=== PATIENT | female | born 1955 | race Caucasian/White ===

== ENCOUNTER 2017-11-11 18:54 | Emergency (ER) | payer MEDICARE, OTHER ==
[~2017-11-11] VITALS: Ht 152.4 cm; Wt 107.3 kg
[~2017-11-11 18:54] MED LIST: ABILIFY MAINTE400 M1 IM; AMITRIPTYLINE100 MG PO; ASPIRIN EC81 MG PO; AZITHROMYCIN250 MG PO; CYANOCOBAL1000 MCG/M IM; CYCLOBENZAPRINE10 MG PO; FLUOXETINE HCL20 MG PO; GLUCOPHAGE1000 MG PO; HUMALOG100 UNIT/1 SUB-Q; HUMULIN 70100 UNIT/3 SUB-Q; HYDROXYZINE HCL25 MG PO; IBUPROFEN600 MG PO; LANTUS SOL100 UNIT/1 SQ; LANTUS100 UNITS/ SUB-Q; LISINOPRIL20 MG PO; LOVASTATIN40 MG PO; NITROSTAT0.4 MG SL; NORCO 5-325 TA1 EACH PO; NOVOLOG100 UNITS/ IV; OMEPRAZOLE20 MG PO; OXYBUTYNIN CHLOR5 MG PO; PLAVIX75 MG PO; PREDNISONE20 MG PO; PROAIR HFA8.5 GM IH; PROMETHAZINE-COD5 ML PO; RANITIDINE HCL150 MG PO; SERTRALINE HCL50 MG PO; TRAZODONE HCL150 MG PO
[2017-11-11] MEDS ORDERED: LISINOPRIL20 MG PO (19:05)
[2017-11-11] MEDS ORDERED: OXYBUTYNIN CHLOR5 MG PO (19:05)
[2017-11-11] MEDS ORDERED: RANITIDINE HCL150 MG PO (19:06)
[2017-11-11] MEDS ORDERED: PRAVASTATIN SOD40 MG PO (19:06)
[2017-11-11] MEDS ORDERED: GABAPENTIN100 MG PO (20:43)
== END 2017-11-11 21:02 | disposition home or self-care (01) ==
LOC: ED 18:54
DX: G58.8 Other specified mononeuropathies (principal); I10 Essential (primary) hypertension; F32.9 Major depressive disorder, single episode, unspecified; F41.9 Anxiety disorder, unspecified; Z87.891 Personal history of nicotine dependence; Z88.2 Allergy status to sulfonamides; Z88.8 Allergy status to other drugs, medicaments and biological substances; Z79.899 Other long term (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
CPT/HCPCS: 99283

== ENCOUNTER 2018-08-17 09:25 | Observation (INO) | payer MEDICARE, OTHER ==
[~2018-08-17] VITALS: Ht 152.4 cm; Wt 113.4 kg
[~2018-08-17 09:25] MED LIST changes: +ABILIFY MAINTE300 M1 IM; +ABILIFY5 MG PO; +CROMOLYN SODIUM10 ML OPTH; +DESIPRAMINE HCL25 MG PO; +DICLOFENAC SODI75 MG PO; +FLUTICASONE PRO16 GM; +GABAPENTIN100 MG PO; +NOVOLOG100 UNIT/2 SUB-Q; +PRAVASTATIN SOD40 MG PO; -SERTRALINE HCL50 MG PO; +TRESIBA FL100 UNIT/1 SUB-Q; +TRESIBA100 UNIT/1; +ZOLOFT100 MG PO
--- OUTSIDE RECORDS SUMMARY | 2018-08-17 09:28 | XMS ---
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 - Has Care Guidelines CARE PROVIDERS DEENA DIMAS Internal Medicine 05/09/2018-Current PHONE: Unknown Mila Gonzalez Senior Sql Server Developer/Medical Data Analyst 05/20/2018-Current PHONE: [phone] Mila Gonzalez Primary Care 05/20/2018-Current PHONE: [phone] Dylon has no Care Guidelines for this patient. Care History Medical/Surgical 05/09/2018 [facility] - Patient is currently established with [facility]. If patient is seen in the ED during business hours. Please contact CHWs at [facility]. Care Recommendation: This patient has had 5 or more Emergency Department visits in the last 12 months.\T\nbsp; Patient requires education on the scope and purpose of the ED as an acute care provider not a Primary Care Provider and should not be utilized for chronic conditions.\T\nbsp; These are guidelines and the provider should exercise clinical judgment when providing care. E.D. VISIT COUNT (12 MO.) 4 DANNY Latif TOTAL 4 NOTE: Visits indicate total known visits. ED/UCC VISIT TRACKING (12 MO.) 08/17/2018 09:25 [facility] N[facility] [place] TYPE: Emergency COMPLAINT: - DIFFICULTY BREATHING 05/08/2018 18:35 [facility] [place] TYPE: Emergency COMPLAINT: - SHORTNESS OF BREATH DIAGNOSES: - Other retirement (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 - Unspecified visual disturbance - Chronic obstructive pulmonary disease, unspecified - Allergy status to sulfonamides status - Pure hypercholesterolemia, unspecified - Major depressive disorder, single episode, unspecified - Anxiety disorder, unspecified - Essential (primary) hypertension - Personal history of nicotine dependence - Allergy status to other drugs, medicaments and biological substances status - Other visual disturbances - Type 2 diabetes mellitus without complications - Personal history of transient ischemic attack (TIA), and cerebral infarction without residual deficits - 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 04/09/2018 17:56 [facility] [place] TYPE: Emergency COMPLAINT: - DIZZINESS/FALL DIAGNOSES: - Strain of muscle, fascia and tendon at neck level, initial encounter - 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 [place] TYPE: Emergency COMPLAINT: - LEG SWOLLEN/NO INJURY DIAGNOSES: - Major depressive disorder, single episode, unspecified - Anesthesia of skin - Essential (primary) hypertension - Personal history of nicotine dependence - Anxiety disorder, unspecified - Allergy status to sulfonamides status - Allergy status to other drugs, medicaments and biological substances status - Other specified mononeuropathies - Other retirement (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 INPATIENT VISIT TRACKING (12 MO.) No inpatient visits to display in this time frame [email or web address]
[2018-08-17] MEDS ORDERED: MEDROL4 M1 PO (10:48)
--- NOTE | 2018-08-17 14:31 | NUR ---
1430 RN TO ROOM TO GIVE MEDICATION, CBG CHECKED AND LUNCH HAS BEEN ORDERED PER PT. WATER GIVEN. CALL LIGHT WITHIN REACH AND PT HAS NO OTHER CONCERNS AT THIS TIME.
[2018-08-17] MEDS ORDERED: L-METHYLFOLATE15 M1 PO (14:54)
--- NOTE | 2018-08-17 14:58 | EKG ---
[facility] [address] [place], [place] [address] Signed Normal sinus rhythm Normal ECG When compared with ECG of 08-MAY-2018 19:20, No significant change was found Confirmed by HALINA HASSAN MD ([id number]) on 08/17/2018 2:57:54 PM Electronically Signed By: HALINA HASSAN MD 08/17/18 1458 PATIENT NAME: TANNER GUILLEN ANYAJIMMY Electrocardiogram DATE OF : 51 PHYSICIAN: HALINA HASSAN MD REPORT #: [id number] REPORT IS CONFIDENTIAL AND NOT TO BE RELEASED WITHOUT AUTHORIZATION
[2018-08-17] MEDS ORDERED: NORPRAMIN25 MG PO (15:13)
[2018-08-17] MEDS ORDERED: HYOPHEN TABLET1 EACH (15:14)
[2018-08-17] MEDS ORDERED: HYDROXYZINE PA100 MG PO (15:14)
[2018-08-17] MEDS ORDERED: FLOVENT HFA12 G1 INH (15:15)
[2018-08-17] MEDS ORDERED: ANORO ELLIPTA1 EACH INH (15:16)
--- NOTE | 2018-08-17 15:45 | NUR ---
1540 ORTHOSTATIC BP DONE. 1545 RN TO ROOM TO START FLUIDS, SOCKS PLACED ON PT FEET AND IV FLUIDS STARTED. PT RESTING IN BED WATCHING TV, NO OTHER CONCERNS AND CALL LIGHT WITHIN REACH.
--- NOTE | 2018-08-17 17:25 | NUR ---
PT SITTING UP IN BED, ASSESSMENT COMPLETED. PT IS ALERT AND ORIENTED AND DENIES SOB OR PAIN. CALL LIGHT AND H20 IN REACH. 9 UNITS OF INSULIN ADMINISTERED AND PT SET UP WITH DINNER TRAY. PT DENIES NEEDS/CONCERNS. FAMILY AT BEDSODE.
--- NOTE | 2018-08-17 19:14 | NUR ---
pt was given copd education packet and this was discussed in length with poatient. all questions answered and packet at bedside. call light and h20 in reach.
--- NOTE | 2018-08-17 19:21 | NUR ---
REPORT RECEIVED, PT RESTING IN BED, ON 2LNC, NO C/O SOB/CP AT THIS TIME, IV FLUIDS INFUSING PER EMAR WNL, PT DENIES ANY NEEDS AT THIS TIME, CALL LIGHT WITHIN REACH, FALL PRECAUTIONS IN PLACE.
--- NOTE | 2018-08-17 20:01 | NUR ---
HELPED PT TO THE BATHROOM AND BACK TO BED WITH HER FWW. BEDSIDE TABLE AND CALL LIGHT IN REACH.
--- NOTE | 2018-08-17 20:30 | NUR ---
VITALS DONE AND CHARTED. OFFERED FRESH ICE WATER, SHE SAID NO SHE WAS GOING TO GO TO SLEEP. BEDSIDE TABLE AND CALL LIGHT IN REACH. PT NEEDS NOTHING MORE AT THIS TIME.
--- NOTE | 2018-08-17 21:26 | NUR ---
IN ROOM TO ADMIN EVENING MEDS, SHIFT ASSESSMENT COMPLETE, PT AOX4, APPROPRIATE, PT'S CBG 334, 9 UNITS OF INSULIN COVERAGE PROVIDED PER EMAR, PT TOLERATED WELL, PT ON 3LNC, O2 SAT > 90%, PT DENIES ANY SOB/CP AT REST, DOES C/O SOB WITH ANY ACTIVITY SUCH SITTING UP IN BED, PT'S CMS INTACT, HEART SOUNDS REGULAR, PULSES STRONG, EQUAL, PT DENIES ANY NEEDS AT THIS TIME, IV FLUIDS INFUSING PER EMAR WNL, CALL LIGHT WITHIN REACH, FALL PRECAUTIONS IN PLACE.
--- NOTE | 2018-08-17 23:00 | NUR ---
PT RESTING IN BED, EYES CLOSED, BREATHS EVEN, UNLABORED, ON 3LNC, NO C/O SOB/CP, IV FLUIDS INFUSING PER EMAR WNL, CALL LIGHT WITHIN REACH, FALL PRECAUTIONS IN PLACE.
--- NOTE | 2018-08-18 00:41 | NUR ---
PT RESTING IN BED, EYES CLOSED, BREATHS EVEN, UNLABORED, NO REQUESTS AT THIS TIME, IV FLUIDS INFUSING PER EMAR WNL, CALL LIGHT WITHIN REACH.
--- NOTE | 2018-08-18 01:57 | NUR ---
PT RESTING IN BED, AOX4, NO C/O SOB/CP, PT STATES THAT HER BREATHING FEELS BETTER, O2 SAT 90% ON 3LNC, RR 18, LS REMAIN DIMINISHED, FAINT WHEEZES ON LEFT SIDE, WELL UPPER RIGHT LOBES, PT CONTINUES TO HAVE A OCCASIONAL DRY COUGH, NO SPUTUM NOTED, PT ENCOURAGED TO CDB, WELL USE I.S. PT AGREEABLE. NO REQUESTS AT THIS TIME, ASSESSMENT COMPLETE, IV FLUIDS INFUSING PER EMAR WNL, SCD'S ON, CALL LIGHT WITHIN REACH, FALL PRECAUTIONS IN PLACE.
--- NOTE | 2018-08-18 01:58 | NUR ---
VITALS AND I&OS DONE AND CHARTED. FRESH ICE WATER GIVEN. BEDSIDE TABLE AND CALL LIGHT IN REACH. PT NEEDS NOTHING MORE AT THIS TIME.
--- NOTE | 2018-08-18 02:12 | NUR ---
HELPED PT TO THE BATHROOM AND BACK TO BED WITH HER FWW. BEDSIDE TABLE AND CALL LIGHT IN REACH.
--- NOTE | 2018-08-18 04:26 | NUR ---
PT RESTING IN BED, EYES CLOSED, BREATHS EVEN, UNLABORED, NO REQUESTS AT THIS TIME, CALL LIGHT WITHIN REACH, FALL PRECAUTIONS IN PLACE. ON 3LNC, NO C/O SOB/CP. IV FLUIDS INFUSING PER EMAR WNL.
--- NOTE | 2018-08-18 04:54 | NUR ---
PT AOX4 THIS SHIFT, APPROPRIATE, NO C/O PAIN, NO C/O SOB/CP AT REST, PT DOES C/O SOME SOB WITH ACTIVITY, PT'S O2 SAT REMAINS AROUND 90% ON 3LNC, TOLERATING WELL, PT 1 PERSON ASSIST/FWW, IV SL, FLUSHES WELL, SCD'S ON. PT ABLE TO SLEEP WELL THIS SHIFT, VSS, AFEBRILE, ENCOURAGE TO CDB/ USE IS. SCHEDULED NEBS.
--- NOTE | 2018-08-18 05:34 | NUR ---
CALL LIGHT ANSWERED, PT ASSISTED TO BATHROOM, 1PA/FWW, TOLERATED WELL, C/O SOME LIGHT HEADEDNESS WITH AMBULATION BUT RESOLVED QUICKLY WITH REST, PT ON 3LNC, O2 SAT 90-92%, NO C/O SOB/CP, PT BACK TO BED, SCD'S ON, PT STATES HER BREATHING FEELS BETTER COMPARED TO YESTERDAY, RR 20, PT ENCOURAGED TO CDB AND USE I.S, PT ABLE TO REACH 900 ON I.S. THIS MORNING. PT DENIES ANY NEEDS AT THIS TIME, CALL LIGHT WITHIN REACH, VSS.
--- NOTE | 2018-08-18 07:10 | NUR ---
REPORT RECEIVED FROM ROJAS DORAN. PT RESTING ON RIGHT SIDE WITH EYES CLOSED. 3L O2 BY NC IN PLACE. BED RAILS UP. CALL LIGHT WITHIN REACH.
--- NOTE | 2018-08-18 08:42 | NUR ---
patient had no chair in her room, this JOB PLACEMENT OFFICER took the chair from room 119 and put it in room 122
--- NOTE | 2018-08-18 08:58 | NUR ---
MORNING ASSESSMENT AND MEDICATION DUE. THIS RN TO BEDSIDE. PT FINISHED WITH BREAKFAST AND RESTING IN BED. PT ENCORUAGED TO GET UP TO CHAIR. PT AGREES, 1PA, FWW UP TO CHAIR. PULSE OX READS 89%, LUNG SOUNDS DEMINISHED WITH MINIMAL WHEEZES. RT CALLED FOR BREATHING TX. AFTER TX PT REMAINS AT 89%, O2 INCREASED TO 4L BY NC. PT STATES SHE FEELS SOB, NO ACCESSARY MUSCLE USE OR PURSED LIP BREATHING NOTED. PT REPORTS 5/10 PAIN IN LEGS AND HEADACHE. SEE MAR FOR MEDICATION GIVEN. RT CONTINUEING TO MONITOR PT AND O2 LEVEL. DIET 7-UP PROVIDED PER PT REQUEST. CALL LIGHT WITHIN REACH. NO ADDITIONAL REQUESTS OR COMPLAINTS AT THIS TIME.
--- NOTE | 2018-08-18 10:34 | NUR ---
THIS RN TO ROOM WITH MD FOR ROUNDS. PT NO LONGER ON CONTINIOUS PULSE OX. SPOT CHECK SHOWS 90% ON 3L O2. PT ANTICIPATING DISCHARGE. PT REQUESTS COUGH MEDICATION, MD AWARE. NO ADDITIONAL REQUESTS OR COMPLAINTS AT THIS TIME. BED RAILS UP. CALL LIGHT WITHIN REACH.
[2018-08-18] MEDS ORDERED: IPRAT-ALBUT 0.5-3 ML INH (10:37)
[2018-08-18] MEDS ORDERED: DELTASONE20 MG PO (10:40)
[2018-08-18] MEDS ORDERED: TESSALON PERLE100 MG PO (10:41)
[2018-08-18] MEDS ORDERED: TRESIBA FL100 UNIT/1 SUB-Q (10:43)
[2018-08-18] MEDS ORDERED: NOVOLOG100 UNIT/2 SUB-Q (10:44)
--- NOTE | 2018-08-18 11:03 | NUR ---
PT CALL LIGHT ON. PT REQUESTS ASSISTANCE UP TO RESTROOM. SBA, FWW UP TO RESTROOM. PT REQUESTS COUGH MEDICATION. SEE MAR FOR MEDICATION GIVEN. BED RAILS UP. CALL LIGHT WITHIN REACH. PT USES IS, REACHING 1000.
--- NOTE | 2018-08-18 11:45 | NUR ---
CALL RECEIVED FROM CANDACE AT [facility] WHO STATES THEY WILL MEET THE PT AT HER HOUSE AT 3PM TODAY TO DELIVER HOME OXYGEN AND NEBULIZER EQUIPMENT.
--- NOTE | 2018-08-18 12:38 | NUR ---
PT READY FOR DISCHARGE. MEDICATIONS GIVEN. PT UP TO RESTROOM AND ASSISTED WITH DRESSING. PIV DC'D PER PROTOCOL BY NIGEL ROBERTO. WNL, GAUZE AND COBAN APPLIED. VITALS TAKEN. DISCHARGE INSTRUCTIONS REVIEWED WITH PT. PT VERBALIZES UNDERSTANDING AND STATES HER QUESTIONS HAVE BEEN ANSWERED. MASOUD BYRNE CALLED FOR PT. PT WHEELED FROM CLINIC. NO ADDITIONAL REQUESTS CONCERNS, OR COMPLAINTS.
--- NOTE | 2018-08-18 13:05 | NUR ---
HOME OXYGEN TANK APPLIED. TAXI ARRIVED. PT TRANSFERES SELF TO WHEEL CHAIR. HOME OXYGEN TANK SET TO 4L O2 BY OK. PT WHEELED FROM UNIT WITH BELONGINGS. NO REQUESTS, COMPLAINTS, OR QUESTIONS.
--- NOTE | 2018-08-20 11:31 | NUR ---
FAXED CHART NOTES INCLUDING FACE SHEET, HOME O2 QUALIFIER, H AND P, DC SUMMARY AND PACKET. RECIEVED FAX CONFIRMATION. ALSO SPOKE WITH KEKE AND SHE STATES THE PT DID GET SET UP WITH O2.
== END 2018-08-18 13:05 | disposition home or self-care (01) ==
LOC: ED 09:25 → MS 09:26
PROVIDERS: ADMIT Internal Medicine
DX: J44.1 Chronic obstructive pulmonary disease with (acute) exacerbation (principal); J96.91 Respiratory failure, unspecified with hypoxia; E86.0 Dehydration; I10 Essential (primary) hypertension; E78.5 Hyperlipidemia, unspecified; K21.9 Gastro-esophageal reflux disease without esophagitis; R39.15 Urgency of urination; G47.33 Obstructive sleep apnea (adult) (pediatric); E11.9 Type 2 diabetes mellitus without complications; G89.29 Other chronic pain; G25.81 Restless legs syndrome; F41.9 Anxiety disorder, unspecified; F43.10 Post-traumatic stress disorder, unspecified; F20.9 Schizophrenia, unspecified; F19.11 Other psychoactive substance abuse, in remission; F32.9 Major depressive disorder, single episode, unspecified; Z86.73 Personal history of transient ischemic attack (TIA), and cerebral infarction without residual deficits; Z87.891 Personal history of nicotine dependence; Z88.2 Allergy status to sulfonamides; Z88.8 Allergy status to other drugs, medicaments and biological substances; Z79.4 Long term (current) use of insulin; Z79.51 Long term (current) use of inhaled steroids; Z79.52 Long term (current) use of systemic steroids; Z79.899 Other long term (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
CPT/HCPCS: 36415; 71046; 80053; 82803; 85025; 87502; 93005; 93010; 94640; 94761; 99291; G0378; J1100; J1815; J7120; J7512

== ENCOUNTER 2018-09-12 12:13 | Emergency (ER) | payer MEDICARE, OTHER ==
[~2018-09-12] VITALS: Ht 152.4 cm; Wt 113.4 kg
--- OUTSIDE RECORDS SUMMARY | ~2018-09-12 | XMS | Encounter Summary ---
Demographics + + + | Address | [address] | | | [place] [address] | + + + | Home Phone | | + + + | Preferred Language | Unknown | + + + | Marital Status | Unknown | + + + | Congregational Affiliation | Unknown | + + + | Race | Unknown | + + + | Ethnic Group | Unknown | + + + Author + + + | Author | [email or web address] | + + + | Organization | [facility] [email or web address] | + + + | Address [...] Team Providers + +------+ + | Care Electroslag Welding Machine Operator Name | Role | Phone [...] + + | 07/30/ | Refill | [facility] | Jerry Yeager, | | | 2018 | | Endocrinology [address] | [address] RENTAL CLERK | | | | | [place] | | | | | | [place] | | | | | | [address] | | | | | | [phone] | | | +--------+--------+ + + + [...] [place] | | | | | | [address] | | | | | | | | +--------+ + + + + | 12/06/ | Office | Endocrinology | Torres Barrientos, | | | 2019 | Visit | | MD Edwar BROTHERS | | | | | | [place] | | | | | | [place] [address] | | | | | | [phone] | | | | | | | | +--------+ + + + + as of this encounter Visit Diagnoses Not on filein this encounter"
--- OUTSIDE RECORDS SUMMARY | ~2018-09-12 | XMS | Encounter Summary ---
Demographics + + + | Address | [address] | | | [place] [address] | + + + | Home Phone [...] + + + | Author | [employer] | + + + | Organization | [facility] [employer] | + + + | Address [...] Team Providers + +------+ + | Care Grades 1 Through 6 Teacher Name | Role | Phone | + +------+ + | Flavio Dimas DO | PCP | | + +------+ + Reason for Referral Speech Therapy (Routine) + + + + + + + | Status | Reason | Specialty | Diagnoses / | Referred By | Referred To | | | | | Procedures | Contact | Contact | + + + + + + + | Authorized | [employer] HELPER Adult | Speech | Diagnoses | [place], | [facility] Speech | | | | Pathology / | Memory | MD Don | Language | | | | Speech | deficit | [address] | Pathology | | | | Therapy | | [address] | [address] | | | | | | [address] [address] | [address] | | | | | | [place], [place] | [place], [place] | | | | | | [address] | [address] Phone: | | | | | | Phone: | [phone] | | | | | | [phone] | Fax: | | | | | | Fax: | [phone] | | | | | | [phone] | | + + + + + + + Reason for Visit + + + | Reason | Comments | + + + | Establish Care | Evaluation for cognitive function and awareness | + + + Consult and Treat (Routine) + +--------+ + + + + | Status | Reason | Specialty | Diagnoses / | Referred By | Referred To | | | | | Procedures | Contact | Contact | + +--------+ + + + + | Pending | | Neurology | Diagnoses | Tanner, | Jose, | | Review | | | Other | DO Flavio | MD Don | | | | | symptoms and | [address] | [address] | | | | | signs | [address] | [address] | | | | | involving | [address] | [place], [place] | | | | | cognitive | [place], | [address] Phone: | | | | | functions | [place] [address] | [phone] | | | | | and | Phone: | Fax: | | | | | awareness | [phone] | [phone] | | | | | | Fax: | | | | | | | [phone] | | + +--------+ + + + + Encounter Details +--------+---------+ + + + | Date | Type | Department | Care Team | Description | +--------+---------+ + + + | 07/03/ | Office | [facility] | Don Garcia, | Exercise counseling | | 2019 | Visit | [facility] | [address] | (Primary Dx); Memory | | | | [address] | [address] [place], [place] | deficit | | | | [place], [place] | [address] | | | | | [address] | | | | | | [phone] | | | +--------+---------+ + + + [...] + + + as of this encounter Last Filed Vital [...] AM PST | + + + + in this encounter Instructions Patient Instructions - Don Garcia MD - 07/03/2018 10:30 AM PST1- Healthy diet, mental and physical exercises (lumosity). 2- Labs. 3- Follow with sleep specialist for better management of TEE. 4- Follow with psychiatry to try to simplify regimen if possible. 5- Referral to for mental rehabilitation. 6- RTC in 3 months with memory test. in this encounter Progress Notes Don Garcia MD - 07/03/2018 10:30 AM PSTFormatting of this note may be different from the original. Subjective: Patient ID: Antonia Barger is a 62 y.o. female. HPI Dear FLAVIO DIMAS. Thank you for asking us to participate in your patient's care. As you know, Antonia Barger is a 62 y.o. right handed female who presents today for evalu ation of memory deficit. New vitis. Previous neurologist: None. - Onset, context and course: Years; none; progressive. - Localization, quality and severity: Short and usp memory deficit, hard to concentra te, repeat [...] factors: None. - Alleviating factors: None. She is on Trazodone, Abilify and Zoloft. - Previous record/diagnosis and treatment: TP: NR CMP is ok except elevated blood glucose. HGBA1c: 9.4 Vit B12: [address] from 03/2018 was reported normal per report. PCP note mentioned mild chronic microvascular ischemic changes, and MMSE of 29/30. Current Outpatient Prescriptions: ABILIFY MAINTENA 300 MG SUSR, , Disp: , Rfl: Alcohol Swabs (ALCOHOL PREP) 70 % PADS, USE 1 PAD 4 TIMES DAILY, Disp: 100 each, Rfl: 11 ARIPiprazole (ABILIFY) 15 MG tablet, , Disp: , Rfl: Blood Glucose Monitoring Suppl (BLOOD GLUCOSE MONITOR SYSTEM) W/DEVICE device kit, Ple ase use for checking glucose 3 times a day, Disp: 1 each, Rfl: 0 cromolyn (OPTICROM) 4 % ophthalmic solution, , Disp: , Rfl: fluticasone (FLONASE) 50 MCG/ACT nasal, , Disp: , Rfl: glucose blood (FREESTYLE LITE) test strip, 1 each by Other route 3 (three) times daily . Use as instructed to check blood sugar three times daily before meals and at bedtime. E11. 65, Disp: 300 each, Rfl: 3 insulin aspart (NOVOLOG) 100 UNIT/ML injection, INJECT 30 UNITS SUBCUTANEOUSLY THREE T IMES DAILY BEFORE MEAL(S). Dx code E11.65, Disp: 30 mL, Rfl: 11 insulin degludec (TRESIBA) 100 UNIT/ML injection, 60 units once a day, Disp: 30 mL, Rf l: 11 Insulin Pen Needle (PEN NEEDLES) 31G X 5 MM MISC, 1 each by Does not apply route daily ., Disp: 30 each, Rfl: 11 Lancets (FREESTYLE) lancets, 1 each by Other route 3 (three) times daily. Use as instr ucted to check blood sugar three times daily. E11.65, Disp: 300 each, Rfl: 3 lisinopril (ZESTRIL) 20 MG tablet, , Disp: , Rfl: omeprazole (PRILOSEC) 20 MG capsule, , Disp: , Rfl: oxybutynin (DITROPAN) 5 MG tablet, , Disp: , Rfl: pravastatin (PRAVACHOL) 40 MG tablet, TAKE ONE TABLET BY MOUTH ONCE DAILY, Disp: 30 ta blet, Rfl: 3 ranitidine (ZANTAC) 150 MG capsule, , Disp: , Rfl: RELION ALCOHOL SWABS 70 % PADS, USE 1 SWAB EXTERNALLY 4 TIMES DAILY, Disp: 100 each, R fl: 8 RELION INSULIN SYRINGE 1ML/31G 31G X 5/16" 1 ML, , Disp: , Rfl: sertraline (ZOLOFT) 50 MG tablet, , Disp: , Rfl: traZODone (DESYREL) 150 MG tablet, , Disp: , Rfl: TRESIBA FLEXTOUCH 200 UNIT/ML injection, INJECT 60 UNITS SUBCUTANEOUSLY DAILY, Disp: 2 7 mL, Rfl: 3 carbidopa-levodopa (SINEMET) 10-100 MG per tablet, , Disp: , Rfl: FLUoxetine (PROZAC) 20 MG tablet, , Disp: , Rfl: Past Medical History Diagnosis Date COPD (chronic obstructive pulmonary disease) ([facility]) Depression Diabetes mellitus, type 2 (HCC) 1996 Hyperlipidemia Hypertension IBS (irritable bowel syndrome) Neuropathy Family History Problem Relation Age of Onset Adopted: Yes Diabetes type II Mother Cancer Father Cancer Sister Cancer Brother Social History Social History Marital status: Unknown Spouse name: N/A Number of children: N/A Years of education: N/A Occupational History Not on file. Social History Main Topics Smoking status: Former Smoker Quit date: 07/07/2009 Smokeless tobacco: Former User Quit date: 10/05/2010 Alcohol use No Drug use: Unknown Sexual activity: Not on file Other Topics Concern Not on file Social History Narrative No narrative on file Past medical history, family history and social history were reviewed and updated as [facility]. Review of Systems The patient reports appetite change, chills, fatigue, neck pain, hearing loss, drooling, ey e pain, visual disturbance, cough, shortness breath, chest pain, neck swelling, diarrhea, fr equency, arthralgia, back pain, dizziness, headaches, lightheadedness, speech difficulty, we akness, confusion and memory loss, decreased concentration, we will change, hallucination, n ervousness, and sleep disturbance. All other system were reviewed and are negative. Objective: Physical Exam Vitals: Vitals: 07/03/18 1027 BP: 134/77 Pulse: 88 SpO2: 90% General: Well developed, in no acute distress Neck: Supple, unable to appreciate bruits. Heart: S1, S2, no murmur. Peripheral vascular system: Normal pulse in upper extremities. Detailed Neurologic Exam Speech: Is normal; fluent and spontaneous with normal naming and repetition. Cognition: The patient is oriented to person, place, and time. Cranial Nerves: At this time, the pupils are equal, round, and reactive to light. Visual fi elds are full to finger confrontation. Extraocular movements are intact. Trigeminal sensatio n is intact and the muscles of mastication are normal. The face is symmetric. Hearing is sym metric bilaterally to fingers rubbing. The palate elevates in the midline. Voice is normal. Shoulder shrug is normal. The tongue has normal motion without fasciculations. Coordination: Normal finger to nose. Gait: Antalgic and wide based. Observation: No asymmetry, and no involuntary movements noted. Strength: Strength is 5/5 in the upper extremities and 4/5 in lower extremities. Light Touch: Normal light touch sensation in upper and lower extremities. DTR's: Deep tendon reflexes in the upper extremities and knees are normal bilaterally. Assessment and Plan: This patient presented today for evaluation and management of cognitive impairment. she is here today by self. Impression: 1- Memory deficit, mild cognitive impairmeent and due to hearing loss, untreated TEE, mood disorder and medications side effect. 2- Obesity and sleep disorder, per sleep specialist. 3- Mood disorder, per psychiatry. Plan: 1- The differential diagnosis and the necessary work up were discussed with the patient in detail. 2- I reviewed the available medical record and summarized it in my HPI. 3- We discussed the safety issues in detail including safe environment. Was referred to PT and she is using a walker. 4- For #1, labs, WACE test, healthy diet, mental and physical exercises. Refer to ST. Mild cognitive impairment, symptomatic, will hold on medication for now. 5- Was referred to sleep specialist. May benefit from referral to jewel gauger. 6- I covered with the patient all side effects of the regimen and the interaction with othe r medications (her medications may affect her memory). Patient understands and agrees to pro ceed with the regimen / plan. 7- Risk factors modification per PCP. The patient was instructed to follow up with PCP in r egards to the non neurological symptoms listed on the review of symptoms. 8- RTC in 3 months or prn. However, patient was instructed to call with any concern, if sym ptoms are worsening, not improving or if any side effects related to regimen. Follow with psychiatry to try to simplify medications if possible. in this encounter Plan of Treatment +--------+ + [...] | 2018 | Visit | | MD [address] | | | | | | [place], [place] | | | | | | [address] | | | | | | | | +--------+ + + + + | 12/06/ | Office | Endocrinology | Torres Barrientos, | | | 2018 | Visit | | MD [address] | | | | | | [place] | | | | | | [place] [address] | | | | | | [phone] | | | | | | | | +--------+ + + + + + +--------+ + + | Name | Priori | Associated Diagnoses | Order Schedule | | | ty | | | + +--------+ + + | Vitamin B1,whole blood | Routin | Memory deficit | Expected: | | | e | | 07/03/2018, Expires: | | | | | 07/03/2019 | + +--------+ + + | TSH | Routin | Memory deficit | Expected: 07/03/2018 | | | e | | (Approximate), | | | | | Expires: 07/03/2019 | + +--------+ + + + +--------+ + + | Name | Priori | Associated Diagnoses | Order Schedule | | | ty | | | + +--------+ + + | Ambulatory referral to Speech | Routin | Memory deficit | Ordered: 07/03/2018 | | Therapy, Eval and Treat | e | | | + +--------+ + + as of this encounter Visit Diagnoses + + | Diagnosis | + + | Exercise counseling - Primary | + + | Memory deficit | + + | Memory loss | + +
--- OUTSIDE RECORDS SUMMARY | ~2018-09-12 | XMS | Encounter Summary ---
Demographics + + + | Address | [address] | | | [place] [address] | + + + | Home Phone | | + + + | Preferred Language | Unknown | + + + | Marital Status | Unknown | + + + | Jew Affiliation | Unknown | + + + | Race | Unknown | + + + | Ethnic Group | Unknown | + + + Author + + + | Author | [employer] | + + + | Organization | [facility] [employer] | + + + | Address [...] Team Providers + +------+ + | Care Loftsman Name | Role | Phone | + [...] + + | 06/27/ | Refill | [facility] | Torres Barrientos, | | | 2018 | | [address] | [address] | | | | | [address] | [place] | | | | | [place], [place] | [place] [address] | | | | | [address] | [phone] | | | | | [phone] | | | +--------+--------+ + + + [...] [place] | | | | | | [address] | | | | | | | | +--------+ + + + + | 12/06/ | Office | Endocrinology | Torres Barrientos, | | | 2018 | Visit | | MD Ed[address] | | | | | | [address] | | | | | | [place] [address] | | | | | | [phone] | | | | | | | | +--------+ + + + + as of this encounter Visit Diagnoses Not on filein this encounter"
--- OUTSIDE RECORDS SUMMARY | ~2018-09-12 | XMS | Clinical Summary ---
Demographics + + + | Address | [address] | | | [place] [address] | + + + | Home Phone | | + + + | Preferred Language | Unknown | + + + | Marital Status | Unknown | + + + | Buddhism Affiliation | Unknown | + + + | Race | Unknown | + + + | Ethnic Group | Unknown | + + + Author + + + | Author | [employer] | + + + | Organization | [facility] [employer] | + + + | Address [...] Team Providers + +------+ + | Care Speech/Language Therapist Name | Role | Phone | + [...] | | Torres Barrientos, | Follow-up | | 2018 | | | MD | (Reschedule 08/22 | | | | | | appt due to no | | | | | | transportation in | | | | | | this bad weather.) | +--------+ + + + + | 08/06/ | Telephone | | Torres Barrientos, | Follow-up | | 2018 | | | MD | (reschedule) | +--------+ + + + + | 07/30/ | Refill | | Jerry Yeager, | | | 2018 | | | EAR NOSE THROAT PHYSICIAN | | +--------+ + + + + [...] | | 2018 | Visit | | [address] | | | | | | [place] | | | | | | [address] | | | | | | | | +--------+ + + + + | 12/06/ | Office | | Torres Barrientos, | | | 2019 | Visit | | MD [address] | | | | | | [place] | | | | | | [place] [address] | | | | | | [phone] | | | | | | | [...] +------+-------+ + | MEDICARE | MEDICA | [id number] | | | [address] | | | RE | | | | [place] [address] | | | IP-OP | | | | | + +--------+ +------+-------+ + | MEDICAID | GERARDOER | [id number] | | | [address] | | | N | | | | [place] | | | [place] | | | | [address] | | | SENIOR PAINTER | | | | | + +--------+ [...] | [address] | | | al/Fam | | 1956 | [phone] [place] | | | [place] | | | [phone] | [phone] | + +--------+ +--------+ + +
--- OUTSIDE RECORDS SUMMARY | ~2018-09-12 | XMS | Encounter Summary ---
Demographics + + + | Address | [address] | | | [place] [address] | + + + | Home Phone | | + + + | Preferred Language | Unknown | + + + | Marital Status | Unknown | + + + | Scientologist Affiliation | Unknown | + + + | Race | Unknown | + + + | Ethnic Group | Unknown | + + + Author + + + | Author | [employer] | + + + | Organization | [facility] [employer] | + + + | Address [...] Team Providers + +------+ + | Care Family Support Coordinator Name | Role | Phone | + [...] + + | 07/30/ | Refill | [facility] | Jerry Yeager, | | | 2018 | | Endocrinology [address] | COMMERCIAL SPECIALIST | | | | | [address] | | | | | | [place] | | | | | | [address] | | | | | | [phone] | | | +--------+--------+ + + + [...] [place] | | | | | | [address] | | | | | | | | +--------+ + + + + | 12/06/ | Office | Endocrinology | Torres Barrientos, | | | 2019 | Visit | | MD Edwar [address]OTHERS | | | | | | [address] | | | | | | [place] [address] | | | | | | [phone] | | | | | | | | +--------+ + + + + as of this encounter Visit Diagnoses Not on filein this encounter"
--- OUTSIDE RECORDS SUMMARY | ~2018-09-12 | XMS | Encounter Summary ---
Demographics + + + | Address | [address] | | | [place] [address] | + + + | Home Phone | | + + + | Preferred Language | Unknown | + + + | Marital Status | Unknown | + + + | Sikhism Affiliation | Unknown | + + + | Race | Unknown | + + + | Ethnic Group | Unknown | + + + Author + + + | Author | [employer] | + + + | Organization | [facility] [employer] [facility] | + + + | Address [...] Team Providers + +------+ + | Care Wool Carder Name | Role | Phone | + [...] + + | 08/06/ | Telephone | [facility] | Torres Barrientos, | Follow-up | | 2019 | | Endocrinology [address] | MD [address] | (reschedule) | | | | [address] | [place], [place] | | | | | [place], [place] | [place] [address] | | | | | [address] | [phone] | | | | | [phone] | | | +--------+ + + + [...] [place] | | | | | | [id number] | | | | | | | | +--------+ + + + + | 12/06/ | Office | Endocrinology | Torres Barrientos, | | | 2018 | Visit | | MD Edwar [address]OTHERS | | | | | | [address] [place] | | | | | | [place] [address] | | | | | | [phone] | | | | | | | | +--------+ + + + + as of this encounter Visit Diagnoses Not on filein this encounter"
--- OUTSIDE RECORDS SUMMARY | ~2018-09-12 | XMS | Clinical Summary ---
Demographics + + + | Address | [address] | | | [place] [address] | + + + | Home Phone [...] + + + | Author | [employer] [employer] | + + + | Organization | [facility] [facility] | + + + | Address [...] Team Providers + +------+ + | Care Pharmacy Services Director Name | Role | Phone | [...] + | 07/30/ | Refill | | Jeryr Yeager, | | | 2018 | | | RECREATION LEADER | | +--------+ + + + + [...] [place] | | | | | | [address] | | | | | | | | +--------+ + + + + | 12/06/ | Office | | Torres Barrientos, | | | 2019 | Visit | | MD [address] | | | | | | [place] | | | | | | [place] [address] | | | | | | [phone] | | | | | | | [...] +------+-------+ + | MEDICARE | MEDICA | [id number] | | | [address] | | | RE | | | | [place] [address] | | | IP-OP | | | | | + +--------+ +------+-------+ + | MEDICAID | GERARDOER | [id number] | | | [address] | | | N | | | | [place] | | | [place] | | | | [address] | | | TRUCK GUARD | | | | | + +--------+ [...] | [place] | | | [address] | [address] | + +--------+ +--------+ + +
--- OUTSIDE RECORDS SUMMARY | ~2018-09-12 | XMS | Encounter Summary ---
Demographics + + + | Address | [address] | | | [place] [address] | + + + | Home Phone [...] + + + | Author | [employer] [employer] | + + + | Organization | [facility] [employer] [facility] | + + + | Address [...] Team Providers + +------+ + | Care Die Try Out Worker Name | Role | Phone | + [...] + + | 06/27/ | Refill | [facility] | Torres Barrientos, | | | 2018 | | [address] | [address] | | | | | [address] | [place] | | | | | [place], [place] | [place] [address] | | | | | [address] | [phone] | | | | | [phone] | | | +--------+--------+ + + + [...] [place] | | | | | | [address] | | | | | | | | +--------+ + + + + | 12/06/ | Office | Endocrinology | Torres Barrientos, | | | 2018 | Visit | | MD Edwar [address] | | | | | | [place] | | | | | | [place] [address] | | | | | | [phone] | | | | | | | | +--------+ + + + + as of this encounter Visit Diagnoses Not on filein this encounter"
--- OUTSIDE RECORDS SUMMARY | ~2018-09-12 | XMS | Encounter Summary ---
Demographics + + + | Address | [address] | | | [place] [address] | + + + | Home Phone | | + + + | Preferred Language | Unknown | + + + | Marital Status | Unknown | + + + | Lutheran Affiliation | Unknown | + + + | Race | Unknown | + + + | Ethnic Group | Unknown | + + + Author + + + | Author | [employer] [employer] | + + + | Organization | [facility] [employer] | + + + | Address [...] Team Providers + +------+ + | Care Receipt And Report Clerk Name | Role | Phone | + [...] + + | 08/20/ | Telephone | [facility] | Torres Barrientos, | Follow-up | | 2019 | | Endocrinology [address] | MD [address] | (Reschedule 08/22 | | | | [address] | [address] [place] [address] | appt due to no | | | | [place], [place] | [place] [address] | transportation in | | | | [address] | [phone] | this bad weather.) | | | | [phone] | | | +--------+ + + + [...] [place] | | | | | | [address] | | | | | | | | +--------+ + + + + | 12/06/ | Office | Endocrinology | Torres Barrientos, | | | 2019 | Visit | | MD Edwar [address]OTH[address] | | | | | | [place] | | | | | | [place] [address] | | | | | | [phone] | | | | | | | | +--------+ + + + + as of this encounter Visit Diagnoses Not on filein this encounter"
--- OUTSIDE RECORDS SUMMARY | ~2018-09-12 | XMS | Encounter Summary ---
Demographics + + + | Address | [address] | | | [place] [address] | + + + | Home Phone | | + + + | Preferred Language | Unknown | + + + | Marital Status | Unknown | + + + | Temple Affiliation | Unknown | + + + | Race | Unknown | + + + | Ethnic Group | Unknown | + + + Author + + + | Author | [facility] [employer] | + + + | Organization | [facility] [employer] [facility] | + + + | Address [...] Team Providers + +------+ + | Care Integration Director Name | Role | Phone | [...] + + | 08/06/ | Telephone | [facility] | Torres Barrientos, | Follow-up | | 2019 | | Endocrinology [address] | MD [address] | (reschedule) | | | | [address] | [place], [place] | | | | | [place], [place] | [place] [address] | | | | | [address] | [phone] | | | | | [phone] | | | +--------+ + + + [...] | 10/01/ | Office | Neurology | oDn Garcia, | | | 2018 | Visit | | MD [address] | | | | | | [place] | | | | | | [id number] | | | | | | | | +--------+ + + + + | 12/06/ | Office | Endocrinology | Torres Barrientos, | | | 2018 | Visit | | MD [address] | | | | | | [place] | | | | | | [place] [address] | | | | | | [phone] | | | | | | | | +--------+ + + + + as of this encounter Visit Diagnoses Not on filein this encounter"
--- OUTSIDE RECORDS SUMMARY | ~2018-09-12 | XMS | Encounter Summary ---
Demographics + + + | Address | [address] | | | [place] [address] | + + + | Home Phone | | + + + | Preferred Language | Unknown | + + + | Marital Status | Unknown | + + + | Protestant Affiliation | Unknown | + + + | Race | Unknown | + + + | Ethnic Group | Unknown | + + + Author + + + | Author | [employer] [employer] | + + + | Organization | [facility] [employer] [facility] | + + + | Address [...] Team Providers + +------+ + | Care Harness Cleaner Name | Role | Phone | + [...] + + + + | Authorized | [facility]OM[employer]ELDER Adult | Speech | Diagnoses | [place], | [facility] Speech | | | | Pathology / | Memory | MD Don | Language | | | | Speech | deficit | [address] | Pathology | | | | Therapy | | [address] | [address] | | | | | | [place] [address] | [address] | | | | | | [place], [place] | [place], [place] | | | | | | [address] | [address] Phone: | | | | | | Phone: | [phone] | | | | | | [phone] | Fax: | | | | | | Fax: | [phone] | | | | | | [phone] | | + + + + + [...] | | involving | [address] | [place], [place] | | | | | cognitive | [place], | [address] Phone: | | | | | functions | [place] [address] | [phone] | | | | | and | Phone: | Fax: | | | | | awareness | [phone] | [phone] | | | | | | Fax: | | | | | | | [phone] | | + +--------+ + + + + Encounter Details +--------+---------+ + + + | Date | Type | Department | Care Team | Description | +--------+---------+ + + + | 07/03/ | Office | [facility] | Don Garcia, | Exercise counseling | | 2019 | Visit | [facility] | [address] | (Primary Dx); Memory | | | | [address] | [address] [place], [place] | deficit | | | | [place], [place] | [address] | | | | | [address] | | | | | | [phone] | | | +--------+---------+ + + + [...] - Localization, quality and severity: Short and residential memory deficit, hard to concentra te, repeat [...] Date COPD (chronic obstructive pulmonary disease) ([facility]) Depression Diabetes mellitus, type 2 (HCC) [...] sleep specialist. May benefit from referral to cylinder press operator apprentice. 6- I covered with the patient all [...] | | | | | | [place], [place] | | | | | | [address] | | | | | | | | +--------+ + + + + | 12/06/ | Office | Endocrinology | Torres Barrientos, | | | 2018 | Visit | | MD [address] | | | | | | [place] | | | | | | [place] [address] | | | | | | [phone] | | | | | | | [...]
--- OUTSIDE RECORDS SUMMARY | ~2018-09-12 | XMS | Encounter Summary ---
Demographics + + + | Address | [address] | | | [place] [address] | + + + | Home Phone | | + + + | Preferred Language | Unknown | + + + | Marital Status | Unknown | + + + | Jewish Affiliation | Unknown | + + + | Race | Unknown | + + + | Ethnic Group | Unknown | + + + Author + + + | Author | [facility] [employer] | + + + | Organization | [facility] [employer] | + + + | Address [...] Team Providers + +------+ + | Care Mink Rancher Name | Role | Phone | + [...] + + | 08/20/ | Telephone | [facility] | Torres Barrientos, | Follow-up | | 2019 | | Endocrinology [address] | MD [address] | (Reschedule 08/22 | | | | [address] | [address] | appt due to no | | | | [place], [place] | [place] [address] | transportation in | | | | [address] | [phone] | this bad weather.) | | | | [phone] | | | +--------+ + + + [...] [place] | | | | | | [address] | | | | | | | | +--------+ + + + + | 12/06/ | Office | Endocrinology | Torres Barrientos, | | | 2019 | Visit | | MD [address] | | | | | | [place] | | | | | | [place] [address] | | | | | | [phone] | | | | | | | | +--------+ + + + + as of this encounter Visit Diagnoses Not on filein this encounter"
[~2018-09-12 12:13] MED LIST changes: +ANORO ELLIPTA1 EACH INH; +DELTASONE20 MG PO; +FLOVENT HFA12 G1 INH; +HYDROXYZINE PA100 MG PO; +HYOPHEN TABLET1 EACH; +IPRAT-ALBUT 0.5-3 ML INH; +L-METHYLFOLATE15 M1 PO; +MEDROL4 M1 PO; +NORPRAMIN25 MG PO; +TESSALON PERLE100 MG PO
--- OUTSIDE RECORDS SUMMARY | 2018-09-12 12:16 | XMS ---
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 Neon Pumper Events No recent Security Events currently on file CRITERIA MET - [facility] - Has Care Guidelines - [facility] - 2 Visits in 30 Days CARE PROVIDERS DEENA DIMAS Internal Medicine 05/09/2018-Current PHONE: Unknown Mila Gonzalez Assembly Machine Operator/Laborer [place] 05/20/2018-Current PHONE: [phone] Mila Gonzalez Primary Care 05/20/2018-Current PHONE: [phone] Dylon has no Care Guidelines for this patient. Care History Medical/Surgical 05/09/2018 [facility] - Patient is currently established with [facility]. If patient is seen in the ED during business hours. Please contact CHWs at [facility]. Care Recommendation: This patient has [...] providing care. E.D. VISIT COUNT (12 MO.) [address] [facility] TOTAL 5 NOTE: Visits indicate total known visits. ED/C VISIT TRACKING (12 MO.) 09/12/2018 12:14 [facility] [place] TYPE: Emergency COMPLAINT: - LOW OXYGEN SATURATION 08/17/2018 09:25 [facility] [place] TYPE: Emergency COMPLAINT: - DIFFICULTY BREATHING 05/08/2018 18:35 [facility] [place] TYPE: Emergency COMPLAINT: - SHORTNESS OF BREATH DIAGNOSES: - Other nursing home (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 - Unspecified visual disturbance [...] and cerebral infarction without residual deficits - skilled nursing (current) use of insulin 04/09/2018 17:56 [facility] [place] TYPE: Emergency COMPLAINT: - DIZZINESS/FALL DIAGNOSES: - Strain of muscle, fascia and tendon at neck level, initial encounter - 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 - Essential (primary) hypertension - Personal history of nicotine dependence - 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 - Anxiety disorder, unspecified - Allergy status to other drugs, medicaments and biological substances status - Major depressive disorder, single episode, unspecified - Allergy status to sulfonamides status - Chronic obstructive pulmonary disease, unspecified - Type 2 diabetes mellitus without complications - Fall on same level, unspecified, initial encounter - Cervicalgia 11/11/2017 18:54 [facility] [place] TYPE: Emergency COMPLAINT: - LEG SWOLLEN/NO INJURY DIAGNOSES: - Major depressive disorder, single episode, unspecified - Anesthesia of skin - Essential (primary) hypertension - Personal history of nicotine dependence - Anxiety disorder, unspecified - Allergy status to sulfonamides status - Allergy status to other drugs, medicaments and biological substances status - Other specified mononeuropathies - 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 INPATIENT VISIT TRACKING (12 MO.) 08/17/2018 09:26 [facility] [place] TYPE: Medical Surgical COMPLAINT: - COPD EXACERBATION DIAGNOSES: - Essential (primary) hypertension - Gastro-esophageal reflux disease without esophagitis - Major depressive disorder, single episode, unspecified - Chronic obstructive pulmonary disease with (acute) exacerbation - skilled nursing (current) use of insulin - Dyspnea, unspecified - Urgency of urination - Hyperlipidemia, unspecified - Other nursing home (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 - Respiratory failure, unspecified with hypoxia - Allergy status to other drugs, medicaments and biological substances status - Restless legs syndrome - Allergy status to sulfonamides status - Other chronic pain - Schizophrenia, unspecified - Personal history of nicotine dependence - Anxiety disorder, unspecified - skilled nursing (current) use of systemic steroids - Dehydration - Other psychoactive substance abuse, in remission - Obstructive sleep apnea (adult) (pediatric) - Personal history of transient ischemic attack (TIA), and cerebral infarction without residual deficits - assembly inspector helper (current) use of inhaled steroids - Post-traumatic stress disorder, unspecified - Type 2 diabetes mellitus without complications [email or web address]
[2018-09-12] MEDS ORDERED: PRAZOSIN HCL1 MG PO (12:46)
[2018-09-12] MEDS ORDERED: HYDROCHLOROTHIA25 MG PO (12:47)
[2018-09-12] MEDS ORDERED: PREDNISONE20 MG PO (15:46)
--- NOTE | 2018-09-13 09:30 | EKG ---
[facility] [address] [facility] [place], [place] [address] Signed Sinus tachycardia Nonspecific ST abnormality Abnormal ECG When compared with ECG of 17-AUG-2018 09:34, No significant change was found Confirmed by HALINA HASSAN MD ([id number]) on 09/13/2018 9:30:12 AM Electronically Signed By: HALINA HASSAN MD 09/13/18 0930 PATIENT NAME: TANNER GUILLEN ANYAJIMMY Electrocardiogram DATE OF : 51 PHYSICIAN: HALINA HASSAN MD REPORT #: [id number] REPORT IS CONFIDENTIAL AND NOT TO BE RELEASED WITHOUT AUTHORIZATION
== END 2018-09-12 15:54 | disposition home or self-care (01) ==
LOC: ED 12:13
DX: J44.1 Chronic obstructive pulmonary disease with (acute) exacerbation (principal); E11.65 Type 2 diabetes mellitus with hyperglycemia; I10 Essential (primary) hypertension; E78.00 Pure hypercholesterolemia, unspecified; F32.9 Major depressive disorder, single episode, unspecified; F41.9 Anxiety disorder, unspecified; Z87.891 Personal history of nicotine dependence; Z86.73 Personal history of transient ischemic attack (TIA), and cerebral infarction without residual deficits; Z88.2 Allergy status to sulfonamides; Z88.8 Allergy status to other drugs, medicaments and biological substances; Z79.899 Other long term (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; Z79.4 Long term (current) use of insulin
CPT/HCPCS: 71045; 80053; 83880; 84484; 85025; 93005; 93010; 94640; 96374; 99285-25; J1815; J2930

== ENCOUNTER 2018-09-19 12:29 | Observation (INO) | payer MEDICARE, OTHER ==
[~2018-09-19] VITALS: Ht 152.4 cm; Wt 113.4 kg
--- OUTSIDE RECORDS SUMMARY | ~2018-09-19 | XMS | Encounter Summary ---
Demographics + + + | Address | [address] | | | [place] [address] | + + + | Home Phone | | + + + | Preferred Language | Unknown | + + + | Marital Status | Unknown | + + + | Catholic Affiliation | Unknown | + + + | Race | Unknown | + + + | Ethnic Group | Unknown | + + + Author + + + | Author | [facility] [employer] | + + + | Organization | [facility] [employer] | + + + | Address | Unknown | + + + | Phone | Unavailable | + + + Support + + +---------+ + | Name | Relationship | Address | Phone | + + +---------+ + | Fidelia Mclean | ECON | Unknown | | + + +---------+ + | Destiny Hopson | ECON | Unknown | | + + +---------+ + | Message,Detailed | ECON | Unknown | | + + +---------+ + Care Team Providers + +------+ + | Care Boom Master Name | Role | Phone | + +------+ + | Flavio Hart DO | PCP | | + +------+ + Reason for Visit +--------+ + | Reason | Comments | +--------+ + | Other | ER visit 09/12/2018 | +--------+ + Encounter Details +--------+ + + + + | Date | Type | Department | Care Team | Description | +--------+ + + + + | 09/13/ | Telephone | [facility] | Torres Barrientos, | Other (ER visit | | 2019 | | Endocrinology 1100 | MD [address] | 09/12/2018) | | | | [address] | [facility] [address] | | | | | [place], [place] | [place] [address] | | | | | [address] | [phone] | | | | | [phone] | | | +--------+ + + + + Social History + +-------+ +--------+ + | Tobacco Use | Types | Packs/Day | Years | Date | | | | | Used | | + +-------+ +--------+ + | Former Smoker | | | | Quit: 07/07/2009 | + +-------+ +--------+ + + +---+---+ + | Smokeless Tobacco: | | | Quit: | | Former User | | | 10/06/19 | | | | | 11 | + +---+---+ + + + +---------+ + | Alcohol Use | Drinks/We | oz/Week | Comments | | | ek | | | + + +---------+ + | No | | | | + + +---------+ + + + + | Sex Assigned at | Date Recorded | | | | + + + | Not on file | | + + + as of this encounter Plan of Treatment +--------+ + + + + | Date | Type | Specialty | Care Team | Description | +--------+ + + + + | 09/20/ | Procedure | Neurology | | | | 2018 | visit | | | | +--------+ + + + + | 10/01/ | Office | Neurology | Don Garcia, | | | 2018 | Visit | | MD [address] | | | | | | [place] | | | | | | [id number] | | | | | | | | +--------+ + + + + | 12/06/ | Office | Endocrinology | Torres Barrientos, | | | 2019 | Visit | | MD [address] | | | | | | [place] | | | | | | [place] [address] | | | | | | [phone] | | | | | | | | +--------+ + + + + as of this encounter Visit Diagnoses Not on filein this encounter"
--- OUTSIDE RECORDS SUMMARY | ~2018-09-19 | XMS | Encounter Summary ---
Demographics + + + | Address | [address] | | | [place] [address] | + + + | Home Phone | | + + + | Preferred Language | Unknown | + + + | Marital Status | Unknown | + + + | Nondenominational Affiliation | Unknown | + + + | Race | Unknown | + + + | Ethnic Group | Unknown | + + + Author + + + | Author | [facility] [employer] | + + + | Organization | [facility] [employer] | + + + | Address [...] Team Providers + +------+ + | Care Returner Name | Role | Phone | + +------+ + | Flavio Hart DO | PCP | | + +------+ + Reason for Visit + + + | Reason | Comments | + + + | Follow-up | Reschedule 08/22 appt due to no transportation in this bad | | | weather. | + + + Encounter Details +--------+ + + + + | Date | Type | Department | Care Team | Description | +--------+ + + + + | 08/20/ | Telephone | [facility] | Torres Barrientos, | Follow-up | | 2019 | | Endocrinology [address] | MD [address] | (Reschedule 08/22 | | | | [address] | [address] | appt due to no | | | | [place], [place] | [place] [address] | transportation in | | | | [address] | [phone] | this bad weather.) | | | | [phone] | | | +--------+ + + + [...] [place] | | | | | | [address] | | | | | | | | +--------+ + + + + | 12/06/ | Office | Endocrinology | Torres Barrientos, | | | 2019 | Visit | | MD [address] | | | | | | [place] | | | | | | [place] [address] | | | | | | [phone] | | | | | | | | +--------+ + + + + as of this encounter Visit Diagnoses Not on filein this encounter"
--- OUTSIDE RECORDS SUMMARY | ~2018-09-19 | XMS | Encounter Summary ---
Demographics + + + | Address | [address] | | | [place] [address] | + + + | Home Phone | | + + + | Preferred Language | Unknown | + + + | Marital Status | Unknown | + + + | Restorationism Affiliation | Unknown | + + + | Race | Unknown | + + + | Ethnic Group | Unknown | + + + Author + + + | Author | [facility] [employer] | + + + | Organization | [facility] [employer] [facility] | + + + | Address [...] Team Providers + +------+ + | Care Memorial Marker Designer Name | Role | Phone | + +------+ + | Flavio Hart DO | PCP | | + +------+ + Reason for Visit + + + | Reason | Comments | + + + | Medication Refill | | + + + Encounter Details +--------+--------+ + + + | Date | Type | Department | Care Team | Description | +--------+--------+ + + + | 07/30/ | Refill | [facility] | Jerry Yeager, | | | 2018 | | Endocrinology [address] | AD OPERATIONS ASSOCIATE | | | | | [address] | | | | | | [place] | | | | | | [address] | | | | | | [phone] | | | +--------+--------+ + + + Social History + +-------+ [...] Procedure | Neurology | | | | 2019 | visit | | | | +--------+ + + + + | 10/01/ | Office | Neurology | Don Garcia, | | | 2018 | Visit | | MD [address] | | | | | | [place] | | | | | | [address] | | | | | | | | +--------+ + + + + | 12/06/ | Office | Endocrinology | Torres Barrientos, | | | 2019 | Visit | | MD [address] | | | | | | [place] | | | | | | [place] [address] | | | | | | [phone] | | | | | | | | +--------+ + + + + as of this encounter Visit Diagnoses Not on filein this encounter"
--- OUTSIDE RECORDS SUMMARY | ~2018-09-19 | XMS | Encounter Summary ---
Demographics + + + | Address | [address] | | | [place] [address] | + + + | Home Phone | | + + + | Preferred Language | Unknown | + + + | Marital Status | Unknown | + + + | Restorationist Affiliation | Unknown | + + + | Race | Unknown | + + + | Ethnic Group | Unknown | + + + Author + + + | Author | [facility] [employer] | + + + | Organization | [facility] | + + + | Address [...] Team Providers + +------+ + | Care Carbon Paper Coating Machine Setter Name | Role | Phone | + [...] Description | +--------+--------+ + + + | 06/27/ | Refill | [facility] | Torres Barrientos, | | | 2018 | | [address] | [address] | | | | | [address] | [place] | | | | | [place], [place] | [place] [address] | | | | | [address] | [phone] | | | | | [phone] | | | +--------+--------+ + + + [...] [place] | | | | | | [address] | | | | | | | | +--------+ + + + + | 12/06/ | Office | Endocrinology | Torres Barrientos, | | | 2018 | Visit | | MD [address] | | | | | | [place] | | | | | | [place] [address] | | | | | | [phone] | | | | | | | | +--------+ + + + + as of this encounter Visit Diagnoses Not on filein this encounter"
--- OUTSIDE RECORDS SUMMARY | ~2018-09-19 | XMS | Encounter Summary ---
Demographics + + + | Address | [address] | | | [place] [address] | + + + | Home Phone | | + + + | Preferred Language | Unknown | + + + | Marital Status | Unknown | + + + | Evangelical Affiliation | Unknown | + + + | Race | Unknown | + + + | Ethnic Group | Unknown | + + + Author + + + | Author | [facility] [employer] | + + + | Organization | [facility] | + + + | Address [...] Team Providers + +------+ + | Care Transit Police Officer Name | Role | Phone | + +------+ + | Flavio Hart DO | PCP | | + +------+ + Reason for Visit + + + | Reason | Comments | + + + | Follow-up | reschedule | + + + Encounter Details +--------+ + + + + | Date | Type | Department | Care Team | Description | +--------+ + + + + | 08/06/ | Telephone | [facility] | Torres Barrientos, | Follow-up | | 2019 | | Endocrinology [address] | MD [address] | (reschedule) | | | | [address] | [place], [place] | | | | | [place], [place] | [place] [address] | | | | | [address] | [phone] | | | | | [phone] | | | +--------+ + + + [...] [place] | | | | | | [id number] | | | | | | | | +--------+ + + + + | 12/06/ | Office | Endocrinology | Torres Barrientos, | | | 2018 | Visit | | MD [address] | | | | | | [place] | | | | | | [place] [address] | | | | | | [phone] | | | | | | | | +--------+ + + + + as of this encounter Visit Diagnoses Not on filein this encounter"
--- OUTSIDE RECORDS SUMMARY | ~2018-09-19 | XMS | Encounter Summary ---
Demographics + + + | Address | [address] | | | [place] [address] | + + + | Home Phone | | + + + | Preferred Language | Unknown | + + + | Marital Status | Unknown | + + + | Sabianist Affiliation | Unknown | + + + | Race | Unknown | + + + | Ethnic Group | Unknown | + + + Author + + + | Author | [facility] [employer] | + + + | Organization | [facility] [employer] [facility] | + + + | Address [...] Team Providers + +------+ + | Care Dictionary Editor Name | Role | Phone | + [...] + + | 08/06/ | Telephone | [facility] | Torres Barrientos, | Follow-up | | 2019 | | Endocrinology [address] | MD [address] | (reschedule) | | | | [address] | [place] [place] | | | | | [place], [place] | [place] [address] | | | | | [address] | [phone] | | | | | [phone] | | | +--------+ + + + [...] [place] | | | | | | [id number] | | | | | | | | +--------+ + + + + | 12/06/ | Office | Endocrinology | Torres Barrientos, | | | 2018 | Visit | | MD [address] | | | | | | [place] | | | | | | [place] [address] | | | | | | [phone] | | | | | | | | +--------+ + + + + as of this encounter Visit Diagnoses Not on filein this encounter"
--- OUTSIDE RECORDS SUMMARY | ~2018-09-19 | XMS | Clinical Summary ---
Demographics + + + | Address | [address] | | | [place] [address] | + + + | Home Phone | | + + + | Preferred Language | Unknown | + + + | Marital Status | Unknown | + + + | Islam Affiliation | Unknown | + + + | Race | Unknown | + + + | Ethnic Group | Unknown | + + + Author + + + | Author | [facility] [employer] | + + + | Organization | [facility] [facility] | + + + | Address [...] Team Providers + +------+ + | Care Rough And Truing Machine Operator Name | Role | Phone | + +------+ + | Flavio Hart DO | PP | | + +------+ + Allergies + + + + + + | Active Allergy | Reactions | Severity | Noted | Comments | | | | | Date | | + + + + + + | Sulfa Antibiotics | Nausea and Vomiting, | Medium | 10/06/19 | | | | Rash | | 16 | | + + + + + + Current Medications + + + +---------+------+------+-------+ | Prescription | Sig. | Disp. | Refills | Star | End | Statu | | | | | | t | Date | s | | | | | | Date | | | + + + +---------+------+------+-------+ | ARIPiprazole | | | | 04/1 | | Activ | | (ABILIFY) 15 MG | | | | 1/20 | | e | | tablet | | | | 16 | | | + + + +---------+------+------+-------+ | ABILIFY MAINTENA | | | | 04/1 | | Activ | | 300 MG SUSR | | | | 1/20 | | e | | | | | | 16 | | | + + + +---------+------+------+-------+ | carbidopa-levodopa | | | | 03/0 | | Activ | | (SINEMET) 10-100 MG | | | | 4/20 | | e | | per tablet | | | | 16 | | | + + + +---------+------+------+-------+ | cromolyn | | | | 04/0 | | Activ | | (OPTICROM) 4 % | | | | 1/20 | | e | | ophthalmic solution | | | | 16 | | | + + + +---------+------+------+-------+ | FLUoxetine | | | | 03/2 | | Activ | | (PROZAC) 20 MG | | | | 3/20 | | e | | tablet | | | | 16 | | | + + + +---------+------+------+-------+ | fluticasone | | | | 03/2 | | Activ | | (FLONASE) 50 MCG/ACT | | | | 9/20 | | e | | nasal | | | | 16 | | | + + + +---------+------+------+-------+ | lisinopril | | | | 03/1 | | Activ | | (ZESTRIL) 20 MG | | | | 3/20 | | e | | tablet | | | | 16 | | | + + + +---------+------+------+-------+ | omeprazole | | | | 03/1 | | Activ | | (PRILOSEC) 20 MG | | | | 3/20 | | e | | capsule | | | | 16 | | | + + + +---------+------+------+-------+ | oxybutynin | | | | 03/1 | | Activ | | (DITROPAN) 5 MG | | | | 3/20 | | e | | tablet | | | | 16 | | | + + + +---------+------+------+-------+ | ranitidine | | | | 03/1 | | Activ | | (ZANTAC) 150 MG | | | | 3/20 | | e | | capsule | | | | 16 | | | + + + +---------+------+------+-------+ | sertraline | | | | 04/1 | | Activ | | (ZOLOFT) 50 MG | | | | /20 | | e | | tablet | | | | 16 | | | + + + +---------+------+------+-------+ | traZODone | | | | 03/2 | | Activ | | (DESYREL) 150 MG | | | | /20 | | e | | tablet | | | | 16 | | | + + + +---------+------+------+-------+ | Blood Glucose | Please use for | 1 each | 0 | 09/2 | | Activ | | Monitoring Suppl | checking glucose 3 | | | 20 | | e | | (BLOOD GLUCOSE | times a day | | | 16 | | | | MONITOR SYSTEM) | | | | | | | | W/DEVICE device kit | | | | | | | + + + +---------+------+------+-------+ | pravastatin | TAKE ONE TABLET BY | 30 | 3 | 04/1 | | Activ | | (PRAVACHOL) 40 MG | MOUTH ONCE DAILY | tablet | | 8/20 | | e | | tablet | | | | 17 | | | + + + +---------+------+------+-------+ | Alcohol Swabs | USE 1 PAD 4 TIMES | 100 | 11 | 08/1 | | Activ | | (ALCOHOL PREP) 70 % | DAILY | each | | 7/20 | | e | | PADS | | | | 17 | | | + + + +---------+------+------+-------+ | RELION ALCOHOL | USE 1 SWAB | 100 | 8 | 09/1 | | Activ | | SWABS 70 % PADS | EXTERNALLY 4 TIMES | each | | 6/20 | | e | | | DAILY | | | 18 | | | + + + +---------+------+------+-------+ | insulin degludec | 60 units once a day | 30 mL | 11 | 11/0 | | Activ | | (TRESIBA) 100 | | | | 6/20 | | e | | UNIT/ML injection | | | | 18 | | | + + + +---------+------+------+-------+ | insulin aspart | INJECT 30 UNITS | 30 mL | 11 | 11/1 | | Activ | | (NOVOLOG) 100 | SUBCUTANEOUSLY THREE | | | 2/20 | | e | | UNIT/ML injection | TIMES DAILY BEFORE | | | 18 | | | | | MEAL(S). Dx code | | | | | | | | E11.65 | | | | | | + + + +---------+------+------+-------+ | Lancets | 1 each by Other | 300 | 3 | 11/2 | | Activ | | (FREESTYLE) lancets | route 3 (three) | each | | 9/20 | | e | | | times daily. Use as | | | 18 | | | | | instructed to check | | | | | | | | blood sugar three | | | | | | | | times daily. E11.65 | | | | | | + + + +---------+------+------+-------+ | TRESIBA FLEXTOUCH | INJECT 60 UNITS | 27 mL | 3 | 01/0 | | Activ | | 200 UNIT/ML | SUBCUTANEOUSLY DAILY | | | 2/20 | | e | | injection | | | | 19 | | | + + + +---------+------+------+-------+ | glucose blood | For checking blood | 300 | 3 | 02/0 | | Activ | | (FREESTYLE LITE) | sugar three times | each | | 4/20 | | e | | test strip | daily. Type II | | | 19 | | | | | diabetes, Dx E11.65 | | | | | | | | on insulin | | | | | | + + + +---------+------+------+-------+ | Insulin Pen Needle | 1 each by Does not | 30 each | 11 | 02/ | | Activ | | (PEN NEEDLES) 31G X | apply route daily. | | | 120 | | e | | 5 MM MISC | | | | 19 | | | + + + +---------+------+------+-------+ | RELION INSULIN | 1 each by Other | 100 | 11 | 02/1 | | Activ | | SYRINGE 1ML/31G 31G | route 3 (three) | each | | 07/15 | | e | | X 11/08" 1 ML | times daily. | | | 19 | | | + + + +---------+------+------+-------+ Active Problems + + + | Problem | Noted Date | + + + | Memory deficit | 07/03/2018 | + + + | Uncontrolled type 2 diabetes mellitus with hyperglycemia, with | 05/01/2018 | | long-term current use of insulin (HCC) | | + + + | Pure hypercholesterolemia | 05/01/2018 | + + + | Type II diabetes mellitus, uncontrolled | 10/06/2015 | + + + | Hypertension with goal blood pressure less than 140/90 | 10/06/2015 | + + + | Hyperlipidemia | 10/06/2015 | + + + | Neuropathy | | + + + Encounters +--------+ + + + + | Date | Type | Specialty | Care Team | Description | +--------+ + + + + | 09/13/ | Telephone | | Torres Barrientos, | Other (ER visit | | 2018 | | | MD | 09/12/2018) | +--------+ + + + + | 08/20/ | Telephone | | Torres Barrientos, | Follow-up | 2018 | | | MD | (Reschedule 08/22 | | | | | | appt due to no | | | | | | transportation in | | | | | | this bad weather.) | +--------+ + + + + | 08/06/ | Telephone | | Torres Barrientos, | Follow-up | 2018 | | | MD | (reschedule) | +--------+ + + + + | 07/30/ | Refill | | Jerry Yeager, | | | 2019 | | | AIR LIFT OPERATOR | | +--------+ + + + + | 07/03/ | Office | | Don Garcia, | Exercise counseling | | 2018 | Visit | | MD | (Primary Dx); Memory | | | | | | deficit | +--------+ + + + + | 06/27/ | Refill | | Torres Barrientos, | | | 2018 | | | MD | | +--------+ + + + + from Last 3 Months Family History Patient is adopted + + +------+ + | Medical History | Relation | Name | Comments | + + +------+ + | Cancer | Brother | | | + + +------+ + | Cancer | Father | | | + + +------+ + | Diabetes type II | Mother | | | + + +------+ + | Cancer | Sister | | | + + +------+ + + +------+--------+ + | Relation | Name | Status | Comments | + +------+--------+ + | Brother | | | | + +------+--------+ + | Father | | | | + +------+--------+ + | Mother | | | | + +------+--------+ + | Sister | | | | + +------+--------+ + Social History + +-------+ +--------+ + [...] on file | | + + + Last Filed Vital Signs + + + + | Vital Sign | Reading | Time Taken | + + + + | Blood Pressure | 134/77 | 07/03/2018 10:27 AM PST | + + + + | Pulse | 88 | 07/03/2018 10:27 AM PST | + + + + | Temperature | - | - | + + + + | Respiratory Rate | - | - | + + + + | Oxygen Saturation | 90% | 07/03/2018 10:27 AM PST | + + + + | Inhaled Oxygen | - | - | | Concentration | | | + + + + | Weight | 110.2 kg (243 lb) | 07/03/2018 10:27 AM PST | + + + + | Height | 152.4 cm (5') | 07/03/2018 10:27 AM PST | + + + + | Body Mass Index | 47.46 | 07/03/2018 10:27 AM PST | + + + + Plan of Treatment +--------+ + + + + | Date | Type | Specialty | Care Team | Description | +--------+ + + + + | 09/20/ | Procedure | | | | | 2018 | visit | | | | +--------+ + + + + | 10/01/ | Office | | Don Garcia, | | | 2018 | Visit | | MD [address] | | | | | | [place] | | | | | | [address] | | | | | | | | +--------+ + + + + | 12/06/ | Office | | Torres Barrientos, | | | 2018 | Visit | | MD [address] | | | | | | [place] | | | | | | [place] [address] | | | | | | [phone] | | | | | | | | +--------+ + + + + + + + + + | Health Maintenance | Due Date | Last Done | Comments | + + + + + | Diabetic Eye Exam | | | | | | 4 | | | + + + + + | Vaccine: | | | | | Dtap/Tdap/Td (1 - | 3 | | | | Tdap) | | | | + + + + + | Vaccine: | | | | | Pneumococcal 19-64 | 3 | | | | (PPSV23 only) Medium | | | | | Risk (1 of 1 - | | | | | PPSV23) | | | | + + + + + | Cervical Cancer | | | | | Screening (Pap) | 4 | | | + + + + + | Breast Cancer | | | | | Screening | 4 | | | | (Mammogram) | | | | + + + + + | Colon Cancer | | | | | Screening | 4 | | | | (Colonoscopy) | | | | + + + + + | Vaccine: Zoster (1 | | | | | of 2) | 4 | | | + + + + + | Diabetic Foot Exam | | 02/20/2017, 02/08/2017 | | | | 8 | | | + + + + + | Vaccine: Influenza | | | | | (#1) | 8 | | | + + + + + | Hemoglobin A1c | | 05/01/2018, 10/10/2017, | | | | 9 | 02/08/2017 | | + + + + + | Microalbumin | | 05/01/2018, 10/10/2017 | | | Screening | 9 | | | + + + + + Results Not on filefrom Last 3 Months Insurance + +--------+ +------+-------+ + | Payer | Benefi | Subscriber | Type | Phone | Address | | | t Plan | ID | | | | | | / | | | | | | | Group | | | | | + +--------+ +------+-------+ + | MEDICARE | MEDICA | [id number] | | | [address] | | | RE | | | | [place] [address] | | | IP-OP | | | | | + +--------+ +------+-------+ + | MEDICAID | EASTER | [id number] | | | [address] | | | N | | | | [place], [place] | | | [place] | | | | [address] | | | VENDING TECHNICIAN | | | | | + +--------+ +------+-------+ + + +--------+ +--------+ + + | Guarantor Name | Accoun | Relation to | Date | Phone | Billing Address | | | t Type | Patient | of | | | | | | | | | | + +--------+ +--------+ + + | ANTONIA BARGER | Person | Self [birth year] | Home: | [address] | | | [place] | | [phone] | [phone] | [place] | | | [place] | | | [phone] | + +--------+ +--------+ + +
--- OUTSIDE RECORDS SUMMARY | ~2018-09-19 | XMS | Encounter Summary ---
Demographics + + + | Address | [address] | | | [place] [address] | + + + | Home Phone | | + + + | Preferred Language | Unknown | + + + | Marital Status | Unknown | + + + | Church Affiliation | Unknown | + + + | Race | Unknown | + + + | Ethnic Group | Unknown | + + + Author + + + | Author | [facility] [email or web address] | + + + | Organization | [email or web address] | + + + | Address [...] Team Providers + +------+ + | Care Cell Manager Name | Role | Phone | + [...] + + | 08/06/ | Telephone | [facility] | Torres Barrientos, | Follow-up | | 2019 | | Endocrinology [address] | MD [address] | (reschedule) | | | | [address] | [place], [place] | | | | | [place], [place] | [place] [address] | | | | | [address] | [phone] | | | | | [phone] | | | +--------+ + + + [...] [place] | | | | | | [id number] | | | | | | | | +--------+ + + + + | 12/06/ | Office | Endocrinology | Torres Barrientos, | | | 2018 | Visit | | MD [address] | | | | | | [place] | | | | | | [place] [address] | | | | | | [phone] | | | | | | | | +--------+ + + + + as of this encounter Visit Diagnoses Not on filein this encounter"
--- OUTSIDE RECORDS SUMMARY | ~2018-09-19 | XMS | Encounter Summary ---
Demographics + + + | Address | [address] | | | [place] [address] | + + + | Home Phone | | + + + | Preferred Language | Unknown | + + + | Marital Status | Unknown | + + + | Alevism Affiliation | Unknown | + + + | Race | Unknown | + + + | Ethnic Group | Unknown | + + + Author + + + | Author | [facility] [employer] | + + + | Organization | [facility] [employer] [facility] | + + + | Address [...] Team Providers + +------+ + | Care Abstract Writer Name | Role | Phone | + [...] + + | 07/30/ | Refill | [facility] | Jerry Yeager, | | | 2018 | | Endocrinology [address] | VERIFYING SPECIALIST | | | | | [address] | | | | | | [place] | | | | | | [address] | | | | | | [phone] | | | +--------+--------+ + + + [...] [place] | | | | | | [address] | | | | | | | | +--------+ + + + + | 12/06/ | Office | Endocrinology | Torres Barrientos, | | | 2019 | Visit | | MD [address] | | | | | | [place] | | | | | | [place] [address] | | | | | | [phone] | | | | | | | | +--------+ + + + + as of this encounter Visit Diagnoses Not on filein this encounter"
--- OUTSIDE RECORDS SUMMARY | ~2018-09-19 | XMS | Encounter Summary ---
Demographics + + + | Address | [address] | | | [place] [address] | + + + | Home Phone [...] + + + | Author | [facility] [employer] | + + + | Organization | [facility] | + + + | Address [...] Team Providers + +------+ + | Care Fire Boss Name | Role | Phone | + [...] + + | 08/20/ | Telephone | [facility] | Torres Barrientos, | Follow-up | | 2019 | | Endocrinology [address] | MD [address] | (Reschedule 08/22 | | | | [address] | [address], [address] | appt due to no | | | | [place], [place] | [place] [address] | transportation in | | | | [address] | [phone] | this bad weather.) | | | | [phone] | | | +--------+ + + + [...] [place] | | | | | | [address] | | | | | | | | +--------+ + + + + | 12/06/ | Office | Endocrinology | Torres Barrientos, | | | 2019 | Visit | | MD [address] | | | | | | [place] | | | | | | [place] [address] | | | | | | [phone] | | | | | | | | +--------+ + + + + as of this encounter Visit Diagnoses Not on filein this encounter"
--- OUTSIDE RECORDS SUMMARY | ~2018-09-19 | XMS | Encounter Summary ---
Demographics + + + | Address | [address] | | | [place] [address] | + + + | Home Phone | | + + + | Preferred Language | Unknown | + + + | Marital Status | Unknown | + + + | Taoism Affiliation | Unknown | + + + | Race | Unknown | + + + | Ethnic Group | Unknown | + + + Author + + + | Author | [facility] [employer] | + + + | Organization | [facility] [facility] | + + + | Address [...] Providers + +------+ + | Care Manager Loan Name | Role | Phone | + [...] + + | 09/13/ | Telephone | [facility] | Torres Barrientos, | Other (ER visit | | 2019 | | Endocrinology [address] | MD [address] | 09/12/2018) | | | | [address] | [facility] [place] | | | | | [place], [place] | [place] [address] | | | | | [address] | [phone] | | | | | [phone] | | | +--------+ + + + [...] [place] | | | | | | [address] | | | | | | | | +--------+ + + + + | 12/06/ | Office | Endocrinology | Torres Barrientos, | | | 2019 | Visit | | MD [address] | | | | | | [place] | | | | | | [place] [address] | | | | | | [phone] | | | | | | | | +--------+ + + + + as of this encounter Visit Diagnoses Not on filein this encounter"
--- OUTSIDE RECORDS SUMMARY | ~2018-09-19 | XMS | Encounter Summary ---
Demographics + + + | Address | [address] | | | [place] [address] | + + + | Home Phone | | + + + | Preferred Language | Unknown | + + + | Marital Status | Unknown | + + + | Mu-Ism Affiliation | Unknown | + + + | Race | Unknown | + + + | Ethnic Group | Unknown | + + + Author + + + | Author | [facility] [employer] | + + + | Organization | [facility] | + + + | Address [...] Team Providers + +------+ + | Care Rotary Driller Name | Role | Phone | + [...] + + | 09/13/ | Telephone | [facility] | Torres Barrientos, | Other (ER visit | | 2019 | | Endocrinology [address] | MD [address] | 09/12/2018) | | | | [address] | [facility] [address] | | | | | [place], [place] | [place] [address] | | | | | [address] | [phone] | | | | | [phone] | | | +--------+ + + + [...] [place] | | | | | | [id number] | | | | | | | | +--------+ + + + + | 12/06/ | Office | Endocrinology | Torres Barrientos, | | | 2019 | Visit | | MD [address] | | | | | | [place] | | | | | | [place] [address] | | | | | | [phone] | | | | | | | | +--------+ + + + + as of this encounter Visit Diagnoses Not on filein this encounter"
--- OUTSIDE RECORDS SUMMARY | ~2018-09-19 | XMS | Clinical Summary ---
Demographics + + + | Address | [address] | | | [place] [address] | + + + | Home Phone | | + + + | Preferred Language | Unknown | + + + | Marital Status | Unknown | + + + | Rastafari Affiliation | Unknown | + + + | Race | Unknown | + + + | Ethnic Group | Unknown | + + + Author + + + | Author | [facility] [employer] | + + + | Organization | [facility] | + + + | Address [...] Team Providers + +------+ + | Care Oracle Specialist Name | Role | Phone | [...] | | | 2019 | | | ENTRY LEVEL ACCOUNT EXECUTIVE | | +--------+ + + + + [...] [place] | | | | | | [address] | | | | | | | | +--------+ + + + + | 12/06/ | Office | | Torres Barrientos, | | | 2018 | Visit | | MD [address] | | | | | | [place] | | | | | | [place] [address] | | | | | | [phone] | | | | | | | [...] +------+-------+ + | MEDICARE | MEDICA | [id number] | | | [address] | | | RE | | | | [place] [address] | | | IP-OP | | | | | + +--------+ +------+-------+ + | MEDICAID | E[employer]ER | [id number] | | | [address] | | | N | | | | [place], [place] | | | [place] | | | | [address] | | | SUPPORT ANALYST | | | | | + +--------+ [...] | | | [place] | | | [phone] | [address] | + +--------+ +--------+ + +
--- OUTSIDE RECORDS SUMMARY | ~2018-09-19 | XMS | Encounter Summary ---
Demographics + + + | Address | [address] | | | [place] [address] | + + + | Home Phone | | + + + | Preferred Language | Unknown | + + + | Marital Status | Unknown | + + + | Episcopalian Affiliation | Unknown | + + + | Race | Unknown | + + + | Ethnic Group | Unknown | + + + Author + + + | Author | [facility] [employer] | + + + | Organization | [facility] | + + + | Address [...] Team Providers + +------+ + | Care Access Database Developer Name | Role | Phone | + [...] + + | 08/20/ | Telephone | [facility] | Torres Barrientos, | Follow-up | | 2019 | | Endocrinology [address] | MD [address] | (Reschedule 08/22 | | | | [address] | [address] [place] [address] | appt due to no | | | | [place], [place] | [place] [address] | transportation in | | | | [address] | [phone] | this bad weather.) | | | | [phone] | | | +--------+ + + + [...] [place] | | | | | | [address] | | | | | | | | +--------+ + + + + | 12/06/ | Office | Endocrinology | Torres Barrientos, | | | 2019 | Visit | | MD [address] | | | | | | [place] | | | | | | [place] [address] | | | | | | [phone] | | | | | | | | +--------+ + + + + as of this encounter Visit Diagnoses Not on filein this encounter"
--- OUTSIDE RECORDS SUMMARY | ~2018-09-19 | XMS | Encounter Summary ---
Demographics + + + | Address | [address] | | | [place] [address] | + + + | Home Phone [...] + + + | Author | [facility] [employer] | + + + | Organization | [facility] | + + + | Address [...] Team Providers + +------+ + | Care Airport Ramp Attendant Name | Role | Phone | + [...] + + + + | Authorized | MONOGRAM MAKER Adult | Speech | Diagnoses | Tamma[place], | [facility] Speech | | | | Pathology / | Memory | MD Don | Language | | | | Speech | deficit | [address] | Pathology | | | | Therapy | | [address] | [address] | | | | | | [address] [address] | [address] | | | | | | [place], [place] | [place], [place] | | | | | | [address] | [address] Phone: | | | | | | Phone: | [phone] | | | | | | [phone] | Fax: | | | | | | Fax: | [phone] | | | | | | [phone] | | + + + + + [...] + + + | Authorized | | Neurology | Diagnoses | Tanner, | Jose, | | | | | Other | DO Flavio | MD Don | | | | | symptoms and | [address] | [address] | | | | | signs | [address] | [address] | | | | | involving | [address] | [place], [place] | | | | | cognitive | [place], | [address] Phone: | | | | | functions | [place] [address] | [phone] | | | | | and | Phone: | Fax: | | | | | awareness | [phone] | [phone] | | | | | | Fax: | | | | | | | [phone] | | + +--------+ + + + + Encounter Details +--------+---------+ + + + | Date | Type | Department | Care Team | Description | +--------+---------+ + + + | 07/03/ | Office | [facility] | Don Garcia, | Exercise counseling | | 2019 | Visit | [facility] | [address] | (Primary Dx); Memory | | | | [address] | [place] | deficit | | | | [place], [place] | [address] | | | | | [address] | | | | | | [phone] | | | +--------+---------+ + + + [...] - Localization, quality and severity: Short and senior care memory deficit, hard to concentra te, repeat [...] Diagnosis Date COPD (chronic obstructive pulmonary disease) ([facility]) Depression Diabetes mellitus, type 2 (HCC) 1996 [...] sleep specialist. May benefit from referral to icing and glaze maker. 6- I covered with the patient all [...] | | | | | | [place] | | | | | | [address] | | | | | | | | +--------+ + + + + | 12/06/ | Office | Endocrinology | Torres Barrientos, | | | 2018 | Visit | | MD [address] | | | | | | [place] | | | | | | [place] [address] | | | | | | [phone] | | | | | | | [...]
--- OUTSIDE RECORDS SUMMARY | ~2018-09-19 | XMS | Encounter Summary ---
Demographics + + + | Address | [address] | | | [place] [address] | + + + | Home Phone [...] + + + | Author | [facility] [employer] | + + + | Organization | [facility] | + + + | Address [...] Team Providers + +------+ + | Care Intervention Teacher Name | Role | Phone | [...] + + | 06/27/ | Refill | [facility] | Torres Barrientos, | | | 2018 | | [address] | [address] | | | | | [address] | [place] | | | | | [place], [place] | [place] [address] | | | | | [address] | [phone] | | | | | [phone] | | | +--------+--------+ + + + [...] [place] | | | | | | [address] | | | | | | | | +--------+ + + + + | 12/06/ | Office | Endocrinology | Torres Barrientos, | | | 2018 | Visit | | MD [address] | | | | | | [place] | | | | | | [place] [address] | | | | | | [phone] | | | | | | | | +--------+ + + + + as of this encounter Visit Diagnoses Not on filein this encounter"
--- OUTSIDE RECORDS SUMMARY | ~2018-09-19 | XMS | Encounter Summary ---
Demographics + + + | Address | [address] | | | [place] [address] | + + + | Home Phone [...] + + + | Author | [employer] | + + + | Organization | [facility] [employer] | + + + | Address [...] Team Providers + +------+ + | Care Electronic Publications Specialist Name | Role | Phone | [...] + + + + | Authorized | DATA WAREHOUSE DEVELOPER Adult | Speech | Diagnoses | Tammaa, | [facility] Speech | | | | Pathology / | Memory | MD Don | Language | | | | Speech | deficit | [address] | Pathology | | | | Therapy | | [address] | [address] | | | | | | [place] [address] | [address] | | | | | | [place], [place] | [place], [place] | | | | | | [address] | [address] Phone: | | | | | | Phone: | [phone] | | | | | | [phone] | Fax: | | | | | | Fax: | [phone] | | | | | | [phone] | | + + + + + [...] | | involving | [address] | [place], [place] | | | | | cognitive | [place], | [address] Phone: | | | | | functions | [place] [address] | [phone] | | | | | and | Phone: | Fax: | | | | | awareness | [phone] | [phone] | | | | | | Fax: | | | | | | | [phone] | | + +--------+ + + + + Encounter Details +--------+---------+ + + + | Date | Type | Department | Care Team | Description | +--------+---------+ + + + | 07/03/ | Office | [facility] | Don Garcia, | Exercise counseling | | 2019 | Visit | [facility] | [address] | (Primary Dx); Memory | | | | [address] | [place] | deficit | | | | [place], [place] | [address] | | | | | [address] | | | | | | [phone] | | | +--------+---------+ + + + [...] - Localization, quality and severity: Short and nursing home memory deficit, hard to concentra te, repeat [...] Diagnosis Date COPD (chronic obstructive pulmonary disease) ([facility]) Depression Diabetes mellitus, type 2 (HCC) 1996 [...] sleep specialist. May benefit from referral to buckle coverer. 6- I covered with the patient all [...] | | | | | | [place], [place] | | | | | | [address] | | | | | | | | +--------+ + + + + | 12/06/ | Office | Endocrinology | Torres Barrientos, | | | 2018 | Visit | | MD [address] | | | | | | [place] | | | | | | [place] [address] | | | | | | [phone] | | | | | | | [...]
--- OUTSIDE RECORDS SUMMARY | ~2018-09-19 | XMS | Encounter Summary ---
Demographics + + + | Address | [address] | | | [place] [address] | + + + | Home Phone | | + + + | Preferred Language | Unknown | + + + | Marital Status | Unknown | + + + | Samaritan Affiliation | Unknown | + + + | Race | Unknown | + + + | Ethnic Group | Unknown | + + + Author + + + | Author | [facility] [employer] [facility] | + + + | Organization | [facility] | + + + | Address [...] Team Providers + +------+ + | Care Filter Tip Inspector Name | Role | Phone | + [...] + + | 07/30/ | Refill | [facility] | Jerry Yeager, | | | 2018 | | Endocrinology [address] | TURNING LATHE TENDER | | | | | [address] | | | | | | [place] | | | | | | [address] | | | | | | [phone] | | | +--------+--------+ + + + [...] [place] | | | | | | [address] | | | | | | | | +--------+ + + + + | 12/06/ | Office | Endocrinology | Torres Barrientos, | | | 2019 | Visit | | MD Ed[address] | | | | | | [place] | | | | | | [place] [address] | | | | | | [phone] | | | | | | | | +--------+ + + + + as of this encounter Visit Diagnoses Not on filein this encounter"
--- OUTSIDE RECORDS SUMMARY | ~2018-09-19 | XMS | Encounter Summary ---
Demographics + + + | Address | [address] | | | [place] [address] | + + + | Home Phone [...] + + + | Author | [employer] | + + + | Organization | [facility] [employer] [facility] | + + + | Address [...] Team Providers + +------+ + | Care Weatherization Installer Name | Role | Phone | [...] + + + + | Authorized | BANKING SUPERVISOR Adult | Speech | Diagnoses | Tammaa, | [facility] Speech | | | | Pathology / | Memory | MD Don | Language | | | | Speech | deficit | [address] | Pathology | | | | Therapy | | [address] | [address] | | | | | | [place] | [address] | | | | | | [place], [place] | [place], [place] | | | | | | [address] | [address] Phone: | | | | | | Phone: | [phone] | | | | | | [phone] | Fax: | | | | | | Fax: | [phone] | | | | | | [phone] | | + + + + + [...] | | involving | [address] | [place], [place] | | | | | cognitive | [place], | [address] Phone: | | | | | functions | [place] [address] | [phone] | | | | | and | Phone: | Fax: | | | | | awareness | [phone] | [phone] | | | | | | Fax: | | | | | | | [phone] | | + +--------+ + + + + Encounter Details +--------+---------+ + + + | Date | Type | Department | Care Team | Description | +--------+---------+ + + + | 07/03/ | Office | [facility] | Don Garcia, | Exercise counseling | | 2019 | Visit | [facility] | [address] | (Primary Dx); Memory | | | | [address] | [place] | deficit | | | | [place], [place] | [address] | | | | | [address] | | | | | | [phone] | | | +--------+---------+ + + + [...] - Localization, quality and severity: Short and care home memory deficit, hard to concentra te, [...] COPD (chronic obstructive pulmonary disease) ([facility]) Depression Diabetes mellitus, type 2 (HCC) 1996 [...] sleep specialist. May benefit from referral to informatica mdm architect. 6- I covered with the patient all [...] | | | | | | [place], [place] | | | | | | [address] | | | | | | | | +--------+ + + + + | 12/06/ | Office | Endocrinology | Torres Barrientos, | | | 2018 | Visit | | MD [address] | | | | | | [place] | | | | | | [place] [address] | | | | | | [phone] | | | | | | | [...]
--- OUTSIDE RECORDS SUMMARY | ~2018-09-19 | XMS | Encounter Summary ---
Demographics + + + | Address | [address] | | | [place] [address] | + + + | Home Phone | | + + + | Preferred Language | Unknown | + + + | Marital Status | Unknown | + + + | Christian Affiliation | Unknown | + + + | Race | Unknown | + + + | Ethnic Group | Unknown | + + + Author + + + | Author | [facility] [employer] | + + + | Organization | [facility] [employer] | + + + | Address [...] Team Providers + +------+ + | Care Integrity Analyst Name | Role | Phone | [...] + + | 06/27/ | Refill | [facility] | Torres Barrientos, | | | 2018 | | [address] | [address] | | | | | [address] | [place] | | | | | [place], [place] | [place] [address] | | | | | [address] | [phone] | | | | | [phone] | | | +--------+--------+ + + + [...] [place] | | | | | | [address] | | | | | | | | +--------+ + + + + | 12/06/ | Office | Endocrinology | Torres Barrientos, | | | 2018 | Visit | | MD Edwar BROTHERS | | | | | | [place] | | | | | | [place] [address] | | | | | | [phone] | | | | | | | | +--------+ + + + + as of this encounter Visit Diagnoses Not on filein this encounter"
--- OUTSIDE RECORDS SUMMARY | ~2018-09-19 | XMS | Clinical Summary ---
Demographics + + + | Address | [address] | | | [place] [address] | + + + | Home Phone | | + + + | Preferred Language | Unknown | + + + | Marital Status | Unknown | + + + | Adventist Affiliation | Unknown | + + + | Race | Unknown | + + + | Ethnic Group | Unknown | + + + Author + + + | Author | [employer] [employer] | + + + | Organization | [facility] [employer] [facility] | + + + | Address [...] Team Providers + +------+ + | Care Hardboard Panel Printer Name | Role | Phone | + [...] | | | 2019 | | | SHOE [place] | | +--------+ + + + + [...] [place] | | | | | | [address] | | | | | | | | +--------+ + + + + | 12/06/ | Office | | Torres Barrientos, | | | 2018 | Visit | | MD Edwar BROTHERS | | | | | | [place] | | | | | | [place] [address] | | | | | | [phone] | | | | | | | [...] +------+-------+ + | MEDICARE | MEDICA | [id number] | | | [address] | | | [place] | | | | [place] [address] | | | IP-OP | | | | | + +--------+ +------+-------+ + | MEDICAID | EASTER | [id number] | | | [address] | | | N | | | | [place], [place] | | | [place] | | | | [address] | | | COLD ROLL INSPECTOR | | | | | + +--------+ [...] | | | [place]os[place] | | | [address] | [address] | + +--------+ +--------+ + +
[~2018-09-19 12:29] MED LIST changes: +HYDROCHLOROTHIA25 MG PO; +PRAZOSIN HCL1 MG PO
--- OUTSIDE RECORDS SUMMARY | 2018-09-19 12:32 | XMS ---
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 Events No recent Security Events currently on file CRITERIA MET - [facility] - Has Care Guidelines - [facility] - 2 Visits in 30 Days CARE PROVIDERS DEENA DIMAS Internal Medicine 05/09/2018-Current PHONE: Unknown Mila Gonzalez Cold Press Operator/Code Enforcement Officer 05/20/2018-Current PHONE: [phone] Mila Gonzalez Primary Care 05/20/2018-Current PHONE: [phone] Guidelines [facility] Date: 09/12/2018 Care Coordination: Currently receives services from [facility].\T\nbsp; She has been diagnosed with Dementia, Alzheimer type.\T\nbsp; Please contact [phone] with any mental health concerns.\T\nbsp;\T\nbsp; Care History Medical/Surgical 05/09/2018 [facility] - Patient is currently established with [facility]. If patient is seen in the ED during business hours. Please contact [facility] at [facility]. Care Recommendation: This patient has had 5 [...] providing care. E.D. VISIT COUNT (12 MO.) [address] [facility]. TOTAL 6 NOTE: Visits indicate total known visits. 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 - Anxiety disorder, unspecified - Shortness of breath - Pure hypercholesterolemia, unspecified - roasterman (current) use of insulin - Chronic obstructive pulmonary disease with (acute) exacerbation - Type 2 diabetes mellitus with hyperglycemia - Personal history of transient ischemic attack (TIA), and cerebral infarction without residual deficits - Essential (primary) hypertension 08/17/2018 09:25 [facility] [place] TYPE: Emergency COMPLAINT: - DIFFICULTY BREATHING 05/08/2018 18:35 [facility] [place] TYPE: Emergency COMPLAINT: - SHORTNESS OF BREATH DIAGNOSES: - Other fci (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 - Unspecified visual disturbance [...] and cerebral infarction without residual deficits - [facility] (current) use of insulin 04/09/2018 17:56 [facility] [place] TYPE: Emergency COMPLAINT: - DIZZINESS/FALL DIAGNOSES: - Strain of muscle, fascia and tendon at neck level, initial encounter - roasterman (current) use of insulin - Essential (primary) hypertension - Personal history of nicotine dependence - Other fci (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 - Anxiety disorder, unspecified [...] status - Other specified mononeuropathies - Other fci (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 INPATIENT VISIT TRACKING (12 MO.) 08/17/2018 09:26 [facility] [place] TYPE: Observation COMPLAINT: - COPD EXACERBATION DIAGNOSES: - Essential (primary) hypertension - Gastro-esophageal reflux disease without esophagitis - Major depressive disorder, single episode, unspecified - Chronic obstructive pulmonary disease with (acute) exacerbation - roasterman (current) use of insulin - Dyspnea, unspecified - Urgency of urination - Hyperlipidemia, unspecified - Other fci (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 - Respiratory failure, unspecified with hypoxia - Allergy status to other drugs, medicaments and biological substances status - Restless legs syndrome - Allergy status to sulfonamides status - Other chronic pain - Schizophrenia, unspecified - Personal history of nicotine dependence - Anxiety disorder, unspecified - roasterman (current) use of systemic steroids - Dehydration - Other psychoactive substance abuse, in remission - Obstructive sleep apnea (adult) (pediatric) - Personal history of transient ischemic attack (TIA), and cerebral infarction without residual deficits - [facility] (current) use of inhaled steroids - Post-traumatic stress disorder, unspecified - Type 2 diabetes mellitus without complications [email or web address]
[2018-09-19] MEDS ORDERED: NOVOLOG100 UNIT/1 SUB-Q (16:10)
[2018-09-19] MEDS ORDERED: MELOXICAM15 MG PO (18:39)
--- NOTE | 2018-09-19 20:13 | EKG ---
[facility] [address] [facility] [place], [place] [address] Signed Normal sinus rhythm Normal ECG When compared with ECG of 12-SEP-2018 12:42, No significant change was found Confirmed by RENITA LUJAN MD ([id number]) on 09/19/2018 8:13:24 PM Electronically Signed By: RENITA LUJAN MD 09/19/182012 PATIENT NAME: TANNER GUILLEN ANYAJIMMY Electrocardiogram DATE OF : 51 PHYSICIAN: RENITA LUJAN MD REPORT #: [id number] REPORT IS CONFIDENTIAL AND NOT TO BE RELEASED WITHOUT AUTHORIZATION
[2018-09-20] MEDS ORDERED: VITAMIN B-12500 MC3 SL (09:44)
[2018-09-20] MEDS ORDERED: IMODIUM A-D2 M2 PO (09:44)
[2018-09-20] MEDS ORDERED: OMEPRAZOLE20 MG PO (09:45)
== END 2018-09-20 13:00 | disposition home or self-care (01) ==
LOC: ED 12:29 → MS 12:30
PROVIDERS: ADMIT Internal Medicine
DX: N17.9 Acute kidney failure, unspecified (principal); I95.9 Hypotension, unspecified; J44.9 Chronic obstructive pulmonary disease, unspecified; E11.9 Type 2 diabetes mellitus without complications; I10 Essential (primary) hypertension; E78.00 Pure hypercholesterolemia, unspecified; G47.30 Sleep apnea, unspecified; F41.9 Anxiety disorder, unspecified; F32.9 Major depressive disorder, single episode, unspecified; G25.81 Restless legs syndrome; F19.11 Other psychoactive substance abuse, in remission; G89.29 Other chronic pain; Z87.891 Personal history of nicotine dependence; Z86.73 Personal history of transient ischemic attack (TIA), and cerebral infarction without residual deficits; Z79.4 Long term (current) use of insulin; Z79.51 Long term (current) use of inhaled steroids; Z79.899 Other long term (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
CPT/HCPCS: 36415; 51701; 80048; 80053; 81001; 84484; 85025; 93005; 93010; 99285-25; G0378; J1815; J7030

== ENCOUNTER 2019-04-19 15:15 | Emergency (ER) | payer MEDICARE, OTHER ==
[~2019-04-19] VITALS: Ht 152.4 cm; Wt 108.9 kg
--- OUTSIDE RECORDS SUMMARY | ~2019-04-19 | XMS | Encounter Summary ---
Demographics + + + | Address | [address] | | | [place] [address] | + + + | Home Phone | | + + + | Preferred Language | Unknown | + + + | Marital Status | | + + + | Church Affiliation | 1001 | + + + | Race | Unknown | + + + | Ethnic Group | Unknown | + + + Author + + + | Author | [facility] | | | and [place] | + + + | Organization | [facility] | | | and [place] | + + + | Address | Unknown | + + + | Phone | Unavailable | + + + Support + + +---------+ + | Name | Relationship | Address | Phone | + + +---------+ + | Fidelia Mclean | ECON | Unknown | | + + +---------+ + | Mark AnthonyCachorroa | ECON | Unknown | | + + +---------+ + Care Team Providers + +------+ + | Care Mirror Maker Name | Role | Phone | + +------+ + | Flavio Hart DO | PCP | | + +------+ + Reason for Visit + + + | Reason | Comments | + + + | Dysphagia | | + + + Evaluate & Treat (Routine) + + + + + + + | Status | Reason | Specialty | Diagnoses / | Referred By | Referred To | | | | | Procedures | Contact | Contact | + + + + + + + | Authorized | Specialty | Gastroenterol | Diagnoses | Tammaa, | Isauro, | | | Services | ogy | Dysphagia, | MD Don | MD J Luis | | | Required | | unspecified | [address] | | | | | type | [address] | | | | | | [address] | [address] | | | | | | D | [place], | | | | | | [place], | [place] [address] | | | | | | [place] [address] | Phone: | | | | | | Phone: | [phone] | | | | | | [phone] | Fax: | | | | | | Fax: | [phone] | | | | | | [phone] | | + + + + + + + Encounter Details +--------+---------+ + + + | Date | Type | Department | Care Team | Description | +--------+---------+ + + + | 04/17/ | Office | [facility] | J Luis Box MD | Dysphagia, | | 2019 | Visit | GASTROENTEROLOGY | [address] [facility] | unspecified type | | | | [address] | [address] [place] | (Primary Dx); Family | | | | [place], [place] | [place] [address] | history of colon | | | | [address] | [phone] | cancer; Colon cancer | | | | [phone] | | screening | +--------+---------+ + + + Social History + +-------+ +--------+ + | Tobacco Use | Types | Packs/Day | Years | Date | | | | | Used | | + +-------+ +--------+ + | Former Smoker | | 2 | 57 | Quit: 07/16/2010 | + +-------+ +--------+ + + +---+---+---+ | Smokeless Tobacco: | | | | | Former User | | | | + +---+---+---+ + + | Comments: quit 8 years | + + + + +---------+ + | Alcohol Use | Drinks/We | oz/Week | Comments | | | ek | | | + + +---------+ + | Not Currently | | | 1998 | + + +---------+ + + + + | Sex Assigned at | Date Recorded | | | | + + + | Not on file | | + + + + + + + | Job Start Date | Occupation | Industry | + + + + | Not on file | Not on file | Not on file | + + + + + + + + | Travel History | Travel Start | Travel End | + + + + + + | No recent travel history available. | + + documented as of this encounter Last Filed Vital Signs + + + + | Vital Sign | Reading | Time Taken | + + + + | Blood Pressure | 141/77 | 04/17/2019 1050 PDT | + + + + | Pulse | 79 | 04/17/2019 1050 PDT | + + + + | Temperature | - | - | + + + + | Respiratory Rate | - | - | + + + + | Oxygen Saturation | - | - | + + + + | Inhaled Oxygen | - | - | | Concentration | | | + + + + | Weight | 117.5 kg (259 lb) | 04/17/2019 1050 PDT | + + + + | Height | 152.4 cm (5') | 04/17/2019 1050 PDT | + + + + | Body Mass Index | 50.58 | 04/17/2019 1050 PDT | + + + + documented in this encounter Progress Notes J Luis Box MD - 04/17/2019 1100 PDT Date of Office Visit: 04/17/19 Chief Complaint: Dysphagia History of Present Illness: Antonia Barger is a 63 y.o. female who presents the GI clinic complaining of dysphagia to solids as well as liquids. The patient states that she f requently has choking and coughing with swallowing and even has difficulty with milk and uriel er. She is frequently nauseated but there is no vomiting. She denies weight loss. She als o denies bloody stools or black stools. She did have an evaluation by speech pathology and underwent video swallowing studies and is recommended that that endoscopy be performed. The patient states there is a family history of colon cancer with her mother diagnosed at a n unknown age. The patient states that she had colonoscopy more than 5 years ago which repo rtedly was unremarkable. The procedure report from the colonoscopy is not available at this time. The patient otherwise denies abdominal pain and has no other complaints. Past Medical History: Past Medical History: Diagnosis Date COPD (chronic obstructive pulmonary disease) (HCC) Depression Diabetes mellitus, type 2 (HCC) 1995 Hyperlipidemia Hypertension IBS (irritable bowel syndrome) Memory deficit Neuropathy Past Surgical History: Past Surgical History: Procedure Laterality Date HYSTERECTOMY 2004 knee ligament sx 2018 Family History: Family History Adopted: Yes Problem Relation Age of Onset Diabetes, NIDDM Mother Cancer Father Cancer Sister Cancer Brother Allergies: Allergies Allergen Reactions Sulfa Antibiotics Nausea And Vomiting,Rash Metformin Nausea Only Intolerance No active intolerances/contraindications Medications: has a current medication list which includes the following prescription(s): abilify mainten a, alcohol prep, aripiprazole, blood glucose monitor system, carbidopa-levodopa, cromolyn, f luoxetine, fluticasone, freestyle lancets, blood glucose test strips, insulin aspart, insuli n degludec, pen needles, lyrica, omeprazole, oxybutynin, pravastatin, ranitidine, relion alc ohol swabs, relion insulin syringe 1ml/31g, sertraline, and trazodone. Review of Systems: Review of Systems Constitutional: Positive for diaphoresis and fatigue. Negative for activity change, appetit e change, chills, fever and unexpected weight change. HENT: Positive for sore throat, trouble swallowing (per patient, daily food sticking in thr oat. will gasp for breath. x3 months, worsening now-problems with liquids. ) and voice walter nge. Negative for ear pain, mouth sores and nosebleeds. Eyes: Positive for redness and visual disturbance. Negative for pain. Respiratory: Positive for cough, choking, shortness of breath and wheezing. Negative for ch est tightness. Cardiovascular: Positive for leg swelling. Negative for chest pain and palpitations. Gastrointestinal: Positive for abdominal pain, constipation and nausea. Negative for abdomi nal distention, anal bleeding, blood in stool, diarrhea, rectal pain and vomiting. C/o heartburn Endocrine: Positive for polydipsia. Negative for cold intolerance and heat intolerance. Genitourinary: Positive for frequency. Negative for difficulty urinating, dysuria, hematuri a, urgency and vaginal bleeding. Musculoskeletal: Positive for back pain, gait problem, neck pain and neck stiffness. Negati ve for arthralgias, joint swelling and myalgias. Skin: Negative for color change, rash and wound. Allergic/Immunologic: Negative for environmental allergies, food allergies and immunocompro mised state. Neurological: Negative for dizziness, tremors, seizures, syncope, weakness, light-headednes s and headaches. Hematological: Negative for adenopathy. Does not bruise/bleed easily. Psychiatric/Behavioral: Negative for agitation, behavioral problems, confusion, dysphoric m ood, hallucinations and suicidal ideas. The patient is not nervous/anxious. Physical Exam: Vitals:There were no vitals taken for this visit. General: This is a well-developed,well-nurished female in no apparent distress, alert and o riented times 3. HEENT: Reveals normocephalic, atraumatic with extraocular muscles intact. Oropharynx is katerin ar without obstruction. Neck: Supple without lymphadenopathy or thyromegaly. Lungs: Clear to auscultation without rales or wheezes. Cardiac: Reveals regular rate and rhythm with normal S1 and S2 and no murmurs, rubs or gall ops. Abdomen: Soft and nontender without masses or organmegaly. Extremities: Without cyanosis, clubbing or edema. Neuro: Awake, alert, oriented x3. Normal station and gait. Skin: Warm and dry, no erythematous rash. Lab Results Component Value Date NA 140 05/01/2018 K 4.6 05/01/2018 CL 102 05/01/2018 CO2 30 05/01/2018 ANIONGAP 13 05/01/2018 BUN 14 05/01/2018 CALCIUM 8.3 (L) 05/01/2018 ALBUMIN 3.2 (L) 05/01/2018 BILITOT 0.5 05/01/2018 AST 13 05/01/2018 ALT 20 05/01/2018 No results found for this or any previous visit. No results found for: LACTOQL, CAMPY, CULTURE, SHIGATOXINI, SHIGATOXINII, GIARDIAAG, CRSPAG , CDIFFICILEGD, CDIFF, LABOVA Last CT abd - No results found for this or any previous visit. Last MRI abd - No results found for this or any previous visit. Last US abd - No results found for this or any previous visit. Assessment and Plan: 63-year-old female with dysphagia to solids and liquids. The video sw allow study will be obtained. Differential diagnosis includes esophageal dysmotility as wel l as mechanical obstruction however with dysphagia to liquids as well I suspect possibly a d ysmotility disorder. Upper endoscopy is indicated at this time to evaluate for dysphagia. The indications risk benefits and possible complications for upper endoscopy were discussed with the patient and they wish to proceed with EGD. The patient has a family history of colon cancer with her mother diagnosed at an unknown ag e with colon cancer. It is been more than 5 years since this patient's last colonoscopy adrien s colonoscopy is also indicated at this time for colon cancer screening. At this time I recommend that colonoscopy be performed for further evaluation. Indications risks benefits and possible complications were discussed with the patient who wishes to pro ceed with colonoscopy at this time. I strongly recommended the above procedures to be performed with anesthesia propofol due to the patient's obesity as well as multiple medical problems including sleep apnea and COPD.E lectronically signed by J Luis Box MD at 04/17/2019 11:57 PDTdocumented in this encounte r Plan of Treatment +--------+---------+ + + + | Date | Type | Specialty | Care Team | Description | +--------+---------+ + + + | 04/26/ | Office | Pulmonology | Marquis, | | | 2018 | Visit | | Lisa Peres, | | | | | | MD [address] | | | | | | [place], | | | | | | [place] [address] | | | | | | [phone] | | | | | | | | +--------+---------+ + + + | 07/01/ | Office | Endocrinology | Torres Barrientos, | | | 2019 | Visit | | MD [address] | | | | | | [place], | | | | | | [place] [address] | | | | | | [phone] | | | | | | | | +--------+---------+ + + + | 08/12/ | Office | Neurology | Don Garcia, | | | 2019 | Visit | | MD [address] | | | | | | [address] | | | | | | [place] [address] | | | | | | [phone] | | | | | | | | +--------+---------+ + + + documented as of this encounter Visit Diagnoses + + | Diagnosis | + + | Dysphagia, unspecified type - Primary | + + | Family history of colon cancer Family history of malignant neoplasm of | | gastrointestinal tract | + + | Colon cancer screening Special screening for malignant neoplasms, colon | + + documented in this encounter"
--- OUTSIDE RECORDS SUMMARY | ~2019-04-19 | XMS | Encounter Summary ---
Demographics + + + | Address | [address] | | | [place] [address] | + + + | Home Phone | | + + + | Preferred Language | Unknown | + + + | Marital Status | | + + + | Church Affiliation | 1001 | + + + | Race | Unknown | + + + | Ethnic Group | Unknown | + + + Author + + + | Author | [facility] | | | and [place] | + + + | Organization | [facility] | | | and [...] Team Providers + +------+ + | Care Client Relationship Executive Name | Role | Phone | + +------+ + | Flavio Hart DO | PCP | | + +------+ + Reason for Visit + + + | Reason | Comments | + + + | Follow-up | | + + + Encounter Details +--------+ + + + + | Date | Type | Department | Care Team | Description | +--------+ + + + + | 04/17/ | Telephone | [facility] | Don Garcia, | Follow-up | | 2019 | | NEUROLOGY [address] | | | | | [address] | [address] | | | | | [place], [place] | [place] [address] | | | | | [address] | [phone] | | | | | [phone] | | | +--------+ + + + [...] + + documented as of this encounter Plan of Treatment +--------+---------+ + + + | Date | Type | Specialty | Care Team | Description | +--------+---------+ + + + | 04/26/ | Office | Pulmonology | Marquis, | | | 2018 | Visit | | Lisa Peres, | | | | | | MD [address] | | | | | | [place], | | | | | | [place] [address] | | | | | | [phone] | | | | | | | | +--------+---------+ + + + | 07/01/ | Office | Endocrinology | Torres Barrientos, | | | 2019 | Visit | | MD [address] | | | | | | [place], | | | | | | [place] [address] | | | | | | [phone] | | | | | | | | +--------+---------+ + + + | 08/12/ | Office | Neurology | Don Garcia, | | | 2019 | Visit | | MD [address] | | | | | | [address] | | | | | | [place] [address] | | | | | | [phone] | | | | | | | | +--------+---------+ + + + documented as of this encounter Visit Diagnoses Not on filedocumented in this encounter"
--- OUTSIDE RECORDS SUMMARY | ~2019-04-19 | XMS | Encounter Summary ---
Demographics + + + | Address | [address] | | | [place] [address] | + + + | Home Phone | | + + + | Preferred Language | Unknown | + + + | Marital Status | | + + + | Hindu Affiliation | 1001 | + + + | Race | Unknown | + + + | Ethnic Group | Unknown | + + + Author + + + | Author | [facility] | | | and [place] | + + + | Organization | [facility] | | | and [place] | + + + | Address | Unknown | + + + | Phone | Unavailable | + + + Support + + +---------+ + | Name | Relationship | Address | Phone | + + +---------+ + | Fidelia Mclean | ECON | Unknown | | + + +---------+ + | Mark AnthonyCcahorroa | ECON | Unknown | | + + +---------+ + Care Team Providers + +------+ + | Care Publishing Agent Name | Role | Phone | + +------+ + | Flavio Hart DO | PCP | | + +------+ + Reason for Visit + + + | Reason | Comments | + + + | Follow-up | memory | + + + Encounter Details +--------+---------+ + + + | Date | Type | Department | Care Team | Description | +--------+---------+ + + + | 04/02/ | Office | [facility] | Don Garcia, | Memory loss (Primary | | 2019 | Visit | NEUROLOGY [address] | Dx); Dysphagia, | | | | [address] | [address] | unspecified type; | | | | [place], [place] | [place] [address] | Exercise counseling | | | | [address] | [phone] | | | | | [phone] | | | +--------+---------+ + + + Social History [...] + + + | Blood Pressure | 115/64 | 04/02/20191303 PDT | + + + + | Pulse | 81 | 04/02/20191303 PDT | + + + + | Temperature | - | - | + + + + | Respiratory Rate | - | - | + + + + | Oxygen Saturation | 91% | 04/02/20191303 PDT | + + + + | Inhaled Oxygen | - | - | | Concentration | | | + + + + | Weight | 109.3 kg (241 lb) | 04/02/20191303 PDT | + + + + | Height | 152.4 cm (5') | 04/02/2019 1304 PDT | + + + + | Body Mass Index | 47.07 | 04/02/2019 1304 PDT | + + + + documented in this encounter Progress Notes Don Garcia MD - 04/02/2019 1345 PDTFormatting of this note might be different from maurilio espitia original. Subjective: Patient ID: Antonia Barger is a 63 y.o. female. HPI I have seen this patient on 12/17/18 for evaluation of memory deficit. - Onset, context and course: Years; none; progressive. - Localization, quality and severity: Short and superintendent terminal memory deficit, hard to concentra te, repeat self, misplace things, hard to find words, hard to use appliance. Visual and feng tory hallucination managed by psychiatry. She dose not drive and she does not cook at this t gemma. - Duration: Constant. - Frequency and last one: Daily. - Associated symptoms: Poor sleep (insomnia, TEE not using CPAP), gait difficulty with fall s in the setting of neuropathy (diabetic), using a walker. No incontinence. - Aggravating factors: None. - Alleviating factors: None. She was on Trazodone, Abilify and Zoloft. She is also on statin. - Previous record/diagnosis and treatment: TP: NR Vit B12: [address] from 03/2018 was reported normal per report. PCPnote mentioned mild chronic microvascular ischemic changes, and MMSE of 29/30. Impression was memory deficit, mild cognitive impairmeent and due to hearing loss, untreate d TEE, mood disorder and medications side effect. Last visit: Memory was the same. Not on CPAP (did not tolerate). Occasional hallucination. No recent falls. Occasional dysphagia for solid food (she has to cut meat). Since last visit: Memory is stable. No falls. Not on CPAP yet. Dysphagia, following with [facility]: 89/100 with MMSE 29/30. Labs: Not done yet. ST: Is following with them. Past Medical History: Diagnosis Date COPD (chronic obstructive pulmonary disease) ([facility]) Depression Diabetes mellitus, type 2 ([facility]) 1996 Hyperlipidemia Hypertension IBS (irritable bowel syndrome) Memory deficit Neuropathy Family History Adopted: Yes Problem Relation Age of Onset Diabetes, NIDDM Mother Cancer Father Cancer Sister Cancer Brother Social History Socioeconomic History Marital status: Spouse name: Not on file Number of children: Not on file Years of education: Not on file Highest education level: Not on file Social Needs Financial resource strain: Not on file Food insecurity - worry: Not on file Food insecurity - inability: Not on file Transportation needs - medical: Not on file Transportation needs - non-medical: Not on file Occupational History Not on file Tobacco Use Smoking status: Former Smoker Packs/day: 2.00 Years: 57.00 Pack years: 114.00 Last attempt to quit: 07/16/2010 Years since quittin.7 Smokeless tobacco: Former User Tobacco comment: quit 8 years Substance and Sexual Activity Alcohol use: Not Currently Comment: 1997 Drug use: Not Currently Comment: 1997 Sexual activity: Not Currently Other Topics Concern Not on file Social History Narrative Not on file Past medical history, family history and social history were reviewed and updated as necess rafael. Review of Systems No report of new general, or neurologic symptoms except to what mentioned in my HPI. Objective: There were no vitals taken for this visit. Physical Exam Vitals: Vitals: 04/02/19 1304 BP: 115/64 Pulse: 81 PainSc: 3 PainLoc: Generalized General: Well developed, in no acute distress Speech: Is normal; fluent and spontaneous with normal naming and repetition. Cognition: The patient is oriented to person, place, and time. Cranial Nerves: At this time, the pupils are equal, round, and reactive to light. Extraocul ar movements are intact. Trigeminal sensation is intact. The face is symmetric. Voice is nor mal. Coordination: Normal finger to nose. Strength: Moving all extremities. Assessment: 1- Memory deficit, mild cognitive impairmeent and due to hearing loss, untreated TEE, COPD, mood disorder and medications side effect. 2- Occasional dysphagia to solids. 3- Obesity and sleep disorder, per sleep specialist. 4- Mood disorder, per psychiatry. Plan: 1- The differential diagnosis and the necessary work up were discussed with the patient in detail. 2- I reviewed the available medical record and summarized it in my HPI. 3- We discussed the safety issues in detail including safe environment. 4- For #1, check labs, healthy diet, mental and physical exercises (was referred to ). Mi ld cognitive impairment with WACE test 89/100 and MMSE: 29/30. I will hold on medication for now but need to work with other providers on mood disorder, medications, TEE and hearing im pairment. 5- For #2, was refered to and patient is to follow with her PCP (consider referral to GI ). 5- Patient understands and agrees to proceed with the regimen / plan. 6- Risk factors modification per PCP. 7- RTC in 3-4 monthsor prn. However, patient was instructed to call with any concern, if symptoms are worsening, not improving or if any side effects related to regimen. Plan: As above. documented in this encou nter Plan of Treatment +--------+---------+ + + + | Date | Type | Specialty | Care Team | Description | +--------+---------+ + + + | 04/26/ | Office | Pulmonology | Mar[place], | | | 2019 | Visit | | Lisa Peres, | | | | | | [address] | | | | | | [place], | | | | | | [place] [address] | | | | | | [phone] | | | | | | | | +--------+---------+ + + + | 07/01/ | Office | Endocrinology | Torres Barrientos, | | | 2019 | Visit | | MD [address] | | | | | | [place], | | | | | | [place] [address] | | | | | | [phone] | | | | | | | | +--------+---------+ + + + | 08/12/ | Office | Neurology | Don Garcia, | | | 2019 | Visit | | MD [address] | | | | | | [address] | | | | | | [place] [address] | | | | | | [phone] | | | | | | | | +--------+---------+ + + + documented as of this encounter Visit Diagnoses + + | Diagnosis | + + | Memory loss - Primary | + + | Dysphagia, unspecified type | + + | Exercise counseling | + + documented in this encounter"
--- OUTSIDE RECORDS SUMMARY | ~2019-04-19 | XMS | Encounter Summary ---
Demographics + + + | Address | [address] | | | [place] [address] | + + + | Home Phone | | + + + | Preferred Language | Unknown | + + + | Marital Status | | + + + | Taoism Affiliation | 1001 | + + + | Race | Unknown | + + + | Ethnic Group | Unknown | + + + Author + + + | Author | [facility] | | | and [place] | + + + | Organization | [facility] | | | and [...] Team Providers + +------+ + | Care Jewel Sorter Name | Role | Phone | + +------+ + | Flavio Hart DO | PCP | | + +------+ + Reason for Visit + + + | Reason | Comments | + + + | Pulmonary Disease | Follow-up 04/26 | | Appointment | | + + + Encounter Details +--------+ + + + + | Date | Type | Department | Care Team | Description | +--------+ + + + + | 04/18/ | Telephone | [facility] | Marquis, | Pulmonary Disease | | 2019 | | PULMONOLOGY [address] | Lisa Peres, | Appointment | | | | [address] | [address] | (Follow-up 04/26) | | | | [place] | [address] [place], | | | | | [address] | [place] [address] | | | | | [phone] | [phone] | | | | | | | [...] [place], | | | | | | [place] [address] | | | | | | [phone] | | | | | | | | +--------+---------+ + + + | 07/01/ | Office | Endocrinology | Torres Barrientos, | | | 2019 | Visit | | MD [address] | | | | | | [place], | | | | | | [place] [address] | | | | | | [phone] | | | | | | | | +--------+---------+ + + + | 08/12/ | Office | Neurology | Don Garcia, | | | 2019 | Visit | | [address] | | | | | | [address] | | | | | | [place] [address] | | | | | | [phone] | | | | | | | | +--------+---------+ + + + documented as of this encounter Visit Diagnoses Not on filedocumented in this encounter"
--- OUTSIDE RECORDS SUMMARY | ~2019-04-19 | XMS | Encounter Summary ---
Demographics + + + | Address | [address] | | | [place] [address] | + + + | Home Phone | | + + + | Preferred Language | Unknown | + + + | Marital Status | Unknown | + + + | Mandaeism Affiliation | Unknown | + + + | Race | Unknown | + + + | Ethnic Group | Unknown | + + + Author + + + | Author | [facility] (Historical as of | | | 02-09-19) | + + + | Organization | [facility] (Historical as of | | | 02-09-19) | + + + | Address | [...] Team Providers + +------+ + | Care Entertainment Musician Name | Role | Phone | + +------+ + | Flavio Hart DO | PCP | | + +------+ + Reason for Referral Speech Therapy (Routine) + + + + + + + | Status | Reason | Specialty | Diagnoses / | Referred By | Referred To | | | | | Procedures | Contact | Contact | + + + + + + + | Authorized | Specialty | Speech | Diagnoses | Jose, | | | | Services | Pathology | Memory | MD Don | | | | Required | | deficit | [address] | | | | | | | [address] | | | | | | | [place] | | | | | | | [place] | | | | | | | [address] | | | | | | | Phone: | | | | | | | [phone] | | | | | | | Fax: | | | | | | | [phone] | | + + + + + + + + + | Scheduling Instructions | + + | [place] [address] please schedule here, thank you!-AH | + + Reason for Visit + + + | Reason | Comments | + + + | Referral | outgoing | + + + Encounter Details +--------+ + + + + | Date | Type | Department | Care Team | Description | +--------+ + + + + | 01/23/ | Telephone | [facility] | Don Garcia, | Referral (outgoing) | | 2019 | | Neuroscience Center | [address] | | | | | [address] | [place], [place] | | | | | [place], [place] | [address] | | | | | [address] | | | | | | [phone] | | | +--------+ + + + [...] as of this encounter Plan of Treatment + +--------+ + + | Name | Priori | Associated Diagnoses | Order Schedule | | | ty | | | + +--------+ + + | Ambulatory referral to Speech | Routin | Memory deficit | Ordered: 01/24/2019 | | Therapy, Eval and Treat | e | | | + +--------+ + + as of this encounter Visit Diagnoses + + | Diagnosis | + + | Memory deficit - Primary | + + | Memory loss | + +"
--- OUTSIDE RECORDS SUMMARY | ~2019-04-19 | XMS | Encounter Summary ---
Demographics + + + | Address | [address] | | | [place] [address] | + + + | Home Phone | | + + + | Preferred Language | Unknown | + + + | Marital Status | | + + + | Baptism Affiliation | 1001 | + + + | Race | Unknown | + + + | Ethnic Group | Unknown | + + + Author + + + | Author | [facility] | | | and [place] | + + + | Organization | [facility] | | | [...] Team Providers + +------+ + | Care Translational Specialist Name | Role | Phone | + +------+ + | Flavio Hart DO | PCP | | + +------+ + Reason for Visit +---------+ + | Reason | Comments | +---------+ + | Results | | +---------+ + Encounter Details +--------+ + + + + | Date | Type | Department | Care Team | Description | +--------+ + + + + | 02/21/ | Telephone | [facility] | Staci Quiroz RN | Results | | 2019 | | PULMONOLOGY [address] | | | | | | [address] | | | | | | [place], [place] | | | | | | [address] | | | | | | [phone] | | | +--------+ + + + [...] | | | | | | [place] [address] | | | | | | [phone] | | | | | | | | +--------+---------+ + + + | 07/01/ | Office | Endocrinology | Torres Barrientos, | | | 2019 | Visit | | MD [address] | | | | | | [place], | | | | | | [place] [address] | | | | | | [phone] | | | | | | | | +--------+---------+ + + + | 08/12/ | Office | Neurology | Don Garcia, | | | 2019 | Visit | | MD [address] | | | | | | [place] | | | | | | [place] [address] | | | | | | [phone] | | | | | | | | +--------+---------+ + + + documented as of this encounter Visit Diagnoses Not on filedocumented in this encounter"
--- OUTSIDE RECORDS SUMMARY | ~2019-04-19 | XMS | Encounter Summary ---
Demographics + + + | Address | [address] | | | [place] [address] | + + + | Home Phone | | + + + | Preferred Language | Unknown | + + + | Marital Status | | + + + | Temple Affiliation | 1001 | + + + | Race | Unknown | + + + | Ethnic Group | Unknown | + + + Author + + + | Author | [facility] | | | and [place] | + + + | Organization | [facility] | | | and [...] Team Providers + +------+ + | Care Maintenance Helper Utility Engineer Name | Role | Phone | + [...] + + | 04/02/ | Office | [facility] | Don Garcia, | Memory loss (Primary | | 2019 | Visit | NEUROLOGY [address] | [address] | Dx); Dysphagia, | | | | [address] | [address] | unspecified type; | | | | [place], [place] | [place] [address] | Exercise counseling | | | | [address] | [phone] | | | | | [phone] | | | +--------+---------+ + + + [...] - Localization, quality and severity: Short and intermediate manager memory deficit, hard to concentra te, repeat [...] Diagnosis Date COPD (chronic obstructive pulmonary disease) ([facility]) Depression Diabetes mellitus, type 2 ([facility]) 1996 Hyperlipidemia Hypertension IBS (irritable bowel syndrome) [...] [place], | | | | | | [place] [address] | | | | | | [phone] | | | | | | | | +--------+---------+ + + + | 07/01/ | Office | Endocrinology | Torres Barrientos, | | | 2019 | Visit | | MD [address] | | | | | | [place], | | | | | | [place] [address] | | | | | | [phone] | | | | | | | | +--------+---------+ + + + | 08/12/ | Office | Neurology | Don Garcia, | | | 2019 | Visit | | MD [address] | | | | | | [place] | | | | | | [place] [address] | | | | | | [phone] | | | | | | | | +--------+---------+ + + + documented as of this encounter Visit Diagnoses + + | Diagnosis | + + | Memory loss - Primary | + + | Dysphagia, unspecified type | + + | Exercise counseling | + + documented in this encounter"
--- OUTSIDE RECORDS SUMMARY | ~2019-04-19 | XMS | Encounter Summary ---
Demographics + + + | Address | [address] | | | [place] [address] | + + + | Home Phone | | + + + | Preferred Language | Unknown | + + + | Marital Status | | + + + | Mosque Affiliation | 1001 | + + + | Race | Unknown | + + + | Ethnic Group | Unknown | + + + Author + + + | Author | [facility] | | | and [place] | + + + | Organization | [facility] | | | and [place] | + + + | Address | Unknown | + + + | Phone | Unavailable | + + + Support + + +---------+ + | Name | Relationship | Address | Phone | + + +---------+ + | Fidelia Mclean | ECON | Unknown | | + + +---------+ + | Mark AnthonyDestiny | ECON | Unknown | | + + +---------+ + Care Team Providers + +------+ + | Care Marine Service Operator Name | Role | Phone | + +------+ + | Flavio Hart DO | PCP | | + +------+ + Reason for Visit + + + | Reason | Comments | + + + | Pulmonary Disease | appointment | | Appointment | | + + + Encounter Details +--------+ + + + + | Date | Type | Department | Care Team | Description | +--------+ + + + + | 02/18/ | Telephone | [facility] | Marquis, | Pulmonary Disease | | 2019 | | PULMONOLOGY [address] | Lisa Peres, | Appointment | | | | [address] | [address] | (appointment) | | | | [place], [place] | [place], | | | | | [address] | [place] [address] | | | | | [phone] | [phone] | | | | | | | [...] + | Not Currently | | | 1997 | + + +---------+ + + + [...] | | 2018 | Visit | | Lisalaurence Peres, | | | | | | MD [address] | | | | | | [place], | | | | | | [place] [address] | | | | | | [phone] | | | | | | | | +--------+---------+ + + + | 07/01/ | Office | Endocrinology | Torres Barrientos, | | | 2019 | Visit | | MD [address] | | | | | | [place], | | | | | | [place] [address] | | | | | | [phone] | | | | | | | | +--------+---------+ + + + | 08/12/ | Office | Neurology | Don Garcia, | | | 2019 | Visit | | MD [address] | | | | | | [place] | | | | | | [place] [address] | | | | | | [phone] | | | | | | | | +--------+---------+ + + + documented as of this encounter Visit Diagnoses Not on filedocumented in this encounter"
--- OUTSIDE RECORDS SUMMARY | ~2019-04-19 | XMS | Encounter Summary ---
Demographics + + + | Address | [address] | | | [place] [address] | + + + | Home Phone | | + + + | Preferred Language | Unknown | + + + | Marital Status | | + + + | Orthodox Affiliation | 1001 | + + + | Race | Unknown | + + + | Ethnic Group | Unknown | + + + Author + + + | Author | [facility] | | | and [place] | + + + | Organization | [facility] | | | [...] Team Providers + +------+ + | Care Ortho Tech Name | Role | Phone | + [...] | | | | | [place], | [place] [address] | | | | | | [place] [address] | Phone: | | | | | | Phone: | [phone] | | | | | | [phone] | Fax: | | | | | | Fax: | [phone] | | | | | | [phone] | | + + + + + + + Encounter Details +--------+---------+ + + + | Date | Type | Department | Care Team | Description | +--------+---------+ + + + | 04/17/ | Office | [facility] | J Luis Box MD | Dysphagia, | | 2019 | Visit | GASTROENTEROLOGY | [address] [facility] [address] | unspecified type | | | | [address] | [address] [place] | (Primary Dx); Family | | | | [place], [place] | [place] [address] | history of colon | | | | [address] | [phone] | cancer; Colon cancer | | | | [phone] | | screening | +--------+---------+ + + [...] | | | | | | [place] [address] | | | | | | [phone] | | | | | | | | +--------+---------+ + + + | 07/01/ | Office | Endocrinology | Torres Barrientos, | | | 2019 | Visit | | MD [address] | | | | | | [place], | | | | | | [place] [address] | | | | | | [phone] | | | | | | | | +--------+---------+ + + + | 08/12/ | Office | Neurology | Don Garcia, | | | 2019 | Visit | | MD [address] | | | | | | [address] | | | | | | [place] [address] | | | | | | [phone] | | | | | | | [...]
--- OUTSIDE RECORDS SUMMARY | ~2019-04-19 | XMS | Encounter Summary ---
Demographics + + + | Address | [address] | | | [place] [address] | + + + | Home Phone | | + + + | Preferred Language | Unknown | + + + | Marital Status | | + + + | Yarsanism Affiliation | 1001 | + + + | Race | Unknown | + + + | Ethnic Group | Unknown | + + + Author + + + | Author | [facility] | | | and [place] | + + + | Organization | [facility] | | | and [...] Team Providers + +------+ + | Care Cable Spooler Name | Role | Phone | + +------+ + | Flavio Hart DO | PCP | | + +------+ + Reason for Visit + + + | Reason | Comments | + + + | Referral | | + + + Encounter Details +--------+ + + + + | Date | Type | Department | Care Team | Description | +--------+ + + + + | 02/26/ | Telephone | [facility] | Don Garcia, | Referral | | 2019 | | NEUROLOGY [address] | [address] | | | | | [address] | [address] [facility] [address] | | | | | [place], [place] | [place] [address] | | | | | [address] | [phone] | | | | | [phone] | | | +--------+ + + + [...] | | | | | | [place] [address] | | | | | | [phone] | | | | | | | | +--------+---------+ + + + | 07/01/ | Office | Endocrinology | Torres Barrientos, | | | 2019 | Visit | | MD [address] | | | | | | [place], | | | | | | [place] [address] | | | | | | [phone] | | | | | | | | +--------+---------+ + + + | 08/12/ | Office | Neurology | Don Garcia, | | | 2019 | Visit | | MD [address] | | | | | | [place] | | | | | | [place] [address] | | | | | | [phone] | | | | | | | | +--------+---------+ + + + documented as of this encounter Visit Diagnoses Not on filedocumented in this encounter"
--- OUTSIDE RECORDS SUMMARY | ~2019-04-19 | XMS | Encounter Summary ---
Demographics + + + | Address | [address] | | | [place] [address] | + + + | Home Phone | | + + + | Preferred Language | Unknown | + + + | Marital Status | Unknown | + + + | Zoroastrian Affiliation | Unknown | + + + | Race | Unknown | + + + | Ethnic Group | Unknown | + + + Author + + + | Author | [facility] (Historical as of | | | 02-09-19) | + + + | Organization | [facility] (Historical as of | | | [...] Team Providers + +------+ + | Care Machine Clothing Replacer Name | Role | Phone | + [...] | | | | | | | [address] | | | | | | | Phone: | | | | | | | [phone] | | | | | | | Fax: | | | | | | | [phone] | | + + + + + + + + + | Scheduling Instructions | + + | [place] [address] please schedule here, thank you!-AH | + + Reason for Visit + + + | Reason | Comments | + + + | Referral | outgoing | + + + Encounter Details +--------+ + + + + | Date | Type | Department | Care Team | Description | +--------+ + + + + | 01/23/ | Telephone | [facility] | Don Garcia, | Referral (outgoing) | | 2019 | | Neuroscience Center | [address] | | | | | [address] | [place] | | | | | [place], [place] | [address] | | | | | [address] | | | | | | [phone] | | | +--------+ + + + [...]
--- OUTSIDE RECORDS SUMMARY | ~2019-04-19 | XMS | Encounter Summary ---
Demographics + + + | Address | [address] | | | [place] [address] | + + + | Home Phone | | + + + | Preferred Language | Unknown | + + + | Marital Status | | + + + | Yazdanism Affiliation | 1001 | + + + | Race | Unknown | + + + | Ethnic Group | Unknown | + + + Author + + + | Author | [facility] | | | and [place] | + + + | Organization | [facility] | | [...] Team Providers + +------+ + | Care Graphic Design Intern Name | Role | Phone | + [...] Description | +--------+--------+ + + + | 04/09/ | Refill | [facility] | Torres Barrientos, | Medication Refill | | 2019 | | ENDOCRINOLOGY [address] | [address] | | | | | [address] [place] | [place], | | | | | [place], [place] | [place] [address] | | | | | [address] | [phone] | | | | | [phone] | | | +--------+--------+ + + + [...] [place], | | | | | | [place] [address] | | | | | | [phone] | | | | | | | | +--------+---------+ + + + | 07/01/ | Office | Endocrinology | Torres Barrientos, | | | 2019 | Visit | | MD [address] | | | | | | [place], | | | | | | [place] [address] | | | | | | [phone] | | | | | | | | +--------+---------+ + + + | 08/12/ | Office | Neurology | Don Garcia, | | | 2019 | Visit | | MD [address] | | | | | | [place] | | | | | | [place] [address] | | | | | | [phone] | | | | | | | | +--------+---------+ + + + documented as of this encounter Visit Diagnoses Not on filedocumented in this encounter"
--- OUTSIDE RECORDS SUMMARY | ~2019-04-19 | XMS | Encounter Summary ---
Demographics + + + | Address | [address] | | | [place] [address] | + + + | Home Phone | | + + + | Preferred Language | Unknown | + + + | Marital Status | | + + + | Scientology Affiliation | 1001 | + + + | Race | Unknown | + + + | Ethnic Group | Unknown | + + + Author + + + | Author | [facility] | | | and [place] | + + + | Organization | [facility] | | | [...] Team Providers + +------+ + | Care Hand Molder And Caster Name | Role | Phone | + +------+ + | Flavio Hart DO | PCP | | + +------+ + Reason for Referral Evaluate & Treat (Routine) + + + [...] | | | | | D | [address], | | | | | | [place], | [place] [address] | | | | | | [place] [address] | Phone: | | | | | | Phone: | [phone] | | | | | | [phone] | Fax: | | | | | | Fax: | [phone] | | | | | | [phone] | | + + + + + + + Reason for Visit + + + | Reason | Comments | + + + | Follow-up | | + + + Encounter Details +--------+ + + + + | Date | Type | Department | Care Team | Description | +--------+ + + + + | 02/27/ | Telephone | [facility] | Don Garcia, | Follow-up | | 2019 | | NEUROLOGY [address] | MD [address] | | | | | [address] | [address] | | | | | [place], [place] | [place] [address] | | | | | [address] | [phone] | | | | | [phone] | | | +--------+ + + + [...] | | | | MD [address] | | | | | | [place], | | | | | | [place] [address] | | | | | | [phone] | | | | | | | | +--------+---------+ + + + | 07/01/ | Office | Endocrinology | Torres Barrientos, | | | 2019 | Visit | | MD [address] | | | | | | [place], | | | | | | [place] [address] | | | | | | [phone] | | | | | | | | +--------+---------+ + + + | 08/12/ | Office | Neurology | Don Garcia, | | | 2019 | Visit | | MD [address] | | | | | | [place] | | | | | | [place] [address] | | | | | | [phone] | | | | | | | | +--------+---------+ + + + documented as of this encounter Procedures + +--------+ + + + | Procedure Name | Priori | Date/Time | Associated Diagnosis | Comments | | | ty | | | | + +--------+ + + + | AMB REFERRAL TO | Routin | 04/17/2019 | Dysphagia, | | | [facility] | e | 11:57 PDT | unspecified type | | | GASTROENTEROLOGY | | | | | + +--------+ + + + documented in this encounter Visit Diagnoses + + | Diagnosis | + + | Dysphagia, unspecified type - Primary | + + documented in this encounter"
--- OUTSIDE RECORDS SUMMARY | ~2019-04-19 | XMS | Encounter Summary ---
Demographics + + + | Address | [address] | | | [place] [address] | + + + | Home Phone | | + + + | Preferred Language | Unknown | + + + | Marital Status | | + + + | Gnosticism Affiliation | 1001 | + + + | Race | Unknown | + + + | Ethnic Group | Unknown | + + + Author + + + | Author | [facility] | | | and [place] | + + + | Organization | [facility] | | | [...] Team Providers + +------+ + | Care Pipe Manufacture Supervisor Name | Role | Phone | + +------+ + | Flavio Hart DO | PCP | | + +------+ + Reason for Visit +--------+ + | Reason | Comments | +--------+ + | Other | | +--------+ + Encounter Details +--------+ + + + + | Date | Type | Department | Care Team | Description | +--------+ + + + + | 04/02/ | Telephone | [facility] | Don Garcia, | Other | | 2019 | | NEUROLOGY [address] | MD [address] | | | | | [address] | [address] | | | | | [place], [place] | [place] [address] | | | | | [address] | [phone] | | | | | [phone] | | | +--------+ + + + [...] | | 2019 | Visit | | Lias Peres, | | | | | | MD [address] | | | | | | [place], | | | | | | [place] [address] | | | | | | [phone] | | | | | | | | +--------+---------+ + + + | 07/01/ | Office | Endocrinology | Torres Barrientos, | | | 2019 | Visit | | MD [address] | | | | | | [place], | | | | | | [place] [address] | | | | | | [phone] | | | | | | | | +--------+---------+ + + + | 08/12/ | Office | Neurology | Don Garcia, | | | 2019 | Visit | | MD [address] | | | | | | [place] | | | | | | [place] [address] | | | | | | [phone] | | | | | | | | +--------+---------+ + + + documented as of this encounter Visit Diagnoses Not on filedocumented in this encounter"
--- OUTSIDE RECORDS SUMMARY | ~2019-04-19 | XMS | Encounter Summary ---
Demographics + + + | Address | [address] | | | [place] [address] | + + + | Home Phone | | + + + | Preferred Language | Unknown | + + + | Marital Status | | + + + | Jain Affiliation | 1001 | + + + | Race | Unknown | + + + | Ethnic Group | Unknown | + + + Author + + + | Author | [facility] | | | and [place] | + + + | Organization | [facility] | | | and [...] Team Providers + +------+ + | Care Educational Administrator Name | Role | Phone | + [...] | +--------+ + + + + | 02/22/ | Telephone | [facility] | Don Garcia, | Referral | | 2019 | | NEUROLOGY [address] | [address] | | | | | [address] | [address] [facility] [address] | | | | | [place], [place] | [place] [address] | | | | | [address] | [phone] | | | | | [phone] | | | +--------+ + + + [...] [place], | | | | | | [place] [address] | | | | | | [phone] | | | | | | | | +--------+---------+ + + + | 07/01/ | Office | Endocrinology | Torres Barrientos, | | | 2019 | Visit | | MD [address] | | | | | | [place], | | | | | | [place] [address] | | | | | | [phone] | | | | | | | | +--------+---------+ + + + | 08/12/ | Office | Neurology | Don Garcia, | | | 2019 | Visit | | MD [address] | | | | | | [place] | | | | | | [place] [address] | | | | | | [phone] | | | | | | | | +--------+---------+ + + + documented as of this encounter Visit Diagnoses Not on filedocumented in this encounter"
--- OUTSIDE RECORDS SUMMARY | ~2019-04-19 | XMS | Encounter Summary ---
Demographics + + + | Address | [address] | | | [place] [address] | + + + | Home Phone | | + + + | Preferred Language | Unknown | + + + | Marital Status | | + + + | Gnosticist Affiliation | 1001 | + + + | Race | Unknown | + + + | Ethnic Group | Unknown | + + + Author + + + | Author | [facility] | | | and [place] | + + + | Organization | [facility] | | | and [place] | + + + | Address | Unknown | + + + | Phone | Unavailable | + + + Support + + +---------+ + | Name | Relationship | Address | Phone | + + +---------+ + | Fidelia Mlcean | ECON | Unknown | | + + +---------+ + | Destiny Hopson | ECON | Unknown | | + + +---------+ + Care Team Providers + +------+ + | Care Flue Gas Analyst Name | Role | Phone | + +------+ + | Flavio Hart DO | PCP | | + +------+ + Reason for Referral Diagnostic/Screening (Routine) +--------+--------+ + + + + | Status | Reason | Specialty | Diagnoses / | Referred By | Referred To | | | | | Procedures | Contact | Contact | +--------+--------+ + + + + | Closed | | Radiology | Diagnoses | [place], | [facility] | | | | | Personal | Lisa | [address] | | | | | history of | MD Larisa | [address] | | | | | tobacco use, | [address] | [address] | | | | | presenting | [address] | [place], [place] | | | | | hazards to | [address] | [address] | | | | | health | [place], [place] | Phone: | | | | | Procedures | [address] | [phone] | | | | | CT Chest | Phone: | Fax: | | | | | Lung Cancer | [phone] | [phone] | | | | | Screening | Fax: | | | | | | | [phone] | | +--------+--------+ + + + + Diagnostic/Screening (Routine) +--------+--------+ + + + + | Status | Reason | Specialty | Diagnoses / | Referred By | Referred To | | | | | Procedures | Contact | Contact | +--------+--------+ + + + + | Closed | | Radiology | Diagnoses | [place], | [facility] | | | | | Personal | Lisa | [address] | | | | | history of | MD Larisa | [address] | | | | | tobacco use, | [address] | | | | | presenting | [address] | [place] | | | | | hazards to | [address] | [address] | | | | | health | [place], [place] | Phone: | | | | | Procedures | [address] | [phone] | | | | | CT Chest | Phone: | Fax: | | | | | Lung Cancer | [phone] | [phone] | | | | | Screening | Fax: | | | | | | | [phone] | | +--------+--------+ + + + + Reason for Visit Diagnostic/Screening (Routine) +--------+--------+ + + + + | Status | Reason | Specialty | Diagnoses / | Referred By | Referred To | | | | | Procedures | Contact | Contact | +--------+--------+ + + + + | Closed | | Radiology | Diagnoses | [place], | [facility] | | | | | Personal | Lisa | [address] | | | | | history of | MD Larisa | [address] | | | | | tobacco use, | [address] | [address] | | | | | presenting | [address] | [place], [place] | | | | | hazards to | [address] | [address] | | | | | health | [place], [place] | Phone: | | | | | Procedures | [address] | [phone] | | | | | CT Chest | Phone: | Fax: | | | | | Lung Cancer | [phone] | [phone] | | | | | Screening | Fax: | | | | | | | [phone] | | +--------+--------+ + + + + Encounter Details +--------+ + + + + | Date | Type | Department | Care Team | Description | +--------+ + + + + | 02/21/ | Hospital | [facility] | [place], | Personal history of | | 2019 | Encounter | [facility] [address] | Lisa Peres, | tobacco use, | | | | [address] | MD [address] | presenting hazards | | | | [place], [place] | [address] [place], | to [facility] | | | | [address] | [place] [address] | | | | | [phone] | [phone] | | | | | | | [...] + + documented as of this encounter Medications at Time of Discharge + + + +---------+ + + | Medication | Sig | Dispensed | Refills | Start | End Date | | | | | | Date | | + + + +---------+ + + | KRISTEL MATTHEWS | | | 0 | 10/05/19 | | | 300 MG ER injection | | | | 16 | | | (vial) | | | | | | + + + +---------+ + + | Alcohol Swabs | USE 1 PAD 4 TIMES | 100 | 11 | 02/10/20 | | | (ALCOHOL PREP) 70 % | DAILY | each | | 17 | | | PADS | | | | | | + + + +---------+ + + | ARIPiprazole | | | 0 | 10/05/19 | | | (ABILIFY) 15 mg | | | | 16 | | | tablet | | | | | | + + + +---------+ + + | Blood Glucose | Please use for | 1 each | 0 | 03/16/20 | | | Monitoring Suppl | checking glucose 3 | | | 16 | | | (BLOOD GLUCOSE | times a day | | | | | | MONITOR SYSTEM) | | | | | | | w/Device KIT | | | | | | + + + +---------+ + + | carbidopa-levodopa | | | 0 | 08/28/19 | | | (SINEMET) 10-100 mg | | | | 16 | | | per tablet | | | | | | + + + +---------+ + + | cromolyn | | | 0 | 09/25/19 | | | (OPTICROM) 4 % | | | | 16 | | | ophthalmic solution | | | | | | + + + +---------+ + + | FLUoxetine | | | 0 | 09/16/19 | | | (PROZAC) 20 MG | | | | 16 | | | tablet | | | | | | + + + +---------+ + + | fluticasone | | | 0 | 09/22/19 | | | (FLONASE) 50 | | | | 16 | | | mcg/nasal spray | | | | | | + + + +---------+ + + | Glucose Blood | For checking blood | 300 | 3 | 07/30/19 | | | (BLOOD GLUCOSE TEST | sugar three times | each | | 19 | | | STRIPS) STRP | daily. Type II | | | | | | | diabetes, Dx E11.65 | | | | | | | on insulin | | | | | + + + +---------+ + + | omeprazole | | | 0 | 09/06/19 | | | (PRILOSEC) 20 mg | | | | 16 | | | capsule | | | | | | + + + +---------+ + + | oxybutynin | | | 0 | 09/06/19 | | | (DITROPAN) 5 mg | | | | 16 | | | tablet | | | | | | + + + +---------+ + + | pravastatin | TAKE ONE TABLET BY | 30 | 3 | 10/12/19 | | | (PRAVACHOL) 40 MG | MOUTH ONCE DAILY | tablet | | 17 | | | tablet | | | | | | + + + +---------+ + + | raNITIdine | | | 0 | 09/06/19 | | | (ZANTAC) 150 MG | | | | 16 | | | capsule | | | | | | + + + +---------+ + + | sertraline | | | 0 | 10/05/19 | | | (ZOLOFT) 50 mg | | | | 16 | | | tablet | | | | | | + + + +---------+ + + | traZODone | | | 0 | 09/22/19 | | | (DESYREL) 150 MG | | | | 16 | | | tablet | | | | | | + + + +---------+ + + | FREESTYLE LANCETS | 1 each by Other | 300 | 3 | 05/24/20 | | | MISC | route 3 (three) | each | | 18 | 9 | | | times daily. Use as | | | | | | | instructed to check | | | | | | | blood sugar three | | | | | | | times daily. E11.65 | | | | | + + + +---------+ + + | insulin aspart | INJECT 30 UNITS | 90 mL | 3 | 12/29/19 | | | (NOVOLOG) 100 | SUBCUTANEOUSLY THREE | | | 19 | 9 | | units/mL injection | TIMES DAILY BEFORE | | | | | | | MEAL(S). Dx code | | | | | | | E11.65 | | | | | + + + +---------+ + + | insulin degludec | Inject 70 Units into | 27 mL | 3 | 12/07/19 | | | (TRESIBA FLEXTOUCH) | the skin nightly. | | | 19 | 9 | | 200 units/mL | | | | | | | concentrated | | | | | | | injection (pen) | | | | | | + + + +---------+ + + | Insulin Pen Needle | 1 each by Does not | 30 each | 11 | 08/06/19 | | | (PEN NEEDLES) 31G X | apply route daily. | | | 19 | 9 | | 5 MM MISC | | | | | | + + + +---------+ + + | lisinopril | | | 0 | 09/06/19 | | | (PRINIVIL, ZESTRIL) | | | | 16 | 9 | | 20 mg tablet | | | | | | + + + +---------+ + + | LYRICA 50 MG | Take 50 mg by mouth | | 5 | 01/06/20 | | | capsule | Daily. | | | 19 | 9 | + + + +---------+ + + | RELION ALCOHOL | USE 1 SWAB | 100 | 8 | 03/11/20 | | | SWABS 70 % PADS | EXTERNALLY 4 TIMES | each | | 18 | 9 | | | DAILY | | | | | + + + +---------+ + + | RELION INSULIN | 1 each by Other | 100 | 11 | 08/06/19 | | | SYRINGE 1ML/31G 31G | route 3 (three) | each | | 19 | 9 | | X 11/08" 1 ML MISC | times daily. | | | | | + + + +---------+ + + documented as of this encounter [...] | | | | | | [place] [address] | | | | | | [phone] | | | | | | | | +--------+---------+ + + + | 07/01/ | Office | Endocrinology | Torres Barrientos, | | | 2019 | Visit | | MD [address] | | | | | | [place], | | | | | | [place] [address] | | | | | | [phone] | | | | | | | | +--------+---------+ + + + | 08/12/ | Office | Neurology | Don Garcia, | | | 2019 | Visit | | MD [address] | | | | | | [place] | | | | | | [place] [address] | | | | | | [phone] | | | | | | | | +--------+---------+ + + + documented as of this encounter Procedures + +--------+ + + + | Procedure Name | Priori | Date/Time | Associated Diagnosis | Comments | | | ty | | | | + +--------+ + + + | CT CHEST LUNG CANCER | Routin | 02/21/2019 | Personal history | Results for this | | SCREENING | e | 12:54 PDT | of tobacco use, | procedure are in the | | | | | presenting hazards | results section. | | | | | to health | | + +--------+ + + + documented in this encounter Results CT Chest Lung Cancer Screening (02/21/2019 12:54 PDT) + + | Specimen | + + | | + + + + + | Narrative | Performed At | + + + | CT CHEST WITHOUT CONTRAST CLINICAL INFORMATION: Lung cancer | [facility] | | screening. 90 pack year smoker. Current smoker: No. Years since | | | quit:8. COMPARISON: None PROCEDURE: Axial low dose images | | | through the chest. Multiplanar reconstructions. At least one of | | | the following CT dose optimization techniques were used: Automated | | | exposure control; Adjustment of mA and/or kV according to patient | | | size; Use of iterative reconstruction technique. FINDINGS: | | | Relevant Lung Findings: Small amount of scarring involving the mid to | | | lower lungs. Other Significant Findings: No pleural effusion | | | seen. No cardiomegaly or pericardial effusion. Aorta does not | | | appear aneurysmal. No enlarged lymph nodes seen. Upper | | | abdominal organs appear grossly within limits of unenhanced technique. | | | No acute or destructive osseous process seen IMPRESSION: LUNG | | | RADS: Category 2. Benign findings. Continue yearly low-dose | | | screening chest CT examinations. Signed by: Amauri Sethi, | | | Alfred Sign Date/Time: 02/21/2019 1:18 PM | | + + + + +---------+ + + | Performing | Address | City/State/Zipcode | Phone Number | | Organization | | | | + +---------+ + + | [facility] | | | | + +---------+ + + documented in this encounter Visit Diagnoses + + | Diagnosis | + + | Personal history of tobacco use, presenting hazards to health | + + documented in this encounter
--- OUTSIDE RECORDS SUMMARY | ~2019-04-19 | XMS | Encounter Summary ---
Demographics + + + | Address | [address] | | | [place] [address] | + + + | Home Phone | | + + + | Preferred Language | Unknown | + + + | Marital Status | | + + + | Jew Affiliation | 1001 | + + + | Race | Unknown | + + + | Ethnic Group | Unknown | + + + Author + + + | Author | [facility] | | | and [place] | + + + | Organization | [facility] | | | [...] Team Providers + +------+ + | Care Clinical Quality Assurance Associate Name | Role | Phone | + [...] + + | 04/02/ | Telephone | [facility] | Don Garcia, | Other | | 2019 | | NEUROLOGY [address] | MD [address] | | | | | [address] | [address] | | | | | [place], [place] | [place] [address] | | | | | [address] | [phone] | | | | | [phone] | | | +--------+ + + + [...] | | | | | | [place] [address] | | | | | | [phone] | | | | | | | | +--------+---------+ + + + | 07/01/ | Office | Endocrinology | Torres Barrientos, | | | 2019 | Visit | | MD [address] | | | | | | [place], | | | | | | [place] [address] | | | | | | [phone] | | | | | | | | +--------+---------+ + + + | 08/12/ | Office | Neurology | Don Garcia, | | | 2019 | Visit | | MD [address] | | | | | | [place] | | | | | | [place] [address] | | | | | | [phone] | | | | | | | | +--------+---------+ + + + documented as of this encounter Visit Diagnoses Not on filedocumented in this encounter"
--- OUTSIDE RECORDS SUMMARY | ~2019-04-19 | XMS | Encounter Summary ---
Demographics + + + | Address | [address] | | | [place] [address] | + + + | Home Phone | | + + + | Preferred Language | Unknown | + + + | Marital Status | | + + + | Quaker Affiliation | 1001 | + + + | Race | Unknown | + + + | Ethnic Group | Unknown | + + + Author + + + | Author | [facility] | | | and [place] | + + + | Organization | [facility] | | | [...] Team Providers + +------+ + | Care Securities Research Analyst Name | Role | Phone | + +------+ + | Flavio Hart DO | PCP | | + +------+ + Reason for Visit +--------+ + | Reason | Comments | +--------+ + | Other | [facility] | +--------+ + Encounter Details +--------+---------+ + + + | Date | Type | Department | Care Team | Description | +--------+---------+ + + + | 04/02/ | Office | [facility] | Don Garcia, | Memory loss (Primary | | 2019 | Visit | NEUROLOGY [address] | MD [address] | Dx) | | | | [address] | [address] | | | | | [place], [place] | [place] [address] | | | | | [address] | [phone] | | | | | [phone] | | | +--------+---------+ + + + [...] + + documented as of this encounter Progress Notes Can Chan, Lockstitch Hemmer - 04/02/[address] [place] [address]'s Cognitive Examination (JONY) Modified for [facility] ([facility]) The patient returns today for detailed cognitive evaluation for memory difficulty. Behavior Observations: The patient seemed alert (choose from the following: alert, engaged and attentive, drowsy. Add any other observations) during the examination. The examination processes was explained to the patient in detail. Test Procedure: The patient underwent detailed cognitive function evaluation which composed of visuospatial testing including overlapping pentagons, wire cube and draw a clock; language test includin g naming,comprehension (one-stage, three-stage, complex grammar), repetition (single works a nd phrases), reading (regular and irregular) and writing; orientation; attention and concent ration including immediate recall, calculation or spelling and memory testing including reca ll, anterograde memory, retrograde memory and verbal fluency. Test results: 1. Mini Mental Status Examination The examination included orientation, attention/concentration, recall, language and visuosp atial abilities. The patient received a score of 29 /30. 2. Total. [facility] score: 89/100 3. Orientation/Attention/Concentration 4. Memory 5. Verbal fluency 6. Language 7. Visuospatial abilities Total : 89 /100 VLOM-Ratio: V + SL = 2.31 O + M If VLOM-ratio < 2.2: Frontotemporal dementia. VLOM-ratio> 3.2 AD [facility] test with a total score of 89/100 MMSE total score of 29/30 with VLOM ration of 2.31 Normal cognition: 91+ Mild cognitive impairment: 84-90 Mild Alzheimer's disease: 70-83 Moderate Alzheimer's disease: 50-69 Severe Alzheimer's disease: 30-49 End stage Alzheimer's disease: <30 ZARdokhadra castellon in this encounter Plan of Treatment +--------+---------+ + [...] [place], | | | | | | [place] [address] | | | | | | [phone] | | | | | | | | +--------+---------+ + + + | 07/01/ | Office | Endocrinology | Torres Barrientos, | | | 2019 | Visit | | MD [address] | | | | | | [place], | | | | | | [place] [address] | | | | | | [phone] | | | | | | | | +--------+---------+ + + + | 08/12/ | Office | Neurology | Don Garcia, | | | 2019 | Visit | | MD [address] | | | | | | [place] | | | | | | [place] [address] | | | | | | [phone] | | | | | | | | +--------+---------+ + + + documented as of this encounter Visit Diagnoses + + | Diagnosis | + + | Memory loss - Primary | + + documented in this encounter"
--- OUTSIDE RECORDS SUMMARY | ~2019-04-19 | XMS | Encounter Summary ---
Demographics + + + | Address | [address] | | | [place] [address] | + + + | Home Phone | | + + + | Preferred Language | Unknown | + + + | Marital Status | | + + + | Roman Catholic Affiliation | 1001 | + + + | Race | Unknown | + + + | Ethnic Group | Unknown | + + + Author + + + | Author | [facility] | | | and [place] | + + + | Organization | [facility] | | | [...] Team Providers + +------+ + | Care Refinery Operator Assistant Name | Role | Phone | + [...] + + | 02/26/ | Telephone | [facility] | Don Garcia, | Referral | | 2019 | | NEUROLOGY [address] | [address] | | | | | [address] | [address] [facility] [address] | | | | | [place], [place] | [place] [address] | | | | | [address] | [phone] | | | | | [phone] | | | +--------+ + + + [...] [place], | | | | | | [place] [address] | | | | | | [phone] | | | | | | | | +--------+---------+ + + + | 07/01/ | Office | Endocrinology | Torres Barrientos, | | | 2019 | Visit | | MD [address] | | | | | | [place], | | | | | | [place] [address] | | | | | | [phone] | | | | | | | | +--------+---------+ + + + | 08/12/ | Office | Neurology | Don Garcia, | | | 2019 | Visit | | MD [address] | | | | | | [place] | | | | | | [place] [address] | | | | | | [phone] | | | | | | | | +--------+---------+ + + + documented as of this encounter Visit Diagnoses Not on filedocumented in this encounter"
--- OUTSIDE RECORDS SUMMARY | ~2019-04-19 | XMS | Encounter Summary ---
Demographics + + + | Address | [address] | | | [place] [address] | + + + | Home Phone | | + + + | Preferred Language | Unknown | + + + | Marital Status | | + + + | Nondenominational Affiliation | 1001 | + + + [...] Team Providers + +------+ + | Care Plant Engineering Supervisor Name | Role | Phone | + +------+ + | Flavio Hart DO | PCP | | + +------+ + Reason for Visit + + + | Reason | Comments | + + + | DM Follow-up | | + + + Encounter Details +--------+---------+ + + + | Date | Type | Department | Care Team | Description | +--------+---------+ + + + | 03/25/ | Office | [facility] | FloydTorres, | Uncontrolled type 2 | | 2019 | Visit | ENDOCRINOLOGY [address] | [address] | diabetes mellitus | | | | [address] | [address], | with hyperglycemia, | | | | [place], [place] | [place] [address] | with long-term | | | | [address] | [phone] | current use of | | | | [phone] | | insulin (HCC) | | | | | | (Primary Dx); Pure | | | | | | hypercholesterolemia | | | | | | ; Neuropathy | +--------+---------+ + + + Social History [...] + + + | Blood Pressure | 116/70 | 03/25/20191353 PDT | + + + + | Pulse | 98 | 03/25/20191353 PDT | + + + + | Temperature | 36.7 C (98 F) | 03/25/20191353 PDT | + + + + | Respiratory Rate | 18 | 03/25/20191353 PDT | + + + + | Oxygen Saturation | 95% | 03/25/20191353 PDT | + + + + | Inhaled Oxygen | - | - | | Concentration | | | + + + + | Weight | 109.3 kg (241 lb) | 03/25/2019 1354 PDT | + + + + | Height | 152.4 cm (5') | 03/25/2019 1354 PDT | + + + + | Body Mass Index | 47.07 | 03/25/2019 1354 PDT | + + + + documented in this encounter Patient Instructions Patient Instructions Torres Barrientos MD - 03/25/2019 13:40 PDTChange Novolog to 25 units at breakfast and 40 units at lunch and dinner Change the Tresiba to 80 units Please bring a record of your sugar readings with you to your next appointment. Our goal is to keep your blood sugars between 80 and 160. If they are routinely above or b elow this, please let us know. If you have any questions or concerns about your blood sugars, please feel free to contact the Endocrine clinic. We will plan on seeing you again in clinic in 3 months. Please have your labs drawn ahead of your visit. documented in this encounter Progress Notes Torres Barrientos MD - 03/25/2019 1340 PDTFormatting of this note might be different from t mathew mendoza. [facility] Endocrinology Return Visit CHIEF COMPLAINT: Diabetes HISTORY OF PRESENT ILLNESS Antonia Barger is a 63 y.o. female who was last seen approximately 3 months ago and is here to follow-up for treatment of her diabetes.[facility] as well as review of outside medical records. To summarize her records, she has has med ical history that is significant for restless leg syndrome, depression/anxiety, COPD, asthma , hypertension, hyperlipidemia acid reflux, and type 2 diabetes mellitus. She was diagnose d with diabetes in 1991. At her last visit she was asked to take 70 units of Tresiba. NovoLog was changed to 20-35-35 at meals. Since her last visit, she reports that blood sugar levels have generally been high. She br ought any record of her glucose readings. Shows that blood sugar levels are usually between 203 100. She will occasionally have a reading into the mid 100s. She denies that she has had any problems with hypoglycemia. She still taking 70 units of Tresiba daily. She has al so been taking the NovoLog with each meal. She is also been expensing problems with neuropa thy pain. She is taking 50 mg of Lyrica daily, but says that this is not enough. The pain keeps her up at night and is limiting mobility during the day. FAMILY HISTORY Family History Adopted: Yes Problem Relation Age of Onset Diabetes, NIDDM Mother Cancer Father Cancer Sister Cancer Brother PAST MEDICAL/SURGICAL HISTORY Past Medical History: Diagnosis Date COPD (chronic obstructive pulmonary disease) ([facility]) Depression Diabetes mellitus, type 2 ([facility]) 1995 Hyperlipidemia Hypertension IBS (irritable bowel syndrome) Neuropathy Past Surgical History: Procedure Laterality Date HYSTERECTOMY 2004 knee ligament sx 2018 SOCIAL HISTORY Social History Socioeconomic History Marital status: Spouse [...] Last attempt to quit: 07/16/2010 Years since quittin.6 Smokeless tobacco: Former User Tobacco comment: quit 8 years Substance and Sexual Activity Alcohol use: Not Currently Comment: 1997 Drug use: Not Currently Comment: 1997 Sexual activity: Not Currently Other Topics Concern Not on file Social History Narrative Not on file MEDICATIONS Current Outpatient Medications: ABILIFY MAINTENA 300 MG ER injection (vial), , Disp: , Rfl: Alcohol Swabs (ALCOHOL PREP) 70 % PADS, USE 1 PAD 4 TIMES DAILY, Disp: 100 each, Rfl: 11 ARIPiprazole (ABILIFY) 15 mg tablet, , Disp: , Rfl: Blood Glucose Monitoring Suppl (BLOOD GLUCOSE MONITOR SYSTEM) w/Device KIT, Please use for checking glucose 3 times a day, Disp: 1 each, Rfl: 0 carbidopa-levodopa (SINEMET) 10-100 mg per tablet, , Disp: , Rfl: cromolyn (OPTICROM) 4 % ophthalmic solution, , Disp: , Rfl: FLUoxetine (PROZAC) 20 MG tablet, , Disp: , Rfl: fluticasone (FLONASE) 50 mcg/nasal spray, , Disp: , Rfl: FREESTYLE LANCETS MISC, 1 each by Other route 3 (three) times daily. Use as instructed to check blood sugar three times daily. E11.65, Disp: 300 each, Rfl: 3 Glucose Blood (BLOOD GLUCOSE TEST STRIPS) STRP, For checking blood sugar three times d aily. Type II diabetes, Dx E11.65 on insulin, Disp: 300 each, Rfl: 3 insulin aspart (NOVOLOG) 100 units/mL injection, INJECT 30 UNITS SUBCUTANEOUSLY THREE TIMES DAILY BEFORE MEAL(S). Dx code E11.65, Disp: 90 mL, Rfl: 3 insulin degludec (TRESIBA FLEXTOUCH) 200 units/mL concentrated injection (pen), Inject 70 Units into the skin nightly., Disp: 27 mL, Rfl: 3 Insulin Pen Needle (PEN NEEDLES) 31G X 5 MM MISC, 1 each by Does not apply route daily ., Disp: 30 each, Rfl: 11 lisinopril (PRINIVIL, ZESTRIL) 20 mg tablet, , Disp: , Rfl: LYRICA 50 MG capsule, Take 50 mg by mouth Daily., Disp: , Rfl: 5 omeprazole (PRILOSEC) 20 mg capsule, , Disp: , Rfl: oxybutynin (DITROPAN) 5 mg tablet, , Disp: , Rfl: pravastatin (PRAVACHOL) 40 MG tablet, TAKE ONE TABLET BY MOUTH ONCE DAILY, Disp: 30 ta blet, Rfl: 3 raNITIdine (ZANTAC) 150 MG capsule, , Disp: , Rfl: RELION ALCOHOL SWABS 70 % PADS, USE 1 SWAB EXTERNALLY 4 TIMES DAILY, Disp: 100 each, R fl: 8 RELION INSULIN SYRINGE 1ML/31G 31G X 5/16" 1 ML MISC, 1 each by Other route 3 (three) times daily., Disp: 100 each, Rfl: 11 sertraline (ZOLOFT) 50 mg tablet, , Disp: , Rfl: traZODone (DESYREL) 150 MG tablet, , Disp: , Rfl: REVIEW OF SYSTEMS No fevers or chills. Breathing comfortably. Denies chest pain. No recent urinary changes. Chronic neuromuscular dysfunction. Chronic muscle skeletal pain. Otherwise, ROS was revi ewed in detail with the patient and is as per HPI or negative. PHYSICAL EXAM BP 116/70 | Pulse 98 | Temp 36.7 C (98 F) (Oral) | Resp 18 | Ht 1.524 m (5') | Wt 109.3 kg (241 lb) | SpO2 95% | BMI 47.07 kg/m Constitutional: alert and oriented, well groomed, wheelchair-bound Eyes: anicteric, moist Ears, Nose, Mouth, Throat: normal thyroid contuors Respiratory: unlabored Musculoskeletal: no peripheral edema Skin: no rashes identified Foot exam: No lesions, palpable pulses, impaired sensation DATA Component Latest Ref Rng & Units 05/01/2018 Cholesterol mg/dL 196 Triglycerides mg/dL 212 (H) HDL Cholesterol mg/dL 60 LDL Cholesterol, Calculated, External mg/dL 94 Hemoglobin A1c 4.0 - 6.0 % 7.9 (H) Glycohemoglobin (GHb),Total mg/dL 180 ALBUMIN/CREATININE RATIO.URINE.ORD.MG/G (BEAKER) mg/g 116 (H) ASSESSMENT & PLAN Antonia Barger is a pleasant 63 y.o. with uncontrolled type 2 diabetes mellitus, hy perlipidemia, and neuropathy. 1. Diabetes: Blood sugar levels are above target. I will increase Tresiba to 80 units tomás ly. NovoLog will be changed to 25 units at breakfast, 40 units at lunch, and 40 units at di nner. She was encouraged to check her blood sugar levels 3 times a day and to call and let us know if she starts to have problems with hypoglycemia after these adjustments. 2. Hyperlipidemia: She continues taking pravastatin to help with this. 3. Neuropathy: I will increase her dose of Lyrica to 50 mg twice daily to improve pain con trol. Knight has been a delightful patient to work with. Thank you for allowing me to participcinda sorto in her care. I will plan on seeing her again in 3 months. If you have any questions, pl ease do not hesitate to call. Torres Barrientos MD 03/25/2019 *This report has been prepared using a voice recognition system. The report was reviewed fo r accuracy, however, sound-alike word errors, addition and/or deletions may occur. If there is any question about this report please contact me. documented in this encounter Plan of Treatment +--------+---------+ + + + | Date | Type | Specialty | Care Team | Description | +--------+---------+ + + + | 04/26/ | Office | Pulmonology | [facility], | | | 2018 | Visit | | Lisa Peres, | | | | | | MD [address] | | | | | | [place], | | | | | | [place] [address] | | | | | | [phone] | | | | | | | | +--------+---------+ + + + | 07/01/ | Office | Endocrinology | Torres Barrientos, | | | 2019 | Visit | | [address] | | | | | | [place], | | | | | | [place] [address] | | | | | | [phone] | | | | | | | | +--------+---------+ + + + | 08/12/ | Office | Neurology | Don Garcia, | | | 2019 | Visit | | [address] | | | | | | [place] | | | | | | [place] [address] | | | | | | [phone] | | | | | | | | +--------+---------+ + + + documented as of this encounter Visit Diagnoses + + | Diagnosis | + + | Uncontrolled type 2 diabetes mellitus with hyperglycemia, with long-term current use | | of insulin (HCC) - Primary | + + | Pure hypercholesterolemia | + + | Neuropathy Mononeuritis of unspecified site | + + documented in this encounter
--- OUTSIDE RECORDS SUMMARY | ~2019-04-19 | XMS | Encounter Summary ---
Demographics + + + | Address | [address] | | | [place] [address] | + + + | Home Phone | | + + + | Preferred Language | Unknown | + + + | Marital Status | Unknown | + + + | Bahai Affiliation | Unknown | + + + | Race | Unknown | + + + | Ethnic Group | Unknown | + + + Author + + + | Author | [facility] (Historical as of | | | 02-09-19) | + + + | Organization | [facility] (Historical as of | | | 02-09-19) [...] Team Providers + +------+ + | Care Dietetics Director Name | Role | Phone | + +------+ + | Flavio Hart DO | PCP | | + +------+ + Reason for Visit +--------+ + | Reason | Comments | +--------+ + | Other | | +--------+ + Encounter Details +--------+ + + + + | Date | Type | Department | Care Team | Description | +--------+ + + + + | 02/05/ | Telephone | [facility] | JoseFanitysuzie, | Other | | 2019 | | Neuro[facility] Center | [address] | | | | | [address] | [place], [place] | | | | | [place], [place] | [address] | | | | | [address] | | | | | | [phone] | | | +--------+ + + + [...] as of this encounter Plan of Treatment Not on fileas of this encounter Visit Diagnoses Not on filein this encounter"
--- OUTSIDE RECORDS SUMMARY | ~2019-04-19 | XMS | Clinical Summary ---
Demographics + + + | Address | [address] | | | [place] [address] | + + + | Home Phone | | + + + | Preferred Language | Unknown | + + + | Marital Status | Unknown | + + + | Confucianist Affiliation | Unknown | + + + | Race | Unknown | + + + | Ethnic Group | Unknown | + + + Author + + + | Author | [facility] (Historical as of | | | 02-09-19) | + + + | Organization | [facility] (Historical as of | | | [...] Team Providers + +------+ + | Care Manager Research And Development Name | Role | Phone | + [...] +---------+------+------+-------+ | ARIPiprazole | | | | 09/24 | | Activ | | (KRISTEL) 15 MG | | | | 07/15 | | e | | tablet | | | | 16 | | | + + + +---------+------+------+-------+ | ABILIFY MAINTENA | | | | 09/24 | | Activ | | 300 MG SUSR | | | | 07/15 | | e | | | | [...] (ZOLOFT) 50 MG | | | | 1/20 | | e | | tablet | | | | 16 | | | + + + +---------+------+------+-------+ | traZODone | | | | 03/2 | | Activ | | (DESYREL) 150 MG | | | | 9/20 | | e | | tablet | | | | 16 | | | + + + +---------+------+------+-------+ | Blood Glucose | Please use for | 1 each | 0 | 09/2 | | Activ | | Monitoring Suppl | checking glucose 3 | | | /20 | | e | | (BLOOD GLUCOSE [...] % | DAILY | each | | 01/12 | | e | | PADS | [...] sugar three times | each | | 20 | | e | | test strip | daily. Type II | | | 19 | | | | | diabetes, Dx E11.65 | | | | | | | | on insulin | | | | | | + + + +---------+------+------+-------+ | Insulin Pen Needle | 1 each by Does not | 30 each | 11 | 02/1 | | Activ | | (PEN NEEDLES) 31G X | apply route daily. | | | 07/15 | | e | | 5 MM MISC | | | | 19 | | | + + + +---------+------+------+-------+ | RELION INSULIN | 1 each by Other | 100 | 11 | 02/1 | | Activ | | SYRINGE 1ML/31G 31G | route 3 (three) | each | | 1/20 | | e | | X 5/16" 1 ML | times daily. | | | 19 | | | + + + +---------+------+------+-------+ | insulin degludec | Inject 70 Units into | 27 mL | 3 | 06/1 | | Activ | | (TRESIBA FLEXTOUCH) | the skin nightly. | | | 3/20 | | e | | 200 units/mL | | | | 19 | | | | concentrated | | | | | | | | injection (pen) | | | | | | | + + + +---------+------+------+-------+ | insulin aspart | INJECT 30 UNITS | 90 mL | 3 | 07/0 | | Activ | | (NOVOLOG) 100 | SUBCUTANEOUSLY THREE | | | 5/20 | | e | | UNIT/ML injection | TIMES DAILY BEFORE | | | 19 | | | | | MEAL(S). Dx [...] + + | 02/05/ | Telephone | | Don Garcia, | Other | | 2018 | | | MD | | +--------+ + + + + | 01/29/ | Telephone | | Adeel Chan, | | | 2018 | | | [place] | | +--------+ + + + + | 01/23/ | Telephone | | Don Garcia, | Referral (outgoing) | | 2018 | | | MD [...] + + + | Blood Pressure | 134/81 | 12/17/2018 2:21 PM PDT | + + + + | Pulse | 79 | 12/17/2018 2:21 PM PDT | + + + + | Temperature | - | - | + + + + | Respiratory Rate | - | - | + + + + | Oxygen Saturation | 88% | 12/17/2018 2:21 PM PDT | + + + + | Inhaled Oxygen | - | - | | Concentration | | | + + + + | Weight | 114.3 kg (252 lb) | 12/17/2018 2:21 PM PDT | + + + + | Height | 152.4 cm (5') | 12/17/2018 2:21 PM PDT | + + + + | Body Mass Index | 49.22 | 12/17/2018 2:21 PM PDT | + + + + Plan of Treatment + + + + + | Health [...] | + + + + + | DEXA SCAN SCREENING | | | | | | 9 | | | + + + + + | Vaccine: | | | | | Pneumococcal 65+ | 9 | | | | Low/Medium Risk (1 | | | | | of 2 - PCV13) | | | | + + + + + | Hemoglobin A1c | | 05/01/2018, 10/10/2017, | | | | 9 | 02/08/2017 | | + + + + + | Vaccine: Influenza | | | | | (#1) | 9 | | | + + + + + | Microalbumin | | 05/01/2018, 10/10/2017 | | | Screening | 9 | | | + + + + + | Diabetic Foot Exam | | 12/06/2018, 02/20/2017, | | | | 0 | 02/08/2017 | | + + + [...] +------+-------+ + | MEDICARE | MEDICA | [id number] | | | [address] | | | RE | | | | [place] [address] | | | IP-OP | | | | | + +--------+ +------+-------+ + | MEDICAID | [place] | [id number] | | | [address] | | | [place] | | | | [place] | | | [place] | | | | [address] | | | PERSONAL SUPPORT WORKER | | | | | + +--------+ [...] | 10/24/ | Home: | [address] | | [place] | [place]athan | | 4 [phone] | [place] | | | [place] | | | [phone] | [phone] | + +--------+ +--------+ + +
--- OUTSIDE RECORDS SUMMARY | ~2019-04-19 | XMS | Encounter Summary ---
Demographics + + + | Address | [address] | | | [place] [address] | + + + | Home Phone | | + + + | Preferred Language | Unknown | + + + | Marital Status | | + + + | Yarsani Affiliation | 1001 | + + + | Race | Unknown | + + + | Ethnic Group | Unknown | + + + Author + + + | Author | [facility] | | | and [place] | + + + | Organization | [facility] | | | and [...] Team Providers + +------+ + | Care Washing And Screening Plant Supervisor Name | Role | Phone | + +------+ + | Flavio Hart DO | PCP | | + +------+ + Encounter Details +--------+ + + + + | Date | Type | Department | Care Team | Description | +--------+ + + + + | 02/08/ | Orders Only | [facility] | Don Garcia, | Other amnesia | | 2019 | | NEUROLOGY [address] | MD [address] | | | | | [address] | [address] | | | | | [place], [place] | [place] [address] | | | | | [address] | [phone] | | | | | [phone] | | | +--------+ + + + + Social History + +-------+ +--------+------+ | Tobacco Use | Types | Packs/Day | Years | Date | | | | | Used | | + +-------+ +--------+------+ | Former Smoker | | | | | + +-------+ +--------+------+ + + + | Sex Assigned at [...] [place], | | | | | | [place] [address] | | | | | | [phone] | | | | | | | | +--------+---------+ + + + | 07/01/ | Office | Endocrinology | Torres Barrientos, | | | 2019 | Visit | | MD [address] | | | | | | [place], | | | | | | [place] [address] | | | | | | [phone] | | | | | | | | +--------+---------+ + + + | 08/12/ | Office | Neurology | Don Garcia, | | | 2019 | Visit | | MD [address] | | | | | | [place] | | | | | | [place] [address] | | | | | | [phone] | | | | | | | | +--------+---------+ + + + + +--------+ + + | Name | Priori | Associated Diagnoses | Order Schedule | | | ty | | | + +--------+ + + | Vitamin B-1, Whole Blood | Routin | Other amnesia | Expected: | | | e | | 07/03/2018, Expires: | | | | | 07/03/2019 | + +--------+ + + | TSH | Routin | Other amnesia | Expected: | | | e | | 07/03/2018, Expires: | | | | | 07/03/2019 | + +--------+ + + | TSH | Routin | Other amnesia | Expected: | | | e | | 12/17/2018, Expires: | | | | | 12/17/2019 | + +--------+ + + | Vitamin B-1, Whole Blood | Routin | Other amnesia | Expected: | | | e | | 12/17/2018, Expires: | | | | | 12/18/2019 | + +--------+ + + documented as of this encounter Visit Diagnoses + + | Diagnosis | + + | Other amnesia | + + documented in this encounter"
--- OUTSIDE RECORDS SUMMARY | ~2019-04-19 | XMS | Encounter Summary ---
Demographics + + + | Address | [address] | | | [place] [address] | + + + | Home Phone | | + + + | Preferred Language | Unknown | + + + | Marital Status | | + + + | Adventism Affiliation | 1001 | + + + | Race | Unknown | + + + | Ethnic Group | Unknown | + + + Author + + + | Author | [facility] | | | and [place] | + + + | Organization | [facility] | | | [...] Team Providers + +------+ + | Care Television Station Manager Name | Role | Phone | [...] + + | 03/25/ | Office | [facility] | FloydTorres, | Uncontrolled type 2 | | 2019 | Visit | ENDOCRINOLOGY [address] | [address] | diabetes mellitus | | | | [address] [place], | with hyperglycemia, | | | | [place], [place] | [place] [address] | with long-term | | | | [address] | [phone] | current use of | | | | [phone] | | insulin (HCC) | | | [...] might be different from t mathew mendoza. [facility] Endocrinology Return Visit CHIEF COMPLAINT: Diabetes HISTORY OF PRESENT ILLNESS Antonia Barger is a 63 y.o. female who was last seen approximately 3 months ago and is here to follow-up for treatment of her diabetes.[facility] as well as review of outside [...] Diagnosis Date COPD (chronic obstructive pulmonary disease) ([facility]) Depression Diabetes mellitus, type 2 ([facility]) 1995 Hyperlipidemia Hypertension IBS (irritable bowel syndrome) [...] | 04/26/ | Office | Pulmonology | [facility], | | | 2018 | Visit | | Lisa Peres, | | | | | | MD [address] | | | | | | [place], | | | | | | [place] [address] | | | | | | [phone] | | | | | | | | +--------+---------+ + + + | 07/01/ | Office | Endocrinology | Torres Barrientos, | | | 2019 | Visit | | [address] | | | | | | [place], | | | | | | [place] [address] | | | | | | [phone] | | | | | | | | +--------+---------+ + + + | 08/12/ | Office | Neurology | Don Garcia, | | | 2019 | Visit | | [address] | | | | | | [place] | | | | | | [place] [address] | | | | | | [phone] | | | | | | | [...]
--- OUTSIDE RECORDS SUMMARY | ~2019-04-19 | XMS | Encounter Summary ---
Demographics + + + | Address | [address] | | | [place] [address] | + + + | Home Phone | | + + + | Preferred Language | Unknown | + + + | Marital Status | | + + + | Cheondoism Affiliation | 1001 | + + + | Race | Unknown | + + + | Ethnic Group | Unknown | + + + Author + + + | Author | [facility] | | | and [place] | + + + | Organization | [facility] | | | [...] Team Providers + +------+ + | Care Fluid Power Mechanic Name | Role | Phone | + [...] + + | 02/22/ | Telephone | [facility] | Don Garcia, | Referral | | 2019 | | NEUROLOGY [address] | [address] | | | | | [address] | [address] [facility] [address] | | | | | [place], [place] | [place] [address] | | | | | [address] | [phone] | | | | | [phone] | | | +--------+ + + + [...] | | | | | | [place] [address] | | | | | | [phone] | | | | | | | | +--------+---------+ + + + | 07/01/ | Office | Endocrinology | Torres Barrientos, | | | 2019 | Visit | | MD [address] | | | | | | [place], | | | | | | [place] [address] | | | | | | [phone] | | | | | | | | +--------+---------+ + + + | 08/12/ | Office | Neurology | Don Garcia, | | | 2019 | Visit | | MD [address] | | | | | | [place] | | | | | | [place] [address] | | | | | | [phone] | | | | | | | | +--------+---------+ + + + documented as of this encounter Visit Diagnoses Not on filedocumented in this encounter"
--- OUTSIDE RECORDS SUMMARY | ~2019-04-19 | XMS | Encounter Summary ---
Demographics + + + | Address | [address] | | | [place] [address] | + + + | Home Phone | | + + + | Preferred Language | Unknown | + + + | Marital Status | | + + + | Worship Affiliation | 1001 | + + + | Race | Unknown | + + + | Ethnic Group | Unknown | + + + Author + + + | Author | [facility] | | | and [place] | + + + | Organization | [facility] | | | and [...] Team Providers + +------+ + | Care Postal Superintendent Name | Role | Phone | + +------+ + | Flavio Hart DO | PCP | | + +------+ + Reason for Visit + + + | Reason | Comments | + + + | Referral | Outgoing | + + + Encounter Details +--------+ + + + + | Date | Type | Department | Care Team | Description | +--------+ + + + + | 03/20/ | Telephone | [facility] | Don Garcia, | Referral (Outgoing ) | | 2019 | | NEUROLOGY [address] | [address] | | | | | [address] [place] | [address] [facility] [address] | | | | | [place], [place] | [place] [address] | | | | | [address] | [phone] | | | | | [phone] | | | +--------+ + + + [...] | | | | | | [place] [address] | | | | | | [phone] | | | | | | | | +--------+---------+ + + + | 07/01/ | Office | Endocrinology | Torres Barrientos, | | | 2019 | Visit | | MD [address] | | | | | | [place], | | | | | | [place] [address] | | | | | | [phone] | | | | | | | | +--------+---------+ + + + | 08/12/ | Office | Neurology | Don Garcia, | | | 2019 | Visit | | MD [address] | | | | | | [place] | | | | | | [place] [address] | | | | | | [phone] | | | | | | | | +--------+---------+ + + + documented as of this encounter Visit Diagnoses Not on filedocumented in this encounter"
--- OUTSIDE RECORDS SUMMARY | ~2019-04-19 | XMS | Encounter Summary ---
Demographics + + + | Address | [address] | | | [place] [address] | + + + | Home Phone | | + + + | Preferred Language | Unknown | + + + | Marital Status | Unknown | + + + | Islam Affiliation | Unknown | + + + | Race | Unknown | + + + | Ethnic Group | Unknown | + + + Author + + + | Author | [facility] (Historical as of | | | 02-09-19) | + + + | Organization | [facility] (Historical as of | | | 02-09-19) [...] Team Providers + +------+ + | Care Geophysical Operator Name | Role | Phone | [...] + + | 02/05/ | Telephone | [facility] | JoseFanitysuzie, | Other | | 2019 | | [facility] | [address] | | | | | [address] | [place], [place] | | | | | [place], [place] | [address] | | | | | [address] | | | | | | [phone] | | | +--------+ + + + [...]
--- OUTSIDE RECORDS SUMMARY | ~2019-04-19 | XMS | Encounter Summary ---
Demographics + + + | Address | [address] | | | [place] [address] | + + + | Home Phone | | + + + | Preferred Language | Unknown | + + + | Marital Status | | + + + | Restoration Affiliation | 1001 | + + + | Race | Unknown | + + + | Ethnic Group | Unknown | + + + Author + + + | Author | [facility] | | | and Bruceana | + + + | Organization | [facility] | | | and [...] Team Providers + +------+ + | Care Superintendent Maintenance Name | Role | Phone | + [...] | | presenting | [address] | [place], [place] | | | | | hazards to | [place] | [address] | | | | | health | [place], [place] | Phone: | | | | | Procedures | [address] | [phone] | | | | | CT Chest | Phone: | Fax: | | | | | Lung Cancer | [phone] | [phone] | | | | | Screening | Fax: | | | | | | | [phone] | | +--------+--------+ + + + + [...] | | presenting | [address] | [place], [place] | | | | | hazards to | [place] | [address] | | | | | health | [place], [place] | Phone: | | | | | Procedures | [address] | [phone] | | | | | CT Chest | Phone: | Fax: | | | | | Lung Cancer | [phone] | [phone] | | | | | Screening | Fax: | | | | | | | [phone] | | +--------+--------+ + + + + [...] | | presenting | [address] | [place], [place] | | | | | hazards to | [place] | [address] | | | | | health | [place], [place] | Phone: | | | | | Procedures | [address] | [phone] | | | | | CT Chest | Phone: | Fax: | | | | | Lung Cancer | [phone] | [phone] | | | | | Screening | Fax: | | | | | | | [phone] | | +--------+--------+ + + + + Encounter Details +--------+ + + + + | Date | Type | Department | Care Team | Description | +--------+ + + + + | 02/21/ | Hospital | [facility] | Marquis, | Personal history of | | 2019 | Encounter | [facility] [address] | Lisa Peres, | tobacco use, | | | | [address] | MD [address] | presenting hazards | | | | [place], [place] | [place], | to [facility] | | | | [address] | [place] [address] | | | | | [phone] | [phone] | | | | | | | [...] | | | | | | [place] [address] | | | | | | [phone] | | | | | | | | +--------+---------+ + + + | 07/01/ | Office | Endocrinology | Torres Barrientos, | | | 2019 | Visit | | MD [address] | | | | | | [place], | | | | | | [place] [address] | | | | | | [phone] | | | | | | | | +--------+---------+ + + + | 08/12/ | Office | Neurology | Don Garcia, | | | 2019 | Visit | | MD [address] | | | | | | [place] | | | | | | [place] [address] | | | | | | [phone] | | | | | | | [...]
--- OUTSIDE RECORDS SUMMARY | ~2019-04-19 | XMS | Encounter Summary ---
Demographics + + + | Address | [address] | | | [place] [address] | + + + | Home Phone | | + + + | Preferred Language | Unknown | + + + | Marital Status | | + + + | Orthodox Affiliation | 1001 | + + + | Race | Unknown | + + + | Ethnic Group | Unknown | + + + Author + + + | Author | [facility] | | | and Bruceana | + + + | Organization | [facility] | | [...] Team Providers + +------+ + | Care Interventional Cardiologist Name | Role | Phone | + [...] | | presenting | [address] | [place], [place] | | | | | hazards to | [place] | [address] | | | | | health | [place], [place] | Phone: | | | | | Procedures | [address] | [phone] | | | | | CT Chest | Phone: | Fax: | | | | | Lung Cancer | [phone] | [phone] | | | | | Screening | Fax: | | | | | | | [phone] | | +--------+--------+ + + + + Reason for Visit + + + | Reason | Comments | + + + | Establish Care | panlobular emphysema | + + + Evaluate & Treat (Routine) + +--------+ + + + + | Status | Reason | Specialty | Diagnoses / | Referred By | Referred To | | | | | Procedures | Contact | Contact | + +--------+ + + + + | Authorized | | | Diagnoses | Haogar, | [place]quis, | | | | | Panlobular | DO Flavio | Lisa | | | | | emphysema | [address] | MD Larisa | | | | | ([facility]) | Augustin Crandall | [address] | | | | | | [address] | [address] | | | | | | [place], | [place], [place] | | | | | | [place] | [address] Phone: | | | | | | [address] | [phone] | | | | | | Phone: | Fax: | | | | | | [phone] | [phone] | | | | | | Fax: | | | | | | | [phone] | | + +--------+ + + + + Encounter Details +--------+---------+ + + + | Date | Type | Department | Care Team | Description | +--------+---------+ + + + | 02/13/ | Office | [facility] | Marquis, | Panlobular emphysema | | 2019 | Visit | PULMONOLOGY [address] | Lisa Peres, | (HCC) (Primary Dx); | | | | [address] | MD [address] | Chronic respiratory | | | | [place], [place] | [place], | failure with | | | | [address] | [place] [address] | hypoxia (HCC); TEE | | | | [phone] | [phone] | (obstructive sleep | | | | | | apnea); Personal | | | | | | history of tobacco | | | | | | use, presenting | | | | | | hazards to health | +--------+---------+ + + + Social History [...] | | + +---+---+---+ + + | Tobacco Cessation: Counseling Given: Yes | | Comments: quit 8 years | + [...] + + + | Blood Pressure | 131/79 | 02/13/20191312 PDT | + + + + | Pulse | 86 | 02/13/20191312 PDT | + + + + | Temperature | 36.3 C (97.4 F) | 02/13/20191312 PDT | + + + + | Respiratory Rate | - | - | + + + + | Oxygen Saturation | 94% | 02/13/20191312 PDT | + + + + | Inhaled Oxygen | - | - | | Concentration | | | + + + + | Weight | 114.4 kg (252 lb 1.6 | 02/13/2019 1313 PDT | | | oz) | | + + + + | Height | 152.4 cm (5') | 02/13/2019 1313 PDT | + + + + | Body Mass Index | 49.23 | 02/13/2019 1313 PDT | + + + + documented in this encounter Patient Instructions Patient Instructions Lisa Cho MD - 02/13/2019 13:30 PDTSTOP FLOVENT CO NTINUE USING ADVAIR DISCUS AND ALBUTEROL INHALER Fluticasone; Salmeterol inhalation powder Brand Names: Advair, Airduo RespiClick What is this medicine? FLUTICASONE; SALMETEROL (floo TIK a sone; bahman ME te role) inhalation is a combination of tw o medicines that decrease inflammation and help to open up the airways of your lungs. It is used to treat COPD. This medicine is also used to treat asthma. Do NOT use for an acute asth ma attack. Do NOT use for a COPD attack. How should I use this medicine? This medicine is inhaled through the mouth. Rinse your mouth with water after use. Make kevin e not to swallow the water. Follow the directions on the prescription label. Do not use a sp acer device with this inhaler. Take your medicine at regular intervals. Do not take your med icine more often than directed. Do not stop taking except on your doctor's advice. Make sure that you are using your inhaler correctly. Ask you doctor or health care provider if you chin ve any questions. A special MedGuide will be given to you by the pharmacist with each prescription and refill . Be sure to read this information carefully each time. Talk to your director appointment regarding the use of this medicine in children. Special care may be needed. What side effects may I notice from receiving this medicine? Side effects that you should report to your doctor or health care management specialist as soon as p ossible: allergic reactions like skin rash or hives, swelling of the face, lips, or tongue chest pain dizziness or lightheaded fever or chills irregular heartbeat vision problems Side effects that usually do not require medical attention (report to your doctor or health care management specialist if they continue or are bothersome): coughing, hoarseness, throat irritation headache nervousness stomach problems stuffy nose tremor What may interact with this medicine? Do not take this medicine with any of the following medications: MAOIs like Carbex, Eldepryl, Marplan, Nardil, and Parnate This medicine may also interact with the following medications: aminophylline or theophylline antiviral medicines for HIV or AIDS beta-blockers like metoprolol and propranolol certain antibiotics like clarithromycin, erythromycin, levofloxacin, linezolid, and teli thromycin certain medicines for fungal infections like ketoconazole, itraconazole, posaconazole, v oriconazole conivaptan diuretics medicines for colds medicines for depression or emotional conditions nefazodone vaccines What if I miss a dose? If you miss a dose, use it as soon as you remember. If it is almost time for your next dose , use only that dose and continue with your regular schedule, spacing doses evenly. Do not u se double or extra doses. Where should I keep my medicine? Keep out of the reach of children. Advair: Store at room temperature between 68 and 77 degrees F (20 and 25 degrees C). Do not leave your medicine in the heat or sun. Throw away 1 month after you open the package or wh enever the dose indicator reads 0, whichever comes first. Throw away unopened packages after the expiration date. AirWinProbeo Respiclick: Store at room temperature between 59 and 86 degrees F (15 and 30 degrees C). Avoid exposure to extreme heat, cold, or humidity. Throw away 1 month after you open th e package or whenever the dose indicator reads 0, whichever comes first. Throw away unopened packages after the expiration date. What should I tell my health care provider before I take this medicine? They need to know if you have any of these conditions: bone problems immune system problems diabetes heart disease or irregular heartbeat high blood pressure infection pheochromocytoma seizures thyroid disease worsening asthma an unusual or allergic reaction to fluticasone, salmeterol, other corticosteroids, other medicines, foods, dyes, or preservatives or trying to get breast-feeding What should I watch for while using this medicine? Visit your doctor for regular check ups. Tell your doctor or health care management specialist if yo ur symptoms do not get better. Do not use this medicine more than every 12 hours. NEVER use this medicine for an acute asthma attack. You should use your short-acting rescue inhalers for this purpose. If your symptoms get worse or if you need your short-acting inha lers more often, call your doctor right away. If you are going to have surgery tell your doctor or health care management specialist that you are using this medicine. Try not to come in contact with people with the chicken pox or measles. If you do, call your doctor. NOTE:This sheet is a summary. It may not cover all possible information. If you have questi ons about this medicine, talk to your doctor, pharmacist, or health care provider. Copyright 2019 [employer] documented in this encounter Progress Notes Lisa Cho MD - 02/13/2019 6130 PDTFormatting of this note might be diffe rent from the original. Subjective Patient ID: Antonia Barger is a 63 y.o. female with untreated TEE, T2DM, HTN, HPL, IBS, Schizophrenia/PTSD, here to establish care for emphysema/COPD. HPI Ms Barger is a 63 yr old woman who was told that she has COPD about 2 months ago. She rep orts that she was admitted for an acute exacerbation then, and was given prednisone and abx. She was also found to be hypoxemic and so had to start O2 supplementation at 4L int flow on exertion, and at 3L at night. It seems that she also has been started on a couple of inhale rs, and is both on Flovent and Advair discus. She has an albuterol nebulizer and uses this a bout 3x a day. She also has albuterol HFA. She also has participated in Pulm Rehab and seems to have benefited from this as she says that she learned how to breathe better and do breat enrique exercises there. She is dependent on a caregiver and gets support from a local service. She no loner does ch ores at home. She is short of breath with minimal exertion, and cannot walk more than 20 fee t without getting winded. She says that she tries to walk once a week in a park but this is hard for her. She also uses a walker to ambulate. She has an intermittent cough that is usua lly not productive. She has arthralgias, and pedal edema. She sleeps on her side. She has be en diagnosed with TEE but because she has extreme claustrophobia, she has not been able to t olerate a mask. She has had dysphagia, and has been coughing with certain foods. She will be going to speech therapy for this soon. SOCIAL HISTORY She is a past smoker, stopped in 2010. She smoked up to 2 packs a day for 57 years, so she is more than 100 pack years. She worked in a [employer]. She lived in [place] until she was 13 yrs o f age, and then she moved to [place], and eventually [place] in the . She lives with her daughter . She has no animals at home. The following elements of the patient's history were reviewed and updated as appropriate. T kelvin are available elsewhere in the patient record. allergies, current medications, past fam josue history, past medical history, past social history, past surgical history and problem li st Review of Systems Constitutional: Positive for fatigue. Negative for fever and unexpected weight change. HENT: Negative for congestion, postnasal drip and trouble swallowing. Eyes: Negative for visual disturbance. Respiratory: Positive for apnea, cough, shortness of breath and wheezing. Negative for ches t tightness and stridor. Cardiovascular: Positive for leg swelling. Negative for chest pain and palpitations. Gastrointestinal: Negative for abdominal distention, constipation, diarrhea and nausea. Genitourinary: Negative for dysuria. Musculoskeletal: Positive for arthralgias, back pain and gait problem. Negative for joint s welling. Skin: Negative for rash. Allergic/Immunologic: Negative for environmental allergies. Neurological: Negative for dizziness. Psychiatric/Behavioral: Positive for sleep disturbance. Past Medical History: Diagnosis Date COPD (chronic obstructive pulmonary disease) ([facility]) Depression Diabetes mellitus, type 2 (HCC) 1995 Hyperlipidemia Hypertension IBS (irritable bowel syndrome) Neuropathy Past Surgical History: Procedure Laterality Date HYSTERECTOMY 2003 knee ligament sx 2017 Objective BP 131/79 | Pulse 86 | Temp 36.3 C (97.4 F) (Oral) | Ht 1.524 m (5') | Wt 114.4 kg (252 lb 1.6 oz) | SpO2 94% | BMI 49.23 kg/m Physical Exam Vital signs reviewed. Oxygen saturation noted at 94% on 4L int flow GENERAL: obese, pleasant, cooperative, oriented, not in distress HEENT: pink conjunctiva, anicteric sclerae, moist oral mucosae and without any lesions, nor mal appearing nasal mucosae; JVP cannot be evaluated due to short neck; MALAMPATTI 4; no thy romegaly; no cervicolymphadenopathies CVS: PMI non displaced, NRRR, S1 and S2, no murmurs/gallops/rubs CHEST: Examination of the chest was unremarkable. There were no bony deformities, no asymme try, and no other abnormalities. She has a mild kyphosis LUNGS: Normal effort, Equal in expansion, resonant to percussion, decreased breath sounds d iffusely, no adventitious sounds today ABDOMEN: Obese abdomen, NABS, non-tender on palpation, liver span normal, no masses palpate d EXTREMITIES: good distal pulses, no cyanosis, no clubbing, no nail abnormalities, +1 edema today NEURO: awake and oriented, no focal neurologic deficits, uses a walker to ambulate LABORATORY AND IMAGING Pulmonary Function Test: 06/21/18 FEV1 1.45 (70%) FVC 2.02 (77%) FEV1/FVC 72 TLC 4.5 (101%) RV/TLC 54 DLCO 14.9 (79%) No imaging to review Assessment /Plan 1. Panlobular emphysema (HCC) Antonia is a pleasant 63 yr old who was diagnosed with emphysema and COPD. PFT does not rosario w an overt obstruction, but clinically, she does have s/s of COPD. I would be inclined to co mikeue treating her for this, and have clarified her inhaler use as follows: Advair BID, prn albuterol. She should STOP using Flovent. Continue doing exercises learned in pulm rehab. Encouraged to walk as much as she can. 2. Chronic respiratory failure with hypoxia (HCC) She has been found to be hypoxemic, likely from chronic lung disease, and untreated TEE/OHS . Continue with O2 supplementation -3L at night and up to 4L int flow on exertion. 3. TEE (obstructive sleep apnea) She has been unable to tolerate a CPAP machine, and I have reiterated that fact that using mere oxygen will not be helpful in TEE. I think that her dyspnea is partly because of untrea cande TEE. 4. Personal history of tobacco use, presenting hazards to health She has smoked for many years, up to 100 pack years. I have recommended CT lung screening t o document any changes that may be concerning for a malignancy. She has agreed to do this, a nd will get this done through [facility]. - CT Chest Lung Cancer Screening; Future 5. Dysphagia Already has a speech evaluation and therapy planned in the next few days. Continue to be vi gilant about aspiration events. Thank you for allowing us to participate in this patient's care. A return visit has been re quested/scheduled in 2 months for close clinical follow up. The patient was instructed to ca ll our clinic for any questions, and for any concerns regarding worsening dyspnea, cough or change in sputum production. We will see the patient sooner than the recommended follow up d ate, if with any worsening of symptoms. Lisa Cho MD Pulmonary and Critical Care Medicine [facility] [address] [place] [address] documented i n this encounter Plan of Treatment +--------+---------+ + + + | Date | Type | Specialty | Care Team | Description | +--------+---------+ + + + | 04/26/ | Office | Pulmonology | Marquis, | | | 2018 | Visit | | Lisa Peres, | | | | | | MD [address] | | | | | | [place], | | | | | | [place] [address] | | | | | | [phone] | | | | | | | | +--------+---------+ + + + | 07/01/ | Office | Endocrinology | Torres Barrientos, | | | 2019 | Visit | | [address] | | | | | | [place], | | | | | | [place] [address] | | | | | | [phone] | | | | | | | | +--------+---------+ + + + | 08/12/ | Office | Neurology | Don Garcia, | | | 2019 | Visit | | [address] | | | | | | [place] [address] | | | | | | [phone] | | | | | | | | +--------+---------+ + + + documented as of this encounter Results CT Chest Lung Cancer [...] + | Diagnosis | + + | Panlobular emphysema (HCC) - Primary Other emphysema | + + | Chronic respiratory failure with hypoxia (HCC) Chronic respiratory failure | + + | TEE (obstructive sleep apnea) Obstructive sleep apnea (adult) (pediatric) | + + | Personal history of tobacco use, presenting hazards to health | + + documented in this encounter"
--- OUTSIDE RECORDS SUMMARY | ~2019-04-19 | XMS | Clinical Summary ---
Demographics + + + | Address | [address] | | | [place] [address] | + + + | Home Phone | | + + + | Preferred Language | Unknown | + + + | Marital Status | | + + + | Catholic Affiliation | 1001 | + + + | Race | Unknown | + + + | Ethnic Group | Unknown | + + + Author + + + | Author | [facility] | | | and Bruceana | + + + | Organization | [facility] | | | [...] Team Providers + +------+ + | Care Telecommunications Line Installer Name | Role | Phone | + +------+ + | Flavio Hart DO | PCP | | + +------+ + Allergies + + + + + + | Active Allergy | Reactions | Severity | Noted | Comments | | | | | Date | | + + + + + + | Metformin | Nausea Only | | 02/14/20 | | | | | | 19 | | + + + + + + | Sulfa Antibiotics | Nausea And Vomiting, | Medium | 10/06/19 | | | | Rash | | 16 | | + + + + + + Medications + + + +---------+------+------+-------+ | Medication | Sig | Dispensed | Refills | Star | End | Statu | | | | | | t | Date | s | | | | | | Date | | | + + + +---------+------+------+-------+ | ARIPiprazole | | | 0 | 09/24 | | Activ | | (ABILIFY) 15 mg | | | | 07/15 | | e | | tablet | | | | 16 | | | + + + +---------+------+------+-------+ | KRISTEL MATTHEWS | | | 0 | 04/1 | | Activ | | 300 MG ER injection | | | | 1/20 | | e | | (vial) | | | | 16 | | | + + + +---------+------+------+-------+ | carbidopa-levodopa | | | 0 | 03/0 | | Activ | | (SINEMET) 10-100 mg | | | | 4/20 | | e | | per tablet | | | | 16 | | | + + + +---------+------+------+-------+ | cromolyn | | | 0 | 04/0 | | Activ | | (OPTICROM) 4 % | | | | 1/20 | | e | | ophthalmic solution | | | | 16 | | | + + + +---------+------+------+-------+ | FLUoxetine | | | 0 | 03/2 | | Activ | | (PROZAC) 20 MG | | | | 3/20 | | e | | tablet | | | | 16 | | | + + + +---------+------+------+-------+ | fluticasone | | | 0 | 03/2 | | Activ | | (FLONASE) 50 | | | | 9/20 | | e | | mcg/nasal spray | | | | 16 | | | + + + +---------+------+------+-------+ | omeprazole | | | 0 | 03/1 | | Activ | | (PRILOSEC) 20 mg | | | | 3/20 | | e | | capsule | | | | 16 | | | + + + +---------+------+------+-------+ | oxybutynin | | | 0 | 03/1 | | Activ | | (DITROPAN) 5 mg | | | | 3/20 | | e | | tablet | | | | 16 | | | + + + +---------+------+------+-------+ | raNITIdine | | | 0 | 03/1 | | Activ | | (ZANTAC) 150 MG | | | | 3/20 | | e | | capsule | | | | 16 | | | + + + +---------+------+------+-------+ | sertraline | | | 0 | 04/1 | | Activ | | (ZOLOFT) 50 mg | | | | /20 | | e | | tablet | | | | 16 | | | + + + +---------+------+------+-------+ | traZODone | | | 0 | 03/2 | | Activ | | [...] KIT | | | | | | | [...] | | + + + +---------+------+------+-------+ | Glucose Blood | For checking blood | 300 | 3 | 02/0 | | Activ | | (BLOOD GLUCOSE TEST | sugar three times | each | | 4/20 | | e | | STRIPS) STRP | daily. Type II | | | 19 | | | | | diabetes, Dx E11.65 | | | | | | | | on insulin | | | | | | + + + +---------+------+------+-------+ | insulin degludec | Inject 80 Units | | 0 | 09/3 | | Activ | | (TRESIBA FLEXTOUCH) | under the skin | | | 0/20 | | e | | 200 units/mL | nightly. | | | 19 | | | | concentrated | | | | | | | | injection (pen) | | | | | | | + + + +---------+------+------+-------+ | insulin aspart | 25 units at | 90 mL | 3 | 09/3 | | Activ | | (NOVOLOG) 100 | breakfast, 40 units | | | 0/20 | | e | | units/mL injection | at lunch, and 40 | | | 19 | | | | | units at dinner; | | | | | | | | subq | | | | | | + + + +---------+------+------+-------+ | Insulin Pen Needle | 1 each by Other | 30 each | 11 | 09/3 | | Activ | | (PEN NEEDLES) 31G X | route Daily. | | | 0/20 | | e | | 5 MM MISC | | | | 19 | | | + + + +---------+------+------+-------+ | RELION INSULIN | 1 each by Other | 100 | 11 | 09/3 | | Activ | | SYRINGE 1ML/31G 31G | route 3 times daily. | each | | 0/20 | | e | | X 5/16" 1 ML MISC | | | | 19 | | | + + + +---------+------+------+-------+ | LYRICA 50 MG | Take 1 capsule by | 60 | 5 | 09/3 | | Activ | | capsule | mouth 2 times daily. | capsule | | 0/20 | | e | | | | | | 19 | | | + + + +---------+------+------+-------+ | RELION ALCOHOL | For checking blood | 300 | 3 | 10/1 | | Activ | | SWABS 70 % PADS | sugar 3x daily; type | each | | 6/20 | | e | | | II diabetes on | | | 19 | | | | | insulin with | | | | | | | | hyperglycemia, Dx | | | | | | | | E11.65 | | | | | | + + + +---------+------+------+-------+ | FREESTYLE LANCETS | For checking blood | 300 | 3 | 10/1 | | Activ | | MISC | sugar 3x daily; type | each | | 6/20 | | e | | | II diabetes on | | | 19 | | | | | insulin with | | | | | | | | hyperglycemia, Dx | | | | | | | | E11.65 | | | | | | + + + +---------+------+------+-------+ | lisinopril | | | 0 | 03/ | 02/26 | Disco | | (PRINIVIL, ZESTRIL) | | | | 3/20 | 0/20 | ntinu | | 20 mg tablet | | | | 16 | 19 | ed | + + + +---------+------+------+-------+ | RELION ALCOHOL | USE 1 SWAB | 100 | 8 | 09/ | 10/1 | Disco | | SWABS 70 % PADS | EXTERNALLY 4 TIMES | each | | 6/20 | 5/20 | ntinu | | | DAILY | | | 18 | 19 | ed | + + + +---------+------+------+-------+ | FREESTYLE LANCETS | 1 each by Other | 300 | 3 | 11/2 | 10/ | Disco | | MISC | route 3 (three) | each | | 9/ | 5/20 | ntinu | | | times daily. Use as | | | 18 | 19 | ed | | | instructed to check | | | | | | | | blood sugar three | | | | | | | | times daily. E11.65 | | | | | | + + + +---------+------+------+-------+ | Insulin Pen Needle | 1 each by Does not | 30 each | 11 | 07/27 | 02/26 | Disco | | (PEN NEEDLES) 31G X | apply route daily. | | | 20 | 0/20 | ntinu | | 5 MM MISC | | | | 19 | 19 | ed | + + + +---------+------+------+-------+ | RELION INSULIN | 1 each by Other | 100 | 11 | 07/27 | 02/26 | Disco | | SYRINGE 1ML/31G 31G | route 3 (three) | each | | /20 | 0/20 | ntinu | | X 5/16" 1 ML MISC | times daily. | | | 19 | 19 | ed | + + + +---------+------+------+-------+ | insulin degludec | Inject 70 Units into | 27 mL | 3 | 06 | 02/26 | Disco | | (TRESIBA FLEXTOUCH) | the skin nightly. | | | 3/20 | 0/20 | ntinu | | 200 units/mL | | | | 19 | 19 | ed | | concentrated | | | | | | | | injection (pen) | | | | | | | + + + +---------+------+------+-------+ | insulin aspart | INJECT 30 UNITS | 90 mL | 3 | /0 | 02/26 | Disco | | (NOVOLOG) 100 | SUBCUTANEOUSLY THREE | | | /20 | 0/20 | ntinu | | units/mL injection | TIMES DAILY BEFORE | | | 19 | 19 | ed | | | MEAL(S). Dx code | | | | | | | | E11.65 | | | | | | + + + +---------+------+------+-------+ | LYRICA 50 MG | Take 50 mg by mouth | | 5 | / | 02/26 | Disco | | capsule | Daily. | | | 3/20 | 0/20 | ntinu | | | | | | 19 | 19 | ed | + + + +---------+------+------+-------+ Active Problems + + + | Problem | Noted Date | + + + | Panlobular emphysema | 02/13/2019 | + + + | Chronic respiratory failure with hypoxia | 02/13/2019 | + + + | TEE (obstructive sleep apnea) | 02/13/2019 | + + + | Personal history of tobacco use, presenting hazards to health | 02/13/2019 | + + + | Memory deficit | 07/03/2018 | + + + | Uncontrolled type 2 diabetes mellitus with hyperglycemia, with | 05/01/2018 | | long-term current use of insulin | | + + + | Pure [...] + + | 04/18/ | Telephone | Pulmonology | Marquis, | Pulmonary Disease | | 2019 | | | Lisa Peres, | Appointment | | | | | MD | (Follow-up 04/26) | +--------+ + + + + | 04/17/ | Office | Gastroenterology | J Luis Box MD | Dysphagia, | | 2018 | Visit | | | unspecified type | | | | | | (Primary Dx); Family | | | | | | history of colon | | | | | | cancer; Colon cancer | | | | | | screening | +--------+ + + + + | 04/17/ | Telephone | Neurology | Don Garcia, | Follow-up | | 2018 | | | MD | | +--------+ + + + + | 04/09/ | Refill | Endocrinology | Torres Barrientos, | Medication Refill | | 2018 | | | MD | | +--------+ + + + + | 04/02/ | Office | Neurology | Don Garcia, | Memory loss (Primary | | 2018 | Visit | | MD | Dx); Dysphagia, | | | | | | unspecified type; | | | | | | Exercise counseling | +--------+ + + + + | 04/02/ | Office | Neurology | Don Garcia, | Memory loss (Primary | | 2018 | Visit | | MD | Dx) | +--------+ + + + + | 04/02/ | Telephone | Neurology | Don Garcia, | Other | | 2018 | | | MD | | +--------+ + + + + | 03/25/ | Office | Endocrinology | Torres Barrientos, | Uncontrolled type 2 | | 2018 | Visit | | MD | diabetes mellitus | | | | | | with hyperglycemia, | | | | | | with long-term | | | | | | current use of | | | | | | insulin (HCC) | | | | | | (Primary Dx); Pure | | | | | | hypercholesterolemia | | | | | | ; Neuropathy | +--------+ + + + + | 03/20/ | Telephone | Neurology | Don Garcia, | Referral (Outgoing ) | | 2018 | | | MD | | +--------+ + + + + | 03/11/ | Telephone | Neurology | Don Garcia, | Referral (Status of | | 2018 | | | MD | Outgoing Referrals) | +--------+ + + + + | 02/27/ | Telephone | Neurology | Don Garcia, | Follow-up | | 2018 | | | MD | | +--------+ + + + + | 02/26/ | Telephone | Neurology | Don Garcia, | Referral | | 2019 | | | MD | | +--------+ + + + + | 02/22/ | Telephone | Neurology | Don Garcia, | Referral | | 2018 | | | MD | | +--------+ + + + + | 02/21/ | Hospital | Radiology | [facility], | Personal history of | | 2018 | Encounter | | Lisa Peres, | tobacco use, | | | | | MD | presenting hazards | | | | | | to health | +--------+ + + + + | 02/21/ | Telephone | Pulmonology | Staci Quiroz RN | Results | | 2018 | | | | | +--------+ + + + + | 02/20/ | Telephone | Neurology | Don Garcia, | Referral (Request) | | 2018 | | | MD | | +--------+ + + + + | 02/18/ | Telephone | Pulmonology | [facility], | Pulmonary Disease | | 2018 | | | Lisa Peres, | Appointment | | | | | MD | (appointment) | +--------+ + + + + | 02/13/ | Office | Pulmonology | [facility], | Panlobular emphysema | | 2018 | Visit | | Lisa Peres, | (HCC) (Primary Dx); | | | | | MD | Chronic respiratory | | | | | | failure with | | | | | | hypoxia ([facility]); TEE | | | | | | (obstructive sleep | | | | | | apnea); Personal | | | | | | history of tobacco | | | | | | use, presenting | | | | | | hazards to health | +--------+ + + + + | 02/08/ | Orders Only | Neurology | Don Garcia, | Other amnesia | | 2018 | | | MD | | +--------+ + + + + from Last 3 Months Immunizations + + + + | Name | Dates Previously Given | Next Due | + + + + | INFLUENZA PF | 04/24/2018 | | | TRIVALENT(PED/ADOL/A | | | | DULT), PSKT | | | + + + + | INFLUENZA QUADR | 03/15/2010, 05/30/2009 | | | W/PRES | | | | (PED/ADOL/ADULT) | | | | MULTIDOSE | | | + + + + | PNEUMOCOCCAL | 03/15/2010 | | | POLYSACCHARIDE | | | | 23-VALENT (PPSV23) | | | + + + + | TDAP, (ADOL/ADULT) | 12/08/2011 | | + + + + Family History Patient is adopted + + +------+ + | Medical History | Relation | Name | Comments | + + +------+ + | Cancer | Brother | | | + + +------+ + | Cancer | Father | | | + + +------+ + | Colon cancer | Mother | | | + + +------+ + | Diabetes, NIDDM | Mother | | | + + +------+ + | Cancer | Sister | | | + + +------+ + + +------+ + + | Relation | Name | Status | Comments | + +------+ + + | Brother | | | | + +------+ + + | Father | | | | + +------+ + + | Mother | | | | + +------+ + + | Sister | | | | + +------+ + + Social History + +-------+ +--------+ [...] recent travel history available. | + + Last Filed Vital Signs + [...] 1050 PDT | + + + + Plan of Treatment +--------+---------+ + + + [...] | | | | | | [place] [address] | | | | | | [phone] | | | | | | | | +--------+---------+ + + + | 07/01/ | Office | Endocrinology | Torres Barrientos, | | | 2019 | Visit | | MD [address] | | | | | | [place] | | | | | | [place] [address] | | | | | | [phone] | | | | | | | | +--------+---------+ + + + | 08/12/ | Office | Neurology | Don Garcia, | | | 2019 | Visit | | [address] | | | | | | [address] | | | | | | [place] [address] | | | | | | [phone] | | | | | | | | +--------+---------+ + + + + + + + + | Health Maintenance | Due Date | Last Done | Comments | + + + + + | Hepatitis C | | | | | Screening | 4 | | | + + + + + | Diabetic Eye Exam | | | | | | 2 | | | + + + + + | Colorectal Cancer | | | | | Screening | 4 | | | | (Colonoscopy) | | | | + + + + + | Vaccine: Zoster (1 | | | | | of 2) | 4 | | | + + + + + | Breast Cancer | | | | | Screening | 9 | | | + + + + + | Hemoglobin A1c | | 05/01/2018, 10/10/2017, | | | Screening | 9 | 02/08/2017 | | + + + + + | Adult Annual | | | | | Wellness Visit | 9 | | | + + + + + | Microalbumin | | 05/01/2018, 10/10/2017 | | | Screening | 9 | | | + + + + + | Lung Cancer | | 02/21/2019 | | | Screening | 0 | | | + + + + + | Diabetic Foot Exam | | 03/25/2019 | | | | 0 | | | + + + + + | Vaccine: | | 04/09/2019, 03/15/2010 | | | Pneumococcal 65+ | 0 | | | | Low/Medium Risk (2 | | | | | of 2 - PPSV23) | | | | + + + + + | Vaccine: | | 12/08/2011 | | | Dtap/Tdap/Td (2 - | 2 | | | | Td) | | | | + + + + + | Vaccine: Influenza | Completed | 04/09/2019, 04/24/2018, | | | | | 03/15/2010, Additional history | | | | | exists | | + + + + + Procedures + +--------+ + + + | Procedure Name | Priori | Date/Time | Associated Diagnosis | Comments | | | ty | | | | + +--------+ + + + | AMB REFERRAL TO | Routin | 04/17/2019 | Dysphagia, | | | [facility] | e | 11:57 PDT | unspecified [...] | | + +--------+ + + + from Last 3 Months Results Ambulatory Referral to [facility] Gastroenterology (04/17/2019 11:57 PDT)CT Chest Lung Cancer S creening (02/21/2019 12:54 PDT) + + | Specimen [...] | | | + +---------+ + + from Last 3 Months Insurance + +--------+ +--------+ +---------+--------+ | Payer | Benefi | Subscriber | Effect | Phone | Address | Type | | | t Plan | ID | alena | | | | | | / | | Dates | | | | | | Group | | | | | | + +--------+ +--------+ +---------+--------+ | MEDICARE | MEDICA | [id number] | | [phone] | | Medica | | | RE | | 009-Pr | 5 | | re | | | PART A | | esent | | | | | | AND B | | | | | | + +--------+ +--------+ +---------+--------+ | [employer] | MODA | [id number] | 01/27/20 | [phone] | | Medica | | MEDICAID HMO | HEALTH | | 19-Pre | 1 | | id | | | MDCD | | sent | | | | | | [place]MO [place] | | | | | | + +--------+ +--------+ +---------+--------+ + +--------+ +--------+ + + | Guarantor Name | Accoun | Relation to | Date | Phone | Billing Address | | | t Type | Patient | of | | | | | | | | | | + +--------+ +--------+ + + | Antonia Barger | Person | Self [birth year] | [address] | | Erica | al/Fam | | 1955 | [phone] | [place] | | | [place] | | | 3 (Home) | [address] | + +--------+ +--------+ + + Advance Directives Patient has advance care planning documents on file. For more information, please contact:[facility] [place] [address]
--- OUTSIDE RECORDS SUMMARY | ~2019-04-19 | XMS | Encounter Summary ---
Demographics + + + | Address | [address] | | | [place] [address] | + + + | Home Phone | | + + + | Preferred Language | Unknown | + + + | Marital Status | | + + + | Moravian Affiliation | 1001 | + + + | Race | Unknown | + + + | Ethnic Group | Unknown | + + + Author + + + | Author | [facility] | | | and Bruceana | + + + | Organization | [facility] | | [...] Team Providers + +------+ + | Care Toxicologist Name | Role | Phone | + [...] | | | | | [place], | [place] [address] | | | | | | [place] [address] | Phone: | | | | | | Phone: | [phone] | | | | | | [phone] | Fax: | | | | | | Fax: | [phone] | | | | | | [phone] | | + + + + + + + Reason for Visit + + + | Reason | Comments | + + + | Follow-up | | + + + Encounter Details +--------+ + + + + | Date | Type | Department | Care Team | Description | +--------+ + + + + | 02/27/ | Telephone | [facility] | Don Garcia, | Follow-up | | 2019 | | NEUROLOGY [address] | MD [address] | | | | | [address] | [address] | | | | | [place], [place] | [place] [address] | | | | | [address] | [phone] | | | | | [phone] | | | +--------+ + + + [...] [place], | | | | | | [place] [address] | | | | | | [phone] | | | | | | | | +--------+---------+ + + + | 07/01/ | Office | Endocrinology | Torres Barrientos, | | | 2019 | Visit | | MD [address] | | | | | | [place], | | | | | | [place] [address] | | | | | | [phone] | | | | | | | | +--------+---------+ + + + | 08/12/ | Office | Neurology | Don Garcia, | | | 2019 | Visit | | MD [address] | | | | | | [place] | | | | | | [place] [address] | | | | | | [phone] | | | | | | | [...]
--- OUTSIDE RECORDS SUMMARY | ~2019-04-19 | XMS | Clinical Summary ---
Demographics + + + | Address | [address] | | | [place] [address] | + + + | Home Phone | | + + + | Preferred Language | Unknown | + + + | Marital Status | Unknown | + + + | Worship Affiliation | Unknown | + + + | Race | Unknown | + + + | Ethnic Group | Unknown | + + + Author + + + | Author | [facility] (Historical as of | | | 02-09-19) | + + + | Organization | [facility] (Historical as of | | | 02-09-19) [...] Team Providers + +------+ + | Care Nut Cracker Name | Role | Phone | + [...] +------+-------+ + | MEDICARE | MEDICA | [id number] | | | [address] | | | RE | | | | [place] [address] | | | IP-OP | | | | | + +--------+ +------+-------+ + | MEDICAID | EASTER | [id number] | | | [address] | | | [place] | | | | [place] | | | [place] | | | | [address] | | | DIRECTOR MACHINE | | | | | + +--------+ [...] | [place] | | | [phone] | [phone] | + +--------+ +--------+ + +
--- OUTSIDE RECORDS SUMMARY | ~2019-04-19 | XMS | Clinical Summary ---
Demographics + + + | Address | [address] | | | [place] [address] | + + + | Home Phone | | + + + | Preferred Language | Unknown | + + + | Marital Status | | + + + | Muslim Affiliation | 1001 | + + + | Race | Unknown | + + + | Ethnic Group | Unknown | + + + Author + + + | Author | [facility] | | | and Bruceana | + + + | Organization | [facility] | | [...] Team Providers + +------+ + | Care Electric Motor Control Assembler Name | Role | Phone | + [...] | | | | | | hypoxia ([facility]); TEE | | | | | | [...] | | | | | | [place] [address] | | | | | | [phone] | | | | | | | | +--------+---------+ + + + | 07/01/ | Office | Endocrinology | Torres Barrientos, | | | 2019 | Visit | | MD [address] | | | | | | [place] | | | | | | [place] [address] | | | | | | [phone] | | | | | | | | +--------+---------+ + + + | 08/12/ | Office | Neurology | Don Garcia, | | | 2019 | Visit | | [address] | | | | | | [address] | | | | | | [place] [address] | | | | | | [phone] | | | | | | | [...] | 04/17/2019 | Dysphagia, | | | [facility] | e | 11:57 PDT | [...] +--------+ +---------+--------+ | MEDICARE | MEDICA | [id number] | | [phone] | | Medica | | | RE | | 009-Pr | 5 | | re | | | PART A | | esent | | | | | | AND B | | | | | | + +--------+ +--------+ +---------+--------+ | [employer]AN | MODA | [id number] | 01/27/20 | [phone] | | Medica [...] Erica | al/Fam | | 1955 | [phone] | [place] | | | [place] | | | 3 (Home) | [address] | + +--------+ +--------+ + + Advance Directives Patient has advance care planning documents on file. For more information, please contact:[facility] [place] [address]
--- OUTSIDE RECORDS SUMMARY | ~2019-04-19 | XMS | Encounter Summary ---
Demographics + + + | Address | [address] | | | [place] [address] | + + + | Home Phone | | + + + | Preferred Language | Unknown | + + + | Marital Status | | + + + | Restorationism Affiliation | 1001 | + + + | Race | Unknown | + + + | Ethnic Group | Unknown | + + + Author + + + | Author | [facility] | | | and Bruceana | + + + | Organization | [facility] | | [...] Team Providers + +------+ + | Care School Librarian Name | Role | Phone | + [...] + + | 02/21/ | Telephone | [facility] | Staci Quiroz RN | Results | | 2019 | | PULMONOLOGY [address] | | | | | | [address] | | | | | | [place], [place] | | | | | | [address] | | | | | | [phone] | | | +--------+ + + + [...] | | | | | | [place] [address] | | | | | | [phone] | | | | | | | | +--------+---------+ + + + | 07/01/ | Office | Endocrinology | Torres Barrientos, | | | 2019 | Visit | | MD [address] | | | | | | [place], | | | | | | [place] [address] | | | | | | [phone] | | | | | | | | +--------+---------+ + + + | 08/12/ | Office | Neurology | Don Garcia, | | | 2019 | Visit | | MD [address] | | | | | | [address] | | | | | | [place] [address] | | | | | | [phone] | | | | | | | | +--------+---------+ + + + documented as of this encounter Visit Diagnoses Not on filedocumented in this encounter"
--- OUTSIDE RECORDS SUMMARY | ~2019-04-19 | XMS | Encounter Summary ---
Demographics + + + | Address | [address] | | | [place] [address] | + + + | Home Phone | | + + + | Preferred Language | Unknown | + + + | Marital Status | | + + + | Jain Affiliation | 1001 | + + + | Race | Unknown | + + + | Ethnic Group | Unknown | + + + Author + + + | Author | [facility] | | | and Bruce[place] | + + + | Organization | [facility] | | | [...] Team Providers + +------+ + | Care Gas Cutter Name | Role | Phone | + [...] + + | 04/18/ | Telephone | [facility] | [facility], | Pulmonary Disease | | 2019 | | PULMONOLOGY [address] | Lisa Peres, | Appointment | | | | [address] | [address] | (Follow-up 04/26) | | | | [place] | [place], | | | | | [address] | [place] [address] | | | | | [phone] | [phone] | | | | | | | [...] [place], | | | | | | [place] [address] | | | | | | [phone] | | | | | | | | +--------+---------+ + + + | 07/01/ | Office | Endocrinology | Torres Barrientos, | | | 2019 | Visit | | MD [address] | | | | | | [place], | | | | | | [place] [address] | | | | | | [phone] | | | | | | | | +--------+---------+ + + + | 08/12/ | Office | Neurology | Don Garcia, | | | 2019 | Visit | | [address] | | | | | | [address] | | | | | | [place] [address] | | | | | | [phone] | | | | | | | | +--------+---------+ + + + documented as of this encounter Visit Diagnoses Not on filedocumented in this encounter"
--- OUTSIDE RECORDS SUMMARY | ~2019-04-19 | XMS | Encounter Summary ---
Demographics + + + | Address | [address] | | | [place] [address] | + + + | Home Phone [...] + + | Author | [facility] (Historical as of | | | 02-09-19) | + + + | Organization | [facility] (Historical as of | | | [...] Team Providers + +------+ + | Care Senior Corporate Accountant Name | Role | Phone | + +------+ + | Flavio Hart DO | PCP | | + +------+ + Encounter Details +--------+ + + + + | Date | Type | Department | Care Team | Description | +--------+ + + + + | 01/29/ | Telephone | [facility] | Adeel Chan, | | | 2019 | | [facility] | [place] | | | | | [address] | | | | | | [place] | | | | | | [address] | | | | | | [phone] | | | +--------+ + + + [...]
--- OUTSIDE RECORDS SUMMARY | ~2019-04-19 | XMS | Encounter Summary ---
Demographics + + + | Address | [address] | | | [place] [address] | + + + | Home Phone | | + + + | Preferred Language | Unknown | + + + | Marital Status | | + + + | Synagogue Affiliation | 1001 | + + + | Race | Unknown | + + + | Ethnic Group | Unknown | + + + Author + + + | Author | [facility] | | | and Bruceana | + + + | Organization | [facility] | | [...] Team Providers + +------+ + | Care Supervisor Vat House Name | Role | Phone | + [...] + + | 04/09/ | Refill | [facility] | Torres Barrientos, | Medication Refill | | 2019 | | ENDOCRINOLOGY 1100 | [address] | | | | | [address] | [place], | | | | | [place], [place] | [place] [address] | | | | | [address] | [phone] | | | | | [phone] | | | +--------+--------+ + + + [...] [place], | | | | | | [place] [address] | | | | | | [phone] | | | | | | | | +--------+---------+ + + + | 07/01/ | Office | Endocrinology | Torres Barrientos, | | | 2019 | Visit | | MD [address] | | | | | | [place], | | | | | | [place] [address] | | | | | | [phone] | | | | | | | | +--------+---------+ + + + | 08/12/ | Office | Neurology | Don Garcia, | | | 2019 | Visit | | MD [address] | | | | | | [place] | | | | | | [place] [address] | | | | | | [phone] | | | | | | | | +--------+---------+ + + + documented as of this encounter Visit Diagnoses Not on filedocumented in this encounter"
--- OUTSIDE RECORDS SUMMARY | ~2019-04-19 | XMS | Encounter Summary ---
Demographics + + + | Address | [address] | | | [place] [address] | + + + | Home Phone | | + + + | Preferred Language | Unknown | + + + | Marital Status | Unknown | + + + | Yarsani Affiliation | Unknown | + + + | Race | Unknown | + + + | Ethnic Group | Unknown | + + + Author + + + | Author | [facility] (Historical as of | | | 02-09-19) | + + + | Organization | [facility] (Historical as of | | [...] Team Providers + +------+ + | Care Commercial Finance Manager Name | Role | Phone | + +------+ + | Flavio Hart DO | PCP | | + +------+ + Encounter Details +--------+ + + + + | Date | Type | Department | Care Team | Description | +--------+ + + + + | 01/29/ | Telephone | [facility] | Adeel Chan, | | | 2019 | | [facility] | [place] | | | | | [address] | | | | | | [place] | | | | | | [address] | | | | | | [phone] | | | +--------+ + + + [...]
--- OUTSIDE RECORDS SUMMARY | ~2019-04-19 | XMS | Encounter Summary ---
Demographics + + + | Address | [address] | | | [place] [address] | + + + | Home Phone | | + + + | Preferred Language | Unknown | + + + | Marital Status | | + + + | Zoroastrianism Affiliation | 1001 | + + + | Race | Unknown | + + + | Ethnic Group | Unknown | + + + Author + + + | Author | [facility] | | | and Bruceana | + + + | Organization | [facility] | | | and [...] Team Providers + +------+ + | Care Power Hair Clipper Name | Role | Phone | + +------+ + | Flavio Hart DO | PCP | | + +------+ + Reason for Visit + + + | Reason | Comments | + + + | Referral | Request | + + + Encounter Details +--------+ + + + + | Date | Type | Department | Care Team | Description | +--------+ + + + + | 02/20/ | Telephone | [facility] | Don Garcia, | Referral (Request) | | 2019 | | NEUROLOGY [address] | MD [address] | | | | | [address] | [address] | | | | | [place], [place] | [place] [address] | | | | | [address] | [phone] | | | | | [phone] | | | +--------+ + + + [...] | | | | | | [place] [address] | | | | | | [phone] | | | | | | | | +--------+---------+ + + + | 07/01/ | Office | Endocrinology | Torres Barrientos, | | | 2019 | Visit | | MD [address] | | | | | | [place], | | | | | | [place] [address] | | | | | | [phone] | | | | | | | | +--------+---------+ + + + | 08/12/ | Office | Neurology | Don Garcia, | | | 2019 | Visit | | MD [address] | | | | | | [place] | | | | | | [place] [address] | | | | | | [phone] | | | | | | | | +--------+---------+ + + + documented as of this encounter Visit Diagnoses Not on filedocumented in this encounter"
--- OUTSIDE RECORDS SUMMARY | ~2019-04-19 | XMS | Encounter Summary ---
Demographics + + + | Address | [address] | | | [place] [address] | + + + | Home Phone | | + + + | Preferred Language | Unknown | + + + | Marital Status | | + + + | Baptist Affiliation | 1001 | + + + [...] Team Providers + +------+ + | Care Veneer Clipper Helper Name | Role | Phone | + +------+ + | Flavio Hart DO | PCP | | + +------+ + Encounter Details +--------+ + + + + | Date | Type | Department | Care Team | Description | +--------+ + + + + | 02/08/ | Orders Only | [facility] | Don Garcia, | Other amnesia | | 2019 | | NEUROLOGY [address] | MD [address] | | | | | [address] | [address] | | | | | [place], [place] | [place] [address] | | | | | [address] | [phone] | | | | | [phone] | | | +--------+ + + + [...] | | | | | | [place] [address] | | | | | | [phone] | | | | | | | | +--------+---------+ + + + | 07/01/ | Office | Endocrinology | Torres Barrientos, | | | 2019 | Visit | | MD [address] | | | | | | [place], | | | | | | [place] [address] | | | | | | [phone] | | | | | | | | +--------+---------+ + + + | 08/12/ | Office | Neurology | Don Garcia, | | | 2019 | Visit | | MD [address] | | | | | | [place] | | | | | | [place] [address] | | | | | | [phone] | | | | | | | [...]
--- OUTSIDE RECORDS SUMMARY | ~2019-04-19 | XMS | Encounter Summary ---
Demographics + + + | Address | [address] | | | [place] [address] | + + + | Home Phone | | + + + | Preferred Language | Unknown | + + + | Marital Status | | + + + | Church Affiliation | 1001 | + + + | Race | Unknown | + + + | Ethnic Group | Unknown | + + + Author + + + | Author | [facility] | | | and Bruceana | + + + | Organization | [facility] | | | [...] Team Providers + +------+ + | Care Puller Over Name | Role | Phone | + [...] | | presenting | [address] | [place], [place] | | | | | hazards to | [address] | [address] | | | | | health | [place], [place] | Phone: | | | | | Procedures | [address] | [phone] | | | | | CT Chest | Phone: | Fax: | | | | | Lung Cancer | [phone] | [phone] | | | | | Screening | Fax: | | | | | | | [phone] | | +--------+--------+ + + + + [...] MD Larisa | | | | | ([facility]) | Augustin Crandall | [address] | | | | | | [address] | [address] | | | | | | [place], | [place], [place] | | | | | | [place] | [address] Phone: | | | | | | [address] | [phone] | | | | | | Phone: | Fax: | | | | | | [phone] | [phone] | | | | | | Fax: | | | | | | | [phone] | | + +--------+ + + + + Encounter Details +--------+---------+ + + + | Date | Type | Department | Care Team | Description | +--------+---------+ + + + | 02/13/ | Office | [facility] | Marquis, | Panlobular emphysema | | 2019 | Visit | PULMONOLOGY [address] | Lisa Peres, | (HCC) (Primary Dx); | | | | [address] | MD [address] | Chronic respiratory | | | | [place], [place] | [place], | failure with | | | | [address] | [place] [address] | hypoxia (HCC); TEE | | | | [phone] | [phone] | (obstructive sleep | | | | [...] doctor or health care provider if you hcin ve any questions. A special MedGuide will be given to you by the pharmacist with each prescription and refill . Be sure to read this information carefully each time. Talk to your motor equipment lieutenant regarding the use of this medicine in children. Special care may be needed. What side effects may I notice from receiving this medicine? Side effects that you should report to your doctor or health patient care representative as soon as p ossible: allergic reactions like skin rash or hives, swelling of the face, lips, or tongue chest pain dizziness or lightheaded fever or chills irregular heartbeat vision problems Side effects that usually do not require medical attention (report to your doctor or health patient care representative if they continue or are bothersome): coughing, [...] away unopened packages after the expiration date. AirSun-eeeo Respiclick: Store at room temperature between 59 [...] check ups. Tell your doctor or health patient care representative if yo ur symptoms do not get [...] have surgery tell your doctor or health patient care representative that you are using this medicine. Try [...] Progress Notes Lisa Cho MD - 02/13/2019 4500 PDTFormatting of this note might be diffe [...] 100 pack years. She worked in a [employer]. She lived in [place] until she was 13 yrs o f age, and then she moved to [place], and eventually [place] in the . She lives with her [...] Diagnosis Date COPD (chronic obstructive pulmonary disease) ([facility]) Depression Diabetes mellitus, type 2 (HCC) 1995 [...] a nd will get this done through [facility]. - CT Chest Lung Cancer Screening; Future [...] Cho MD Pulmonary and Critical Care Medicine [facility] [address] [facility] , [place] [address] documented i n this encounter Plan of Treatment +--------+---------+ + + + | Date | Type | Specialty | Care Team | Description | +--------+---------+ + + + | 04/26/ | Office | Pulmonology | Marquis, | | | 2018 | Visit | | Lisa Peres, | | | | | | MD [address] | | | | | | [place], | | | | | | [place] [address] | | | | | | [phone] | | | | | | | | +--------+---------+ + + + | 07/01/ | Office | Endocrinology | Torres Barrientos, | | | 2019 | Visit | | [address] | | | | | | [place], | | | | | | [place] [address] | | | | | | [phone] | | | | | | | | +--------+---------+ + + + | 08/12/ | Office | Neurology | Don Garcia, | | | 2019 | Visit | | [address] | | | | | [address] | | | | | | [place] [address] | | | | | | [phone] | | | | | | | [...]
--- OUTSIDE RECORDS SUMMARY | ~2019-04-19 | XMS | Encounter Summary ---
Demographics + + + | Address | [address] | | | [place] [address] | + + + | Home Phone [...] Team Providers + +------+ + | Care Silk Screen Etcher Name | Role | Phone | + [...] + + | 04/02/ | Office | [facility] | Don Garcia, | Memory loss (Primary | | 2019 | Visit | NEUROLOGY [address] | MD [address] | Dx) | | | | [address] | [address] | | | | | [place], [place] | [place] [address] | | | | | [address] | [phone] | | | | | [phone] | | | +--------+---------+ + + + [...] of this encounter Progress Notes Can Chan, Machine Ironer - 04/02/[address] [place] [address]'s Cognitive Examination (JONY) Modified for [facility] ([facility]) The patient returns today for detailed [...] [place], | | | | | | [place] [address] | | | | | | [phone] | | | | | | | | +--------+---------+ + + + | 07/01/ | Office | Endocrinology | Torres Barrientos, | | | 2019 | Visit | | MD [address] | | | | | | [place], | | | | | | [place] [address] | | | | | | [phone] | | | | | | | | +--------+---------+ + + + | 08/12/ | Office | Neurology | Don Garcia, | | | 2019 | Visit | | MD [address] | | | | | | [place] | | | | | | [place] [address] | | | | | | [phone] | | | | | | | | +--------+---------+ + + + documented as of this encounter Visit Diagnoses + + | Diagnosis | + + | Memory loss - Primary | + + documented in this encounter"
--- OUTSIDE RECORDS SUMMARY | ~2019-04-19 | XMS | Encounter Summary ---
Demographics + + + | Address | [address] | | | [place] [address] | + + + | Home Phone | | + + + | Preferred Language | Unknown | + + + | Marital Status | | + + + | Religion Affiliation | 1001 | + + + | Race | Unknown | + + + | Ethnic Group | Unknown | + + + Author + + + | Author | [facility] | | | and Bruceana | + + + | Organization | [facility] | | [...] Team Providers + +------+ + | Care Lithographic Press Operator Name | Role | Phone | [...] + + | 04/17/ | Telephone | [facility] | Don Garcia, | Follow-up | | 2019 | | NEUROLOGY [address] | [address] | | | | | [address] | [address] | | | | | [place], [place] | [place] [address] | | | | | [address] | [phone] | | | | | [phone] | | | +--------+ + + + [...] [place], | | | | | | [place] [address] | | | | | | [phone] | | | | | | | | +--------+---------+ + + + | 07/01/ | Office | Endocrinology | Torres Barrientos, | | | 2019 | Visit | | MD [address] | | | | | | [place], | | | | | | [place] [address] | | | | | | [phone] | | | | | | | | +--------+---------+ + + + | 08/12/ | Office | Neurology | Don Garcia, | | | 2019 | Visit | | MD [address] | | | | | | [place] | | | | | | [place] [address] | | | | | | [phone] | | | | | | | | +--------+---------+ + + + documented as of this encounter Visit Diagnoses Not on filedocumented in this encounter"
--- OUTSIDE RECORDS SUMMARY | ~2019-04-19 | XMS | Encounter Summary ---
Demographics + + + | Address | [address] | | | [place] [address] | + + + | Home Phone | | + + + | Preferred Language | Unknown | + + + | Marital Status | | + + + | Gnosticist Affiliation | 1001 | + + + | Race | Unknown | + + + | Ethnic Group | Unknown | + + + Author + + + | Author | [facility] | | | and Bruceana | + + + | Organization | [facility] | | | [...] Team Providers + +------+ + | Care Media Aid Name | Role | Phone | + [...] + + | 03/20/ | Telephone | [facility] | Don Garcia, | Referral (Outgoing ) | | 2019 | | NEUROLOGY [address] | [address] | | | | | [address] | [address] [facility] [address] | | | | | [place], [place] | [place] [address] | | | | | [address] | [phone] | | | | | [phone] | | | +--------+ + + + [...] | | | | | | [place] [address] | | | | | | [phone] | | | | | | | | +--------+---------+ + + + | 07/01/ | Office | Endocrinology | Torres Barrientos, | | | 2019 | Visit | | MD [address] | | | | | | [place], | | | | | | [place] [address] | | | | | | [phone] | | | | | | | | +--------+---------+ + + + | 08/12/ | Office | Neurology | Don Garcia, | | | 2019 | Visit | | MD [address] | | | | | | [address] | | | | | | [place] [address] | | | | | | [phone] | | | | | | | | +--------+---------+ + + + documented as of this encounter Visit Diagnoses Not on filedocumented in this encounter"
--- OUTSIDE RECORDS SUMMARY | ~2019-04-19 | XMS | Encounter Summary ---
Demographics + + + | Address | [address] | | | [place] [address] | + + + | Home Phone | | + + + | Preferred Language | Unknown | + + + | Marital Status | | + + + | Restorationism Affiliation | 1001 | + + + | Race | Unknown | + + + | Ethnic Group | Unknown | + + + Author + + + | Author | [facility] | | | and Bruceana | + + + | Organization | [facility] | | | [...] Team Providers + +------+ + | Care Registered Nurse Teacher Name | Role | Phone | [...] + + | 02/20/ | Telephone | [facility] | Don Garcia, | Referral (Request) | | 2019 | | NEUROLOGY [address] | MD [address] | | | | | [address] | [address] | | | | | [place], [place] | [place] [address] | | | | | [address] | [phone] | | | | | [phone] | | | +--------+ + + + [...] | | | | | | [place] [address] | | | | | | [phone] | | | | | | | | +--------+---------+ + + + | 07/01/ | Office | Endocrinology | Torres Barrientos, | | | 2019 | Visit | | MD [address] | | | | | | [place], | | | | | | [place] [address] | | | | | | [phone] | | | | | | | | +--------+---------+ + + + | 08/12/ | Office | Neurology | Don Garcia, | | | 2019 | Visit | | MD [address] | | | | | | [place] [place] | | | | | | [place] [address] | | | | | | [phone] | | | | | | | | +--------+---------+ + + + documented as of this encounter Visit Diagnoses Not on filedocumented in this encounter"
--- OUTSIDE RECORDS SUMMARY | ~2019-04-19 | XMS | Encounter Summary ---
Demographics + + + | Address | [address] | | | [place] [address] | + + + | Home Phone | | + + + | Preferred Language | Unknown | + + + | Marital Status | | + + + | Sabianist Affiliation | 1001 | + + + | Race | Unknown | + + + | Ethnic Group | Unknown | + + + Author + + + | Author | [facility] | | | and Bruceana | + + + | Organization | [facility] | [...] Team Providers + +------+ + | Care Colon Therapist Name | Role | Phone | + +------+ + | Flavio Hart DO | PCP | | + +------+ + Reason for Visit + + + | Reason | Comments | + + + | Referral | Status of Outgoing Referrals | + + + Encounter Details +--------+ + + + + | Date | Type | Department | Care Team | Description | +--------+ + + + + | 03/11/ | Telephone | [facility] | Don Garcia, | Referral (Status of | | 2019 | | NEUROLOGY [address] | MD [address] | Outgoing Referrals) | | | | [address] | [address] | | | | | [place], [place] | [place] [address] | | | | | [address] | [phone] | | | | | [phone] | | | +--------+ + + + [...] [place], | | | | | | [place] [address] | | | | | | [phone] | | | | | | | | +--------+---------+ + + + | 07/01/ | Office | Endocrinology | Torres Barrientos, | | | 2019 | Visit | | [address] | | | | | | [place], | | | | | | [place] [address] | | | | | | [phone] | | | | | | | | +--------+---------+ + + + | 08/12/ | Office | Neurology | Don Garcia, | | | 2019 | Visit | | [address] | | | | | | [address] | | | | | | [place] [address] | | | | | | [phone] | | | | | | | | +--------+---------+ + + + documented as of this encounter Visit Diagnoses Not on filedocumented in this encounter"
--- OUTSIDE RECORDS SUMMARY | ~2019-04-19 | XMS | Encounter Summary ---
Demographics + + + | Address | [address] | | | [place] [address] | + + + | Home Phone | | + + + | Preferred Language | Unknown | + + + | Marital Status | | + + + | Anglican Affiliation | 1001 | + + + | Race | Unknown | + + + | Ethnic Group | Unknown | + + + Author + + + | Author | [facility] | | | and Bruceana | + + + | Organization | [facility] | | | [...] Team Providers + +------+ + | Care Tax Compliance Officer Name | Role | Phone | [...] + + | 03/11/ | Telephone | [facility] | Don Garcia, | Referral (Status of | | 2019 | | NEUROLOGY [address] | MD [address] | Outgoing Referrals) | | | | [address] | [address] | | | | | [place], [place] | [place] [address] | | | | | [address] | [phone] | | | | | [phone] | | | +--------+ + + + [...] [place], | | | | | | [place] [address] | | | | | | [phone] | | | | | | | | +--------+---------+ + + + | 07/01/ | Office | Endocrinology | Torres Barrientos, | | | 2019 | Visit | | [address] | | | | | | [place], | | | | | | [place] [address] | | | | | | [phone] | | | | | | | | +--------+---------+ + + + | 08/12/ | Office | Neurology | Don Garcia, | | | 2019 | Visit | | [address] | | | | | | [address] | | | | | | [place] [address] | | | | | | [phone] | | | | | | | | +--------+---------+ + + + documented as of this encounter Visit Diagnoses Not on filedocumented in this encounter"
--- OUTSIDE RECORDS SUMMARY | ~2019-04-19 | XMS | Encounter Summary ---
Demographics + + + | Address | [address] | | | [place] [address] | + + + | Home Phone | | + + + | Preferred Language | Unknown | + + + | Marital Status | | + + + | Judaism Affiliation | 1001 | + + + [...] Providers + +------+ + | Care School Age Program Teacher Name | Role | Phone | [...] + + | 02/18/ | Telephone | [facility] | Marquis, | Pulmonary Disease | | 2019 | | PULMONOLOGY [address] | Lisa Peres, | Appointment | | | | [address] | [address] | (appointment) | | | | [place], [place] | [place], | | | | | [address] | [place] [address] | | | | | [phone] | [phone] | | | | | | | [...] [place], | | | | | | [place] [address] | | | | | | [phone] | | | | | | | | +--------+---------+ + + + | 07/01/ | Office | Endocrinology | Torres Barrientos, | | | 2019 | Visit | | MD [address] | | | | | | [place], | | | | | | [place] [address] | | | | | | [phone] | | | | | | | | +--------+---------+ + + + | 08/12/ | Office | Neurology | Don Garcia, | | | 2019 | Visit | | MD [address] | | | | | | [address] | | | | | | [place] [address] | | | | | | [phone] | | | | | | | | +--------+---------+ + + + documented as of this encounter Visit Diagnoses Not on filedocumented in this encounter"
[~2019-04-19 15:15] MED LIST changes: +IMODIUM A-D2 M2 PO; +LYRICA25 MG PO; +MELOXICAM15 MG PO; +NOVOLOG100 UNIT/1 SUB-Q; +VITAMIN B-12500 MC3 SL; +ZITHROMAX250 MG PO
--- OUTSIDE RECORDS SUMMARY | 2019-04-19 15:18 | XMS ---
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 Microbiology Analyst Events No recent Security Events currently on file CRITERIA MET - [facility] Guidelines CARE PROVIDERS DEENA DIMAS Internal Medicine 05/09/2018-Current PHONE: Unknown Mila Gonzalez Fabrication Supervisor/Administrative Supervisor 01/19/2019-Current PHONE: [phone] Mila Gonzalez Primary Care 01/19/2019-Current PHONE: [phone] Guidelines Source: [facility] [place] Guidelines Date: 09/12/2018 Care Coordination: Currently receives services from [email or web address].\T\nbsp; She has been diagnosed with Dementia, Alzheimer type.\T\nbsp; Please contact [phone] with any mental health concerns.\T\nbsp;\T\nbsp; Care History Medical/Surgical 02/04/2019 [facility] - PATIENT HAS COMPLETED PULMONARY REHAB SERVICES WITH-SAL [place] - [facility] HAS BEEN NOTIFIED OF RECENT ED VISIT-PATIENT CAN ATTEND HIS PULMONARY REHAB SERVICES AGAIN IF AN INPATIENT STATUS WERE TO OCCUR. 05/09/2018 [facility] - Patient is currently established with [facility]. If patient is seen in the ED during business hours. Please contact [facility] at [facility]. Care Recommendation: This patient has had 5 [...] providing care. E.D. VISIT COUNT (12 MO.) 7 [facility]. TOTAL 7 NOTE: Visits indicate total known visits. ED/UCC VISIT TRACKING (12 MO.) 04/19/2019 15:15 [facility] [place] TYPE: Emergency COMPLAINT: - SOB 02/02/2019 19:40 [facility] [place] TYPE: Emergency COMPLAINT: - SOB DIAGNOSES: - Allergy status to oth drug/meds/biol subst status - Personal history of nicotine dependence - Allergy status to analgesic agent status - Essential (primary) hypertension - Shortness of breath - 1 Type 2 diabetes mellitus without complications - terminal supervisor (current) use of insulin - Allergy status to sulfonamides status - Chronic obstructive pulmonary disease w (acute) exacerbation - Acquired absence of both cervix and uterus - Other predatory animal exterminator (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 - Allergy to other foods - Prsnl hx of TIA (TIA), and cereb infrc w/o resid deficits 01/03/2019 21:57 [facility] [place] TYPE: Emergency COMPLAINT: - ARM PAIN DIAGNOSES: - 1 Type 2 diabetes mellitus without complications - Allergy status to analgesic agent status - terminal supervisor (current) use of insulin - Other predatory animal exterminator (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 - Allergy status to oth drug/meds/biol subst status - Pain in right arm - Essential (primary) hypertension - Acquired absence of both cervix and uterus - Major depressive disorder, single episode, unspecified - Chest pain, unspecified - Chronic obstructive pulmonary disease, unspecified - Personal history of nicotine dependence - Allergy to other foods - Allergy status to sulfonamides status - Prsnl hx of TIA (TIA), and cereb infrc w/o resid deficits - Anxiety disorder, unspecified 09/19/2018 12:29 [facility] [place] TYPE: Emergency COMPLAINT: - DIZZINESS 09/12/2018 12:14 [facility] [place] TYPE: Emergency COMPLAINT: - LOW OXYGEN SATURATION DIAGNOSES: - Major depressive disorder, single episode, unspecified - Allergy status to oth drug/meds/biol subst status - Personal history of nicotine dependence - Allergy status to sulfonamides status - Other detention (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 - Anxiety disorder, unspecified - Shortness of breath - Pure hypercholesterolemia, unspecified - terminal supervisor (current) use of insulin - Chronic obstructive pulmonary disease w (acute) exacerbation - 1 Type 2 diabetes mellitus with hyperglycemia - Prsnl hx of TIA (TIA), and cereb infrc w/o resid deficits - Essential (primary) hypertension 08/17/2018 09:25 [facility] [place] TYPE: Emergency COMPLAINT: - DIFFICULTY BREATHING 05/08/2018 18:35 [facility] [place] TYPE: Emergency COMPLAINT: - SHORTNESS OF BREATH DIAGNOSES: - Other detention (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 - Unspecified visual disturbance - Chronic obstructive pulmonary disease, unspecified - Allergy status to sulfonamides status - Pure hypercholesterolemia, unspecified - Major depressive disorder, single episode, unspecified - Anxiety disorder, unspecified - Essential (primary) hypertension - Personal history of nicotine dependence - Allergy status to oth drug/meds/biol subst status - Other visual disturbances - 1 Type 2 diabetes mellitus without complications - Prsnl hx of TIA (TIA), and cereb infrc w/o resid deficits - intermediate (current) use of insulin INPATIENT VISIT TRACKING (12 MO.) 09/19/2018 12:30 [facility] [place] TYPE: Observation COMPLAINT: - HYPOTENSION, PIERRE DIAGNOSES: - Other detention (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 - Prsnl hx of TIA (TIA), and cereb infrc w/o resid deficits - 1 Type 2 diabetes mellitus without complications - Dizziness and giddiness - terminal supervisor (current) use of inhaled steroids - Sleep apnea, unspecified - Major depressive disorder, single episode, unspecified - Acute kidney failure, unspecified - Other psychoactive substance abuse, in remission - Other chronic pain - terminal supervisor (current) use of insulin - Restless legs syndrome - Pure hypercholesterolemia, unspecified - Personal history of nicotine dependence - Chronic obstructive pulmonary disease, unspecified - Anxiety disorder, unspecified - Hypotension, unspecified - Essential (primary) hypertension 08/17/2018 09:[address] [facility] [place] TYPE: Observation COMPLAINT: - COPD EXACERBATION DIAGNOSES: - Essential (primary) hypertension - Gastro-esophageal reflux disease without esophagitis - Major depressive disorder, single episode, unspecified - Chronic obstructive pulmonary disease w (acute) exacerbation - intermediate (current) use of insulin - Dyspnea, unspecified - Urgency of urination - Hyperlipidemia, unspecified - Other predatory animal exterminator (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 - Respiratory failure, unspecified with hypoxia - Allergy status to oth drug/meds/biol subst status - Restless legs syndrome - Allergy status to sulfonamides status - Other chronic pain - Schizophrenia, unspecified - Personal history of nicotine dependence - Anxiety disorder, unspecified - intermediate (current) use of systemic steroids - Dehydration - Other psychoactive substance abuse, in remission - Obstructive sleep apnea (adult) (pediatric) - Prsnl hx of TIA (TIA), and cereb infrc w/o resid deficits - terminal supervisor (current) use of inhaled steroids - Post-traumatic stress disorder, unspecified - 1 Type 2 diabetes mellitus without complications [email or web address]
[2019-04-19] MEDS ORDERED: CARBIDOPA-LEVO1 EACH PO (15:33)
[2019-04-19] MEDS ORDERED: FLUOXETINE HCL20 M1 PO (15:33)
[2019-04-19] MEDS ORDERED: CROMOLYN SODIUM10 ML OPTH (15:33)
[2019-04-19] MEDS ORDERED: TRAZODONE HCL150 MG PO (15:34)
[2019-04-19] MEDS ORDERED: ACID REDUCER150 MG PO (15:35)
[2019-04-19] MEDS ORDERED: OXYBUTYNIN CHLOR5 MG PO (15:35)
[2019-04-19] MEDS ORDERED: ZITHROMAX250 MG PO (17:25)
[2019-04-19] MEDS ORDERED: MEDROL4 M1 PO (17:25)
--- NOTE | 2019-04-20 08:07 | EKG ---
[facility] [address] [facility] [place], [place] [address] Signed Normal sinus rhythm Normal ECG When compared with ECG of 02-FEB-2019 19:49, No significant change was found Confirmed by RENITA LUJAN MD ([id number]) on 04/20/2019 8:07:11 AM Electronically Signed By: RENITA LUJAN MD 04/20/19 0807 PATIENT NAME: TANNER GUILLEN ANYAJIMMY Electrocardiogram DATE OF : 51 PHYSICIAN: RENITA LUJAN MD REPORT #: [id number] REPORT IS CONFIDENTIAL AND NOT TO BE RELEASED WITHOUT AUTHORIZATION
== END 2019-04-19 17:56 | disposition home or self-care (01) ==
LOC: ED 15:15
DX: J44.1 Chronic obstructive pulmonary disease with (acute) exacerbation (principal); I10 Essential (primary) hypertension; E11.9 Type 2 diabetes mellitus without complications; F32.9 Major depressive disorder, single episode, unspecified; F41.9 Anxiety disorder, unspecified; Z86.73 Personal history of transient ischemic attack (TIA), and cerebral infarction without residual deficits; Z87.891 Personal history of nicotine dependence; Z88.2 Allergy status to sulfonamides; Z88.6 Allergy status to analgesic agent; Z91.018 Allergy to other foods; Z88.8 Allergy status to other drugs, medicaments and biological substances; Z79.4 Long term (current) use of insulin; Z79.899 Other long term (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
CPT/HCPCS: 71045; 93005; 93010; 94640; 99285-25; J1100

== ENCOUNTER 2019-10-12 18:46 | Emergency (ER) | payer MEDICARE, OTHER ==
[~2019-10-12] VITALS: Ht 152.4 cm; Wt 108.9 kg
[~2019-10-12 18:46] MED LIST changes: +ACID REDUCER150 MG PO; +CARBIDOPA-LEVO1 EACH PO; +FLUOXETINE HCL20 M1 PO
--- OUTSIDE RECORDS SUMMARY | 2019-10-12 18:50 | XMS ---
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 Machine Filler Events No recent Security Events currently on file CRITERIA MET - [facility] - Has Care Guidelines CARE PROVIDERS DEENA DIMAS Internal Medicine 05/09/2018-Current PHONE: [phone] Edu Christian Clinical Orthoptist/Control Panel Operator [employer] 07/08/2019-Current PHONE: [phone] [facility] Date: 09/12/2018 Care Coordination: Currently receives services from [facility].\T\nbsp; She has been diagnosed with Dementia, Alzheimer type.\T\nbsp; Please contact [phone] with any mental health concerns.\T\nbsp;\T\nbsp; Care History Medical/Surgical 02/04/2019 [facility] - PATIENT HAS COMPLETED PULMONARY REHAB SERVICES WITH-SAL [place] - SAL HAS BEEN NOTIFIED OF RECENT ED VISIT-PATIENT CAN ATTEND HIS PULMONARY REHAB SERVICES AGAIN IF AN INPATIENT STATUS WERE TO OCCUR. 05/09/2018 [facility] - Patient is currently established with [facility]. If patient is seen in the ED during business hours. Please contact CHWs at [facility]. Care Recommendation: This patient has had 5 [...] care. E.D. VISIT COUNT (12 MO.) [address] [facility] TOTAL 4 NOTE: Visits indicate total known visits. ED/UCC VISIT TRACKING (12 MO.) 10/12/2019 18:47 [facility] [place] TYPE: Emergency COMPLAINT: - DIZZINESS, BODY ACHES 04/19/2019 15:15 [facility] [place] TYPE: Emergency COMPLAINT: - SOB DIAGNOSES: - Allergy status to sulfonamides status - Essential (primary) hypertension - Personal history of nicotine dependence - Anxiety disorder, unspecified - Dyspnea, unspecified - Personal history of transient ischemic attack (TIA), and cere - Type 2 diabetes mellitus without complications - Chronic obstructive pulmonary disease with (acute) exacerbati - halfway (current) use of insulin - Allergy status to other drugs, medicaments and biological sub - Other long-term (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 - Allergy to other foods - Major depressive disorder, single episode, unspecified - Allergy status to analgesic agent status 02/02/2019 19:40 [facility] [place] TYPE: Emergency COMPLAINT: - SOB DIAGNOSES: - Allergy status to other drugs, medicaments and biological sub - Personal history of nicotine dependence - Allergy status to analgesic agent status - Essential (primary) hypertension - Shortness of breath - Type 2 diabetes mellitus without complications - termite control representative (current) use of insulin - Allergy status to sulfonamides status - Chronic obstructive pulmonary disease with (acute) exacerbati - Acquired absence of both cervix and uterus - Other long-term (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 - Allergy to other foods - Personal history of transient ischemic attack (TIA), and cere 01/03/2019 21:[address] [facility] [place] TYPE: Emergency COMPLAINT: - ARM PAIN DIAGNOSES: - Type 2 diabetes mellitus without complications - Allergy status to analgesic agent status - termite control representative (current) use of insulin - Other termite treater (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 - Allergy status to other drugs, medicaments and biological sub - Pain in right arm - Essential (primary) hypertension - Acquired absence of both cervix and uterus - Major depressive disorder, single episode, unspecified - Chest pain, unspecified - Chronic obstructive pulmonary disease, unspecified - Personal history of nicotine dependence - Allergy to other foods - Allergy status to sulfonamides status - Personal history of transient ischemic attack (TIA), and cere - Anxiety disorder, unspecified INPATIENT VISIT TRACKING (12 MO.) No inpatient visits to display in this time frame [id number]
--- NOTE | 2019-10-13 13:29 | EKG ---
[facility] [address] [place], [place] [address] Signed Normal sinus rhythm Prolonged QT Abnormal ECG When compared with ECG of 19-APR-2019 15:24, QT has lengthened Confirmed by THEA BAILEY DO ([id number]) on 10/13/2019 1:29:39 PM Electronically Signed By: THEA BAILEY DO 10/13/19 1329 PATIENT NAME: TANNER GUILLEN Electrocardiogram DATE OF : 51 PHYSICIAN: THEA BAILEY DO REPORT #: [id number] REPORT IS CONFIDENTIAL AND NOT TO BE RELEASED WITHOUT AUTHORIZATION
== END 2019-10-12 22:04 | disposition home or self-care (01) ==
LOC: ED 18:46
DX: R07.9 Chest pain, unspecified (principal); R53.1 Weakness; M79.605 Pain in left leg; I10 Essential (primary) hypertension; E78.00 Pure hypercholesterolemia, unspecified; J44.9 Chronic obstructive pulmonary disease, unspecified; E11.9 Type 2 diabetes mellitus without complications; F41.9 Anxiety disorder, unspecified; Z87.891 Personal history of nicotine dependence; Z88.2 Allergy status to sulfonamides; Z88.6 Allergy status to analgesic agent; Z79.899 Other long term (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
CPT/HCPCS: 70450; 71045; 80053; 84484; 85025; 85379; 85610; 85730; 93005; 93010; 93971; 99285-25

== ENCOUNTER 2020-06-02 09:08 | Emergency (ER) | payer MEDICARE, OTHER ==
[~2020-06-02] VITALS: Ht 152.4 cm; Wt 121.6 kg
--- OUTSIDE RECORDS SUMMARY | 2020-06-02 09:10 | XMS ---
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 3D Artist Events No recent Security Events currently on file CRITERIA MET - [facility] - Has Care Guidelines CARE PROVIDERS DEENA DIMAS Internal Medicine 05/09/2018-Current PHONE: [phone] Major Brennan Corporate Attorney/Granite Cutter 07/08/2019-Current PHONE: [phone] Care Guidelines exist for the following facilities: [facility] ( 03/16/2020 ) Care History Medical/Surgical 10/14/2019 [facility] Patient scheduled for 01/09/[address] Escamilla.\T\nbsp; Advised to get follow up with Dr. Dimas.\T\nbsp; Patient stated she will if she need be.\T\ nbsp; She will start using walker more instead of wheel chair. 02/04/2019 [facility] - PATIENT HAS COMPLETED PULMONARY REHAB SERVICES WITH-SAL [place] - SAL HAS BEEN NOTIFIED OF RECENT ED VISIT-PATIENT CAN ATTEND HIS PULMONARY REHAB SERVICES AGAIN IF AN INPATIENT STATUS WERE TO OCCUR. 05/09/2018 [facility] - Patient is currently established with [facility]. If patient is seen in the ED during business hours. Please contact CHWs at [facility]. Care Recommendation: This patient has had [...] providing care. E.D. VISIT COUNT (12 MO.) 2 [facility]. TOTAL 2 NOTE: Visits indicate total known visits. ED/UCC VISIT TRACKING (12 MO.) 06/02/2020 09:09 [facility] [place] TYPE: Emergency COMPLAINT: - SOB 10/12/2019 18:47 [facility] [place] TYPE: Emergency COMPLAINT: - DIZZINESS, BODY ACHES DIAGNOSES: - Allergy status to sulfonamides - Chest pain, unspecified - Pain in left leg - Anxiety disorder, unspecified - Weakness - Other terminal superintendent (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 - Allergy status to analgesic agent - Chronic obstructive pulmonary disease, unspecified - Personal history of nicotine dependence - Type 2 diabetes mellitus without complications - Essential (primary) hypertension - Pure hypercholesterolemia, unspecified INPATIENT VISIT TRACKING (12 MO.) No inpatient visits to display in this time frame [id number]
[2020-06-02] MEDS ORDERED: DESVENLAFAXINE50 M3 PO (09:27)
[2020-06-02] MEDS ORDERED: LISINOPRIL20 MG PO (09:27)
[2020-06-02] MEDS ORDERED: MYRBETRIQ25 MG PO (09:28)
[2020-06-02] MEDS ORDERED: ZITHROMAX250 MG PO (12:19)
[2020-06-02] MEDS ORDERED: PREDNISONE20 MG PO (12:19)
--- NOTE | 2020-06-02 16:52 | EKG ---
[facility] [address] [facility] [address] [place], [place] [address] Signed Normal sinus rhythm Normal ECG When compared with ECG of 12-OCT-2019 18:52, QT has shortened Confirmed by HALINA HASSAN MD ([id number]) on 06/02/2020 4:52:22 PM Electronically Signed By: HALINA HASSAN MD 06/02/20 165 PATIENT NAME: TANNER GUILLEN Electrocardiogram DATE OF : 51 PHYSICIAN: HALINA HASSAN MD REPORT #: [id number] REPORT IS CONFIDENTIAL AND NOT TO BE RELEASED WITHOUT AUTHORIZATION
== END 2020-06-02 13:45 | disposition home or self-care (01) ==
LOC: ED 09:08
DX: J44.1 Chronic obstructive pulmonary disease with (acute) exacerbation (principal); I10 Essential (primary) hypertension; E78.00 Pure hypercholesterolemia, unspecified; G47.30 Sleep apnea, unspecified; E11.9 Type 2 diabetes mellitus without complications; Z86.73 Personal history of transient ischemic attack (TIA), and cerebral infarction without residual deficits; Z87.891 Personal history of nicotine dependence; Z88.8 Allergy status to other drugs, medicaments and biological substances; Z88.2 Allergy status to sulfonamides; Z79.899 Other long term (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
CPT/HCPCS: 71045; 80053; 83735; 83880; 84484; 85025; 93005; 93010; 96374; 99285-25; J1100

== ENCOUNTER 2020-11-14 22:22 | Emergency (ER) | payer MEDICARE, OTHER ==
[~2020-11-14] VITALS: Ht 152.4 cm; Wt 132.9 kg
[~2020-11-14 22:22] MED LIST changes: +DESVENLAFAXINE50 M3 PO; +MYRBETRIQ25 MG PO
--- OUTSIDE RECORDS SUMMARY | 2020-11-14 22:24 | XMS ---
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 Supervisor Electronic Testing Events No recent Security Events currently on file CRITERIA MET - [facility] - Has Care Guidelines CARE PROVIDERS DEENA DIMAS Internal Medicine 05/09/2018-Current PHONE: [phone] Nakia Amado Mercerizing Range Controller/Honing Machine Operator Production 07/27/2020-Current PHONE: [phone] Care Guidelines exist for the following facilities: [facility] ( 03/16/2020 ) Care History Medical/Surgical 10/14/2019 [facility] Patient scheduled for 01/09/[address] Escamilla.\T\nbsp; Advised to get follow up with Dr. Dimas.\T\nbsp; Patient stated she will if she need be.\T\ nbsp; She will start using walker more instead of wheel chair. 02/04/2019 [facility] - PATIENT HAS COMPLETED PULMONARY REHAB SERVICES WITH-SAL [place] - SAL HAS BEEN NOTIFIED OF RECENT ED VISIT-PATIENT CAN ATTEND HIS PULMONARY REHAB SERVICES AGAIN IF AN INPATIENT STATUS WERE TO OCCUR. 05/09/2018 [facility] - Patient is currently established with [facility]. If patient is seen in the ED during business hours. Please contact CHWs at [facility]. Care Recommendation: This patient has had [...] providing care. E.D. VISIT COUNT (12 MO.) 3 [facility]. TOTAL 3 NOTE: Visits indicate total known visits. ED/UCC VISIT TRACKING (12 MO.) 11/14/2020 22:22 [facility] [place] TYPE: Emergency COMPLAINT: - SOB 07/05/2020 18:48 [facility] [place] TYPE: Emergency COMPLAINT: - ARM PAIN DIAGNOSES: - Personal history of nicotine dependence - Chest pain, unspecified - Essential (primary) hypertension - Allergy status to analgesic agent - middle or intermediate school principal (current) use of insulin - Type 2 diabetes mellitus without complications - Chronic obstructive pulmonary disease, unspecified - Sleep apnea, unspecified - Allergy status to other drugs, medicaments and biological substances - Other intermodal dispatcher (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 - Allergy status to sulfonamides 06/02/2020 09:09 [facility] [place] TYPE: Emergency COMPLAINT: - SOB DIAGNOSES: - Allergy status to other drugs, medicaments and biological substances - Chronic obstructive pulmonary disease with (acute) exacerbation - Type 2 diabetes mellitus without complications - Pure hypercholesterolemia, unspecified - Other intermodal dispatcher (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 - Shortness of breath - Allergy status to sulfonamides - Sleep apnea, unspecified - Essential (primary) hypertension - Allergy status to sulfonamides - Personal history of transient ischemic attack (TIA), and cerebral infarction without residual deficits - Personal history of nicotine dependence - Allergy status to other drugs, medicaments and biological substances INPATIENT VISIT TRACKING (12 MO.) No inpatient visits to display in this time frame [id number]
--- NOTE | 2020-11-15 11:32 | EKG ---
[facility] [address] [place] [address] Signed Normal sinus rhythm Nonspecific T wave abnormality Abnormal ECG When compared with ECG of 05-JUL-2020 18:55, ST elevation now present in Inferior leads Confirmed by HALINA HASSAN MD ([id number]) on 11/15/2020 11:32:14 AM Electronically Signed By: HALINA HASSAN MD 11/15/20 1132 PATIENT NAME: JAMEEL GUILLENEmber JOYNERJIMMY Electrocardiogram DATE OF : 51 PHYSICIAN: HALINA HASSAN MD REPORT #: [id number] REPORT IS CONFIDENTIAL AND NOT TO BE RELEASED WITHOUT AUTHORIZATION
== END 2020-11-15 06:12 | disposition home or self-care (01) ==
LOC: ED 22:22
DX: F45.8 Other somatoform disorders (principal); I10 Essential (primary) hypertension; E78.00 Pure hypercholesterolemia, unspecified; J43.9 Emphysema, unspecified; G47.30 Sleep apnea, unspecified; E11.9 Type 2 diabetes mellitus without complications; K21.9 Gastro-esophageal reflux disease without esophagitis; Z87.891 Personal history of nicotine dependence; Z88.6 Allergy status to analgesic agent; Z88.8 Allergy status to other drugs, medicaments and biological substances; Z88.2 Allergy status to sulfonamides; Z79.899 Other long term (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; Z79.52 Long term (current) use of systemic steroids; Z79.4 Long term (current) use of insulin
CPT/HCPCS: 71045; 80053; 83735; 83880; 84484; 85025; 93005; 93010; 96374; 99285-25; J1200

== ENCOUNTER 2020-12-27 18:30 | Emergency (ER) | payer MEDICARE, OTHER ==
[~2020-12-27] VITALS: Ht 152.4 cm; Wt 136.1 kg
--- OUTSIDE RECORDS SUMMARY | 2020-12-27 18:40 | XMS ---
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 Under Presser Events No recent Security Events currently on file CRITERIA MET - [facility] CARE PROVIDERS HANK BAKER Nurse Practitioner: 11/16/2020-Current PHONE: [phone] DEENA DIMAS Internal Medicine 05/09/2018-Current PHONE: [phone] Nakia Amado Soybean Specialties Cook/Orderlies Teacher 07/27/2020-Current PHONE: [phone] Care Guidelines exist for the following facilities: [facility] ( 03/16/2020 ) Care History Medical/Surgical 10/14/2019 [facility] Patient scheduled for 01/09/[address] Escamilla.\T\nbsp; Advised to get follow up with Dr. Dimas.\T\nbsp; Patient stated she will if she need be.\T\ nbsp; She will start using walker more instead of wheel chair. 02/04/2019 [facility] - PATIENT HAS COMPLETED PULMONARY REHAB SERVICES WITH-SAL [place] - SAL HAS BEEN NOTIFIED OF RECENT ED VISIT-PATIENT CAN ATTEND HIS PULMONARY REHAB SERVICES AGAIN IF AN INPATIENT STATUS WERE TO OCCUR. 05/09/2018 [facility] - Patient is currently established with [facility]. If patient is seen in the ED during business hours. Please contact CHWs at [facility]. Care Recommendation: This patient has had [...] care. E.D. VISIT COUNT (12 MO.) 4 [facility]. TOTAL 4 NOTE: Visits indicate total known visits. ED/UCC VISIT TRACKING (12 MO.) 12/27/2020 18:31 [facility] [place] TYPE: Emergency COMPLAINT: - BACK ABDOMINAL PAIN/WEAKNESS 11/14/2020 22:22 [facility] [place] TYPE: Emergency COMPLAINT: - SOB DIAGNOSES: - Other ferry terminal supervisor (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 - Sleep apnea, unspecified - Emphysema, unspecified - Essential (primary) hypertension - marine oil terminal superintendent (current) use of systemic steroids - Type 2 diabetes mellitus without complications - Personal history of nicotine dependence - Allergy status to other drugs, medicaments and biological substances - marine oil terminal superintendent (current) use of insulin - Gastro-esophageal reflux disease without esophagitis - Allergy status to analgesic agent - Other somatoform disorders - Shortness of breath - Allergy status to sulfonamides - Pure hypercholesterolemia, unspecified 07/05/2020 18:48 [facility] [place] TYPE: Emergency COMPLAINT: - ARM PAIN DIAGNOSES: - Personal history of nicotine dependence - Chest pain, unspecified - Essential (primary) hypertension - Allergy status to analgesic agent - marine oil terminal superintendent (current) use of insulin - Type 2 diabetes mellitus without complications - Chronic obstructive pulmonary disease, unspecified - Sleep apnea, unspecified - Allergy status to other drugs, medicaments and biological substances - Other ferry terminal supervisor (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 - Allergy status to sulfonamides 06/02/2020 09:09 [facility] [place] TYPE: Emergency COMPLAINT: - SOB DIAGNOSES: - Allergy status to other drugs, medicaments and biological substances - Chronic obstructive pulmonary disease with (acute) exacerbation - Type 2 diabetes mellitus without complications - Pure hypercholesterolemia, unspecified - Other group home (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 - Shortness of breath [...] visits to display in this time frame [id number]
[2020-12-27] MEDS ORDERED: PROTONIX40 MG PO (21:39)
--- NOTE | 2020-12-28 07:22 | EKG ---
[facility] [address] [place], [place] [address] Signed Normal sinus rhythm Normal ECG When compared with ECG of 14-NOV-2020 22:36, ST no longer elevated in Inferior leads Confirmed by RENITA LUJAN MD ([id number]) on 12/28/2020 7:22:20 AM Electronically Signed By: RENITA LUJAN MD 12/28/20721 PATIENT NAME: JAMEEL GUILLENEmber JOYNERJIMMY Electrocardiogram DATE OF : 51 PHYSICIAN: RENITA LUJAN MD REPORT #: [id number] REPORT IS CONFIDENTIAL AND NOT TO BE RELEASED WITHOUT AUTHORIZATION
== END 2020-12-27 21:59 | disposition home or self-care (01) ==
LOC: ED 18:30
DX: R10.11 Right upper quadrant pain (principal); I10 Essential (primary) hypertension; E78.00 Pure hypercholesterolemia, unspecified; J44.9 Chronic obstructive pulmonary disease, unspecified; G47.30 Sleep apnea, unspecified; E11.9 Type 2 diabetes mellitus without complications; K21.9 Gastro-esophageal reflux disease without esophagitis; Z88.6 Allergy status to analgesic agent; Z88.8 Allergy status to other drugs, medicaments and biological substances; Z88.2 Allergy status to sulfonamides; Z79.899 Other long term (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; Z79.52 Long term (current) use of systemic steroids; Z79.4 Long term (current) use of insulin
CPT/HCPCS: 71045; 76705; 80053; 81001; 83690; 83735; 84484; 85025; 93005; 93010; 96374; 96375; 99284-25; C9113; J1170; J2405

== ENCOUNTER 2020-12-30 19:49 | Inpatient (IN) | payer MEDICARE, OTHER ==
[~2020-12-30] VITALS: Ht 152.4 cm; Wt 140.6 kg
[~2020-12-30 19:49] MED LIST changes: +PROTONIX40 MG PO
--- OUTSIDE RECORDS SUMMARY | 2020-12-30 19:58 | XMS ---
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 Engineering Document Control Clerk Events No recent Security Events currently on file CRITERIA MET - [facility] - 2 Visits in 30 Days - [facility] - Has Care Guidelines CARE PROVIDERS HANK BAKER Nurse Practitioner: 11/16/2020-Current PHONE: [phone] DEENA DIMAS Internal Medicine 05/09/2018-Current PHONE: [phone] Minh Nolen Sap Bods Developer/Video Game Programmer 07/27/2020-Current PHONE: [phone] Care Guidelines exist for the following facilities: [facility] ( 03/16/2020 ) Care History Medical/Surgical 10/14/2019 [facility] Patient scheduled for 01/09/[address] Escamilla.\T\nbsp; Advised to get follow up with Dr. Dimas.\T\nbsp; Patient stated she will if she need be.\T\ nbsp; She will start using walker more instead of wheel chair. 02/04/2019 [facility] - PATIENT HAS COMPLETED PULMONARY REHAB SERVICES WITH-SAL [place] - SAL HAS BEEN NOTIFIED OF RECENT ED VISIT-PATIENT CAN ATTEND HIS PULMONARY REHAB SERVICES AGAIN IF AN INPATIENT STATUS WERE TO OCCUR. 05/09/2018 [facility] - Patient is currently established with [facility]. If patient is seen in the ED during business hours. Please contact CHWs at [facility]. Care Recommendation: This patient has had [...] care. E.D. VISIT COUNT (12 MO.) 5 [facility] TOTAL 5 NOTE: Visits indicate total known visits. ED/UCC VISIT TRACKING (12 MO.) 12/30/2020 19:49 [facility] [place] TYPE: Emergency COMPLAINT: - NAUSEA 12/27/2020 18:31 [facility] [place] TYPE: Emergency COMPLAINT: - BACK ABDOMINAL PAIN/WEAKNESS 11/14/2020 22:22 [facility] [place] TYPE: Emergency COMPLAINT: - SOB DIAGNOSES: - Other equipment operator intermodal yard (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 - Sleep apnea, unspecified - Emphysema, unspecified - Essential (primary) hypertension - buttermaker continuous churn (current) use of systemic steroids - Type 2 diabetes mellitus without complications - Personal history of nicotine dependence - Allergy status to other drugs, medicaments and biological substances - buttermaker continuous churn (current) use of insulin - Gastro-esophageal reflux [...] - Allergy status to analgesic agent - jail (current) use of insulin - Type 2 diabetes mellitus without complications - Chronic obstructive pulmonary disease, unspecified - Sleep apnea, unspecified - Allergy status to other drugs, medicaments and biological substances - Other equipment operator intermodal yard (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 - Allergy status to sulfonamides 06/02/2020 09:09 [facility] [place] TYPE: Emergency COMPLAINT: - SOB DIAGNOSES: - Allergy status to other drugs, medicaments and biological substances - Chronic obstructive pulmonary disease with (acute) exacerbation - Type 2 diabetes mellitus without complications - Pure hypercholesterolemia, unspecified - Other equipment operator intermodal yard (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 - Shortness of breath [...] visits to display in this time frame [id number]
--- NOTE | 2020-12-31 01:40 | NUR ---
PT ARRIVES TO MS VIA STRETCHER, ABLE TO PIVOT TO HOSPITAL BED WITH SBA, WEAKNESS NOTED, POOR POSTURE WITH AMBULATION. FWW TO ROOM AT THIS TIME. ASSESSMENT COMPLETE. VSS. pt RATES PAIN 6-7/10, WARM BLANKET PROVIDED TO ABDOMEN. BOWEL TONES ACTIVE, ABD SOFT, TENDER IN RUQ, MID ABD WITH PALPATION. pt STATES ABDOMEN IS MORE DISTENDED THAN NORMAL. pt DENIES NAUSEA AT THIS TIME. IV SITE FLUSHED WNL, IV ANTIBIOTIC INFUSING ORDERED. ORIENTATION TO ROOM PROVIDED. CALL LIGHT IN REACH. BED ALARM ON FOR PATIENT SAFETY. pt IS ALERT AND ORIENTED TO ALL.
--- NOTE | 2020-12-31 01:52 | NUR ---
Took a FWW into patients room, patient c/o warm blanket causing more back pain than relief. Offered ice pack patient refused. Call light left in reach, no ice water allowed at this time. No other immediate concerns.
--- NOTE | 2020-12-31 02:16 | NUR ---
IV ANTIBIOTIC COMPLETE. IV SITE SL WNL, IVF NOW INFUSING WNL ORDERED. pt C/O BACK PAIN. ASSISTED TO REPOSITION HIGHER IN BED. pt STATES "THAT'S BETTER", CLOSES EYES RN LEAVES ROOM. CALL LIGHT IN REACH.
--- NOTE | 2020-12-31 02:56 | NUR ---
CALL LIGHT ANSWERED. 1PA TO PIVOT TO BSC FOR VOID. FLATUS PRESENT. SKIN ASSESSMENT, REDNESS NOTED MID BACK, UNDER LEFT BREAST. MOIST UNDER PANNUS AND BREASTS, YEAST SMELL. PILLOW CASES UNDER BREASTS, PANUS. SKIN GROSSLY INTACT. pt BACK IN BED. IVF INFUSING WNL ORDERED. CALL LIGHT IN REACH.
--- NOTE | 2020-12-31 06:31 | NUR ---
pt UP TO RESTROOM FOR VOID WITH ELECTRIC REFRIGERATOR SERVICER SBA. BACK IN BED. IV SITE ASSESSED, IVF INFUSING WNL. 3L OXYGEN BY NC IN PLACE. pt HAS NO REQUESTS. VSS.
--- NOTE | 2020-12-31 08:58 | NUR ---
REPORT RECEIVED FROM NIGHT RN AND PT. CARE RESUMED. PT IS ALERT AND ORIENTED. STATES SHE IS TIRED. REPORTS INTERMITTENT PAIN IN LOWER ABDOMEN THAT IS SHARP "LIKE A TORNADO" AND TWISTING. ALSO STATES SHE HAS CHRONIC BACK PAIN. PT. REPORTS PAIN IS TOLERABLE AT THIS TIME. LUNGS DIM. THROUGHOUT BUT DIFFICULT TO ASSESS DUE TO HABITUS. ABDOMEN IS TENDER TO PALP. IV SITE FLUSHES WELL AND WNL. BLE IS SENSITIVE TO TOUCH AND PT. STATES SHE HAS CHRONIC PAIN ALL OVER. DISCUSSED. POC AND SAFETY. 02 SAT. IS 95% ON 3L O2 THAT IS CHRONIC. PT. LEFT RESTING WITH CALL LIGHT IN HAND
--- NOTE | 2020-12-31 09:14 | NUR ---
PT USED CALL LIGHT APPROPRIATELY FOR ASSISTANCE. SHE REQUESTED TO USE BEDSIDE COMMODE. AMBULATED WITH FWW AND 1 PA. VOIDED 300ML CLEAR YELLOW URINE. SOB WITH EXERT. PT. DENIED BRUSHING TEETH AND COMBING HAIR. IN ROOM.
--- NOTE | 2020-12-31 09:30 | NUR ---
Spoke with Pamela. She lives at [facility] and states she likes it there. States she has access to a walker and wc. Uses CPAP and a shower chair. States she is ok financially and denies needs. Plans on return to [facility] when cleared medically. Daughter Fidelia Mclean is able to speak for her. Fidelia [phone].
--- NOTE | 2020-12-31 09:40 | NUR ---
IVF DISCONNECTED AND IV SALINE LOCKED. DESENEX APPLIED UNDER BREASTS AND PANNUS. AREA UNDER BREASTS IS REDDENED BUT SKIN INTACT. PT. LEFT RESTING WITH CALL LIGHT IN REACH.
--- NOTE | 2020-12-31 12:00 | NUR ---
Received call terence Chin at [facility] requesting update. H&P faxed and she states pt may return whenever she is discharged. She will call her medicaid cm and update pt is hospitalized. Per Giuseppe, pt does use a wc 90% of the time. She is on a plan to increase walking and walks to the dinning room for at least 1 meal per day and goal is for pt to walk to the dinnining room for all three meals using her walker.
--- NOTE | 2020-12-31 13:52 | NUR ---
PT ALERT, RESTING IN BED. PT WELCOMED ME IN RM, INFORMED ME THAT SHE LIVES AT [facility]. C/O BEING LTIRED NAD HAVING TROUBLE BEFORE ADMISSION WITH ENERGY. GAVE G.POST, PT REQUESTE PRAYER. WILL FOLLOW
--- NOTE | 2020-12-31 14:38 | NUR ---
PT. AMBULATED WITH FWW 1PA TO BEDSIDE COMMODE. PT. HAD A FORMED BM AND VOIDED. STOOL SAMPLE OBTAINED. PT. DENIES PAIN.
[2020-12-31] MEDS ORDERED: DONEPEZIL HCL5 MG PO (17:02)
[2020-12-31] MEDS ORDERED: ATOMOXETINE HCL80 MG PO (17:02)
[2020-12-31] MEDS ORDERED: TRAZODONE HCL100 MG PO (17:03)
[2020-12-31] MEDS ORDERED: VITAMIN D21250 MCG PO (17:05)
[2020-12-31] MEDS ORDERED: HYDROCHLOROTHIA25 MG PO (17:05)
[2020-12-31] MEDS ORDERED: POTASSIUM CHLO10 ME1 PO (17:06)
[2020-12-31] MEDS ORDERED: ARIPIPRAZOLE5 MG PO (17:06)
[2020-12-31] MEDS ORDERED: VENTOLIN HFA18 GM INH (17:09)
--- NOTE | 2020-12-31 21:06 | NUR ---
up to br, voided, back to bed, tolerated fair, O2 in place, chronic, 1PA/FWW
--- NOTE | 2021-01-01 00:58 | NUR ---
Resting, using CPAP with bleeding O2 in. no distress. turns and repositions self
--- NOTE | 2021-01-01 03:10 | NUR ---
Using home CPAP w bleeding in O2. Up to br, voided large amount of clear urine, back to bed, on rooom air, tolerated well, sats 90% on return, no c/o SOB. repositions self in bed, IVF infusing, no c/o pain, sob or emesis, LE elevated
--- NOTE | 2021-01-01 05:07 | NUR ---
Using CPAP, no distress, turns self in bed. IVF infusing
--- NOTE | 2021-01-01 05:40 | NUR ---
Pt uses O2 at home 3LNC/chronic. home CPAP w bleeding O2 in , off at this time, has used all night, no sob. Up to br, has voided QS, had bm yesterday, formed, sent to lab. Off enteric precautions. continues on Aerosol precautions due to CPAP usage and nebs. Lungs dim at bases. coop, alert and oriented. red area on back and devora area, powder and barrier cream applied. edema generalized, pt obese. tolerating liquids well, no emesis, no c/o pain this shift. uses call light, helps turn and repositions .
--- NOTE | 2021-01-01 09:30 | NUR ---
REPORT RECEIVED FROM NIGHT RN AND PT. CARE RESUMED. PT. IS ALERT AND ORIENTED. AMBULATED TO THE BATHROOM WITH FWW AND 1PA. GOWN AND BEDDING CHANGED. PT. UP IN THE CHAIR. REPORTS INCREASING COUGH WITH GREEN SPUTUM. LUNGS DIM. THROUGHOUT WITH WHEEZE PRESENT IN RLL. ON 3L NC AND O2 SAT IS 93% REPORTS ABDOMNINAL TENDERNESS IN RUL WITH PALPATION. IV SITE WNL AND FLUSHES. DISCUSSED POC AND MEDICATIONS. PT. LEFT RESTING IN CHAIR WITH CALL LIGHT IN REACH.
--- NOTE | 2021-01-01 13:18 | NUR ---
PT. USED CALL LIGHT TO REPORT SOB. O2 SAT WAS 97% ON RA. PT. HAS A HACKING COUGH. RR WAS 22. LUNGS DIM. THROUGHOUT. PT ASSISTED WITH REPOSITIONING. AND SEEMED TO FEEL BREATH BETTER ONCE RELAXED. WILL CONTINUE TO MONITOR.
--- NOTE | 2021-01-01 15:05 | NUR ---
PT. AMBULATED DOWN THE [place]ID[place] AND BACK. REPORTED MILD DIZZINESS AND BACK PAIN AND WHEELCHAIR USED FOR LAST 10FT OF WALK. RESTING IN BED WITH CALL LIGHT IN REACH.
--- NOTE | 2021-01-01 15:08 | NUR ---
PATIENT WALKED TO NURSES STATION AND STARTED BACK TO ROOM, C/O DIZZINESS AND PAIN IN BACK. WHEELED BACK TO ROOM, AND BACK TO BED. CALL LIGHT AND PERSONAL ITEMS IN REACH
--- NOTE | 2021-01-01 19:04 | NUR ---
PATIENT UP TO BR, SBA WITH FWW. BACK TO BED, CALL LIGHT IN REACH
--- NOTE | 2021-01-01 19:20 | NUR ---
SHIFT REPORT FROM NURSE ROSS. PT IS AWAKE IN BED; DENIES NEEDS AT THIS TIME. CALL LIGHT WITHIN REACH.
--- NOTE | 2021-01-01 20:29 | NUR ---
pt called, up to the toilet at this time
--- NOTE | 2021-01-01 20:34 | NUR ---
pt back to bed, sba with fww to toilet and back, assist pt with wiping needs, pt ok'd water, no further needs, asked when to expect meds, will let rn know pt is ready
--- NOTE | 2021-01-01 21:15 | NUR ---
ASSESSMENT COMPLETE. PT IS ALERT AND TALKATIVE, REPORTS NO PAIN. CBG 183 REQUIRING 4UNITS SS INSULIN. PT REMAINS ON 3L PER NC; SPO2 UPPER 90S. REDNESS UNDER PANUS TREATED WITH DESENEX POWDER; CLOTH LAID UNDER PANUS. REDNESS UNDER BREASTS IS MINIMAL; DESENEX USED HERE WELL. LUNG SOUNDS CLEAR, BOWEL TONES ACTIVE. PT REPORTS NUMBNESS/TINGLING IN FEET WHICH IS CHRONIC. BLE TRACE EDEMA. ASSISTED PT TO REPOSITION IN BED. CALL LIGHT WITHIN REACH. ASSISTED PT TO PUT CPAP ON. NO FURTHER NEEDS AT THIS TIME.
--- NOTE | 2021-01-01 22:17 | NUR ---
PT UP TO THE TOILET TO VOID, 650MLs, BARRIER CREAM APPLIED TO PTs BACK PER REQUEST, NO FURTHER NEEDS
--- NOTE | 2021-01-02 00:07 | NUR ---
CALL LIGHT ANSWERED. SBA FWW TO TOILET TO VOID. PT RETURNED TO BED. CALL LIGHT WITHIN REACH. CPAP BACK ON. NO FURTHER NEEDS AT THIS TIME.
--- NOTE | 2021-01-02 06:00 | NUR ---
ASSESSMENT COMPLETE. PT HAD BEEN UP TO TOILET TO VOID. STATES SHE HAS BEEN AWAKE SINCE 0430. PT REPORTS NO PAIN. LUNG SOUNDS CLEAR THROUGHOUT. PT IS BACK ON 3L PER NC (RATHER THAN CPAP). VSS. WATER REFRESHED. PT DENIES FURTHER NEEDS AT THIS TIME. CALL LIGHT WITHIN REACH.
--- NOTE | 2021-01-02 06:00 | NUR ---
IN TO ASSIST PT UP TO THE TOILET, PT BACK TO BED, WATER REFILLED, NO FURTHER NEEDS AT THIS TIME
--- NOTE | 2021-01-02 08:06 | NUR ---
PT SITTING UP IN RECLINER, WAS SLEEPING ALERT TO TOUCH ON ANKLE. PT REPORTS SHE HAS ORDERED BREAKFAST, BLOOD GLUCOSE CHECKED. NO DISTRESS NOTED. PT REPORTS SHE IS SLEEPING DOZES WHEN NOT ENGAGED
--- NOTE | 2021-01-02 09:29 | NUR ---
AFTER CONSUMING HER FULL LIQUID BREAKFAST PT REPORTS ABD DISCOMFORT NO WORSE THAN BEFORE AND SHE REPROTS THAT SHE WANTS TO TRY REAL FOOD NOW.
[2021-01-02] MEDS ORDERED: CIPROFLOXACIN500 MG PO (10:20)
[2021-01-02] MEDS ORDERED: TRAZODONE HCL100 MG PO (10:21)
[2021-01-02] MEDS ORDERED: METRONIDAZOLE500 MG PO (10:24)
--- NOTE | 2021-01-02 11:29 | NUR ---
PATIENT DRESSED IN PERSONAL CLOTHING AND READY FOR D/C
--- NOTE | 2021-01-02 11:49 | NUR ---
DISCHARGE EDUCATION PROVIDED WITH PACKET ON CARE PLAN TO CONTINUE, ADA DIET START WITH BLAND FOODS, RX POWDER SENT WITH PT FOR SKIN FOLDS. EDUCATION ON MEDICATIONS AND SIGNS AND SYMPTOMS TO SEEK MEDICAL ATTENTION. PHARMACY ALSO GAVE EDUCATION ON MEDICATIONS AND SIDE EFFECTS. PLAN TO HAVE TAXI RETRIEVE PORTABLE O2 FROM [facility] THEN COME TO HOSPITAL TO ELECTRONIC INDUCTION HARDENER PT.
== END 2021-01-02 12:25 | disposition home or self-care (01) | DRG 392 ==
LOC: ED 19:49 → MS 19:50
PROVIDERS: ADMIT Internal Medicine; ATTEND Internal Medicine
DX: A09 Infectious gastroenteritis and colitis, unspecified (principal); E66.2 Morbid (severe) obesity with alveolar hypoventilation; J96.11 Chronic respiratory failure with hypoxia; Z68.44 Body mass index [BMI] 60.0-69.9, adult; Z20.822 Contact with and (suspected) exposure to COVID-19; D64.9 Anemia, unspecified; I10 Essential (primary) hypertension; J44.9 Chronic obstructive pulmonary disease, unspecified; K21.9 Gastro-esophageal reflux disease without esophagitis; N32.81 Overactive bladder; E78.5 Hyperlipidemia, unspecified; E11.9 Type 2 diabetes mellitus without complications; F41.8 Other specified anxiety disorders; F43.10 Post-traumatic stress disorder, unspecified; G25.81 Restless legs syndrome; G89.4 Chronic pain syndrome; Z79.899 Other long term (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; Z79.4 Long term (current) use of insulin; Z79.52 Long term (current) use of systemic steroids; Z88.2 Allergy status to sulfonamides; Z88.8 Allergy status to other drugs, medicaments and biological substances
CPT/HCPCS: 74177; 80053; 81001; 83735; 85025; 94640; 94760; C9803; J0744; J1650; J1815; J2405; J7030; J7121; Q9967; U0003

== ENCOUNTER 2021-04-07 15:05 | Emergency (ER) | payer MEDICARE, OTHER ==
[~2021-04-07] VITALS: Ht 152.4 cm; Wt 140.2 kg
[~2021-04-07 15:05] MED LIST changes: +ARIPIPRAZOLE5 MG PO; +ATOMOXETINE HCL80 MG PO; +CIPROFLOXACIN500 MG PO; +DONEPEZIL HCL5 MG PO; +METRONIDAZOLE500 MG PO; +POTASSIUM CHLO10 ME1 PO; +TRAZODONE HCL100 MG PO; +VENTOLIN HFA18 GM INH; +VITAMIN D21250 MCG PO
--- OUTSIDE RECORDS SUMMARY | 2021-04-07 15:12 | XMS ---
PreManage Notification: TANNER UGILLEN Security [employer] Offbearer Events No recent Security Events currently on file [facility]ITERIA MET - [facility] [place] [facility] HANK BAKER Nurse Practitioner: 11/16/2020-Current PHONE: [phone] DEENA DIMAS Internal Medicine 05/09/2018-Current PHONE: [phone] Minh Nolen [employer] 03/26/2021-Current PHONE: [phone] Care Guidelines exist for the following facilities: [facility] ( 03/16/2020 ) Care History Medical/Surgical 10/14/2019 [facility] Patient scheduled for 01/09/[address] Escamilla.\T\nbsp; Advised to get follow up with Dr. Dimas.\T\nbsp; Patient stated she will if she need be.\T\ nbsp; She will start using walker more instead of wheel chair. 02/04/2019 [facility] - PATIENT HAS COMPLETED PULMONARY REHAB SERVICES WITH-[facility] IN [place]. - [facility] HAS BEEN NOTIFIED OF RECENT ED VISIT-PATIENT CAN ATTEND HIS PULMONARY REHAB SERVICES AGAIN IF AN INPATIENT STATUS WERE TO OCCUR. 05/09/2018 [facility] - Patient is currently established with [facility]. If patient is seen in the ED during business hours. Please contact CHWs at [facility]. Care Recommendation: This patient has had 5 [...] care. E.D. VISIT COUNT (12 MO.) 6 [facility]. TOTAL 6 NOTE: Visits indicate total known visits. ED/UCC VISIT TRACKING (12 MO.) 04/07/2021 15:05 [facility] TYPE: Emergency COMPLAINT: - LOW BLOOD PRESSURE 12/30/2020 19:49 [facility] [place] TYPE: Emergency COMPLAINT: - NAUSEA 12/27/2020 18:31 [facility] TYPE: Emergency COMPLAINT: - BACK ABDOMINAL PAIN/WEAKNESS DIAGNOSES: - Essential (primary) hypertension - Chronic obstructive pulmonary disease, unspecified - Gastro-esophageal reflux disease without esophagitis - Allergy status to other drugs, medicaments and biological substances - Right upper quadrant pain - Other buttermaker (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 - [facility] (current) use of insulin - Allergy status to analgesic agent - [facility] (current) use of systemic steroids - Pure hypercholesterolemia, unspecified - Type 2 diabetes mellitus without complications - Allergy status to sulfonamides - Sleep apnea, unspecified 11/14/2020 22:22 [facility] TYPE: Emergency COMPLAINT: - SOB DIAGNOSES: - Other [facility] (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 - Sleep apnea, unspecified - Emphysema, unspecified - Essential (primary) hypertension - [facility] (current) use of systemic steroids - Type 2 diabetes mellitus without complications - Personal history of nicotine dependence - Allergy status to other drugs, medicaments and biological substances - [facility] (current) use of insulin - Gastro-esophageal reflux [...] - Allergy status to analgesic agent - buttermaker (current) use of insulin - Type 2 diabetes mellitus without complications - Chronic obstructive pulmonary disease, unspecified - Sleep apnea, unspecified - Allergy status to other drugs, medicaments and biological substances - Other buttermaker (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 - Allergy status to sulfonamides 06/02/2020 09:09 [facility] TYPE: Emergency COMPLAINT: - SOB DIAGNOSES: - Allergy status to other drugs, medicaments and biological substances - Chronic obstructive pulmonary disease with (acute) exacerbation - Type 2 diabetes mellitus without complications - Pure hypercholesterolemia, unspecified - Other [facility] (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 - Shortness of breath - Allergy status to sulfonamides - Sleep apnea, unspecified - Essential (primary) hypertension - Allergy status to sulfonamides - Personal history of transient ischemic attack (TIA), and cerebral infarction without residual deficits - Personal history of nicotine dependence - Allergy status to other drugs, medicaments and biological substances INPATIENT VISIT TRACKING (12 MO.) 12/31/2020 09:39 [facility] TYPE: Medical Surgical COMPLAINT: - COLITIS DIAGNOSES: - Gastro-esophageal reflux disease without esophagitis - Overactive bladder - [facility] (current) use of insulin - Post-traumatic stress disorder, unspecified - Other [facility] (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 - Chronic pain syndrome - Body mass index [BMI] 60.0-69.9, adult - Allergy status to sulfonamides - Noninfective gastroenteritis and colitis, unspecified - Chronic obstructive pulmonary disease, unspecified - Hyperlipidemia, unspecified - Type 2 diabetes mellitus without complications - Other specified anxiety disorders - Anemia, unspecified - buttermaker (current) use of systemic steroids - Essential (primary) hypertension - Chronic respiratory failure with hypoxia - Restless legs syndrome - Infectious gastroenteritis and colitis, unspecified - Morbid (severe) obesity with alveolar hypoventilation - Allergy status to other drugs, medicaments and biological substances [email or web address]
[2021-04-07] MEDS ORDERED: CEPHALEXIN500 M1 PO (16:42)
[2021-04-07] MEDS ORDERED: ONDANSETRON ODT4 MG SL (16:42)
--- NOTE | 2021-04-07 22:33 | EKG ---
[facility] [address] [place], [place] [address] Signed Normal sinus rhythm Normal ECG When compared with ECG of 27-DEC-2020 18:48, No significant change was found Confirmed by RENITA LUJAN MD ([id number]) on 04/07/2021 10:33:26 PM Electronically Signed By: RENITA LUJAN MD 04/07/212232 PATIENT NAME: TANNER GUILLEN ANYAJIMMY Electrocardiogram DATE OF : 51 PHYSICIAN: RENITA LUJAN MD REPORT #: [id number] REPORT IS CONFIDENTIAL AND NOT TO BE RELEASED WITHOUT AUTHORIZATION
== END 2021-04-07 17:55 | disposition home or self-care (01) ==
LOC: ED 15:05
DX: N39.0 Urinary tract infection, site not specified (principal); E11.9 Type 2 diabetes mellitus without complications; G47.30 Sleep apnea, unspecified; E66.01 Morbid (severe) obesity due to excess calories; K21.9 Gastro-esophageal reflux disease without esophagitis; E78.5 Hyperlipidemia, unspecified; I10 Essential (primary) hypertension; J43.9 Emphysema, unspecified; E78.00 Pure hypercholesterolemia, unspecified; Z86.73 Personal history of transient ischemic attack (TIA), and cerebral infarction without residual deficits; Z88.6 Allergy status to analgesic agent; Z88.2 Allergy status to sulfonamides; Z91.018 Allergy to other foods; Z88.8 Allergy status to other drugs, medicaments and biological substances; Z79.4 Long term (current) use of insulin; Z79.899 Other long term (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
CPT/HCPCS: 80053; 81001; 83735; 84484; 85025; 93005; 93010; 96361; 96365; 99283-25; J0696; J7040

== ENCOUNTER 2021-09-15 07:21 | Inpatient (IN) | payer MEDICARE, OTHER ==
[~2021-09-15] VITALS: Ht 152.4 cm; Wt 136.5 kg
[~2021-09-15 07:21] MED LIST changes: +CEPHALEXIN500 M1 PO; +ONDANSETRON ODT4 MG SL
[2021-09-15] MEDS ORDERED: DICLOFENAC POTA50 MG PO (07:36)
[2021-09-15] MEDS ORDERED: GABAPENTIN100 MG PO (12:20)
[2021-09-15] MEDS ORDERED: IBUPROFEN600 MG PO (12:21)
[2021-09-15] MEDS ORDERED: JARDIANCE10 MG PO (12:21)
[2021-09-15] MEDS ORDERED: GEMTESA75 MG PO (12:21)
[2021-09-15] MEDS ORDERED: NOVOLOG FL100 UNIT/1 SUB-Q (12:23)
[2021-09-15] MEDS ORDERED: OMEPRAZOLE20 MG PO (12:26)
[2021-09-15] MEDS ORDERED: BRINTELLIX10 MG PO (12:28)
--- NOTE | 2021-09-15 17:18 | EKG ---
[facility] [address] [place], [place] [address] Signed Normal sinus rhythm Normal ECG When compared with ECG of 07-APR-2021 16:05, No significant change was found Confirmed by HALINA HASSAN MD ([id number]) on 09/15/2021 5:18:44 PM Electronically Signed By: HALINA HASSAN MD 09/15/21 1718 PATIENT NAME: TANNER GUILLEN ANYAJIMMY Electrocardiogram DATE OF : 51 PHYSICIAN: HALINA HASSAN MD REPORT #: [id number] REPORT IS CONFIDENTIAL AND NOT TO BE RELEASED WITHOUT AUTHORIZATION
--- NOTE | 2021-09-15 17:28 | NUR ---
vortioxitine is not available to give. staff visiting from facility - but off duty.
--- NOTE | 2021-09-15 18:39 | NUR ---
pt asked to have someone bring in her home medication. denies needs, watching tv with no sob, 3 l NC o2.
--- NOTE | 2021-09-15 19:35 | NUR ---
RECEIVED REPORT FROM DAY SHIFT RN. PATIENT IS RESTING IN BED. PATIENT DENIES ANY NEEDS. CALL LIGHT IN REACH.
--- NOTE | 2021-09-15 20:00 | NUR ---
PT CALLED FOR ICE WATER, VS AND ACCU-CHECK COMPLETE, ASSIST RN WITH PT BOOST, NO FURTHER NEEDS AT THIS TIME
--- NOTE | 2021-09-15 20:24 | NUR ---
PATIENT ASSESMENT COMPLETED. PATIENTS VITALS TAKEN AND RECORDED. MELGAR EMPTIED AND MELGAR COMPLETED. PATIENT TITRATED TO 5L VIA NC, OXYGEN SATURATION NOW 90%. PATIENTS SCHEDULED MEDICATIONS GIVEN PER ORDER. PATIENT REPORTS HEADACHE, PRN MEDICATION GIVEN PER ORDER. PATIENTS IV FLUSED AND SL PER ORDER. PATIENT REPOSITIONED IN BED. HEEL PROTECTORS PLACED ON PATIENT. PATIENT HAS REDNESS NOTED UNDER BOTH BREASTS, UNDER BREASTS CLEANED, AND PILLOW CASES PLACED UNDER BREASTS TO KEEP DRY. PATIENT PROVIDED WITH FRESH ICE WATER. PATIENT DENIES ANY FURTHER NEEDS. CALL LIGHT IN REACH.
--- NOTE | 2021-09-15 22:35 | NUR ---
SCHEDULED MEDICAITON GIVEN PER ORDER. PATIENT DENIES ANY NEEDS. CALL LIGHT IN REACH. PATIENT REMAINS ON 5L VIA NC, AND OXYGEN SATURATION IS 90%
--- NOTE | 2021-09-16 02:33 | NUR ---
PATIENTS VITALS TAKEN AND RECORDED. MELGAR EMPTIED. PATIENET TITRATED TO 4L VIA NC. PATIENT DENIES ANY NEEDS. CALL LIGHT IN REACH.
--- NOTE | 2021-09-16 04:37 | NUR ---
PATIENT IS RESTING IN BED WITH EYES CLSOED, RR 19. CALL LIGHT IN REACH.
--- NOTE | 2021-09-16 05:57 | NUR ---
PATIENTS VITALS TAKEN AND RECORDED. MELGAR EMPTIED AND MELGAR CARE COMPLETED. PATIENTS SCHEDULED MEDICATIONS GIVEN PER ORDER. PATIENT REPORTS HEADACHE, PRN TYLENOL GIVEN PER ORDER. PATIENT REPOSITIONED IN BED. NO FURTHER NEEDS NOTED. CALL LIGHT IN REACH.
--- NOTE | 2021-09-16 07:45 | NUR ---
Patient resting in bed, no distress. Patient is currently on 3L oxugen per nc, respirations non labored. ECHO study to be done here shortly, communicated this with patient. Personal supplies and call light within reach.
--- NOTE | 2021-09-16 10:43 | NUR ---
Rocha catheter removed per provider order. 9ml sterile water removed from cath balloon prior to removal. Cath tip intact, pt tolerated well. Patient now due to void. Patient instructed to call for help when needed.
--- NOTE | 2021-09-16 10:50 | NUR ---
Patient on 4L of oxygen per nc, respirations even and non labored. SP02 90% at this time. Patient denies respiratory distress.
--- NOTE | 2021-09-16 13:40 | NUR ---
Spoke with Pamela. States she lives at [facility] and likes it very much. Has multiple pieces of DME and denies need for other. States she has a CPAP and does not use a it causes cancer. Pt denies needs, plans on return to [facility] when cleared. I will check with [facility] about her CPAP. Pt states she will need a taxi home, she will not need an 02 tank as she has her portable concentrator with her.
--- NOTE | 2021-09-16 14:50 | NUR ---
Called [facility] and spoke with Doreen. She states there has been a recall on pts [facility] CPAP as there is a filter that breaks down and could be carcinogenic. [facility] has a replacement filter fot pts to use while the new CPAPS arrive. Pt need to registar her CPAP with [facility] and give the SN. Phone number is . [facility] will send a new filter to [facility]. Called Giuseppe at [facility] and gave her the above infor. She will call [facility] and registar for Pamela.
--- NOTE | 2021-09-16 14:50 | NUR ---
BROUGHT HER SOME MORE ICE WATER. WARM BLANKET.
[2021-09-16] MEDS ORDERED: PRAVASTATIN SOD20 MG PO (14:58)
[2021-09-16] MEDS ORDERED: TRAZODONE HCL100 MG PO (15:00)
--- NOTE | 2021-09-16 15:30 | NUR ---
REPORT RECIEVED FROM CARMELITA KARIMI RESTING IN BED CURRETLY ON 4L NC, RESTING IN DENIES ANY NEEDS. ASSESSMENT DONE.
[2021-09-16] MEDS ORDERED: COLACE100 MG PO (15:51)
--- NOTE | 2021-09-16 17:30 | NUR ---
RN in room to adinister 1700 medictions pt finishing eating dinner, blood glucose 293, 20 scheduled and 12 sliding scale given, denies any needs at the moment.
[2021-09-16] MEDS ORDERED: NOVOLOG100 UNIT/1 SUB-Q (18:49)
--- NOTE | 2021-09-16 18:51 | NUR ---
medications reconciled using med list from "[facility]' and patient interview
--- NOTE | 2021-09-16 20:30 | NUR ---
IN TO ASSIST PT UP TO THE BSC, 1-2PA, BACK TO BED, VITALS DONE, ACCU-CHECK COMPLETE, FRESH ICE WATER GIVEN, SF JELLO PROVIDED SNACK, NO FURTHER NEEDS AT THIS TIME
--- NOTE | 2021-09-16 20:36 | NUR ---
IN ROOM TO HELP PT TO BSC 2PA PIVOT SHE MOVED WELL AND VOIDED 250MLS OF URINE. PT IS NOW BACK IN BED AND DENIES FURTHER NEEDS. CALL LIGHT IS CLOSE. VS & I&O'S ENTERED.
--- NOTE | 2021-09-16 21:00 | NUR ---
PT HAD WANTED EGG SALAD SANDWICH BUT IT CONTAINED SOY AND SO PT DECLINED. ALTERNATE SNACK PROVIDED. PT REPOSITIONED. ALL NEEDS MET.
--- NOTE | 2021-09-16 21:45 | NUR ---
ASSISTED PT UP TO THE BSC, PT REQUESTED SOME TIME TO TRY FOR A BM, CALL LIGHT IN REACH, WILL CALL WHEN SHE IS READY
--- NOTE | 2021-09-17 04:22 | NUR ---
PT SLEEPING SOUNDLY. BIPAP ON. CONTINOUS O2 SAT MONITORING ON AND READING 93% AT THIS TIME.
--- NOTE | 2021-09-17 05:50 | NUR ---
HAS HAD AN UNEVENTFUL NIGHT. SLEPT WITH BIPAP ON.
--- NOTE | 2021-09-17 07:15 | NUR ---
REPORT RECIEVED FROM ADMISSIONS CLERK RN, PT RESTING IN BED, [facility] OVER[facility], CALL LIGHT WITHIN REACH NO OTHER NEEDS
--- NOTE | 2021-09-17 08:23 | NUR ---
RN in room to do morning assessment and medications pt sitting up in chair eating breakfast, complaining of head and back pain, prn tylenol provided, pt blood glucose 324 scheduled 20units and 16 of sliding scale provided, assisted to use the commode voided 200, call light within reach denies any other needs at the moment
--- NOTE | 2021-09-17 10:30 | NUR ---
RN IN ROOM TO REASSESS PAIN , PT STATES PAIN IS BETTER SLEEPING IN RECLINER DENIES ANY OTHER NEEDS
--- NOTE | 2021-09-17 11:59 | NUR ---
rn in room to do lunch time insulin blood glucose 338. 16 units of sliding scale and 20units scheduled. no other needs at the moment.
--- NOTE | 2021-09-17 13:00 | NUR ---
AFTER PATIENT'S BREATHING TREATMENT. SHE SAID SHE WAS WET. SO WHILE SHE SET ON THE BEDSIDE COMMODE I CHANGED THE WHITE JOSE ON HER CHAIR. THAN WHEN SHE WAS DONE I HELPED A LITTLE BIT ON TRANSFERING HER TO THE SHOWER CHAIR. GAVE HER A SHOWER AND WASHED HER HAIR. GOT HER DRIED OFF PUT A NEW GOWN ON AND SOCKS. THAN BLOWED DRIED HER HAIR. THAN SHE WANTED TO LAY DOWN.
--- NOTE | 2021-09-17 15:00 | NUR ---
RN IN TO ANSWER CALL LIGHT, ASSISTED UP TO THE BEDSIDE COMMODE, ABLE TO VOID. ASKED FOR A SNACK, LUIS FERNANDO BHAGAT PROVIDED
--- NOTE | 2021-09-17 15:55 | NUR ---
Tylenol 500mg po admin for reports of 9/10 headache pain.
--- NOTE | 2021-09-17 17:30 | NUR ---
RN IN ROOM TO DO 1700 MEDICATIONS PT FINISHED EATING DINNER, BLOOD GLUCOSE 265 SEE EMAR, PAIN IS DOWN TO 6/10 NO OTHER NEEDS
--- NOTE | 2021-09-17 19:30 | NUR ---
SHIFT REPORT RECEIVED CALOS XIE. PT RESTING IN BED. NC @3L. NO NEEDS AT THIS TIME. CALL LIGHT IN REACH.
--- NOTE | 2021-09-17 22:32 | NUR ---
ASSESSMENT, VS AND I&O COMPLETED. PT ON 3L NC. GCS 15, A&O X4. LUNGS HAVE EXPIRATORY WHEEZING AND DIM IN ALL OTHER LOBES. HEART TONES REGULAR. ABD SOFT, OBESE, NONTENDER, BOWEL TONES ACTIVE. REDNESS UNDER PANNUS AND BREASTS, MEDICATION PROVIDED. SCHEDULED MEDS PROVIDED. BLE EDEMA 2+, GENERALIZED EDMEA IN ARMS AND THIGHS. IV WNL, CDI, FLUSHED WELL. CMS INTACT. NO OTHER NEEDS. CALL LIGHT IN REACH.
--- NOTE | 2021-09-17 23:13 | NUR ---
PT RESTING IN BED, BIPAP ON. CALL LIGHT IN REACH.
--- NOTE | 2021-09-18 00:50 | NUR ---
PT RESTING IN BED, EYES CLOSED. BIPAP ON. CALL LIGHT IN REACH.
--- NOTE | 2021-09-18 02:26 | NUR ---
PT RESTING IN BED, BIPAP ON. CALL LIGHT IN REACH.
--- NOTE | 2021-09-18 04:30 | NUR ---
ASSESSMENT COMPLETED. PT UP TO BSC AND BACK TO BED. PT DENIES PAIN OR NAUSEA. PT TAKES OFF BIPAP AND IS ON 3L NC. IV WNL. LUNG HAVE EXPIRATORY WHEEZE IN RIGHT UPPER LOBE AND DIM IN ALL OTHER LOBES. BLE EDEMA UNCHANGED. NO OTHER NEEDS AT THIS TIME. CALL LIGHT IN REACH.
--- NOTE | 2021-09-18 05:45 | NUR ---
PT UP TO BSC AND BACK TO BED. VS AND I&O COMPLETED. NO OTHER NEEDS. CALL LIGHT IN REACH.
--- NOTE | 2021-09-18 06:50 | NUR ---
IN TO ASSIST PT WITH COMMODE NEEDS, PT C/O LEFT ARM/ELBOW REDNESS, RN INFORMED, NO FURTHER NEEDS AT THIS TIME
--- NOTE | 2021-09-18 07:24 | NUR ---
BEDSIDE HANDOFF REPORT RECEIVED FROM MULTICULTURAL SERVICES LIBRARIAN RN, PT RESTING IN BED. PT REPORT OF REDNESS TO BILATERAL ARMS, ITCHING TO RIGHT ARM ONLY. PT REQUESTIGN FRESH ICE WATER, PROVIDED. PT DENIES OTHER NEEDS AT THIS TIME.
--- NOTE | 2021-09-18 08:30 | NUR ---
PT RESTING IN BED. PT DENIES PAIN. ALERT AND ORIENTED. PT ATE 100% OF BREAKFAST, GIVEN TOTAL 34 UNITS HUMALOG FOR BLOOD GLUCOSE 240. PT ON 3L NC, LUNG SOUNDS DIM INISHED THROUGHOUT, FREQUENT DRY COUGH. IV SALINE LOCKED, FLUSHED AND PATENT. PT WITH REDDENED AREA/ RASH ON BILATERAL ARMS, UNCHANGED FROM THIS MORNING. PT WITH BLE EDEMA, CMS INTACT. PT ASSISTED TO BSC, INCONTINENT WITH COUGHING, PERICARE COMPLETED, GOWN CHANGED. PT ASSISTED BACK TO BED. PT COMPLAINT OF HEADAHCE AFTER AMBULATION, REQUESTING TYLENOL. PT DENIES OTHER NEEDS AT THIS TIME.
[2021-09-18] MEDS ORDERED: DOXYCYCLINE HY100 MG PO (10:49)
[2021-09-18] MEDS ORDERED: PREDNISONE20 MG PO (10:50)
[2021-09-18] MEDS ORDERED: LISINOPRIL40 MG PO (10:51)
--- NOTE | 2021-09-18 12:19 | NUR ---
PATIENT IS SITTING UP IN HER CHAIR EATING HER LUNCH.
== END 2021-09-18 12:40 | disposition home or self-care (01) | DRG 191 ==
LOC: ED 07:21 → MS 14:02
PROVIDERS: ADMIT Internal Medicine; ATTEND Internal Medicine
PROC: 5A09357 Assistance with Respiratory Ventilation, Less than 24 Consecutive Hours, Continuous Positive Airway Pressure (ICD-10-PCS; principal; 2021-09-15)
DX: J43.9 Emphysema, unspecified (principal); J96.12 Chronic respiratory failure with hypercapnia; J96.11 Chronic respiratory failure with hypoxia; E66.2 Morbid (severe) obesity with alveolar hypoventilation; E78.00 Pure hypercholesterolemia, unspecified; Z20.822 Contact with and (suspected) exposure to COVID-19; J01.40 Acute pansinusitis, unspecified; E11.9 Type 2 diabetes mellitus without complications; F32.A Depression, unspecified; F41.9 Anxiety disorder, unspecified; I10 Essential (primary) hypertension; Z88.6 Allergy status to analgesic agent; G47.33 Obstructive sleep apnea (adult) (pediatric); Z88.8 Allergy status to other drugs, medicaments and biological substances; K21.9 Gastro-esophageal reflux disease without esophagitis; E78.5 Hyperlipidemia, unspecified; G25.81 Restless legs syndrome; G89.4 Chronic pain syndrome; Z90.710 Acquired absence of both cervix and uterus; Z98.890 Other specified postprocedural states; Z79.899 Other long term (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; Z99.81 Dependence on supplemental oxygen
CPT/HCPCS: 36415; 71045; 71260; 80053; 82803; 83036; 83880; 84484; 85025; 85379; 93005; 93010; 93306; 94640; 94660; 94760; 94762; 97116; 97161; 97165; 99285-25; A9270; C9803; J1650; J1815; J1940; J2405; J2920; J2930; U0003

== ENCOUNTER → 2021-11-09 | Emergency (ER) | payer MEDICARE, OTHER ==
[~2021-11-09] VITALS: Ht 152.4 cm; Wt 138.0 kg
[~2021-11-09] MED LIST changes: +BRINTELLIX10 MG PO; +COLACE100 MG PO; +DICLOFENAC POTA50 MG PO; +DOXYCYCLINE HY100 MG PO; +GEMTESA75 MG PO; +JARDIANCE10 MG PO; +LISINOPRIL40 MG PO; +NOVOLOG FL100 UNIT/1 SUB-Q; +PRAVASTATIN SOD20 MG PO
--- OUTSIDE RECORDS SUMMARY | 2021-11-09 21:58 | XMS ---
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 Supervisor Nutritional Yeast Events No recent Security Events currently on file CRITERIA MET - [facility] - 2 Visits in 30 Days - PDMP CARE PROVIDERS HANK BAKER Nurse Practitioner: 11/16/2020-Current PHONE: [phone] DEENA DIMAS Internal Medicine 05/09/2018-Current PHONE: Unknown Minh Nolen Armed Custom Protection Officer/Pug Machine Operator 05/26/2021-Current PHONE: [phone] Care Guidelines exist for the following facilities: [facility] ( 03/16/2020 ) Care History Medical/Surgical 10/14/2019 [facility] Patient scheduled for 01/09/[address] Escamilal.\T\nbsp; Advised to get follow up with Dr. Dimas.\T\nbsp; Patient stated she will if she need be.\T\ nbsp; She will start using walker more instead of wheel chair. 02/04/2019 [facility] - PATIENT HAS COMPLETED PULMONARY REHAB SERVICES WITH-SAL [place] - SAL HAS BEEN NOTIFIED OF RECENT ED VISIT-PATIENT CAN ATTEND HIS PULMONARY REHAB SERVICES AGAIN IF AN INPATIENT STATUS WERE TO OCCUR. 05/09/2018 [facility] - Patient is currently established with [facility]. If patient is seen in the ED during business hours. Please contact CHWs at [facility]. Care Recommendation: This patient has [...] providing care. E.D. VISIT COUNT (12 MO.) 8 [facility]. TOTAL 8 NOTE: Visits indicate total known visits. ED/UCC VISIT TRACKING (12 MO.) 11/09/2021 21:55 [facility] [place] TYPE: Emergency COMPLAINT: - ABNORMAL LAB RESULTS 10/27/2021 15:43 [facility] [place] TYPE: Emergency COMPLAINT: - RT ARM PAIN/INJURY DIAGNOSES: - Allergy status to other drugs, medicaments and biological substances - Allergy to other foods - Accidental striking against or bumped into by another person, initial encounter - Dependence on wheelchair - Essential (primary) hypertension - Strain of muscle, fascia and tendon of lower back, initial encounter - Strain of muscle, fascia and tendon at neck level, initial encounter - Striking against other stationary object, initial encounter - Allergy status to analgesic agent - Allergy status to sulfonamides - Chronic obstructive pulmonary disease, unspecified - Cervicalgia - Type 2 diabetes mellitus without complications - [facility] (current) use of insulin 09/15/2021 07:21 [facility] [place] TYPE: Emergency COMPLAINT: - SOB 05/24/2021 13:52 [facility] [place] TYPE: Emergency COMPLAINT: - BACK PAIN/NO INJURY DIAGNOSES: - Type 2 diabetes mellitus without complications - Emphysema, unspecified - Essential (primary) hypertension - Chronic obstructive pulmonary disease, unspecified - Pain in thoracic spine - Other watermaster (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 - Gastro-esophageal reflux disease without esophagitis - Sleep apnea, unspecified - Allergy status to analgesic agent - Allergy status to other drugs, medicaments and biological substances - [facility] (current) use of insulin - Allergy status to sulfonamides - Pure hypercholesterolemia, unspecified 04/07/2021 15:05 [facility] [place] TYPE: Emergency COMPLAINT: - LOW BLOOD PRESSURE DIAGNOSES: - Essential (primary) hypertension - Allergy status to analgesic agent - Sleep apnea, unspecified - Type 2 diabetes mellitus without complications - Allergy status to sulfonamides - Urinary tract infection, site not specified - Personal history of transient ischemic attack (TIA), and cerebral infarction without residual deficits - [facility] (current) use of insulin - Allergy status to other drugs, medicaments and biological substances - Other long-term (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 - Hyperlipidemia, unspecified - Dysuria - Morbid (severe) obesity due to excess calories - Pure hypercholesterolemia, unspecified - Emphysema, unspecified - Allergy to other foods - Gastro-esophageal reflux disease without esophagitis 12/30/2020 19:49 [facility] [place] TYPE: Emergency COMPLAINT: - NAUSEA 12/27/2020 18:31 [facility] [place] TYPE: Emergency COMPLAINT: - BACK ABDOMINAL PAIN/WEAKNESS DIAGNOSES: - Essential (primary) hypertension - Chronic obstructive pulmonary disease, unspecified - Gastro-esophageal reflux disease without esophagitis - Allergy status to other drugs, medicaments and biological substances - Right upper quadrant pain - Other long-term (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 - [facility] (current) use of insulin - Allergy status to analgesic agent - [facility] (current) use of systemic steroids - Pure hypercholesterolemia, unspecified - Type 2 diabetes mellitus without complications - Allergy status to sulfonamides - Sleep apnea, unspecified 11/14/2020 22:22 [facility] [place] TYPE: Emergency COMPLAINT: - SOB DIAGNOSES: - Other watermaster (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 - Sleep apnea, unspecified - Emphysema, unspecified - Essential (primary) hypertension - watermaster (current) use of systemic steroids - Type [...] status to sulfonamides - Pure hypercholesterolemia, unspecified INPATIENT VISIT TRACKING (12 MO.) 09/15/2021 14:[address] [facility] [place] TYPE: Medical Surgical COMPLAINT: - COPD EXACERBATION DIAGNOSES: - Chronic respiratory failure with hypercapnia - Gastro-esophageal reflux disease without esophagitis - Allergy status to analgesic agent - Chronic respiratory failure with hypercapnia - Gastro-esophageal reflux disease without esophagitis - Other specified postprocedural states - Other specified postprocedural states - Acute pansinusitis, unspecified - Depression, unspecified - Allergy status to other drugs, medicaments and biological substances - Acute pansinusitis, unspecified - Acquired absence of both cervix and uterus - Depression, unspecified - Allergy status to other drugs, medicaments and biological substances - Pure hypercholesterolemia, unspecified - Acquired absence of both cervix and uterus - Type 2 diabetes mellitus without complications - Pure hypercholesterolemia, unspecified - Other watermaster (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 - Contact with and (suspected) exposure to COVID-19 - Hyperlipidemia, unspecified - Obstructive sleep apnea (adult) (pediatric) - Dependence on supplemental oxygen - Contact with and (suspected) exposure to COVID-19 - Restless legs syndrome - Chronic pain syndrome - Emphysema, unspecified - Emphysema, unspecified - Morbid (severe) obesity with alveolar hypoventilation - Chronic respiratory failure with hypoxia - Morbid (severe) obesity with alveolar hypoventilation - Restless legs syndrome - Anxiety disorder, unspecified - Essential (primary) hypertension - Other watermaster (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 - Obstructive sleep apnea (adult) (pediatric) - DEPRESSION, UNSPECIFIED - Essential (primary) hypertension - Anxiety disorder, unspecified - Allergy status to analgesic agent - Dependence on supplemental oxygen - Hyperlipidemia, unspecified - Type 2 diabetes mellitus without complications - Chronic obstructive pulmonary disease with (acute) exacerbation - Chronic respiratory failure with hypoxia - Chronic pain syndrome 12/31/2020 09:[address] [facility] [place] TYPE: Medical Surgical COMPLAINT: - COLITIS DIAGNOSES: - Hyperlipidemia, unspecified - Overactive bladder - [facility] (current) use of insulin - Post-traumatic stress disorder, unspecified - Other long-term (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 - Chronic pain syndrome - Body mass index [BMI] 60.0-69.9, adult - Allergy status to sulfonamides - Noninfective gastroenteritis and colitis, unspecified - Contact with and (suspected) exposure to COVID-19 - Chronic obstructive pulmonary disease, unspecified - Type 2 diabetes mellitus without complications - Gastro-esophageal reflux disease without esophagitis - Other specified anxiety disorders - Anemia, unspecified - [facility] (current) use of systemic steroids - Essential (primary) hypertension - Chronic respiratory failure with hypoxia - Restless legs syndrome - Infectious gastroenteritis and colitis, unspecified - Morbid (severe) obesity with alveolar hypoventilation - Allergy status to other drugs, medicaments and biological substances [email or web address]
--- NOTE | 2021-11-10 00:24 | EKG ---
[facility] [address] [place], [place] [address] Signed Normal sinus rhythm Nonspecific ST abnormality Abnormal ECG When compared with ECG of 15-SEP-2021 07:36, No significant change was found Confirmed by RENITA LUJAN MD ([id number] on 11/10/2021 12:24:04 AM Electronically Signed By: RENITA LUJAN MD 11/10/21 0024 PATIENT NAME: JAMEEL GUILLENEmber PRIEST Electrocardiogram DATE OF : 51 PHYSICIAN: RENITA LUJAN MD REPORT #: [id number] REPORT IS CONFIDENTIAL AND NOT TO BE RELEASED WITHOUT AUTHORIZATION
== END ==
LOC: ED 21:55
DX: R06.89 Other abnormalities of breathing (principal); J44.9 Chronic obstructive pulmonary disease, unspecified; I10 Essential (primary) hypertension; E78.00 Pure hypercholesterolemia, unspecified; G47.30 Sleep apnea, unspecified; E11.9 Type 2 diabetes mellitus without complications; G25.81 Restless legs syndrome; K21.9 Gastro-esophageal reflux disease without esophagitis; Z88.8 Allergy status to other drugs, medicaments and biological substances; Z88.2 Allergy status to sulfonamides; Z79.899 Other long term (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; Z79.51 Long term (current) use of inhaled steroids; Z79.4 Long term (current) use of insulin
CPT/HCPCS: 36415; 71045; 80048; 82803; 83880; 84484; 85025; 93005; 93010; 99285-25; J7512; U0003

== ENCOUNTER 2021-12-24 07:09 | Emergency (ER) | payer MEDICARE, OTHER ==
[~2021-12-24] VITALS: Ht 152.4 cm; Wt 137.9 kg
--- OUTSIDE RECORDS SUMMARY | 2021-12-24 07:20 | XMS ---
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 Patient Support Tech Events No recent Security Events currently on file CRITERIA MET - PDMP CARE PROVIDERS HANK BAKER Nurse Practitioner: 11/16/2020-Current PHONE: [phone] DEENA DIMAS Internal Medicine 05/09/2018-Current PHONE: Unknown Minh Nolen Telemarketing Fundraiser/Dioramist 05/26/2021-Current PHONE: [phone] Care Guidelines exist for the following facilities: [facility] ( 03/16/2020 ) Care History Medical/Surgical 10/14/2019 [facility] Patient scheduled for 01/09/[address] Escamilla.\T\nbsp; Advised to get follow up with Dr. Dimas.\T\nbsp; Patient stated she will if she need be.\T\ nbsp; She will start using walker more instead of wheel chair. 02/04/2019 [facility] - PATIENT HAS COMPLETED PULMONARY [facility]AB SERVICES [facility] [place] - SAL HAS BEEN NOTIFIED OF RECENT ED VISIT-PATIENT CAN ATTEND HIS PULMONARY REHAB SERVICES AGAIN IF AN INPATIENT STATUS WERE TO OCCUR. 05/09/2018 [facility] - Patient is currently established with [facility]. If patient is seen in the ED during business hours. Please contact CHWs at [facility]. Care Recommendation: This patient has had [...] care. E.D. VISIT COUNT (12 MO.) 8 [facility]. TOTAL 8 NOTE: Visits indicate total known visits. ED/UCC VISIT TRACKING (12 MO.) 12/24/2021 07:10 [facility] [place] TYPE: Emergency COMPLAINT: - BACK PAIN 11/09/2021 21:55 [facility] [place] TYPE: Emergency COMPLAINT: - ABNORMAL LAB RESULTS DIAGNOSES: - Chronic obstructive pulmonary disease, unspecified - Gastro-esophageal reflux disease without esophagitis - exterminator (current) use of insulin - Allergy status to other drugs, medicaments and biological substances - Allergy status to sulfonamides - Other abnormalities of breathing - Essential (primary) hypertension - Other termite treater helper (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 - Sleep apnea, unspecified - Type 2 diabetes mellitus without complications - Pure hypercholesterolemia, unspecified - Contact with and (suspected) exposure to COVID-19 - exterminator (current) use of inhaled steroids - Restless legs syndrome - Abnormal finding of blood chemistry, unspecified 10/27/2021 15:43 [facility] [place] TYPE: Emergency [...] Type 2 diabetes mellitus without complications - residential (current) use of insulin 09/15/2021 07:21 [facility] [place] TYPE: Emergency COMPLAINT: - SOB 05/24/2021 13:52 [facility] [place] TYPE: Emergency COMPLAINT: - BACK PAIN/NO INJURY DIAGNOSES: - Type 2 diabetes mellitus without complications - Emphysema, unspecified - Essential (primary) hypertension - Chronic obstructive pulmonary disease, unspecified - Pain in thoracic spine - Other fdc (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 - Gastro-esophageal reflux disease without esophagitis - Sleep apnea, unspecified - Allergy status to analgesic agent - Allergy status to other drugs, medicaments and biological substances - exterminator (current) use of insulin - Allergy status [...] and cerebral infarction without residual deficits - exterminator (current) use of insulin - Allergy status to other drugs, medicaments and biological substances - Other [facility]dc (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 - Hyperlipidemia, unspecified - [...] - Right upper quadrant pain - Other termite treater helper (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 - residential (current) use of insulin - Allergy status to analgesic agent - exterminator (current) use of systemic steroids - Pure hypercholesterolemia, unspecified - Type 2 diabetes mellitus without complications - Allergy status to sulfonamides - Sleep apnea, unspecified INPATIENT VISIT TRACKING (12 MO.) 09/15/2021 [...] complications - Pure hypercholesterolemia, unspecified - Other [facility]dc (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 - Contact with and [...] unspecified - Essential (primary) hypertension - Other termite treater helper (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 - Obstructive sleep apnea [...] - Hyperlipidemia, unspecified - Overactive bladder - exterminator (current) use of insulin - Post-traumatic stress disorder, unspecified - Other fdc (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 - Chronic pain syndrome - Body mass index [BMI] 60.0-69.9, adult - Allergy status to sulfonamides - Noninfective gastroenteritis and colitis, unspecified - Contact with and (suspected) exposure to COVID-19 - Chronic obstructive pulmonary disease, unspecified - Type 2 diabetes mellitus without complications - Gastro-esophageal reflux disease without esophagitis - Other specified anxiety disorders - Anemia, unspecified - exterminator (current) use of systemic steroids - Essential (primary) hypertension - Chronic respiratory failure with hypoxia - Restless legs syndrome - Infectious gastroenteritis and colitis, unspecified - Morbid (severe) obesity with alveolar hypoventilation - Allergy status to other drugs, medicaments and biological substances [email or web address]
[2021-12-24] MEDS ORDERED: LIDODERM1 EACH TOP (08:08)
== END 2021-12-24 08:30 | disposition home or self-care (01) ==
LOC: ED 07:09
DX: M54.42 Lumbago with sciatica, left side (principal); I10 Essential (primary) hypertension; E78.00 Pure hypercholesterolemia, unspecified; J43.9 Emphysema, unspecified; G47.30 Sleep apnea, unspecified; E11.9 Type 2 diabetes mellitus without complications; K21.9 Gastro-esophageal reflux disease without esophagitis; Z88.6 Allergy status to analgesic agent; Z88.8 Allergy status to other drugs, medicaments and biological substances; Z88.2 Allergy status to sulfonamides; Z91.018 Allergy to other foods; Z79.899 Other long term (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; Z79.4 Long term (current) use of insulin
CPT/HCPCS: 96374; 99283-25; A9270; J1885

== ENCOUNTER 2021-12-28 13:34 | Emergency (ER) | payer MEDICARE, OTHER ==
[~2021-12-28] VITALS: Ht 152.4 cm; Wt 138.0 kg
[~2021-12-28 13:34] MED LIST changes: +LIDODERM1 EACH TOP
--- OUTSIDE RECORDS SUMMARY | 2021-12-28 13:37 | XMS ---
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 Manager Management Events No recent Security Events currently on file CRITERIA MET - [facility] - [facility] - 2 Visits in 30 Days CARE PROVIDERS HANK BAKER Nurse Practitioner: 11/16/2020-Current PHONE: [phone] DEENA DIMAS Internal Medicine 05/09/2018-Current PHONE: Unknown Minh Nolen Armored Car Guard/Skip Hoist Operator 05/26/2021-Current PHONE: [phone] Care Guidelines exist for the following facilities: [facility] ( 03/16/2020 ) Care History Medical/Surgical 10/14/2019 [facility] Patient scheduled for 01/09/[address] Escamilla.\T\nbsp; Advised to get follow up with Dr. Dimas.\T\nbsp; Patient stated she will if she need be.\T\ nbsp; She will start using walker more instead of wheel chair. 02/04/2019 [facility] - PATIENT HAS COMPLETED PULMONARY REHAB SERVICES WITH-SAL [place] - SAL HAS BEEN NOTIFIED OF RECENT ED VISIT-PATIENT CAN ATTEND HIS PULMONARY REHAB SERVICES AGAIN IF AN INPATIENT STATUS WERE TO OCCUR. 05/09/2018 [facility] - Patient is currently established with [facility]. If patient is seen in the ED during business hours. Please contact CHWs at [facility]. Care Recommendation: This patient has had [...] care. E.D. VISIT COUNT (12 MO.) 8 [facility]. TOTAL 8 NOTE: Visits indicate total known visits. ED/UCC VISIT TRACKING (12 MO.) 12/28/2021 13:35 [facility] [place] TYPE: Emergency COMPLAINT: - DIFFICULTY WALKING, NECK/BACK ACHE 12/24/2021 07:10 [facility] [place] TYPE: Emergency COMPLAINT: - BACK PAIN DIAGNOSES: - Pure hypercholesterolemia, unspecified - Gastro-esophageal reflux disease without esophagitis - Allergy status to analgesic agent - Essential (primary) hypertension - Allergy status to sulfonamides - Low back pain, unspecified - Sleep apnea, unspecified - Lumbago with sciatica, left side - Type 2 diabetes mellitus without complications - Allergy status to other drugs, medicaments and biological substances - 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 - Allergy to other foods - care home (current) use of insulin - Emphysema, unspecified 11/09/2021 21:55 [facility] [place] TYPE: Emergency COMPLAINT: - ABNORMAL LAB RESULTS DIAGNOSES: - Chronic obstructive pulmonary disease, unspecified - Gastro-esophageal reflux disease without esophagitis - care home (current) use of insulin - Allergy status to other drugs, medicaments and biological substances - Allergy status to sulfonamides - Other abnormalities of breathing - Essential (primary) hypertension - 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 - Sleep apnea, unspecified - Type 2 diabetes mellitus without complications - Pure hypercholesterolemia, unspecified - Contact with and (suspected) exposure to COVID-19 - care home (current) use of inhaled steroids - Restless [...] Type 2 diabetes mellitus without complications - care home (current) use of insulin 09/15/2021 07:21 [facility] [place] TYPE: Emergency COMPLAINT: - SOB 05/24/2021 13:[address] [facility] [place] [facility]: Emergency COMPLAINT: - BACK PAIN/NO INJURY DIAGNOSES: - Type 2 diabetes mellitus without complications - Emphysema, unspecified - Essential (primary) hypertension - Chronic obstructive pulmonary disease, unspecified - Pain in thoracic spine - [facility] (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 - Gastro-esophageal reflux disease without esophagitis - Sleep apnea, unspecified - Allergy status to analgesic agent - Allergy status to other drugs, medicaments and biological substances - matcher leather parts (current) use of insulin - Allergy status to sulfonamides - Pure hypercholesterolemia, unspecified 04/07/2021 15:[address] [facility] [place] TYPE: Emergency COMPLAINT: - LOW BLOOD PRESSURE DIAGNOSES: - Essential (primary) hypertension - Allergy status to analgesic agent - Sleep apnea, unspecified - Type 2 diabetes mellitus without complications - Allergy status to sulfonamides - Urinary tract infection, site not specified - Personal history of transient ischemic attack (TIA), and cerebral infarction without residual deficits - care home (current) use of insulin - Allergy status to other drugs, medicaments and biological substances - [facility] (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 - Hyperlipidemia, unspecified - Dysuria - Morbid (severe) obesity due to excess calories - Pure hypercholesterolemia, unspecified - Emphysema, unspecified - Allergy to other foods - Gastro-esophageal reflux disease without esophagitis 12/30/2020 19:49 [facility] [place] TYPE: Emergency COMPLAINT: - NAUSEA INPATIENT VISIT TRACKING (12 MO.) 09/15/2021 14:02 [facility] [place] TYPE: Medical Surgical COMPLAINT: [...] complications - Pure hypercholesterolemia, unspecified - [facility] (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 - Contact with and [...] unspecified - Essential (primary) hypertension - [facility] (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 - Obstructive sleep apnea [...] - Hyperlipidemia, unspecified - Overactive bladder - [employer] (current) use of insulin - Post-traumatic stress disorder, unspecified - [facility] (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 - Chronic pain syndrome - Body mass index [BMI] 60.0-69.9, adult - Allergy status to sulfonamides - Noninfective gastroenteritis and colitis, unspecified - Contact with and (suspected) exposure to COVID-19 - Chronic obstructive pulmonary disease, unspecified - Type 2 diabetes mellitus without complications - Gastro-esophageal reflux disease without esophagitis - Other specified anxiety disorders - Anemia, unspecified - care home (current) use of systemic steroids - Essential (primary) hypertension - Chronic respiratory failure with hypoxia - Restless legs syndrome - Infectious gastroenteritis and colitis, unspecified - Morbid (severe) obesity with alveolar hypoventilation - Allergy status to other drugs, medicaments and biological substances [email or web address]
== END 2021-12-28 18:37 | disposition home or self-care (01) ==
LOC: ED 13:34
DX: S33.5XXA Sprain of ligaments of lumbar spine, initial encounter (principal); S93.402A Sprain of unspecified ligament of left ankle, initial encounter; S70.12XA Contusion of left thigh, initial encounter; X58.XXXA Exposure to other specified factors, initial encounter; I10 Essential (primary) hypertension; E78.00 Pure hypercholesterolemia, unspecified; G47.30 Sleep apnea, unspecified; E11.9 Type 2 diabetes mellitus without complications; K21.9 Gastro-esophageal reflux disease without esophagitis; J43.9 Emphysema, unspecified; Z88.8 Allergy status to other drugs, medicaments and biological substances; Z88.2 Allergy status to sulfonamides; Z88.6 Allergy status to analgesic agent; Z91.018 Allergy to other foods; Z79.899 Other long term (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; Z79.52 Long term (current) use of systemic steroids; Z79.4 Long term (current) use of insulin
CPT/HCPCS: 72131; 73552; 73610; 99284-25

== ENCOUNTER 2022-01-16 10:32 | Emergency (ER) | payer MEDICARE, OTHER ==
[~2022-01-16] VITALS: Ht 152.4 cm; Wt 132.1 kg
--- OUTSIDE RECORDS SUMMARY | 2022-01-16 10:34 | XMS ---
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 Mold Maintenance Technician Events No recent Security Events currently on file CRITERIA MET - 6 ED Visits in 6 Months - [facility] [place] - 2 Visits in 30 Days - [facility] [place] CARE PROVIDERS HANK BAKER Nurse Practitioner: 11/16/2020-Current PHONE: [phone] DEENA DIMAS Internal Medicine 05/09/2018-Current PHONE: Unknown Minh Nolen Monogram And Letter Paster/Soft Water Mechanic 05/26/2021-Current PHONE: [phone] [facility] Current PHONE: Unknown Care Guidelines exist for the following facilities: [facility] ( 03/16/2020 ) Care History Medical/Surgical 10/14/2019 [facility] Patient scheduled for 01/09/[address] Escamilla.\T\nbsp; Advised to get follow up with Dr. Dimas.\T\nbsp; Patient stated she will if she need be.\T\ nbsp; She will start using walker more instead of wheel chair. 02/04/2019 [facility] - PATIENT HAS COMPLETED PULMONARY REHAB SERVICES WITHLAHSANDA IN [place]. - [facility] HAS BEEN NOTIFIED OF RECENT ED VISIT-PATIENT CAN ATTEND HIS PULMONARY REHAB SERVICES AGAIN IF AN INPATIENT STATUS WERE TO OCCUR. 05/09/2018 [facility] - Patient is currently established with [facility]. If patient is seen in the ED during business hours. Please contact CHWs at [facility]. Care Recommendation: This patient has had 5 [...] care. E.D. VISIT COUNT (12 MO.) [address] [facility]. TOTAL 8 NOTE: Visits indicate total known visits. ED/UCC VISIT TRACKING (12 MO.) 01/16/2022 10:32 [facility] [place] TYPE: Emergency COMPLAINT: - NAUSEA,DIARRHEA 12/28/2021 13:35 [facility] [place] TYPE: Emergency COMPLAINT: - DIFFICULTY WALKING, NECK/BACK ACHE DIAGNOSES: - Allergy status to sulfonamides - Pure hypercholesterolemia, unspecified - Sprain of ligaments of lumbar spine, initial encounter - Gastro-esophageal reflux disease without esophagitis - [facility] (current) use of systemic steroids - Allergy status to other drugs, medicaments and biological substances - Contusion of left thigh, initial encounter - Type 2 diabetes mellitus without complications - Exposure to other specified factors, initial encounter - Sprain of unspecified ligament of left ankle, initial encounter - Emphysema, unspecified - Other terminal operations supervisor (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 - Allergy to other foods - Allergy status to analgesic agent - Essential (primary) hypertension - Sleep apnea, unspecified - [facility] (current) use of insulin - Low back pain, unspecified 12/24/2021 07:10 [facility] [place] TYPE: Emergency [...] drugs, medicaments and biological substances - Other terminal operations supervisor (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 - Allergy to other foods - [facility] (current) use of insulin - Emphysema, unspecified 11/09/2021 21:55 [facility] [place] TYPE: Emergency COMPLAINT: - ABNORMAL LAB RESULTS DIAGNOSES: - Chronic obstructive pulmonary disease, unspecified - Gastro-esophageal reflux disease without esophagitis - dedicated intermodal truck driver (current) use of insulin - Allergy status to other drugs, medicaments and biological substances - Allergy status to sulfonamides - Other abnormalities of breathing - Essential (primary) hypertension - Other detention (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 - Sleep apnea, unspecified - Type 2 diabetes mellitus without complications - Pure hypercholesterolemia, unspecified - Contact with and (suspected) exposure to COVID-19 - dedicated intermodal truck driver (current) use of inhaled steroids - Restless [...] Type 2 diabetes mellitus without complications - [facility] (current) use of insulin 09/15/2021 07:21 [facility] [place] TYPE: Emergency COMPLAINT: - SOB 05/24/2021 13:52 [facility] [place] TYPE: Emergency COMPLAINT: - BACK PAIN/NO INJURY DIAGNOSES: - Type 2 diabetes mellitus without complications - Emphysema, unspecified - Essential (primary) hypertension - Chronic obstructive pulmonary disease, unspecified - Pain in thoracic spine - Other detention (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 - Gastro-esophageal reflux disease without esophagitis - Sleep apnea, unspecified - Allergy status to analgesic agent - Allergy status to other drugs, medicaments and biological substances - [facility] (current) use of insulin - Allergy status [...] and cerebral infarction without residual deficits - dedicated intermodal truck driver (current) use of insulin - Allergy status to other drugs, medicaments and biological substances - Other terminal operations supervisor (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 - Hyperlipidemia, unspecified - Dysuria - Morbid (severe) obesity due to excess calories - Pure hypercholesterolemia, unspecified - Emphysema, unspecified - Allergy to other foods - Gastro-esophageal reflux disease without esophagitis INPATIENT VISIT TRACKING (12 MO.) 09/15/2021 14:02 [...] complications - Pure hypercholesterolemia, unspecified - Other terminal operations supervisor (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 - Contact with and [...] unspecified - Essential (primary) hypertension - Other detention (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 - Obstructive sleep apnea (adult) (pediatric) - DEPRESSION, UNSPECIFIED - Essential (primary) hypertension - Anxiety disorder, unspecified - Allergy status to analgesic agent - Dependence on supplemental oxygen - Hyperlipidemia, unspecified - Type 2 diabetes mellitus without complications - Chronic obstructive pulmonary disease with (acute) exacerbation - Chronic respiratory failure with hypoxia - Chronic pain syndrome [email or web address]
[2022-01-16] MEDS ORDERED: TRAMADOL HCL50 MG PO (10:58)
== END 2022-01-16 14:15 | disposition home or self-care (01) ==
LOC: ED 10:32
DX: R19.7 Diarrhea, unspecified (principal); R11.2 Nausea with vomiting, unspecified; I10 Essential (primary) hypertension; E11.9 Type 2 diabetes mellitus without complications; J43.9 Emphysema, unspecified; K21.9 Gastro-esophageal reflux disease without esophagitis; G47.30 Sleep apnea, unspecified; Z88.6 Allergy status to analgesic agent; Z91.018 Allergy to other foods; Z88.8 Allergy status to other drugs, medicaments and biological substances; Z88.2 Allergy status to sulfonamides; Z79.899 Other long term (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; Z79.4 Long term (current) use of insulin
CPT/HCPCS: 36415; 80053; 81001; 83735; 85025; 96374; 99284-25; J2405

== ENCOUNTER 2022-03-06 07:02 | Emergency (ER) | payer MEDICARE, OTHER ==
[~2022-03-06] VITALS: Ht 152.4 cm; Wt 133.9 kg
[~2022-03-06 07:02] MED LIST changes: +TRAMADOL HCL50 MG PO
--- OUTSIDE RECORDS SUMMARY | 2022-03-06 07:04 | XMS ---
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 Communications Planner Events No recent Security Events currently on file CRITERIA MET - PDMP - 6 ED Visits in 6 Months CARE PROVIDERS HANK BAKER Nurse Practitioner: 11/16/2020-Current PHONE: [phone] DEENA DIMAS Internal Medicine 05/09/2018-Current PHONE: Unknown Minh Nolen Construction Laborer/Director Of Acquisition Marketing 05/26/2021-Current PHONE: [phone] [facility] Current PHONE: Unknown Care Guidelines exist for the following facilities: [facility] ( 03/16/2020 ) Care History Medical/Surgical 10/14/2019 [facility] Patient scheduled for 01/09/[address] Escamilla.\T\nbsp; Advised to get follow up with Dr. Dimas.\T\nbsp; Patient stated she will if she need be.\T\ nbsp; She will start using walker more instead of wheel chair. 02/04/2019 [facility] - PATIENT HAS COMPLETED PULMONARY REHAB SERVICES WITHLASHANDA IN [place]. - SAL HAS BEEN NOTIFIED OF RECENT ED VISIT-PATIENT CAN ATTEND HIS PULMONARY REHAB SERVICES AGAIN IF AN INPATIENT STATUS WERE TO OCCUR. 05/09/2018 [facility] - Patient is currently established with [facility] [...] providing care. E.D. VISIT COUNT (12 MO.) 9 DANNY [place] TOTAL 9 NOTE: Visits indicate total known visits. ED/UCC VISIT TRACKING (12 MO.) 03/06/2022 07:02 [facility] [place] TYPE: Emergency COMPLAINT: - SHORTNESS OF BREATH 01/16/2022 10:32 [facility] [place] TYPE: Emergency COMPLAINT: - NAUSEA,DIARRHEA DIAGNOSES: - Gastro-esophageal reflux disease without esophagitis - senior care (current) use of insulin - Allergy to other foods - Other adjunct faculty for medical terminology (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 - Type 2 diabetes mellitus without complications - Essential (primary) hypertension - Sleep apnea, unspecified - Allergy status to analgesic agent - Emphysema, unspecified - Nausea with vomiting, unspecified - Allergy status to other drugs, medicaments and biological substances - Diarrhea, unspecified - Allergy status to sulfonamides 12/28/2021 13:35 [facility] [place] TYPE: Emergency COMPLAINT: - DIFFICULTY WALKING, NECK/BACK ACHE DIAGNOSES: - Sprain of unspecified ligament of left ankle, initial encounter - Sprain of ligaments of lumbar spine, initial encounter - Other adjunct faculty for medical terminology (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 - adjunct faculty for medical terminology (current) use of systemic steroids - Allergy status to analgesic agent - Contusion of left thigh, initial encounter - Sleep apnea, unspecified - Exposure to other specified factors, initial encounter - Low back pain, unspecified - Pure hypercholesterolemia, unspecified - Emphysema, unspecified - Gastro-esophageal reflux disease without esophagitis - Allergy to other foods - Allergy status to other drugs, medicaments and biological substances - Essential (primary) hypertension - Type 2 diabetes mellitus without complications - adjunct faculty for medical terminology (current) use of insulin - Allergy status to sulfonamides 12/24/2021 07:10 [facility] [place] TYPE: Emergency COMPLAINT: - BACK PAIN DIAGNOSES: - Pure hypercholesterolemia, unspecified - Lumbago with sciatica, left side - Low back pain, unspecified - adjunct faculty for medical terminology (current) use of insulin - Essential (primary) hypertension - Other adjunct faculty for medical terminology (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 - Gastro-esophageal reflux disease without esophagitis - Type 2 diabetes mellitus without complications - Sleep apnea, unspecified - Emphysema, unspecified - Allergy status to sulfonamides - Allergy to other foods - Allergy status to analgesic agent - Allergy status to other drugs, medicaments and biological substances 11/09/2021 21:55 [facility] [place] TYPE: Emergency COMPLAINT: - ABNORMAL LAB RESULTS DIAGNOSES: - Chronic obstructive pulmonary disease, unspecified - Other adjunct faculty for medical terminology (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 - Abnormal finding of blood chemistry, unspecified - Other abnormalities of breathing - adjunct faculty for medical terminology (current) use of inhaled steroids - Allergy status to other drugs, medicaments and biological substances - Pure hypercholesterolemia, unspecified - Gastro-esophageal reflux disease without esophagitis - Sleep apnea, unspecified - Essential (primary) hypertension - Restless legs syndrome - Allergy status to sulfonamides - Contact with and (suspected) exposure to COVID-19 - adjunct faculty for medical terminology (current) use of insulin - Type 2 diabetes mellitus without complications 10/27/2021 15:43 [facility] [place] TYPE: Emergency COMPLAINT: - RT ARM PAIN/INJURY DIAGNOSES: - Allergy status to other drugs, medicaments and biological substances - Striking against other stationary object, initial encounter - Strain of muscle, fascia and tendon of lower back, initial encounter - Type 2 diabetes mellitus without complications - Dependence on wheelchair - Chronic obstructive pulmonary disease, unspecified - Allergy to other foods - Allergy status to analgesic agent - Strain of muscle, fascia and tendon at neck level, initial encounter - senior care (current) use of insulin - Essential (primary) hypertension - Cervicalgia - Accidental striking against or bumped into by another person, initial encounter - Allergy status to sulfonamides 09/15/2021 07:21 [facility] [place] TYPE: Emergency COMPLAINT: - SOB 05/24/2021 13:[address] [facility] [place] TYPE: Emergency COMPLAINT: - BACK PAIN/NO INJURY DIAGNOSES: - Type 2 diabetes mellitus without complications - Sleep apnea, unspecified - Other longterm (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 - Pure hypercholesterolemia, unspecified - Chronic obstructive pulmonary disease, unspecified - senior care (current) use of insulin - Emphysema, unspecified - Allergy status to analgesic agent - Gastro-esophageal reflux disease without esophagitis - Pain in thoracic spine - Allergy status to sulfonamides - Essential (primary) hypertension - Allergy status to other drugs, medicaments and biological substances 04/07/2021 15:05 [facility] [place] [place] TYPE: Emergency COMPLAINT: - LOW BLOOD PRESSURE DIAGNOSES: - Other adjunct faculty for medical terminology (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 - Allergy status to analgesic agent - Hyperlipidemia, unspecified - Type 2 diabetes mellitus without complications - Morbid (severe) obesity due to excess calories - Urinary tract infection, site not specified - Emphysema, unspecified - adjunct faculty for medical terminology (current) use of insulin - Gastro-esophageal reflux disease without esophagitis - Essential (primary) hypertension - Sleep apnea, unspecified - Dysuria - Allergy status to sulfonamides - Pure hypercholesterolemia, unspecified - Personal history of transient ischemic attack (TIA), and cerebral infarction without residual deficits - Allergy to other foods - Allergy status to other drugs, medicaments and biological substances INPATIENT VISIT TRACKING (12 MO.) 09/15/2021 14:02 DANNY [place] TYPE: Medical Surgical COMPLAINT: - COPD EXACERBATION DIAGNOSES: - Obstructive sleep apnea (adult) (pediatric) - Allergy status to analgesic agent - Allergy status to other drugs, medicaments and biological substances - Morbid (severe) obesity with alveolar hypoventilation - Depression, unspecified - Type 2 diabetes mellitus without complications - Essential (primary) hypertension - Acute pansinusitis, unspecified - Morbid (severe) obesity with alveolar hypoventilation - Chronic respiratory failure with hypoxia - Pure hypercholesterolemia, unspecified - Contact with and (suspected) exposure to COVID-19 - Other specified postprocedural states - Obstructive sleep apnea (adult) (pediatric) - Emphysema, unspecified - Type 2 diabetes mellitus without complications - Chronic respiratory failure with hypercapnia - Essential (primary) hypertension - Chronic respiratory failure with hypercapnia - Contact with and (suspected) exposure to COVID-19 - Restless legs syndrome - Dependence on supplemental oxygen - Acute pansinusitis, unspecified - Restless legs syndrome - Gastro-esophageal reflux disease without esophagitis - Pure hypercholesterolemia, unspecified - Anxiety disorder, unspecified - Depression, unspecified - Chronic respiratory failure with hypoxia - Chronic pain syndrome - Acquired absence of both cervix and uterus - DEPRESSION, UNSPECIFIED - Other specified postprocedural states - Dependence on supplemental oxygen - Emphysema, unspecified - Chronic obstructive pulmonary disease with (acute) exacerbation - Allergy status to other drugs, medicaments and biological substances - Other adjunct faculty for medical terminology (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 - Gastro-esophageal reflux disease without esophagitis - Hyperlipidemia, unspecified - Chronic pain syndrome - Hyperlipidemia, unspecified - Acquired absence of both cervix and uterus - Anxiety disorder, unspecified - Allergy status to analgesic agent - Other longterm (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 [email or web address]
[2022-03-06] MEDS ORDERED: PREDNISONE20 MG PO (09:35)
--- NOTE | 2022-03-06 12:25 | EKG ---
[facility] [address] [place], [place] [address] Signed Normal sinus rhythm Normal ECG When compared with ECG of 09-NOV-2021 23:32, No significant change was found Confirmed by RENITA LUJAN MD ([id number]) on 03/06/2022 12:24:53 PM Electronically Signed By: RENITA LUJAN MD 03/06/22 1225 PATIENT NAME: TANNER GUILLEN ANYAJIMMY Electrocardiogram DATE OF : 51 PHYSICIAN: RENITA LUJAN MD REPORT #: [id number] REPORT IS CONFIDENTIAL AND NOT TO BE RELEASED WITHOUT AUTHORIZATION
== END 2022-03-06 09:52 | disposition home or self-care (01) ==
LOC: ED 07:02
DX: J43.9 Emphysema, unspecified (principal); H69.83 Other specified disorders of Eustachian tube, bilateral; I10 Essential (primary) hypertension; E11.9 Type 2 diabetes mellitus without complications; K21.9 Gastro-esophageal reflux disease without esophagitis; Z20.822 Contact with and (suspected) exposure to COVID-19; Z87.891 Personal history of nicotine dependence; Z88.6 Allergy status to analgesic agent; Z88.2 Allergy status to sulfonamides; Z88.8 Allergy status to other drugs, medicaments and biological substances; Z91.018 Allergy to other foods; Z79.899 Other long term (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; Z79.4 Long term (current) use of insulin
CPT/HCPCS: 36415; 71045; 80053; 84484; 85025; 87502; 93005; 93010; 94640; C9803; J1100; U0003

== ENCOUNTER 2022-09-30 17:06 | Emergency (ER) | payer MEDICARE, OTHER ==
[~2022-09-30] VITALS: Ht 152.4 cm; Wt 133.9 kg
--- OUTSIDE RECORDS SUMMARY | 2022-09-30 17:08 | XMS ---
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 Program Director/Traffic Director Events No recent Security Events currently on file CRITERIA MET - PDMP CARE PROVIDERS -, [place]- Dentist: Sales Engineer Account Manager [facility] PHONE: [phone] HANK BAKER Nurse Practitioner: Family 11/16/2020-Current PHONE: [phone] DEENA DIMAS Internal Medicine 05/09/2018-Current PHONE: Unknown [facility] Current PHONE: Unknown Care Guidelines exist for the following facilities: [facility] ( 03/16/2020 ) Care History Medical/Surgical 10/14/2019 [facility] Patient scheduled for 01/09/[address] Escamilla.\T\nbsp; Advised to get follow up with Dr. Dimas.\T\nbsp; Patient stated she will if she need be.\T\ nbsp; She will start using walker more instead of wheel chair. 02/04/2019 [facility] - PATIENT HAS COMPLETED PULMONARY REHAB SERVICES WITHLASHANDA IN [place]. - SAL HAS BEEN NOTIFIED OF RECENT ED VISIT-PATIENT CAN ATTEND HIS PULMONARY REHAB SERVICES AGAIN IF AN INPATIENT STATUS WERE TO OCCUR. 05/09/2018 [facility] - Patient is currently established with [facility]. If patient is seen in the ED during business hours. Please contact CHWs at [facility]. Care Recommendation: This patient has had [...] care. E.D. VISIT COUNT (12 MO.) 7 [facility]. TOTAL 7 NOTE: Visits indicate total known visits. ED/UCC VISIT TRACKING (12 MO.) 09/30/2022 17:06 D[facility] [place] TYPE: Emergency COMPLAINT: - SHORTNESS OF BREATH 03/06/2022 07:02 DAN[facility] [place] TYPE: Emergency COMPLAINT: - SHORTNESS OF BREATH DIAGNOSES: - Gastro-esophageal reflux disease without esophagitis - detention (current) use of insulin - Other specified disorders of Eustachian tube, bilateral - Other marine oil terminal superintendent (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 - Allergy status to analgesic agent - Contact with and (suspected) exposure to COVID-19 - Allergy status to other drugs, medicaments and biological substances - Allergy status to sulfonamides - Allergy to other foods - Personal history of nicotine dependence - Emphysema, unspecified - Type 2 diabetes mellitus without complications - Essential (primary) hypertension - Shortness of breath 01/16/2022 10:32 D[facility] [place] TYPE: Emergency COMPLAINT: - NAUSEA,DIARRHEA DIAGNOSES: - Allergy to other foods - Other marine oil terminal superintendent (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 - Type 2 diabetes mellitus without complications - Essential (primary) hypertension - Sleep apnea, unspecified - Allergy status to analgesic agent - Emphysema, unspecified - Nausea with vomiting, unspecified - Allergy status to other drugs, medicaments and biological substances - Diarrhea, unspecified - Allergy status to sulfonamides - Gastro-esophageal reflux disease without esophagitis - detention (current) use of insulin 12/28/2021 13:35 [facility] [place] TYPE: Emergency COMPLAINT: - DIFFICULTY WALKING, NECK/BACK ACHE DIAGNOSES: - detention (current) use of systemic steroids - Allergy [...] Type 2 diabetes mellitus without complications - detention (current) use of insulin - Allergy status to sulfonamides - Sprain of unspecified ligament of left ankle, initial encounter - Sprain of ligaments of lumbar spine, initial encounter - Other mcc (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 12/24/2021 07:10 [facility] [place] TYPE: Emergency COMPLAINT: - BACK PAIN DIAGNOSES: - Low back pain, unspecified - joint terminal attack controller (current) use of insulin - Essential (primary) hypertension - Other marine oil terminal superintendent (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 - Gastro-esophageal reflux disease without esophagitis - Type 2 diabetes mellitus without complications - Sleep apnea, unspecified - Emphysema, unspecified - Allergy status to sulfonamides - Allergy to other foods - Allergy status to analgesic agent - Allergy status to other drugs, medicaments and biological substances - Pure hypercholesterolemia, unspecified - Lumbago with sciatica, left side 11/09/2021 21:55 D[facility] [place] TYPE: Emergency COMPLAINT: - ABNORMAL LAB RESULTS DIAGNOSES: - Abnormal finding of blood chemistry, unspecified - Other abnormalities of breathing - joint terminal attack controller (current) use of inhaled steroids - Allergy status to other drugs, medicaments and biological substances - Pure hypercholesterolemia, unspecified - Gastro-esophageal reflux disease without esophagitis - Sleep apnea, unspecified - Essential (primary) hypertension - Restless legs syndrome - Allergy status to sulfonamides - Contact with and (suspected) exposure to COVID-19 - joint terminal attack controller (current) use of insulin - Type 2 diabetes mellitus without complications - Chronic obstructive pulmonary disease, unspecified - Other marine oil terminal superintendent (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 10/27/2021 15:[address] [facility] [place] TYPE: Emergency COMPLAINT: - RT ARM PAIN/INJURY DIAGNOSES: - Strain of muscle, fascia and tendon of lower back, initial encounter - Type 2 diabetes mellitus without complications - Dependence on wheelchair - Chronic obstructive pulmonary disease, unspecified - Allergy to other foods - Allergy status to analgesic agent - Strain of muscle, fascia and tendon at neck level, initial encounter - joint terminal attack controller (current) use of insulin - Essential (primary) hypertension - Cervicalgia - Accidental striking against or bumped into by another person, initial encounter - Allergy status to sulfonamides - Allergy status to other drugs, medicaments and biological substances - Striking against other stationary object, initial encounter INPATIENT VISIT TRACKING (12 MO.) No inpatient visits to display in this time frame [email or web address]
--- NOTE | 2022-10-01 21:24 | EKG ---
[facility] [address] [place] [address] Signed Normal sinus rhythm Nonspecific ST and T wave abnormality Abnormal ECG When compared with ECG of 06-MAR-2022 07:52, No significant change was found Confirmed by Rae Geronimo MD () on 10/01/2022 9:24:39 PM Electronically Signed By: RAE GERONIMO MD 10/01/22 2124 PATIENT NAME: TANNER GUILLEN Electrocardiogram DATE OF : 51 PHYSICIAN: RAE GERONIMO MD REPORT #: [id number] REPORT IS CONFIDENTIAL AND NOT TO BE RELEASED WITHOUT AUTHORIZATION
== END 2022-09-30 22:12 | disposition home or self-care (01) ==
LOC: ED 17:06
DX: J44.1 Chronic obstructive pulmonary disease with (acute) exacerbation (principal); Z20.822 Contact with and (suspected) exposure to COVID-19; I10 Essential (primary) hypertension; E78.00 Pure hypercholesterolemia, unspecified; J44.9 Chronic obstructive pulmonary disease, unspecified; G47.30 Sleep apnea, unspecified; E11.9 Type 2 diabetes mellitus without complications; K21.9 Gastro-esophageal reflux disease without esophagitis; Z88.6 Allergy status to analgesic agent; Z88.8 Allergy status to other drugs, medicaments and biological substances; Z88.2 Allergy status to sulfonamides; Z79.899 Other long term (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; Z79.52 Long term (current) use of systemic steroids; Z79.4 Long term (current) use of insulin
CPT/HCPCS: 36415; 71045; 80053; 83735; 83880; 84484; 85025; 87502; 93005; 93010; 94640; 99285-25; C9803; U0003

== ENCOUNTER 2023-03-09 11:23 | Emergency (ER) | payer MEDICARE, OTHER ==
[~2023-03-09] VITALS: Ht 152.4 cm; Wt 133.9 kg
--- OUTSIDE RECORDS SUMMARY | 2023-03-09 11:27 | XMS ---
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 Forming Machine Upkeep Mechanic Events No recent Security Events currently on file CRITERIA MET - PDMP CARE PROVIDERS Perez, Melissa Core Winding Operator/Practice Advisor 01/24/2023-Current PHONE: [phone] HANK BAKER Nurse Practitioner: 11/16/2020-Current PHONE: [phone] DEENA DIMAS Internal Medicine 05/09/2018-Current PHONE: Unknown -Jessica- Dentist: Breaker Hand [facility] PHONE: [phone] Care Guidelines exist for the following facilities: [facility] ( 03/16/2020 ) Care History Medical/Surgical 10/14/2019 [facility] Patient scheduled for 01/09/[address] Escamilla.\T\nbsp; Advised to get follow up with Dr. Dimas.\T\nbsp; Patient stated she will if she need be.\T\ nbsp; She will start using walker more instead of wheel chair. 02/04/2019 [facility] - PATIENT HAS COMPLETED PULMONARY REHAB SERVICES WITHLASHANDA IN [place] - SAL HAS BEEN NOTIFIED OF RECENT ED VISIT-PATIENT CAN ATTEND HIS PULMONARY REHAB SERVICES AGAIN IF AN INPATIENT STATUS WERE TO OCCUR. 05/09/2018 [facility] - Patient is currently established [...] care. E.D. VISIT COUNT (12 MO.) 2 DANNY Hernandez [place] MAndrés TOTAL 3 NOTE: Visits indicate total known visits. ED/UCC VISIT TRACKING (12 MO.) 03/09/2023 11:24 DANNY Etienneronnie PierreDeshaun Lopez [place] TYPE: Emergency COMPLAINT: - BACK PAIN, SOB 01/11/2023 02:05 [facility] Kitty DacostaAndrés LAMAS TYPE: Emergency DIAGNOSES: - Acute kidney failure, unspecified - Diarrhea, unspecified - Hyperkalemia - Vomiting, unspecified - Diarrhea (Adult) 09/30/2022 17:06 DANNY Etienneronnie PierreDeshaun Lopez [place] TYPE: Emergency COMPLAINT: - SHORTNESS OF BREATH DIAGNOSES: - Allergy status to analgesic agent - Allergy status to other drugs, medicaments and biological substances - Allergy status to sulfonamides - Chronic obstructive pulmonary disease with (acute) exacerbation - Chronic obstructive pulmonary disease, unspecified - Contact with and (suspected) exposure to COVID-19 - Essential (primary) hypertension - Gastro-esophageal reflux disease without esophagitis - senior living (current) use of insulin - intermediate manager (current) use of systemic steroids - Other fpc (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 - Pure hypercholesterolemia, unspecified - Shortness of breath - Sleep apnea, unspecified - Type 2 diabetes mellitus without complications INPATIENT VISIT TRACKING (12 MO.) 01/11/2023 02:05 [facility] Kitty LAMAS TYPE: Medical Surgical DIAGNOSES: - Acute kidney failure, unspecified - Diarrhea, unspecified - Hyperkalemia - intermediate manager (current) use of insulin - Morbid (severe) obesity due to excess calories - Type 2 diabetes mellitus with hyperglycemia - Vomiting, unspecified [email or web address]
[2023-03-09] MEDS ORDERED: LIDODERM1 EACH TOP (15:04)
[2023-03-09 15:14] VITALS: BP 124/74
== END 2023-03-09 15:17 | disposition home or self-care (01) ==
LOC: ED 11:23
DX: M54.50 Low back pain, unspecified (principal); I10 Essential (primary) hypertension; E11.9 Type 2 diabetes mellitus without complications; J44.9 Chronic obstructive pulmonary disease, unspecified; G47.30 Sleep apnea, unspecified; Z86.73 Personal history of transient ischemic attack (TIA), and cerebral infarction without residual deficits; K21.9 Gastro-esophageal reflux disease without esophagitis; Z88.2 Allergy status to sulfonamides; Z88.6 Allergy status to analgesic agent; Z88.8 Allergy status to other drugs, medicaments and biological substances; Z79.1 Long term (current) use of non-steroidal anti-inflammatories (NSAID); Z79.51 Long term (current) use of inhaled steroids; Z79.4 Long term (current) use of insulin; Z79.899 Other long term (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
CPT/HCPCS: 72070; 72100; 99283-25; A9270

== ENCOUNTER 2023-06-08 11:32 | Emergency (ER) | payer MEDICARE, OTHER ==
[~2023-06-08] VITALS: Ht 152.4 cm; Wt 124.8 kg
[2023-06-08 12:11] LABS: BASOPHILS 1.1 % (0-2); EOSINOPHILS 1.9 % (0-6); HEMATOCRIT 41.2 % (35.0-50.0); HEMOGLOBIN 13.3 g/dL (12.0-18.0); LYMPHOCYTES 14.8 % (24-44); MCH 27.8 (27-36); MCHC 32.3 g/dl (30-36); MCV 86.1 fl (81-99); MONOCYTES 5.7 % (0-12); NEUTROPHILS 76.5 % (39-80); PLATELET COUNT 208 K/uL (140-440); RBC 4.79 M/ul (4.3-5.7); RDW 14.9 (10.5-15.0)
[2023-06-08 12:31] LABS: ALBUMIN 2.9 g/dL (3.4-5.0); ALBUMIN/GLOBULIN RATIO 0.64 (1.1-2.4); ANION GAP 9.9 (7-21); BILIRUBIN, TOTAL 0.4 ng/dL (0.2-1.0); BUN/CREATININE RATIO 19.41 (6.0-28.6); CREATININE, SERUM 1.03 mg/dL (0.55-1.02); MAGNESIUM 1.8 mg/dL (1.8-2.4); POTASSIUM 4.9 mmol/L (3.5-5.1); PROTEIN, TOTAL 7.4 g/dL (6.4-8.2)
[2023-06-08 14:34] LABS: INFLUENZA B NAA NEGATIVE (NEGATIVE); RESPIRATORY SYNCYTIAL VIR NAA NEGATIVE (NEGATIVE)
[2023-06-08] MEDS ORDERED: PREDNISONE20 MG PO (16:46)
[2023-06-08 17:12] VITALS: BP 145/72
--- NOTE | 2023-06-08 21:47 | EKG ---
[facility] [address] [place] [address] Signed Normal sinus rhythm Nonspecific ST and T wave abnormality Abnormal ECG When compared with ECG of 30-SEP-2022 20:23, No significant change was found Confirmed by Rae Geronimo MD () on 06/08/2023 9:46:56 PM Electronically Signed By: RAE GERONIMO MD 06/08/23 2147 PATIENT NAME: TANNER GUILLEN Electrocardiogram DATE OF : 51 PHYSICIAN: RAE GERONIMO MD REPORT #: [id number] REPORT IS CONFIDENTIAL AND NOT TO BE RELEASED WITHOUT AUTHORIZATION
== END 2023-06-08 17:00 | disposition home or self-care (01) ==
LOC: ED 11:32
PROVIDERS: Emergency Medicine
DX: J44.1 Chronic obstructive pulmonary disease with (acute) exacerbation (principal); Z99.81 Dependence on supplemental oxygen; Z20.822 Contact with and (suspected) exposure to COVID-19; I10 Essential (primary) hypertension; E11.9 Type 2 diabetes mellitus without complications; G47.30 Sleep apnea, unspecified; E78.00 Pure hypercholesterolemia, unspecified; G25.81 Restless legs syndrome; K21.9 Gastro-esophageal reflux disease without esophagitis; Z79.52 Long term (current) use of systemic steroids; Z79.4 Long term (current) use of insulin; Z79.899 Other long term (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; Z88.6 Allergy status to analgesic agent; Z88.2 Allergy status to sulfonamides; Z88.8 Allergy status to other drugs, medicaments and biological substances; Z91.018 Allergy to other foods
CPT/HCPCS: 36415; 71045; 80053; 83735; 84484; 85025; 87502; 93005; 93010; 94640; 99285-25; C9803; J7512; U0002

== ENCOUNTER 2023-06-24 14:00 | Emergency (ER) | payer MEDICARE, OTHER ==
[~2023-06-24] VITALS: Ht 152.4 cm; Wt 126.2 kg
[2023-06-24 19:23] VITALS: BP 161/82
== END 2023-06-24 19:23 | disposition home or self-care (01) ==
LOC: ED 14:00
DX: M25.561 Pain in right knee (principal); E11.40 Type 2 diabetes mellitus with diabetic neuropathy, unspecified; I10 Essential (primary) hypertension; E78.00 Pure hypercholesterolemia, unspecified; G89.29 Other chronic pain; J43.9 Emphysema, unspecified; F41.9 Anxiety disorder, unspecified; F32.A Depression, unspecified; K21.9 Gastro-esophageal reflux disease without esophagitis; Z88.6 Allergy status to analgesic agent; Z88.8 Allergy status to other drugs, medicaments and biological substances; Z88.2 Allergy status to sulfonamides; Z91.018 Allergy to other foods; Z79.4 Long term (current) use of insulin; Z79.84 Long term (current) use of oral hypoglycemic drugs; Z79.51 Long term (current) use of inhaled steroids; Z79.899 Other long term (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
CPT/HCPCS: 73552; 73590; 93971; 99284-25; A9270

== ENCOUNTER 2024-01-01 18:37 | Emergency (ER) | payer MEDICARE, OTHER ==
[~2024-01-01] VITALS: Ht 152.4 cm; Wt 134.3 kg
--- NOTE | ~2024-01-01 | EKG ---
[facility] [address] [facility], [place] [address] Draft EK completed, results pending confirmation PATIENT NAME: MINDYTANNER Electrocardiogram DATE OF : 51 PHYSICIAN: PRELIMINARY REPORT #: [id number] REPORT IS CONFIDENTIAL AND NOT TO BE RELEASED WITHOUT AUTHORIZATION
[2024-01-01] MEDS ORDERED: ALBUTEROL/IPRATROPIUM 3 ML NEB INH PRN (18:45)
[2024-01-01 18:54] LABS: BASOPHILS 0.7 % (0-2); HEMOGLOBIN 11.9 g/dL (12.0-18.0); LYMPHOCYTES 20.5 % (24-44); RDW 15.1 (10.5-15.0)
[2024-01-01 18:56] LABS: EOSINOPHILS 2.8 % (0-6); MCH 27.6 (27-36); MCHC 32.3 g/dl (30-36); MCV 85.4 fl (81-99); MONOCYTES 8.7 % (0-12); NEUTROPHILS 67.3 % (39-80); PLATELET COUNT 179 K/uL (140-440); RBC 4.33 M/ul (4.3-5.7)
[2024-01-01 19:22] LABS: ALBUMIN 2.7 g/dL (3.4-5.0); ALBUMIN/GLOBULIN RATIO 0.63 (1.1-2.4); ANION GAP 10.7 (7-21); BILIRUBIN, TOTAL 0.2 ng/dL (0.2-1.0); BUN/CREATININE RATIO 10.47 (6.0-28.6); CALCIUM 8.5 mg/dL (8.5-10.1); CREATININE, SERUM 1.05 mg/dL (0.55-1.02); MAGNESIUM 1.4 mg/dL (1.8-2.4); POTASSIUM 3.7 mmol/L (3.5-5.1)
[2024-01-01] MEDS ORDERED: MAGNESIUM OXIDE 400 MG TABLET PO ONE (19:30)
[2024-01-01] MEDS ORDERED: DEXAMETHASONE SOD PHOS 10 MG/ML VIAL IV ONE (19:30)
[2024-01-01] MEDS ORDERED: NITROSTAT0.4 MG SL (21:22)
[2024-01-01 21:32] VITALS: BP 167/61
== END 2024-01-01 21:43 | disposition home or self-care (01) ==
LOC: ED 18:37
PROVIDERS: Emergency Medicine
DX: J44.1 Chronic obstructive pulmonary disease with (acute) exacerbation (principal); I10 Essential (primary) hypertension; E11.9 Type 2 diabetes mellitus without complications; J43.9 Emphysema, unspecified; Z86.73 Personal history of transient ischemic attack (TIA), and cerebral infarction without residual deficits; Z88.8 Allergy status to other drugs, medicaments and biological substances; Z88.2 Allergy status to sulfonamides; Z91.018 Allergy to other foods; Z79.4 Long term (current) use of insulin; Z79.899 Other long term (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
CPT/HCPCS: 36415; 71045; 80053; 83735; 83880; 84484; 85025; 93005; 93010; 94640; J1100

== ENCOUNTER 2024-01-22 14:59 | Emergency (ER) | payer MEDICARE, OTHER ==
[~2024-01-22] VITALS: Ht 152.4 cm; Wt 127.3 kg
[2024-01-22 16:51] VITALS: BP 140/68
== END 2024-01-22 16:51 | disposition home or self-care (01) ==
LOC: ED 14:59
DX: H57.9 Unspecified disorder of eye and adnexa (principal); I10 Essential (primary) hypertension; E11.9 Type 2 diabetes mellitus without complications; J43.9 Emphysema, unspecified; Z88.8 Allergy status to other drugs, medicaments and biological substances; Z88.2 Allergy status to sulfonamides; Z79.52 Long term (current) use of systemic steroids; Z79.4 Long term (current) use of insulin; Z79.899 Other long term (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
CPT/HCPCS: 99283

== ENCOUNTER 2024-05-30 16:43 | Emergency (ER) | payer MEDICARE, OTHER ==
[~2024-05-30] VITALS: Ht 152.4 cm; Wt 120.0 kg
[2024-05-30] MEDS ORDERED: PROPRANOLOL HCL60 M1 PO (16:58)
[2024-05-30] MEDS ORDERED: DEXTROSE 50% 50 ML SYR IV ONE (17:00)
[2024-05-30 17:06] LABS: BASOPHILS 0.4 % (0-2); EOSINOPHILS 4.1 % (0-6); HEMATOCRIT 40.4 % (35.0-50.0); HEMOGLOBIN 13.2 g/dL (12.0-18.0); LYMPHOCYTES 27.1 % (24-44); MCH 28.7 (27-36); MCHC 32.6 g/dl (30-36); MCV 88.1 fl (81-99); MONOCYTES 8.5 % (0-12); NEUTROPHILS 59.9 % (39-80); PLATELET COUNT 184 K/uL (140-440); RBC 4.58 M/ul (4.3-5.7); RDW 15.9 (10.5-15.0)
[2024-05-30 17:24] LABS: ALBUMIN 3.2 g/dL (3.4-5.0); ALBUMIN/GLOBULIN RATIO 0.76 (1.1-2.4); BILIRUBIN, TOTAL 0.3 ng/dL (0.2-1.0); BUN/CREATININE RATIO 22.69 (6.0-28.6); CALCIUM 9.1 mg/dL (8.5-10.1); CREATININE, SERUM 1.41 mg/dL (0.55-1.02); PROTEIN, TOTAL 7.4 g/dL (6.4-8.2)
[2024-05-30 19:50] VITALS: BP 119/64
== END 2024-05-30 19:45 | disposition home or self-care (01) ==
LOC: ED 16:43
PROVIDERS: Emergency Medicine
DX: E11.649 Type 2 diabetes mellitus with hypoglycemia without coma (principal); I10 Essential (primary) hypertension; E78.00 Pure hypercholesterolemia, unspecified; J44.9 Chronic obstructive pulmonary disease, unspecified; G47.30 Sleep apnea, unspecified; K21.9 Gastro-esophageal reflux disease without esophagitis; Z79.4 Long term (current) use of insulin; Z79.52 Long term (current) use of systemic steroids; Z88.6 Allergy status to analgesic agent; Z91.018 Allergy to other foods; Z88.2 Allergy status to sulfonamides; Z88.8 Allergy status to other drugs, medicaments and biological substances
CPT/HCPCS: 36415; 51702; 80053; 85025; 99285-25

== ENCOUNTER 2024-06-01 11:11 | Emergency (ER) | payer MEDICARE, OTHER ==
[~2024-06-01] VITALS: Ht 152.4 cm; Wt 121.4 kg
[~2024-06-01 11:11] MED LIST changes: +PROPRANOLOL HCL60 M1 PO
[2024-06-01] MEDS ORDERED: HYDROmorphone HCL 1 MG/ML SYR IV PRN (13:30)
[2024-06-01] MEDS ORDERED: LIDOCAINE HCL 4% 1 EACH PATCH TD ONE (13:30)
[2024-06-01] MEDS ORDERED: ondansetron HCL 4 MG/2 ML VIAL IV ONE (13:30)
[2024-06-01 13:56] LABS: HEMOGLOBIN 13.6 g/dL (12.0-18.0); MCH 28.5 (27-36)
[2024-06-01 14:04] LABS: BASOPHILS 0.6 % (0-2); EOSINOPHILS 2.6 % (0-6); LYMPHOCYTES 21.5 % (24-44); MCHC 33.1 g/dl (30-36); MCV 86.1 fl (81-99); MONOCYTES 7.4 % (0-12); NEUTROPHILS 67.9 % (39-80); PLATELET COUNT 183 K/uL (140-440); RBC 4.76 M/ul (4.3-5.7); RDW 15.3 (10.5-15.0)
[2024-06-01 14:10] LABS: ALBUMIN 3.2 g/dL (3.4-5.0); ALBUMIN/GLOBULIN RATIO 0.74 (1.1-2.4); ANION GAP 11.2 (7-21); BILIRUBIN, TOTAL 0.4 ng/dL (0.2-1.0); BUN/CREATININE RATIO 23.15 (6.0-28.6); CREATININE, SERUM 0.95 mg/dL (0.55-1.02); POTASSIUM 4.2 mmol/L (3.5-5.1); PROTEIN, TOTAL 7.5 g/dL (6.4-8.2)
[2024-06-01 14:43] LABS: BILIRUBIN, URINE NEGATIVE (negative); BLOOD/HGB, URINE NEGATIVE (Negative); KETONE, URINE NEGATIVE (Negative); LEUK ESTERASE, URINE NEGATIVE (negative); NITRITE, URINE NEGATIVE (negative); PH, URINE 5.5 (5-7)
[2024-06-01] MEDS ORDERED: LIDODERM1 EACH TOP (16:23)
[2024-06-01] MEDS ORDERED: CYCLOBENZAPRINE10 MG PO (16:23)
[2024-06-01] MEDS ORDERED: HYDROCODON-ACE1 EA10 PO (16:24)
[2024-06-01 16:40] VITALS: BP 155/47
[2024-06-01] MEDS ORDERED: LIDOCAINE PATCH REMOVAL 1 EA TD SCH (21:00)
== END 2024-06-01 16:40 | disposition home or self-care (01) ==
LOC: ED 11:11
PROVIDERS: Emergency Medicine
DX: M54.50 Low back pain, unspecified (principal); I10 Essential (primary) hypertension; E78.00 Pure hypercholesterolemia, unspecified; G47.30 Sleep apnea, unspecified; J43.9 Emphysema, unspecified; E11.9 Type 2 diabetes mellitus without complications; E66.9 Obesity, unspecified; Z68.43 Body mass index [BMI] 50.0-59.9, adult; Z86.73 Personal history of transient ischemic attack (TIA), and cerebral infarction without residual deficits; Z88.6 Allergy status to analgesic agent; Z91.018 Allergy to other foods; Z88.2 Allergy status to sulfonamides; Z88.8 Allergy status to other drugs, medicaments and biological substances; Z79.52 Long term (current) use of systemic steroids; Z79.4 Long term (current) use of insulin; Z79.899 Other long term (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
CPT/HCPCS: 36415; 74176; 80053; 81003; 85025; 96374; 96375; 99284-25; A9270; J1171; J2405

== ENCOUNTER 2024-10-10 09:01 | Inpatient (IN) | payer MEDICARE, OTHER ==
[~2024-10-10] VITALS: Ht 152.4 cm; Wt 121.6 kg
[~2024-10-10 09:01] MED LIST changes: +HYDROCODON-ACE1 EA10 PO; -NOVOLOG100 UNIT/1 SUB-Q
[2024-10-10] MEDS ORDERED: methylPREDNISolone SOD SUCC 125 MG/2 ML VIAL IV ONE (09:15)
[2024-10-10] MEDS ORDERED: ALBUTEROL SULFATE 0.5% 2.5 MG/0.5 ML VIAL INH ONE (09:15)
[2024-10-10] MEDS ORDERED: IPRATROPIUM BROMIDE 2.5 ML VIAL INH ONE (09:15)
[2024-10-10 09:47] LABS: BASOPHILS 0.6 % (0-2); EOSINOPHILS 2.9 % (0-6); HEMATOCRIT 38.6 % (35.0-50.0); LYMPHOCYTES 40.3 % (24-44); MCH 28.9 (27-36); MCHC 33.6 g/dl (30-36); MCV 85.9 fl (81-99); MONOCYTES 7.3 % (0-12); NEUTROPHILS 48.9 % (39-80); PLATELET COUNT 179 K/uL (140-440); RBC 4.49 M/ul (4.3-5.7); RDW 14.2 (10.5-15.0)
[2024-10-10 10:02] LABS: PH, VENOUS 7.354 (7.31-7.41)
[2024-10-10 10:10] LABS: ALBUMIN/GLOBULIN RATIO 0.68 (1.1-2.4); ANION GAP 5.8 (7-21); BILIRUBIN, TOTAL 0.4 mg/dL (0.2-1.0); BUN/CREATININE RATIO 16.66 (6.0-28.6); CALCIUM 8.9 mg/dL (8.5-10.1); CREATININE, SERUM 0.96 mg/dL (0.55-1.02); POTASSIUM 3.8 mmol/L (3.5-5.1); PROTEIN, TOTAL 7.4 g/dL (6.4-8.2)
[2024-10-10] MEDS ORDERED: ondansetron HCL 4 MG/2 ML VIAL IV ONE (10:15)
[2024-10-10] MEDS ORDERED: dilTIAZem HCL 25 MG/5 ML VIAL IV ONE (10:30)
[2024-10-10 11:08] LABS: CORONAVIRUS COVID-19 AG NEGATIVE (NEGATIVE); INFLUENZA A AG NEGATIVE (NEGATIVE); INFLUENZA B AG NEGATIVE (NEGATIVE)
[2024-10-10] MEDS ORDERED: ACETAMINOPHEN 325 MG TAB PO PRN (16:15)
[2024-10-10] MEDS ORDERED: ACETAMINOPHEN 500 MG TAB PO ONE (16:15)
[2024-10-10] MEDS ORDERED: ondansetron HCL 4 MG/2 ML VIAL IV PRN (16:15)
--- NOTE | 2024-10-10 16:23 | EKG ---
[facility] [address] [place], [place] [address] Signed Normal sinus rhythm Nonspecific ST and T wave abnormality Abnormal ECG When compared with ECG of 01-JAN-2024 18:37, No significant change was found Confirmed by Franky Thayer MD ([id number]) on 10/10/2024 4:23:08 PM Electronically Signed By: FRANKY THAYER MD 10/10/24 1623 PATIENT NAME: TANNER GUILLEN ANYAJIMMY Electrocardiogram DATE OF : 51 PHYSICIAN: FRANKY THAYER MD REPORT #: [id number] REPORT IS CONFIDENTIAL AND NOT TO BE RELEASED WITHOUT AUTHORIZATION
--- NOTE | 2024-10-10 16:40 | NUR ---
THIS RN AND DRY KILN WORKER ROSHNI DOWN TO EMERGENCY DEPARTMENT TO GET REPORT FROM ROJAS PEREZ AND TRANSFER PATIENT BACK TO FLOOR. PATIENT TRANSFERED IN STRETCHER FROM ED ROOM 6 TO MED SURG 115. PATIENT TRANSFERS HERSELF BY SCOOTING FROM STRETCHER TO HOSPITAL BED. VS AND WT OBTAINED AND RECORDED. THIS RN REMAINS IN ROOM.
[2024-10-10] MEDS ORDERED: GLUCAGON,HUMAN RECOMBINANT 1 MG/ML VIAL SUB-Q PRN (16:45)
[2024-10-10] MEDS ORDERED: DEXTROSE 50% 50 ML SYR IV PRN ×2 (16:45)
[2024-10-10] MEDS ORDERED: IBLOOD GLUCOSE TEST STRIP 1 EA TEST XX PRN (16:45)
[2024-10-10] MEDS ORDERED: DEXTROSE 5% 1,000 ML IV PRN (16:45)
[2024-10-10] MEDS ORDERED: INSULIN LISPRO 100 UNIT/ML ML SUB-Q SCH ×3 (17:00→21:00)
[2024-10-10] MEDS ORDERED: BENZTROPINE MESY2 MG PO (17:01)
[2024-10-10] MEDS ORDERED: BRINTELLIX20 MG PO (17:02)
[2024-10-10] MEDS ORDERED: ROSUVASTATIN CA20 MG PO (17:03)
[2024-10-10] MEDS ORDERED: AMITRIPTYLINE H50 MG PO (17:04)
[2024-10-10 17:07] VITALS: BP 137/55
[2024-10-10] MEDS ORDERED: FUROSEMIDE40 MG PO (17:07)
[2024-10-10] MEDS ORDERED: CYCLOBENZAPRINE10 MG PO (17:09)
[2024-10-10] MEDS ORDERED: CLEARLAX119 GM PO (17:10)
[2024-10-10] MEDS ORDERED: MELOXICAM7.5 MG PO (17:12)
[2024-10-10] MEDS ORDERED: GABAPENTIN300 MG PO (17:13)
[2024-10-10] MEDS ORDERED: ALBUTEROL SULFATE 0.083% 3 ML VIAL INH PRN (17:15)
--- NOTE | 2024-10-10 17:41 | NUR ---
ADMISSION COMPLETE. PATIENT IS UP IN RECLINER AT THIS TIME EATING SUPPER AND ASKING WHERE HER INSULIN IS. PATIENT IS ON 3LNC WITH CPOX AT CHAIR SIDE. PATIENT HAS DYSPNEA ON EXERTION, OTHERWISE DENIES SHORTNESS OF BREATH WITH REST. PATIENT AMBULATES WITH SBA AND HER PERSONAL 4WW. PATIENT HAS VOID IN BEDSIDE COMMODE, FATMATA-CARE PROVIDED BY NIGEL BARAKAT. PATIENT HAS PULL-UP ON FOR COMFORT AND DRIBBLING, SHE WEARS PULL-UPS AT BASELINE. PATIENT BREATH SOUNDS ARE CLEAR BUT DIMINISHED THROUGHOUT, NO WHEEZES OR CRACKLES NOTED. HEART SOUNDS HEARD WNL. IV TO R AC FLUSHES WNL, SALINE LOCKED AT THIS TIME. PATIENT HAS NO COMPLAINTS OF PAIN OR DISCOMFORT. PATIENT REPORTS NUMBNESS AND TINGLING IN HER BLE AND BUE WHICH SHE STATES IS CHRONIC FOR HER. SENSATION IS INTACT, THOUGH PATIENT FEELS PAIN WITH GENTLE TOUCH TO BLE. PULSES 2+ BILAT RADIALS, 1+ IN BLAT PEDALS WITH GENERALIZED EDEMA NOTED TO BLE. PATIENT REPORTS CHRONIC SWELLING "LATELY" TO BLE, SHE CANNOT WEAR COMPRESSION STOCKINGS THESE ARE PAINFUL FOR HER. PATIENT IS EATING SUPPER AT THIS TIME, NO REQUESTS OR COMPLAINTS, CALL LIGHT AND PERSONAL BELONGINGS IN REACH.
[2024-10-10 18:00] VITALS: BP 137/55
--- NOTE | 2024-10-10 18:07 | NUR ---
DR EDWARDS CALLED TO CLARIFY INSULIN ORDERS. PHARMACY CALLED AND ASKED TO CHANGE EMAR PER ORDERS.
[2024-10-10] MEDS ORDERED: TRAZODONE HCL100 MG PO (18:11)
--- NOTE | 2024-10-10 18:12 | NUR ---
MED REC COMPLETE
[2024-10-10] MEDS ORDERED: LOPERAMIDE2 M1 PO (18:13)
[2024-10-10] MEDS ORDERED: TYLENOL EXTRA500 MG PO (18:13)
--- NOTE | 2024-10-10 18:19 | NUR ---
NIO PLACED FOR SENNA+ AND MIRALAX BID D/T PATIENT REPORTING SHE HAS NOT HAD A BOWEL MOVEMENT SINCE Monday10/07/24. PATIENT AGREEABLE TO MEDS.
--- NOTE | 2024-10-10 18:43 | NUR ---
MEDICATION ADMINISTERED, SEE MAR. PATIENT SELF ADMINISTERS HER INSULIN IN HER LLQ AFTER CLEANSING SITE WITH ALCOHOL PAD. PATIENT PERFORMS INSULIN ADMINISTRATION WITH SUPERVISION ONLY AND DOES WELL. PATIENT IS BACK IN BED WATCHING TELEVISION. PATIENT HAS NO REQUESTS, CALL LIGHT AND PERSONAL BELONGINGS IN REACH.
--- NOTE | 2024-10-10 19:32 | NUR ---
REPORT RECEIVED FROM DAYSHIFT RN. PATIENT RESTING IN BED AND IN NO ACUTE DISTRESS, WATCHING TV. DENIES NEEDS AT THIS TIME. CALL LIGHT IN REACH
--- NOTE | 2024-10-10 19:46 | NUR ---
PATIENT UP TO BEDSIDE COMMODE TO VOID, MINIMAL SBA. NC IN PLACE, CPOX AT BEDSIDE. RETURNED TO BED WITHOUT DIFFICULTY, BED ALARM ON, CALL LIGHT IN REACH.
[2024-10-10] MEDS ORDERED: BUDESONIDE 0.5 MG/2 ML VIAL INH SCH (20:00)
[2024-10-10] MEDS ORDERED: ALBUTEROL/IPRATROPIUM 3 ML NEB INH SCH (20:00)
[2024-10-10] MEDS ORDERED: POLYETHYLENE GLYCOL 3350 1 PACKET PO SCH (21:00)
[2024-10-10] MEDS ORDERED: PANTOPRAZOLE SODIUM 40 MG TABEC PO SCH (21:00)
[2024-10-10] MEDS ORDERED: INSULIN GLARGINE-YFGN 100 UNIT/ML ML SUB-Q SCH ×2 (21:00)
[2024-10-10] MEDS ORDERED: GABAPENTIN 300 MG CAP PO SCH ×2 (21:00)
[2024-10-10] MEDS ORDERED: BENZTROPINE MESYLATE 1 MG TAB PO SCH (21:00)
[2024-10-10] MEDS ORDERED: PROPRANOLOL HCL 10 MG TAB PO SCH (21:00)
[2024-10-10] MEDS ORDERED: SENNOSIDES/DOCUSATE 1 EA TAB PO SCH (21:00)
[2024-10-10 21:05] VITALS: BP 162/60
--- NOTE | 2024-10-10 21:07 | NUR ---
CALL LIGHT ANSWERED. PT NEEDED TO USE BATHROOM. FLUX CORE WELDER 1PA TO BSC. PT VOIDED AND ASSISTED BACK TO BED. VITALS AND I&O OBTAINED AND DOCUMENTED. PT STATES NO FURTHER NEEDS AT THIS TIME. CALL LIGHT WITHIN REACH.
[2024-10-10 21:54] VITALS: BP 162/60
[2024-10-10] MEDS ORDERED: methylPREDNISolone SOD SUCC 40 MG/ML VIAL IV SCH (22:00)
--- NOTE | 2024-10-10 22:13 | NUR ---
PATIENT GIVEN SCHEDULED MEDS, PATIENT RESTING IN BED COMFORTABLY, BED ALARM ON. DENIES NEEDS, CALL LIGHT IN REACH
[2024-10-11] VITALS (12 sets, daily range): BP systolic 120–148; BP diastolic 31–61
--- NOTE | 2024-10-11 00:30 | NUR ---
PATIENT ASSISTED TO BSC WITH MINIMAL SBA. BACK TO BED WITHOUT DIFFICULTY, NC IN PLACE, RT CONTACTED PER PATIENT REQUEST TO SET UP CPAP MACHINE. CALL LIGHT IN REACH.
--- NOTE | 2024-10-11 01:52 | NUR ---
SALESPERSON TOY TRAINS AND ACCESSORIES OBTAINED VITALS AND I&O. ICE WATER REFILLED. PT STATES NO NEEDS AT THIS TIME. CALL LIGHT WITHIN REACH.
--- NOTE | 2024-10-11 01:58 | NUR ---
PATIENT RESTING WITH EYES CLOSED, RESP EVEN AND UNLABORED. CPAP IN PLACE, CPOX AT BEDSIDE, VS OBTAINED AND RECORDED BY NIGEL RANGEL. NO NEEDS IDENTIFIED, CALL LIGHT IN REACH
--- NOTE | 2024-10-11 04:20 | NUR ---
CALL LIGHT ANSWERED. PT NEEDED TO USE BATHROOM. PIZZA HUT ASSISTANT 1PA TO BSC. PT VOIDED AND ASSISTED BACK TO BED. CPAP BACK ON AND PIZZA HUT ASSISTANT OBTAINED AND DOCUMENTED VITALS AND I&O. PT STATES NO FURTHER NEEDS AT THIS TIME. CALL LIGHT WITHIN REACH.
--- NOTE | 2024-10-11 04:38 | NUR ---
PATIENT RESTING WITH EYES CLOSED, CPAP IN USE. NO NEEDS IDENTIFIED, BED ALARM ON. CALL LIGHT IN REACH
--- NOTE | 2024-10-11 05:28 | NUR ---
CPOX ALARMING, PATIENT SPO2 80%. CPAP LAYING NEXT TO PATIENT, PATIENT HAD TAKEN OFF CPAP. PATIENT WOKE AND REMINDED TO WEAR CPAP DURING SLEEP. SPO2 INCREASED TO WNL. PATIENT RETURNED TO RESTING, RESP EVEN AND UNLABORED. CALL LIGHT IN REACH
[2024-10-11 05:41] LABS: BASOPHILS 0.4 % (0-2); EOSINOPHILS 0.3 % (0-6); HEMATOCRIT 37.1 % (35.0-50.0); HEMOGLOBIN 12.5 g/dL (12.0-18.0); LYMPHOCYTES 7.1 % (24-44); MCH 28.9 (27-36); MCHC 33.7 g/dl (30-36); MCV 85.8 fl (81-99); MONOCYTES 2.1 % (0-12); NEUTROPHILS 90.1 % (39-80); PLATELET COUNT 198 K/uL (140-440); RBC 4.32 M/ul (4.3-5.7); RDW 14.7 (10.5-15.0)
[2024-10-11 06:03] LABS: BUN/CREATININE RATIO 23.65 (6.0-28.6); CALCIUM 9.2 mg/dL (8.5-10.1); CREATININE, SERUM 0.93 mg/dL (0.55-1.02); MAGNESIUM 2.1 mg/dL (1.8-2.4)
--- NOTE | 2024-10-11 06:15 | NUR ---
SCHEDULED PHYSICAL MEDICINE TEACHER PER ORDER. NC IN PLACE, RESTING WITH EYES CLOSED. RESP EVEN AND UNLABORED AND IN NAD. NO NEEDS IDENITFIED, CALL LIGHT IN REACH
--- NOTE | 2024-10-11 07:24 | NUR ---
REPORT RECEIVED FROM ROJAS BOYER. PATIENT AWAKE AND ALERT IN BED, REPORTS HEADACHE SHE RATES 10/10. PRN PAIN MEDICATION AND COLD WASHCLOTH PROVIDED. PATIENT HAS NO OTHER REQUESTS, CALL LIGHT AND PERSONAL BELONGINGS IN REACH. 3LNC IN PLACE WITH CPOX AT BEDSIDE.
[2024-10-11] MEDS ORDERED: IBLOOD GLUCOSE TEST STRIP 1 EA TEST VI SCH (08:00)
--- NOTE | 2024-10-11 08:23 | NUR ---
UR CLINICAL REVIEW: 2 [place] NICKY, MEETS INPT FOR COPD EXACERBATION INCREASE RESP EFFORT, HYPERCARBIA, IV STEROIDS MEDICARE INPT 10/07/2024 @ 1606 ORDER MATCHES REG NO AUTH REQUIRED PER MEDICARE RULES PLAN TO DC TO HOME WHEN MEDICALLY STABLE.
[2024-10-11] MEDS ORDERED: PROPRANOLOL HCL 60 MG PO SCH (09:00)
[2024-10-11] MEDS ORDERED: PANTOPRAZOLE SODIUM 40 MG TABEC PO SCH (09:00)
[2024-10-11] MEDS ORDERED: EMPAGLIFLOZIN 10 MG TAB PO SCH (09:00)
[2024-10-11] MEDS ORDERED: ARIPiprazole 5 MG TAB PO SCH (09:00)
[2024-10-11] MEDS ORDERED: ENOXAPARIN SODIUM 40 MG/0.4 ML SYR SUB-Q SCH (09:00)
--- NOTE | 2024-10-11 09:32 | NUR ---
PATIENT IN HALLS WORKING WITH MARILYN, PHYSICAL THERAPY. REPORTS HER HEADACHE REMAINS, RATES IT A 5/10.
--- NOTE | 2024-10-11 10:35 | NUR ---
PT NOT AVAILABLE FOR VISIT. PROVIDED PRAYER.
[2024-10-11] MEDS ORDERED: bisacodyL 10 MG SUPP PR ONE (11:00)
--- NOTE | 2024-10-11 11:47 | NUR ---
BISACODYL SUPPOSITORY ADMINISTERED ORDERED, PATIENT TOLERATES WELL. ASSESSMENT COMPLETE. PATIENT IS RESTING IN BED AFTER A SHOWER. SHE REPORTS THE SHOWER FELT GOOD BUT SHE CONTINUES TO COMPLAIN OF A HEADACHE. NO REQUEST FOR INTERVENTION AT THIS TIME. PATIENT LUNG SOUNDS ARE CLEAR IN BUL, DIMINISHED IN BLL. PATIENT REPORTS SHE IS BREATHING MUCH EASIER AND CREDITS THIS TO THE BREATHING TREATMENTS SHE HAS BEEN RECEIVING. PATIENT CONTINUES TO WEAR HER 3LNC. PATIENT HAS REDNESS NOTED TO BETWEEN HER BREASTS AND UNDER HER PANNUS. NIO PLACED FOR ANTIFUNGAL CREAM (PATIENT PREFERS CREAM OVER POWDER). IV TO R AC IS SLUGGISH, BUT FLUSHES 10ML NS AND SALINE LOCKED. PATIENT HAS NO OTHER REQUESTS OR COMPLAINTS AT THIS TIME, CALL LIGHT AND PERSONAL BELONGINGS IN REACH.
--- NOTE | 2024-10-11 11:50 | NUR ---
INTO SEE PATIENT. PERSONAL HEALTH INFORMATION REVIEWED. PATIENT LIVES IN A HOUSE WITH A RAMP TO GET INTO. SHE LIVES WITH HER DAUGHTER AND HER FAMILY. PATIENT USES CANE. PATIENT USES OXYGEN AND CPAP AT HOME. PAUL IS HER PROVIDER. PATIENT DOES NOT DRIVE BUT DAUGHTER DRIVES HER AROUND. SHE IS WILLING TO GO TO SNF BUT ONLY IN TOWN. DENIES DIFFCULTY PAYING UTLITIES OR OBTAINING FOOD.
[2024-10-11] MEDS ORDERED: MICONAZOLE 2% 30 GM TUBE TOP SCH ×3 (11:57→21:00)
[2024-10-11] MEDS ORDERED: PHARMACY RENAL DOSE ADJUSTMENT 1 DOSE MISC PO SCH (12:00)
[2024-10-11] MEDS ORDERED: INSULIN LISPRO 100 UNIT/ML ML SUB-Q SCH ×2 (12:00→17:00)
--- NOTE | 2024-10-11 12:21 | NUR ---
PT NOT AVAILABLE FOR VISIT. PROVIDED PRAYER.
--- NOTE | 2024-10-11 12:35 | NUR ---
MEDICATION ADMINISTERED, SEE MAR. PATIENT ADEQUATELY PREPS AREA IN HER RLQ WITH ALCOHOL WIPE AND SELF ADMINISTERS HER INSULIN WELL. PATIENT HAS NO COMPLAINTS OR REQUESTS AT THIS TIME, CALL LIGHT AND PERSONAL BELONGINGS IN REACH, LUNCH TRAY IN FRONT OF HER.
--- NOTE | 2024-10-11 13:55 | NUR ---
PATIENT IN BED AT THIS TIME. CAMPGROUND HAND ASSISTED PATIENT TO BATHROOM AND THEN BACK TO BED. CALL LIGHT WITHIN REACH, NO FURTHER NEEDS AT THIS TIME.
--- NOTE | 2024-10-11 14:55 | NUR ---
PATIENT IS RESTING IN BED WATCHING TELEVISION AND EATING JELLO. HER CPOX IS ALARMING D/T LOOSE SAT STICKER AND PATIENT IS REQUESTING THIS BE REMOVED. PATIENT OXYGEN HAS REMAINED 90-94% ALL DAY ON 3LNC, CPOX REMOVED AND TURNED OFF AT THIS TIME. GITA IN RESPIRATORY THERAPY ALERTED. PATIENT LUNG SOUNDS ARE CLEAR IN BUL, DIMINISHED IN BLL. PATIENT DENIES SHORTNESS OF BREATH OR CHEST DISCOMFORT. MEDICATION ADMINISTERED, SEE MAR. ANTIFUNGAL MEDICATION APPLIED TOPICALLY TO PANNUS AND IN BETWEEN BREASTS. PATIENT REPORTS THAT SHE SPILLS FREQUENTLY ON HERSELF AT HOME AND THIS IS WHY SHE CONTINUES TO GET YEASTY-LIKE INFECTIONS. PATIENT EDUCATED ON USE OF TOWEL OR PILLOW CASE BENEATH HER PANNUS AND TO KEEP THE AREA DRY. PATIENT VERBALIZES UNDERSTANDING. ICE WATER SUPPLIED. PATIENT HAS NO REQUESTS AT THIS TIME, CALL LIGHT AND PERSONAL BELONGINGS IN REACH.
--- NOTE | 2024-10-11 17:10 | NUR ---
PATIENT'S BLLOOD GLUCOSE NOTED TO BE 72. READING VERIFIED WITH SECONDARY GLUCOSE CHECK AND PATIENT'S OWN METER. TWO ORANGE JUICES PROVIDED. PATIENT DECLIES ANY SYMPTOMS OF HYPOGLYCEMIA EXCEPT FEELING HUNGRY. SUPPER TRAY ALSO ARRIVES. BOTH 1700 INSULINS HELD AT THIS TIME.
--- NOTE | 2024-10-11 17:46 | NUR ---
PATIENT'S REPEAT BLOOD GLUCOSE IS 104. PATIENT HAS EATEN ABOUT 75% OF SUPPER AT THIS TIME AND IS STILL EATING. NO COMPLAINTS AT THIS TIME. NO REQUESTS. CALL LIGHT AND PERSONAL BELONGINGS IN REACH.
--- NOTE | 2024-10-11 19:20 | NUR ---
REPORT RECEIVED FROM DAYSHIFT RN. PATIENT SITTING COMFORTABLY IN BED, SEMI-FOWLERS POSITION. FACETIMING WITH FAMILY. RESP EVEN AND UNLABORED, IN NO ACUTE DISTRESS, NO NEEDS IDENTIFIED, CALL LIGHT IN REACH
[2024-10-11] MEDS ORDERED: ALBUTEROL/IPRATROPIUM 3 ML NEB INH SCH (20:00)
--- NOTE | 2024-10-11 20:10 | NUR ---
Assisted Pt 1PA FWW from bed to bathroom and back. Provided warm blanket and fresh ice water. No other needs expressed by Pt. Call light left in reach.
--- NOTE | 2024-10-11 21:05 | NUR ---
SCHEDULED MEDS ADMIN PER ORDER. VS OBTAINED AND RECORDED. ASSESSMENT COMPLETED. REDNESS NOTED UNDER BREASTS AND UNDER PANNIS. PATIENT ALSO REPORTS 5/10 JANSEN, PRN MEDICATION PROVIDED. CALL LIGHT IN REACH, SIDE RAILS UP. PATIENT HAS CPAP AT BEDSIDE THAT SHE USES FOR SLEEP. NO FURTHER NEEDS IDENTIFIED,
--- NOTE | 2024-10-11 21:10 | NUR ---
CALL LIGHT ANSWERED. PT NEEDED TO USE BATHROOM. SODA DIALYZER SBA WITH FWW TO BATHROOM. PT VOIDED AND ASSISTED BACK TO BED. PT STATES NO FURTHER NEEDS AT THIS TIME. AND RN IN ROOM. CALL LIGHT WITHIN REACH.
--- NOTE | 2024-10-11 22:00 | NUR ---
PATIENT RESTING WITH EYES CLOSED, USING CPAP WHILE SLEEPING. RESP EVEN AND UNLABORED. CPOX MACHINE AT BEDSIDE FOR USE WHILE PATIENT SLEEPS. SCHEDULED MEDS ADMIN PER ORDER. PATIENT UP TO RESTROOM WITH MINIMAL SBA, AND USE OF 4WW. RETURNED TO BED WITHOUT DIFFICULTY, SIDE RAILS UP, CALL LIGHT IN REACH
--- NOTE | 2024-10-11 23:13 | NUR ---
PATIENT RESTING WITH EYES CLOSED, RESP EVEN AND UNLABORED. CPOX AT BEDSIDE, PATIENT WEARING CPAP WHILE SLEEPING. CALL LIGHT IN REACH, NO NEEDS IDENTIFIED.
--- NOTE | 2024-10-11 23:42 | NUR ---
CALL LIGHT ANSWERED. PT NEEDED TO USE BATHROOM. FRENCH EDGE OPERATOR SBA WITH FWW TO BATHROOM. PT VOIDED AND ASSISTED BACK TO BED. PT STATES NO FURTHER NEEDS AT THIS TIME. CALL LIGHT WITHIN REACH.
[2024-10-12] VITALS (9 sets, daily range): BP systolic 127–149; BP diastolic 56–82
--- NOTE | 2024-10-12 01:00 | NUR ---
CALL LIGHT ANSWERED, PATIENT UP TO RESTROOM TO VOID WITH MINIMAL SBA AND USE OF 4WW. RETURNED TO BED WITHOUT DIFFICULTY, CPOX AT BEDSIDE, CPAP IN PLACE FOR SLEEP. BED ALARM ON, CALL LIGHT IN REACH. PATIENT RETURNS TO RESTING, RESP EVEN AND UNLABORED.
--- NOTE | 2024-10-12 01:43 | NUR ---
RN CALLED TO ROOM. PATIENT REPORTS "SORE THROAT". PATIENT WAS PREVIOUSLY SLEEPING WITH MOUTH OPEN DURING LAST ROUNDING. PATIENT AWARE OF THIS, FRESH WATER REFILLED WITH ICE TO SIP. PLANS TO TRY DRINKING WATER FOR "DRY AND SORE THROAT" PER PT AND LET RN KNOW IF IT DOES NOT HELP. DENIES ANY OTHER NEEDS, CALL LIGHT IN REACH. BED ALARM ON, CPAP IN PLACE FOR SLEEP, CPOX AT BEDSIDE.
--- NOTE | 2024-10-12 02:29 | NUR ---
RN CALLED TO BEDSIDE, PATIENT REPORTS ALARMING CPOX. ON ASSESSMENT, CPOX ALARMING FOR DECREASING SPO2 TO 81%. PATIENT CPAP NOT CORRECTLY PLACED ON PATIENT. RT CALLED, SIZING ADJUSTED BY RT MIA. PATIENT UP TO RESTROOM WEARING 3L NC. BACK TO BED WITHOUT DIFFICULTY. CPOX ON PATIENT, WEARING CPAP TO SLEEP, SPO2 READING 91% AT THIS TIME. NO FURTHER NEEDS IDENTIFIED, PER RT MIA, GOAL SPO2 IS BETWEEN 88-92%. CALL LIGHT IN REACH.
--- NOTE | 2024-10-12 03:46 | NUR ---
CALL LIGHT ANSWERED. PT NEEDED TO USE BATHROOM. FILLER SHREDDING MACHINE LOADER SBA WITH FWW TO BATHROOM. PT VOIDED AND ASSISTED BACK TO BED. PT STATES NO FURTHER NEEDS AND CPAP MASK BACK ON. CALL LIGHT WITHIN REACH.
--- NOTE | 2024-10-12 04:37 | NUR ---
PATIENT RESTING WITH EYES CLOSED, RESP EVEN AND UNLABORED. CPOX AT BEDSIDE, CPAP ON PATIENT FOR SLEEP. NO NEEDS IDENTIFIED, CALL LIGHT IN REACH
[2024-10-12 05:21] LABS: BASOPHILS 0.5 % (0-2); EOSINOPHILS 0.1 % (0-6); HEMATOCRIT 36.7 % (35.0-50.0); HEMOGLOBIN 12.3 g/dL (12.0-18.0); LYMPHOCYTES 6.9 % (24-44); MCH 28.7 (27-36); MCHC 33.4 g/dl (30-36); MONOCYTES 3.2 % (0-12); NEUTROPHILS 89.3 % (39-80); PLATELET COUNT 222 K/uL (140-440); RBC 4.27 M/ul (4.3-5.7); RDW 14.7 (10.5-15.0)
[2024-10-12 05:31] LABS: ANION GAP 9.1 (7-21); BUN/CREATININE RATIO 33.94 (6.0-28.6); CALCIUM 9.4 mg/dL (8.5-10.1); CREATININE, SERUM 1.09 mg/dL (0.55-1.02); MAGNESIUM 2.4 mg/dL (1.8-2.4); POTASSIUM 5.1 mmol/L (3.5-5.1)
--- NOTE | 2024-10-12 05:41 | NUR ---
CALL LIGHT ANSWERED, PATIENT UP TO RESTROOM WITH MINIMAL SBA AND USE OF 4WW. VOIDED, BACK TO BED WITHOUT DIFFICULTY. VS OBTAINED AND RECORDED. SCHEDULED MED ADMINISTERED. PATIENT REPORT 4/10 HEADACHE, DENIES NEED FOR PAIN MEDICATION OR OTHER INTERVENTION. SIDE RAILS UP, CPOX AT BEDSIDE. PATIENT WISHES TO WATCH TV AND NOT PLANNING TO SLEEP, NC IN PLACE AT 3L. NO FURTHER NEEDS CALL LIGHT IN REACH
--- NOTE | 2024-10-12 06:12 | NUR ---
CALL LIGHT ANSWERED, PATIENT ASKED FOR PRN PAIN MEDICATION FOR 6/10 HEADACHE. DENIES OTHER NEEDS, CALL LIGHT IN REACH
--- NOTE | 2024-10-12 06:49 | NUR ---
CALL LIGHT ANSWERED, PATIENT UP TO RESTROOM TO VOID, RETURNED TO BED WITHOUT DIFFICULTY USING 4WW AND SBA. NC IN PLACE AT 3L. CPOX AT BEDSIDE. SIDE RAILS UP, NO NEEDS, CALL LIGHT IN REACH
--- NOTE | 2024-10-12 07:17 | NUR ---
REPORT RECEIVED FROM ROJAS BOYER. PATIENT IS RESTING IN BED AWAKE AND ALERT WATCHING TELEVISION, 3LNC IN PLACE. IT WAS REPORTED TO THIS RN THAT PATIENT HAD URINARY URGENCY AND FREQUENCY THROUGHOUT THE NIGHT AND HER URINE HAD AN ODOR. PATIENT CONFIRMS THIS, ALSO ENDORSES HISTORY OF UTIs. PATIENT IS ALSO COMPLAINING OF A HEADACHE FOR WHICH SHE RECEIVED TYLENOL SHORTLY BEFORE. 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 PATIENT HAS NO REQUESTS, CALL LIGHT AND PERSONAL BELONGINGS IN REACH.
[2024-10-12] MEDS ORDERED: INSULIN LISPRO 100 UNIT/ML ML SUB-Q SCH ×2 (07:45→08:00)
--- NOTE | 2024-10-12 08:34 | NUR ---
PATIENT IS JUST FINISHING A BREATHING TREATMENT WITH GITA FROM RESPIRATORY THERAPY. UA OBTAINED AND SENT TO LAB. MEDICATIONS ADMINISTERED, SEE MAR. PATIENT AMBULATES WITH FWW AND SUPERVISION ONLY TO RESTROOM AND TO RECLINER. BREAKFAST TRAY ARRIVES. PATIENT IS UP IN RECLINER EATING BREAKFAST AND WATCHING TELEVISION AT THIS TIME. CONTINUES TO COMPLAIN OF A HEADACHE SHE RATES 8/10. NO REQUESTS AT THIS TIME, CALL LIGHT AND PERSONAL BELONGINGS IN REACH.
[2024-10-12 08:36] LABS: BILIRUBIN, URINE NEGATIVE (negative); BLOOD/HGB, URINE NEGATIVE (Negative); KETONE, URINE NEGATIVE (Negative); LEUK ESTERASE, URINE NEGATIVE (negative); NITRITE, URINE NEGATIVE (negative)
[2024-10-12 08:46] LABS: CRYSTALS, URINE NONE SEEN (0-1+); EPITHELIAL CELLS, URINE SQUAMOUS 1+ /lpf (0-1+); RED BLOOD CELLS, URINE 0-1 /hpf (0-5); WHITE BLOOD CELLS, URINE 0-1 /HPF (0-5)
[2024-10-12 08:47] LABS: BACTERIA, URINE 1+ /hpf (negative); CASTS, URINE NONE SEEN \\lpf; COLLECTION TYPE, URINE CLEAN CATCH; REFLEX CULTURE, URINE No (No)
--- NOTE | 2024-10-12 10:36 | NUR ---
PATIENT SAT UP IN THEIR RECLINER FOR BREAKFAST AND IS CURRENTLY BACK IN BED. UA SAMPLE COLLECTED AND SENT TO THE LAB BY ROJAS LARA. FRESH ICE WATER WAS BROUGHT IN. CALL LIGHT AND PERSONAL ITEMS ARE WITHIN REACH.
[2024-10-12] MEDS ORDERED: SODIUM CHLORIDE 0.9% 1,000 ML IV SCH (11:15)
[2024-10-12] MEDS ORDERED: MAGNESIUM CITRATE 300 ML BTL PO ONE (11:15)
--- NOTE | 2024-10-12 12:15 | NUR ---
PATIENT COMPLETES WORKING WITH PHYSICAL THERAPY. ASSESSMENT COMPLETE. LUNG SOUNDS ARE CLEAR BUT DIMINISHED THROUGHOUT. PATIENT COMPLAINS OF A HEADACHE AND HAD AN EPISODE OF LIGHTHEADEDNESS WHILE WORKING WITH PHYSICAL THERAPY. PATIENT IS NOW RESTING IN RECLINER WITH BLE ELEVATED ON A PILLOW AND TALKING ON HER PHONE WITH HER GRANDSON. OTHER THAN HEADACHE, PATIENT DENIES ANY PAIN. HEART SOUNDS ARE IRREGULAR. PATIENT REPORTS CHRONIC TINGLING IN BOTH HANDS AND FEET. PATIENT'S BLE ARE PAINFUL JUST TO TOUCH, SHE REPORTS THIS IS CHRONIC FOR HER AND R/T HER NEUROPATHY. IV IN R AC FLUSHES WNL, NS FLUID BOLUS INFUSING AT 500ML/HR. PATIENT IS DRINKING HER ORDERED MAGNESIUM CITRATE. NO OTHER REQUESTS AT THIS TIME, CALL LIGHT AND PERSONAL BELONGINGS IN REACH.
--- NOTE | 2024-10-12 14:23 | NUR ---
NIGEL PAYNE PRESENT IN ROOM ASSISTING PATIENT WITH THE RESTROOM.
--- NOTE | 2024-10-12 15:06 | NUR ---
1000ML NS IV BOLUS COMPLETED. IV TO R AC SALINE LOCKED. PATIENT IS RESTING IN BED WITH EYES CLOSED, RR EVEN AND UNLABORED. WAKES TO THIS RN'S VOICE. PATIENT LUNG SOUNDS ARE DIMINISHED THROUGHOUT, PATIENT RR INCREASED AT 24. PATIENT REPORTS MILD SHORTNESS OF BREATH. SPO2 SPOT CHECK IS 95% ON 3LNC. PATIENT REPORTS SHE WOULD JUST LIKE TO SLEEP SHE DID NOT GET MUCH REST LAST NIGHT. NO REQUESTS, CALL LIGHT AND PERSONAL BELONGINGS IN REACH.
--- NOTE | 2024-10-12 16:02 | NUR ---
MEDICATION ADMINISTERED, SEE MAR. PATIENT IS RESTING IN BED WITH HOB ELEVATED AND PLAYING A GAME ON HER PHONE. SHE REPORTS THAT SHE FEELS SHORT OF BREATH WHILE RESTING. LUNG SOUNDS ARE CLEAR BUT DIMINISHED THROUGHOUT. SPO2 SPOT CHECK IS 95% ON 3LNC. PATIENT IS DUE FOR BREATHING TREATMENTS, RESPIRATORY THERAPY IS ALREADY ON THE FLOOR AND WILL BE SEEING HER SHORTLY. PATIENT AGREEABLE. PATIENT COMPLAINS OF LOW BACK PAIN SHE STATES IS CHRONIC AND RATES HER PAIN A 5/10 AND REQUESTS NO INTERVENTIONS. NO REQUESTS AT THIS TIME, CALL LIGHT AND PERSONAL BELONGINGS IN REACH.
--- NOTE | 2024-10-12 18:49 | NUR ---
SBA TO THE BATHROOM. PATIENT WAS BOOSTED UP IN BED. CALL LIGHT AND PERSONAL ITEMS ARE WITHIN REACH. NO OTHER CARES WERE REQUESTED.
--- NOTE | 2024-10-12 19:49 | NUR ---
REPORT RECEIVED FROM DAY SHIFT RN. PT ON BSC. CALL LIGHT WITHIN REACH. PT INSTRUCTED TO CALL WHEN FINISHED. WILL CONTINUE TO MONITOR.
--- NOTE | 2024-10-12 19:51 | NUR ---
PT CALLED TO USE THE COMMODE AND HAD SEVERAL LARGE LIQUID BOWEL MOVEMENTS. PT CURRENTLY ON THE COMMODE. CALL LIGHT IN REACH.
--- NOTE | 2024-10-12 20:50 | NUR ---
Pt assessed and medication given. VSS. Pt continues to be on 3L NC, sating well. BS 216, insulin given per orders. Pt had large BM. Pt denies any complaints or concerns. Safety precautions maintained. Call light within reach. Will continue to monitor.
[2024-10-12] MEDS ORDERED: methylPREDNISolone SOD SUCC 40 MG/ML VIAL IV SCH (21:00)
--- NOTE | 2024-10-12 22:44 | NUR ---
TANNER DID HER EVENING BREATHING TREATMENTS W/O INCIDENCE. SHE WAS ABLE TO USE THE CORNET LEVEL 5 W/O DIFFICULTY OR INCREASED S/S OF RESPIRATORY DISTRESS. WHEN RT PLACED HER ON THE SAH RESMED CPAP+16, SHE REPLACED THE NASAL MASK WITH A MEDIUM FULL FACE MASK. TANNER STATED THAT SHE FELT LIKE THE FULL FACE MASK IS BETTER FOR HER.
[2024-10-13] VITALS (10 sets, daily range): BP systolic 125–150; BP diastolic 57–70
[2024-10-13 05:08] LABS: BASOPHILS 0.3 % (0-2); EOSINOPHILS 0.2 % (0-6); HEMATOCRIT 37.3 % (35.0-50.0); HEMOGLOBIN 12.5 g/dL (12.0-18.0); LYMPHOCYTES 8.9 % (24-44); MCHC 33.5 g/dl (30-36); MCV 86.4 fl (81-99); MONOCYTES 3.9 % (0-12); NEUTROPHILS 86.7 % (39-80); PLATELET COUNT 215 K/uL (140-440); RBC 4.32 M/ul (4.3-5.7); RDW 14.6 (10.5-15.0)
[2024-10-13 05:19] LABS: ANION GAP 8.6 (7-21); BUN/CREATININE RATIO 38.09 (6.0-28.6); CALCIUM 9.3 mg/dL (8.5-10.1); CREATININE, SERUM 1.05 mg/dL (0.55-1.02); MAGNESIUM 2.8 mg/dL (1.8-2.4); POTASSIUM 4.6 mmol/L (3.5-5.1)
--- NOTE | 2024-10-13 06:25 | NUR ---
PT RESTED WELL DURING THE SHIFT. VSS. PT WORE CPAP WHEN SLEEPING, O2 AT 3L NC WHEN AWAKE, SATING WELL. BS MANAGED WITH INSULIN PER ORDERS. SAFETY PRECAUTIONS MAINTAINED. CALL LIGHT WITHIN REACH. WILL CONTINUE TO MONITOR.
--- NOTE | 2024-10-13 07:30 | NUR ---
PT UP IN THE CHAIR AT HIS TIME FOR BKF, TOLERATING WELL. ATE BKF AND TOOK ALL MEDICATIONS.
--- NOTE | 2024-10-13 08:04 | NUR ---
PATIENT IN CHAIR AT THIS TIME. PARI MUTUEL TICKET SELLER CHARTED BLOOD SUAGR AND DID HOURLY ROUNDS. CALL LIGHT WITHIN REACH, NO FURTHER NEEDS.
--- NOTE | 2024-10-13 09:14 | NUR ---
PATIENT IN CHAIR. JUKEBOX CHECKER CHARTED VITALS AND I&O'S. CALL LIGHT WITHIN REACH, NO FURTHER NEEDS AT THIS TIME.
[2024-10-13] MEDS ORDERED: FUROSEMIDE 40 MG/4 ML VIAL IV ONE (12:00)
--- NOTE | 2024-10-13 13:02 | NUR ---
PT SITTING UP IN CHAIR EATTING LUNCH, WILL SHAVE PT FACE ONCE SHE IS DONE WITH DINNER.
--- NOTE | 2024-10-13 13:30 | NUR ---
PT BACK TO BED VOIDED AND WAS SHAVED BY BIT SHARPENER OPERATOR.
--- NOTE | 2024-10-13 14:02 | NUR ---
PT IN BED WATCHING TV AND VS COMPLETED BY ALMOND BLANCHER OPERATOR, NO C/O'S AT THIS TIME
[2024-10-13] MEDS ORDERED: FUROSEMIDE 40 MG/4 ML VIAL ONE (15:17)
--- NOTE | 2024-10-13 16:01 | NUR ---
PT UP TO THE SHOWER, WASHED AND HAIR CARE COMPLETED. BACK TO THE BED THEN BACK TO THE BATHROOM TO VOID. PT THEN WENT TO THE CHAIR. SHE TOLERATED THE SHOWER WELL. COMPLETE LINE CHANGED DONE.
--- NOTE | 2024-10-13 17:35 | NUR ---
PATIENT UP TO BED SIDE COMMODE AND BACK TO CHAIR. DINNER AT BEDSIDE. CALL LIGHT IN REACH.
--- NOTE | 2024-10-13 18:08 | NUR ---
PT REMAINS UP IN THE CHAIR EATTING DINNER AT THIS TIME.
--- NOTE | 2024-10-13 18:48 | NUR ---
PT UP TO BS COMMODE AND THEN BACK TO BED STAND BY ASSISTANCE AND THEN TWO PERSON ASSIT TO THE HEAD OF THE BED. PT C/O HEADACH TYLENOL 650 PO GIVEN
--- NOTE | 2024-10-13 19:25 | NUR ---
RECEIVED REPORT FROM DAYSUTFT RN. PATIENT SITTING UPRIGHT IN BED, WATCHING TV. REPORTS HEADACHE AT THIS TIME, BUT REPORTS IMPROVEMENT. DENIES ANY NEEDS AT THIS TIME, CALL LIGHT IN REACH.
--- NOTE | 2024-10-13 20:30 | NUR ---
ASSESSMENT COMPLETE, VS OBTAINED AND RECORDED. RT AT BEDSIDE COMPLETING BREATHING TX.
--- NOTE | 2024-10-13 20:50 | NUR ---
SCHEDULED MEDS ADMIN PER ORDER. PATIENT REFUSED SENNA AND MIRALAX. DENIES ANY FURTHER NEEDS AT THIS TIME. WATCHING TV AND PLAYING GAMES ON PHONE. REPORTS HEADACHE HAS IMPROVED TO 1/10 PAIN. CALL LIGHT IN REACH
--- NOTE | 2024-10-13 21:45 | NUR ---
PATIENT ASSISTED TO THE BR A SBA W/FWW. PATIENT ABLE TO VOID. PATIENT IS BACK IN BED RESTING. PATIENT PROVIDED FRESH ICE WATER AND A SNACK. PATIENT DENIES ANY FURTHER NEEDS. CALL LIGHT IN REACH.
--- NOTE | 2024-10-13 23:49 | NUR ---
PATIENT RESTING WITH EYES CLOSED, FELL ASLEEP WITHOUT CPAP ON. ASSISTED PATIENT WITH APPLICATION OF CPAP FOR SLEEP, PATIENT REPORTED THAT SHE NEEDED TO VOID, UP TO THE RESTROOM WITH USE OF 4WW AND MINIMAL SBA. PATIENT UNABLE TO WIPE ON HER OWN, RN PERFORMED PERICARE. BACK TO BED WITHOUT DIFFICULTY. CPAP APPLIED, DENIES OTHER NEEDS CALL LIGHT IN REACH.
[2024-10-14] VITALS (10 sets, daily range): BP systolic 107–131; BP diastolic 44–56
--- NOTE | 2024-10-14 02:24 | NUR ---
ROUNDED ON PATIENT, RESTING WITH EYES CLOSED, RESP EVEN AND UNLABORED. CPAP IN PLACE FOR SLEEPING. NO NEEDS IDENTIFIED, CALL LIGHT IN REACH
--- NOTE | 2024-10-14 04:02 | NUR ---
CALL LIGHT ANSWERED, PATIENT UP TO RESTROOM TO VOID USING 4WW AND MINIMAL SBA. BACK TO BED WITHOUT DIFFICULTY, NC IN PLACE AT 3L. PATIENT REPORTS THAT SHE PLANS TO STAY AWAKE AND DOES NOT WISH TO PUT HER CPAP BACK ON AT THIS TIME. FRESH WATER PROVIDED. DENIES OTHER NEEDS, CALL LIGHT IN REACH, BED ALARM ON.
[2024-10-14 05:19] LABS: BASOPHILS 0.8 % (0-2); EOSINOPHILS 0.3 % (0-6); HEMATOCRIT 38.8 % (35.0-50.0); HEMOGLOBIN 12.9 g/dL (12.0-18.0); LYMPHOCYTES 25.9 % (24-44); MCH 28.6 (27-36); MCHC 33.4 g/dl (30-36); MCV 85.6 fl (81-99); MONOCYTES 10.6 % (0-12); NEUTROPHILS 62.4 % (39-80); PLATELET COUNT 206 K/uL (140-440); RBC 4.53 M/ul (4.3-5.7); RDW 14.6 (10.5-15.0)
--- NOTE | 2024-10-14 05:30 | NUR ---
VS OBTAINED AND RECORDED. PATIENT RESTING IN BED COMFORTABLY, WATCHING TV. NC IN PLACE. NO FURTHER NEEDS, CALL LIGHT IN REACH
[2024-10-14 05:33] LABS: ANION GAP 4.1 (7-21); BUN/CREATININE RATIO 37.83 (6.0-28.6); CALCIUM 9.1 mg/dL (8.5-10.1); CREATININE, SERUM 1.11 mg/dL (0.55-1.02); MAGNESIUM 2.7 mg/dL (1.8-2.4); POTASSIUM 4.1 mmol/L (3.5-5.1)
--- NOTE | 2024-10-14 06:29 | NUR ---
CALL LIGHT ANSWERED. PATIENT UP TO RESTROOM TO VOID USING 4WW AND MINIMAL SBA. NC IN PLACE AT 3L. BACK TO BED WITHOUT DIFFICULTY, PATIENT DECLINES NEEDS, CALL LIGHT IN REACH.
--- NOTE | 2024-10-14 06:49 | NUR ---
CBG OBTAINED, 81. SCHEDULED INSULIN DOSE HELD AT THIS TIME. NOT GIVEN. PATIENT RESTING COMFORTABLY IN BED, WATCHING TV. DENIES NEEDS, DENIES PAIN. CALL LIGHT IN REACH.
--- NOTE | 2024-10-14 07:23 | NUR ---
MORNING REPORT RECIEVED FROM ROJAS BOYER. PT AWAKE AND ALERT LAYING IN BED. PT HAS NO CURRENT CONCERNS AT THIS TIME AND IS LAYING IN BED WITH CALL LIGHT IN REACH. PT HAS 3L NC IN PLACE WILL CHECK ON PT LATER.
[2024-10-14] MEDS ORDERED: methylPREDNISolone SOD SUCC 40 MG/ML VIAL IV SCH (09:00)
--- NOTE | 2024-10-14 09:19 | NUR ---
INTO SEE PATIENT. PATIENT STILL AGREEABLE SNF. AWAITING TO SEE IF [facility] HAS BEDS. SENT UPDATED CHART NOTES.
--- NOTE | 2024-10-14 09:20 | NUR ---
PT SITTING UP IN CHAIR AT THIS TIME, PT REPORTS DIZZINESS, AND FEELING LIGHT HEADED AT THIS TIME. PT VITALS WERE TAKEN AND BG AT THIS TIME. PT BP READ 112/46 WITH MAP 62. BG WAS WITHIN RANGE. PT BLOOD PRESSURE MEDICATION WAS HELD AND PT DIZZINESS RESOLVED SHORTY . PT HAS NO COCNERNS AT THIS TIME AND WAS RETURNED TO BED. PT HAS CALL LIGHT WITH IN REACH.
--- NOTE | 2024-10-14 09:50 | NUR ---
[facility] DOES NOT HAVE BEDS TILL LATER IN THE WEEK. PATIENT AGREEABLE TO POTENTIALLY D/C TO [facility] CHART FAXED OVER FOR THE TEAM TO REVIEW.
--- NOTE | 2024-10-14 10:25 | NUR ---
Today I find Pamela in bed and appears to be watching t.v. She does have oxygen on per UT at this time. No respiratory distress is noted and Pamela is orient to person, place and time. [facility] letter is explained, Pamela states that she is ready for discharge placement to a SNF. She is aware that she may go to the SNF in , and she is comfortable with that plan/choice for placement. Pamela feels that her care has been "very, very good" and she expresses gratitude to the care team for the care they have provided. Pamela denies discharge questions or concerns, she does sign the IMM letter and a signed copy of the leter is provided to her.
--- NOTE | 2024-10-14 10:38 | NUR ---
PT LAYING DOWN IN BED, PT REPORTS NO SLEEPING WELL LAST NIGHT AND IS GOING TO TRY AND GET SOME MORE SLEEP. PT HAS NO CONCERNS AT THIS TIME AND HAS CALL LIGHT IN REACH.
--- NOTE | 2024-10-14 11:12 | NUR ---
PT LAYING DOWN IN BED AT THIS TIME, PT GIVEN INSULIN AT THIS TIME (SEE EMAR). PT HAS NO CURRENT CONCERNS AT THIS TIME PT HAS FRESH WATER AND CALL LIGHT IN REACH AT THIS TIME.
--- NOTE | 2024-10-14 11:50 | NUR ---
PT SITTING UP IN BED, PT HAS RT IN ROOM AT THIS TIME. PT HAS NO CURRENT COCNCERNS AND HAS CALL LIGHT IN REACH. PT IS WAITING FOR LUNCH AT THIS TIME.
--- NOTE | 2024-10-14 11:54 | NUR ---
MD EDWARDS MADE AWARE OF PT INCREASED BRADYCARDIA TRENDING OVER THE PAST FEW DAYS. MD EDWARDS HAD NO COMMENTS AT THIS TIME AND IS IN TO SEE PT AT THIS TIME.
--- NOTE | 2024-10-14 12:26 | NUR ---
RT CALLED DUE TO ORDER FOR EKG ORDERED BY MD EDWARDS. SAL, RT IS AWARE OF EKG ORDER AT THIS TIME.
--- NOTE | 2024-10-14 13:19 | NUR ---
PT UP OUT OF BED AND AMBULATED TO RESTROOM WITH 1PA FWW WITH ELECTRONIC TYPESETTING MACHINE OPERATOR. PT THEN RETURNED TO BED AND INSTRUCTED TO USE CALL LIGHT IF SHE NEEDS ANYTHING ELSE. CALL LIGHT IN REACH
--- NOTE | 2024-10-14 13:34 | NUR ---
PT REQUESTED SOMETHING FOR HEADACHE 8-10 PT GIVEN PRN TYLONOL (SEE EMAR). PT REPORTS SHE HAS HAD HEADACHES OFF AND ON THE PAST FEW DAYS, AND STATES " SHE HAS A FAMILY HISTORY OF HEADACHES". PT HAS NO OTHER CONCERNS AT THIS TIME AND STATES SHE DOES NOT HAVE ANY CHEST PAIN OR SOB AT THIS TIME. PT IS IN CHAIR WITH CALL LIGHT IN REACH.
--- NOTE | 2024-10-14 14:06 | NUR ---
PT CURRENTLY SITTING UP IN CHAIR AT THIS TIME, PT HAS AMBULATED TO THE RESTROOM MULTIPLE TIMES AND HAS TOLERATED WELL. PT STATES THEIR HEADACHE HAS RESOLVED AFTER RECIEVING TYLONOL EARLIER (SEE EMAR). PT HAS NO CURRENT CONCERNS AT CALL LIGHT IS IN REACH.
--- NOTE | 2024-10-14 14:44 | NUR ---
PT LAYING IN BED AWAKE AND ALERT, PT REPORTS NO PAIN OR SOB AT THIS TIME. PT HAS 3L O2 NC IN PLACE AT THIS TIME AND HAS CALL LIGHT IN REACH. PT HAS NO OTHER CONCERNS AT THIS TIME.
--- NOTE | 2024-10-14 15:14 | NUR ---
FAXED CHART TO [facility]
--- NOTE | 2024-10-14 16:02 | NUR ---
WENT I CAME BACK FOR LUNCH PATIENT WAS IN THE BATHROOM. SHE WAS NOT HOOKED UP TO HER OXYGEN. WALKED BACK TO HER BED. DID HER VITALS HER OXYGEN WAS AT 91 ON ROOM AIR. ASKED THE NURSE IF SHE WAS NOW ON ROOM AIR AND HE SAID NO. SO WE PUT HER BACK ON 3 LITERS OF OXYGEN. HER OXYGEN WAS 93.
--- NOTE | 2024-10-14 16:08 | NUR ---
PATIENT DID HER AM CARE THIS MORNING WHILE SITTING UP IN HER CHAIR. BED LINENS CHANGED.
--- NOTE | 2024-10-14 16:49 | NUR ---
PT LAYING DOWN IN BED, PT AWAKE AND ALERT, PT REPORTS NO PAIN AT THIS TIME AND DENIES ANY CURRENT NEEDS. PT HAS CALL LIGHT IN REACH AND INSTRUCTED TO CALL IF SHE HAS ANY NEEDS.
--- NOTE | 2024-10-14 17:44 | NUR ---
PT SITTING UP IN BED EATING DINNER AT THIS TIME. PT HAS NO PAIN OR SOB TO REPORT. PT HAS CALL LIGHT IN REACH.
--- NOTE | 2024-10-14 18:14 | NUR ---
PT ASSISTED 1PA FWW FROM RESTROOM BACK INTO BED, PT HAS 3L NC IN PLACE AND HAS NO CURRENT COCNERNS AT THIS TIME. PT HAS CALL LIGHT IN REACH.
--- NOTE | 2024-10-14 19:13 | EKG ---
[facility] [address] [facility] [place] [address] Signed Sinus bradycardia Nonspecific ST and T wave abnormality Abnormal ECG When compared with ECG of 10-OCT-2024 09:20, Vent. rate has decreased BY 34 BPM Confirmed by Angela Thayer MD ([id number]) on 10/14/2024 7:13:24 PM Electronically Signed By: ANGELA THAYER MD 10/14/241912 PATIENT NAME: TANNER GUILLEN Electrocardiogram DATE OF : 51 PHYSICIAN: ANGELA THAYER MD REPORT #: [id number] REPORT IS CONFIDENTIAL AND NOT TO BE RELEASED WITHOUT AUTHORIZATION
--- NOTE | 2024-10-14 19:23 | NUR ---
REPORT RECEIVED FROM DAYSHIFT RN. PATIENT RESTING WITH EYES CLOSED, RESPIRATIONS EVEN AND UNLABORED. NC IN PLACE AT 3L. NO NEEDS IDENITIFIED, CALL LIGHT IN REACH
[2024-10-14] MEDS ORDERED: BUDESONIDE 0.5 MG/2 ML VIAL INH SCH (20:00)
--- NOTE | 2024-10-14 21:15 | NUR ---
PATIENT RESTING COMFORTABLY IN BED, WATCHING TV. VS OBTAINED AND RECORDED, PATIENT ASSESSMENT COMPLETE. SCHEDULED MEDS GIVEN PER ORDER. PATIENT ASSISTED UP TO RESTROOM WITH MINIMAL SBA AND USE OF 4WW. PATIENT REPORTS 2/10 HEADACHE, BUT STATES THAT "SHE CAN BARELY FEEL IT". DENIES CHEST PAIN, DENIES DIZZINESS, NAUSEA.
--- NOTE | 2024-10-14 22:06 | NUR ---
CALL LIGHT ANSWERED, PATIENT REQUESTED ASSISTANCE WITH REACHING HER PHONE CHARGING CORD. SHE STATES SHE THOUGHT SHE HAD A SECOND CORD, ONLY ONE CHARGING CORD NOTED AT THIS TIME. SHE PLANS TO CONTACT HER DAUGHTER AND SEE IF SHE TOOK THE OTHER ONE. NO FURTHER NEEDS, CALL LIGHT IN REACH.
[2024-10-15] VITALS (10 sets, daily range): BP systolic 120–156; BP diastolic 53–75
--- NOTE | 2024-10-15 00:37 | NUR ---
PATIENT RESTING WITH EYES CLOSED, WOKE TO ASSIST WITH APPLICATION OF CPAP FOR SLEEPING. PATIENT ROLLED OVER TO GO BACK TO SLEEP. NO FURTHER NEEDS IDENTIFIED, CALL LIGHT IN REACH
--- NOTE | 2024-10-15 00:50 | NUR ---
CALL LIGHT ANSWERED, PATIENT IP TO RESTROOM WITH MINIMAL SBA AND USE OF 4WW. BACK TO BED WITHOUT DIFFICULTY, CPAP IN PLACE FOR SLEEP. NO FURTHER NEEDS. CALL LIGHT IN REACH. WATER REFILLED PER REQUEST.
--- NOTE | 2024-10-15 03:11 | NUR ---
ROUNDED ON PATIENT, RESTING WITH EYES CLOSED, RESPIRATIONS EVEN AND UNLABORED. CPAP IN PLACE. NO NEEDS IDENITIFIED, CALL LIGHT IN REACH
--- NOTE | 2024-10-15 04:20 | NUR ---
PATIENT RESTING WITH EYES CLOSED, CPAP IN PLACE FOR SLEEP. RESP EVEN AND UNLABORED. NO NEEDS IDENTIFIED, CALL LIGHT IN REACH
--- NOTE | 2024-10-15 05:19 | NUR ---
PATIENT UP TO RESTROOM, AMBULATED BACK WITHOUT DIFFICULTY WITH WALKER. VS OBTAINED AND RECORDED. NO FURTHER NEEDS IDENTIFIED, CALL LIGHT IN REACH. NC IN PLACE, 3L.
[2024-10-15 05:47] LABS: HEMOGLOBIN 13.2 g/dL (12.0-18.0); MCH 28.9 (27-36); MCHC 33.9 g/dl (30-36); MCV 85.3 fl (81-99); PLATELET COUNT 197 K/uL (140-440); RBC 4.57 M/ul (4.3-5.7); RDW 14.5 (10.5-15.0)
[2024-10-15 05:57] LABS: CALCIUM 8.9 mg/dL (8.5-10.1); MAGNESIUM 2.4 mg/dL (1.8-2.4)
[2024-10-15 06:06] LABS: EOSINOPHILS, MANUAL DIFF 1; LYMPHOCYTES, MANUAL DIFF 33; MONOCYTES, MANUAL DIFF 4; NEUTROPHILS, MANUAL DIFF 62
--- NOTE | 2024-10-15 06:33 | NUR ---
PATIENT ASSISTED TO RESTROOM, BACK TO BED WITHOUT DIFFICULTY. NC IN PLACE AT 3L. LUNG SOUNDS ASSESSED, CBG OBTAINED AND RECORDED. DENIES ANY NEEDS, CALL LIGHT IN REACH
--- NOTE | 2024-10-15 07:27 | NUR ---
MORNING REPORT RECIEVED FROM ROJAS ISAACS. PT CURRENTLY SITTING UP IN BED AWAKE AND ALERT. PT HAS NO CURRENT CONCERNS FOR ME AT THIS TIME WITH CALL LIGHT IN REACH. ROJAS BOYER DID MENTION THAT THE PT IS MISSING A PHONE MANAGER RESEARCH THAT THE PT THINKS THEY BROUGHT WITH THEM. THIS RN WILL LOOK FOR THE PT BELONGINGS THROUGHOUT THE DAY.
[2024-10-15] MEDS ORDERED: predniSONE 20 MG TAB PO SCH (09:00)
--- NOTE | 2024-10-15 09:56 | NUR ---
PT SITTING UP IN CHAIR IN ROOM WITH LEGS ELEVATED AT THIS TIME. PT HAS NO COMPLAINTS OF SOB OR CHEST PAIN AT THIS TIME. PT HR HAS INCREASED SINCE YESTERDAY AND HAS BEEN IN THE 60S WHEN SPOT CHECKED WITH O2 AT 94%. PT HAS NO CONCERNS AT THIS TIME CALL LIGHT IN REACH.
--- NOTE | 2024-10-15 10:58 | NUR ---
PT NOT AVAILABLE FOR VISIT. PROVIDED PRAYER.
--- NOTE | 2024-10-15 11:30 | NUR ---
Spoke with Pamela. She is unsure if she needs to go to a SNF. We discussed the notes from PT show, pt needs further PT. She is aware her chart was sent to [facility] and [facility] yesterday. She will work with PT and then decide if she feels she needs to go.-
--- NOTE | 2024-10-15 11:31 | NUR ---
PT STATED IN ROOM " SHE FELT SHAKEY, AND LIGHT HEADED". PRN GLUCOSE CHECK PERFORMED AND BG WAS 199, 25 UNITS OF INSULIN WAS GIVEN (SEE EMAR). PT HAS NO MORE CONCERNS AND FELT BETTER AFTER DRINKING COLD WATER. PT IS IN CHAIR WITH CALL LIGHT IN REACH.
--- NOTE | 2024-10-15 13:00 | NUR ---
Updated Anna, PT to pts concerns. She will work with pt later today.
--- NOTE | 2024-10-15 13:26 | NUR ---
PT SITTING UP IN BED AT THIS TIME, PT NEEDED TO USE THE RESTROOM AND AMBULATED TO RESTROOM ANS BACK INTO BED WITH 3L O2 NC. PT HAS NO OTHER COCNERNS AT THIS TIME CALL LIGHT IN REACH.
--- NOTE | 2024-10-15 14:26 | NUR ---
PT CURRENTLY LAYING IN BED, PT IS TALKING ON THE PHONE BUT EXPRESSED SHE HAS NO NEEDS AT THIS TIME CALL LIGHT IN REACH AT THIS TIME.
--- NOTE | 2024-10-15 14:49 | NUR ---
HOURLY ROUNDING. PATIENT HAS BEEN HAVING BM'S, PATIENT REPORTED HAVING SENSITIVE SKIN ON HER BOTTOM, BARRIER CREAM HAS BEEN APPLIED. RIN BEEN ASSISTING PATIENT WITH WIPING. NURSE HAS BEEN NOTIED OF SENSITIVE BOTTOM.
--- NOTE | 2024-10-15 15:30 | NUR ---
Update from Payton. she feels pt cont. to need SNF and pt now in agreement. Updated, [facility] called and confirmed acceptance of this pt. They would like her there by 11:00 tomorrow.
--- NOTE | 2024-10-15 15:53 | NUR ---
PT CURRENTLY SITTING IN CHAIR, PT HAS 3L O2 NC IN PLACE AND NO CURRENT CONCERNS AT THIS TIME, PT CALL LIGHT IN REACH.
--- NOTE | 2024-10-15 16:10 | NUR ---
PATIENT GIVEN TYLENOL FOR 8/10 HEADACHE, REPORTS SHAKINESS. PATIENT IS HAVE NEB TX. 25UNITS OF INSULIN TO RLQ.
[2024-10-15] MEDS ORDERED: PREDNISONE20 MG PO (17:11)
--- NOTE | 2024-10-15 17:40 | NUR ---
Called and spoke with her daughter, Fidelia. She is aware pt needs to go to [facility] tomorrow. Fidelia states she does not have funds to transport patient to [facility]. Pt does have [facility]. I will leave a message asking for transport tomorrow and fu in the AM.
--- NOTE | 2024-10-15 18:24 | NUR ---
PT SITTING UP IN BED AT THIS TIME. PT COMPLAINED OF HER RIGHT ARM HURTING, NO SWELLING IS NOTED, SKIN IS NOT RED/HOT, AND STRONG PULSES WERE PALPATED, PT HAS ALL FEELING IN EXTREMITY. PT CHECKED UPON LATER AND PAIN RESOLVED. PT HAS NO CONCERNS AT THIS TIME CALL LIGHT IN REACH.
--- NOTE | 2024-10-15 18:29 | NUR ---
PT USED CALL LIGHT AND REQUESTED MORE ICE WATER. PT HAS NO FURTHER CONCERNS AT THIS TIME CALL LIGHT IN REACH.
--- NOTE | 2024-10-15 19:17 | NUR ---
REPORT RECEIVED FROM DAYSHIFT RN. PATIENT ON BACK IN BED, SEMI-FOWLERS POSITION WATCHING TV. RESPIRATIONS EVEN AND UNLABORED. NO NEEDS, CALL LIGHT IN REACH.
--- NOTE | 2024-10-15 19:34 | NUR ---
PATIENT RESTING WITH EYES CLOSED, RESPIRATIONS EVEN AND UNLABORED. WOKE TO RN ENTERING ROOM, DENIES ANY NEEDS AT THIS TIME, CALL LIGHT IN REACH
--- NOTE | 2024-10-15 20:30 | NUR ---
ANSWERED BATHROOM LIGHT. PATIENT ASSISTED FATMATA CARE STATED CAN'T WIPE MYSELF. BARRIER CREAM APPLIED PER PATIENT'S REQUEST. PATIENT IS BACK IN BED. NO FURTHER NEEDS AT THIS TIME.
--- NOTE | 2024-10-15 21:31 | NUR ---
VS OBTAINED AND RECORDED. ASSESSMENT COMPLETED. SCHEDULED MEDS ADMINISTERED PER ORDER. FRESH WATER PROVIDED. PATIENT HAS NC IN PLACE AT 3L. PATIENT DECLINES ANY NEEDS, SITTING IN BED, WATCHING TV. REPSIRATIONS EVEN AND UNLABORED. CALL LIGHT IN REACH
--- NOTE | 2024-10-15 22:49 | NUR ---
PATIENT LAYING AWAKE, WATCHING TV. REPORTS SHE HAD JUST BEEN TAKEN TO THE BATHROOM BY IDENTITY ACCESS MANAGEMENT ARCHITECT. DENIES ANY NEEDS, REPORTS SOME DISCOMFORT WITH A RASH NOTED TO BE IN HER R ARM PIT. REPORTS NO OTHER CONCERNS OR NEEDS, CALL LIGHT IN REACH
--- NOTE | 2024-10-16 02:02 | NUR ---
PATIENT RESTING WITH EYES CLOSED, RESPIRATIONS EVEN AND UNLABORED. NO NEEDS IDENTIFIED, CALL LIGHT IN REACH
--- NOTE | 2024-10-16 03:01 | NUR ---
CALL LIGHT ANSWERED, PATIENT UP TO RESTROOM WITH SBA ND USE OF 4WW. AFTER VOID, BARRIER CREAM CLOTH USED TO CLEAN BUTTOCKS, PATIENT WIPED AND FATMATA AREA CLEANED WITH PAMPERS WIPES. BARRIER CREAM APPLIED TO BUTTOCKS. BEFORE GOING BACK TO BED, PATIENT NEEDED TO TAKE BREAK IN BATHROOM AND SIT DOWN ON SHOWER CHAIR FOR APPROXIMATELY 1 MINUTE. THEN AMBULATED WELL BACK TO BED WITHOUT DIFFICULTY AND USE OF WALKER. CPAP APPLIED FOR SLEEP, CALL LIGHT IN REACH.
--- NOTE | 2024-10-16 04:26 | NUR ---
CALL LIGHT ANSWERED, PATIENT UP TO RESTROOM, VOIDED, BACK TO BED WITHOUT DIFFICULTY AND USE OF 4WW AND MINIMAL SBA. NC AT 3L WORN TO BATHROOM, CPAP PLACED ON PATIENT IN BED FOR SLEEPING. PATIENT DENIES FURTHER NEEDS, BED ALARM ON, CALL LIGHT IN REACH
[2024-10-16 05:35] VITALS: BP 133/52
[2024-10-16 05:38] VITALS: BP 133/52
--- NOTE | 2024-10-16 05:40 | NUR ---
CALL LIGHT ANSWERED BY SECOND HELPER, PATIENT AMBULATED TO RESTROOM WITH WALKER, BACK TO BED WITHOUT DIFFICULTY. VS OBTAINED AND RECORDED. LUNG SOUNDS AUSCULTATED, NO CHANGE. PATIENT ON NC 3L CHRONIC. PATIENT DENIES NEEDS, CALL LIGHT IN REACH
[2024-10-16 06:03] LABS: BASOPHILS 0.5 % (0-2); EOSINOPHILS 0.5 % (0-6); HEMATOCRIT 40.3 % (35.0-50.0); HEMOGLOBIN 13.6 g/dL (12.0-18.0); LYMPHOCYTES 20.5 % (24-44); MCH 28.9 (27-36); MCHC 33.7 g/dl (30-36); MCV 85.9 fl (81-99); MONOCYTES 8.4 % (0-12); NEUTROPHILS 70.1 % (39-80); PLATELET COUNT 196 K/uL (140-440); RBC 4.69 M/ul (4.3-5.7); RDW 14.6 (10.5-15.0)
[2024-10-16 06:12] LABS: ANION GAP 4.2 (7-21); BUN/CREATININE RATIO 34.34 (6.0-28.6); CALCIUM 9.1 mg/dL (8.5-10.1); CREATININE, SERUM 0.99 mg/dL (0.55-1.02); MAGNESIUM 2.3 mg/dL (1.8-2.4); POTASSIUM 4.2 mmol/L (3.5-5.1)
--- NOTE | 2024-10-16 08:02 | NUR ---
Called [facility] to schedule transport. Held for 35 minutes. I was able to schedule transport for 2 pm today. I called and confirmed with [facility] if this works as they had wanted the pt there at 10:30. They are willing to do this time. UPdated Pamela. She states she has her walker with her and has a portable concentrator with her. Updated charge nurse pt will dc at 2 pm and will need to be at the front of the hospital at 2 pm. Orders faxed to Sue at [facility] last night. When I spoke with Sue she confirmed no change needed to the orders.
--- NOTE | 2024-10-16 08:14 | NUR ---
RT FINISHING UP IN ROOM. ROJAS KARIMI IN ROOM TO GIVE MEDICATIONS. BLOOD SUGAR WAS CHECKED. NO OTHER CARES WERE REQUESTED. CALL LIGHT AND PERSONAL ITEMS ARE WITHIN REACH.
[2024-10-16 09:35] VITALS: BP 132/59
[2024-10-16 10:30] VITALS: BP 132/59
--- NOTE | 2024-10-16 11:21 | NUR ---
Patient awake, alert and oriented x3, no acute distress. Patient is on 3L oxygen per nc, respiration non labored, sp02 96%. Patient denies sob at rest. Patient denies needs, call light within reach.
--- NOTE | 2024-10-16 13:03 | NUR ---
Nurse report called to ROJAS Lawrence at [facility].
[2024-10-16 13:23] VITALS: BP 132/69
== END 2024-10-16 13:50 | DRG 192 ==
LOC: ED 09:01 → MS 16:08
PROVIDERS: Emergency Medicine; ADMIT Student in an Organized Health Care Education/Training Program; ATTEND Student in an Organized Health Care Education/Training Program
PROC: 5A09357 Assistance with Respiratory Ventilation, Less than 24 Consecutive Hours, Continuous Positive Airway Pressure (ICD-10-PCS; principal; 2024-10-10)
DX: J44.1 Chronic obstructive pulmonary disease with (acute) exacerbation (principal); G47.33 Obstructive sleep apnea (adult) (pediatric); E11.9 Type 2 diabetes mellitus without complications; E66.9 Obesity, unspecified; F41.9 Anxiety disorder, unspecified; Z66 Do not resuscitate; F32.A Depression, unspecified; G89.29 Other chronic pain; I10 Essential (primary) hypertension; E78.00 Pure hypercholesterolemia, unspecified; G25.81 Restless legs syndrome; I16.0 Hypertensive urgency; K59.00 Constipation, unspecified; R00.1 Bradycardia, unspecified; F39 Unspecified mood [affective] disorder; K21.9 Gastro-esophageal reflux disease without esophagitis; F19.90 Other psychoactive substance use, unspecified, uncomplicated; N32.81 Overactive bladder; Z90.710 Acquired absence of both cervix and uterus; Z99.81 Dependence on supplemental oxygen; Z98.890 Other specified postprocedural states; Z86.73 Personal history of transient ischemic attack (TIA), and cerebral infarction without residual deficits; Z88.2 Allergy status to sulfonamides; Z91.018 Allergy to other foods; Z79.84 Long term (current) use of oral hypoglycemic drugs; Z79.899 Other long term (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; Z79.51 Long term (current) use of inhaled steroids; Z79.4 Long term (current) use of insulin; Z87.891 Personal history of nicotine dependence; Z87.09 Personal history of other diseases of the respiratory system
CPT/HCPCS: 36415; 71045; 74018; 80048; 80053; 81001; 82803; 83735; 83880; 84484; 85025; 93005; 93010; 94640; 94660; 94667; 94668; 94760; 94762; 94799; 97162; 97166; 97530; 97535; A9270; J1650; J1815; J1938; J2405; J2919; J7030; J7512

== ENCOUNTER 2024-11-07 10:14 | Inpatient (IN) | payer MEDICARE, OTHER ==
[~2024-11-07] VITALS: Ht 152.4 cm; Wt 126.5 kg
[2024-11-07] VITALS (9 sets, daily range): BP systolic 105–132; BP diastolic 51–79
[~2024-11-07 10:14] MED LIST changes: +AMITRIPTYLINE H50 MG PO; +BENZTROPINE MESY1 MG PO; +BRINTELLIX20 MG PO; +CLEARLAX119 GM PO; +FUROSEMIDE40 MG PO; +GABAPENTIN300 MG PO; +LOPERAMIDE2 M1 PO; +MELOXICAM7.5 MG PO; +ROSUVASTATIN CA20 MG PO; +TYLENOL EXTRA500 MG PO
[2024-11-07 10:44] LABS: BASOPHILS 0.3 % (0-2); HEMATOCRIT 35.7 % (35.0-50.0); HEMOGLOBIN 11.9 g/dL (12.0-18.0); LYMPHOCYTES 12.1 % (24-44); MCH 29.2 (27-36); MCHC 33.4 g/dl (30-36); MCV 87.4 fl (81-99); MONOCYTES 8.6 % (0-12); PLATELET COUNT 131 K/uL (140-440); RBC 4.08 M/ul (4.3-5.7); RDW 15.1 (10.5-15.0)
[2024-11-07] MEDS ORDERED: ALBUTEROL/IPRATROPIUM 3 ML NEB INH ONE (10:45)
[2024-11-07] MEDS ORDERED: ondansetron HCL 4 MG/2 ML VIAL IV ONE (11:00)
[2024-11-07] MEDS ORDERED: SODIUM CHLORIDE 0.9% 1,000 ML IV PRN (11:00)
[2024-11-07 11:10] LABS: ALBUMIN 2.9 g/dL (3.4-5.0); ALBUMIN/GLOBULIN RATIO 0.69 (1.1-2.4); ANION GAP 10.6 (7-21); BILIRUBIN, TOTAL 0.7 mg/dL (0.2-1.0); BUN/CREATININE RATIO 22.22 (6.0-28.6); CALCIUM 8.7 mg/dL (8.5-10.1); CREATININE, SERUM 1.08 mg/dL (0.55-1.02); POTASSIUM 4.6 mmol/L (3.5-5.1); PROTEIN, TOTAL 7.1 g/dL (6.4-8.2)
[2024-11-07] MEDS ORDERED: dilTIAZem HCL 25 MG/5 ML VIAL IV SCH (11:30)
[2024-11-07] MEDS ORDERED: ASPIRIN 81 MG CHEW PO ONE (11:30)
--- NOTE | 2024-11-07 12:50 | EKG ---
[facility] [address] [facility] [place] [address] Signed Sinus tachycardia Nonspecific ST and T wave abnormality Abnormal ECG When compared with ECG of 14-OCT-2024 12:32, Vent. rate has increased BY 108 BPM Nonspecific T wave abnormality now evident in Inferior leads Nonspecific T wave abnormality, worse in Lateral leads Confirmed by Nilay Fitzpatrick DO ([id number]) on 11/07/2024 12:50:16 PM Electronically Signed By: NILAY FITZPATRICK DO 11/07/24 1250 PATIENT NAME: TANNER GUILLEN Electrocardiogram DATE OF : 51 PHYSICIAN: NILAY FITZPATRICK DO REPORT #: [id number] REPORT IS CONFIDENTIAL AND NOT TO BE RELEASED WITHOUT AUTHORIZATION
--- NOTE | 2024-11-07 12:50 | EKG ---
[facility] [address] [facility] [place], [place] [address] Signed Atrial flutter with variable AV block Nonspecific ST and T wave abnormality Abnormal ECG When compared with ECG of 07-NOV-2024 10:30, (Unconfirmed) Atrial flutter has replaced Sinus rhythm Non-specific change in ST segment in Inferior leads ST now depressed in Anterior leads Confirmed by Nilay Fitzpatrick DO ([id number]) on 11/07/2024 12:50:38 PM Electronically Signed By: NILAY FITZPATRICK DO 11/07/24 1250 PATIENT NAME: TANNER GUILLEN Electrocardiogram DATE OF : 51 PHYSICIAN: NILAY FITZPATRICK DO REPORT #: [id number] REPORT IS CONFIDENTIAL AND NOT TO BE RELEASED WITHOUT AUTHORIZATION
[2024-11-07] MEDS ORDERED: DILTIAZEM HCl/D5W 125 ML IV ONE (13:00)
[2024-11-07] MEDS ORDERED: APIXABAN 5 MG TAB PO SCH (15:45)
[2024-11-07] MEDS ORDERED: FUROSEMIDE 40 MG/4 ML VIAL IV SCH (15:45)
[2024-11-07] MEDS ORDERED: methylPREDNISolone SOD SUCC 40 MG/ML VIAL IV SCH (16:00)
--- NOTE | 2024-11-07 16:10 | NUR ---
PT TO ROOM 127 VIA [place], PT STOOD UP AND AMB TO BED WITH SOB. O2 4LNC - CHRONIC 3L. PT HR HR 82 HR IS IN A FLUTTER. CALL LIGHT IN REACH ALERT AND ORIENTED. DENIES GLASSES, OR DENTURES. HAS HER CELL PHONE. DENIES PAIN. SKIN WNL PT USES BSC.
[2024-11-07] MEDS ORDERED: TRAZODONE HCL 100 MG TAB PO PRN (16:15)
[2024-11-07] MEDS ORDERED: ALBUTEROL SULFATE 0.083% 3 ML VIAL INH PRN (16:30)
[2024-11-07] MEDS ORDERED: ondansetron HCL 4 MG/2 ML VIAL IV PRN (16:30)
[2024-11-07] MEDS ORDERED: ACETAMINOPHEN 325 MG TAB PO PRN (16:30)
[2024-11-07] MEDS ORDERED: INSULIN LISPRO 100 UNIT/ML ML SUB-Q SCH (17:00)
--- NOTE | 2024-11-07 17:12 | NUR ---
MED REC COMPLETE
--- NOTE | 2024-11-07 17:20 | NUR ---
PATIENT IN BED AT THIS TIME. THIS ORIENTATION AND MOBILITY SPECIALIST CHARTED BLOODSUGAR AND NOTIFIED RN ELISEO. CALL LIGHT WITHIN REACH, NO FURTHER NEEDS AT THIS TIME.
--- NOTE | 2024-11-07 18:05 | NUR ---
here, status update on pt, pt denies needs resting watching tv with call light in reach. dilt drswati at 10.
--- NOTE | 2024-11-07 18:39 | NUR ---
PATIENT IN BED AT THIS TIME. THIS PLUG CUTTER ASSISTED PATIENT TO BEDSIDE COMMODE AND THEN BACK TO BED. PLUG CUTTER CAHRTED VOIDINGS FROM PATIENT. CALL LIGHT WITHIN REACH, NO FURTHER NEEDS AT THIS TIME.
--- NOTE | 2024-11-07 19:15 | NUR ---
PATIENT IN BED AT THIS TIME. THIS DIAMOND GRINDER ASSISTED PATIENT TO BEDSIDE COMMODE AND THEN BACK TO BED. CALL LIGHT WITHIN REACH, NO FURTHER NEEDS AT THIS TIME.
--- NOTE | 2024-11-07 19:51 | NUR ---
PATIENT UP TO THE BS TO VOID. PATIENT TOLERATED WELL. VOIDED TO BS AND RETURNED TO BED. TOLERATING 4L NC WHILE UP; BACK ON BIPAP. CALL LIGHT IN REACH. IV SITES WNL; DILT DRIP CONTINUES AT 10 MG/HR. HR 80-90; A FLUTTER.
[2024-11-07] MEDS ORDERED: ALBUTEROL/IPRATROPIUM 3 ML NEB INH SCH (20:00)
[2024-11-07] MEDS ORDERED: BUDESONIDE 0.5 MG/2 ML VIAL INH SCH (20:00)
--- NOTE | 2024-11-07 20:50 | NUR ---
DISCUSSED PLAN FOR PO MEDS FOR RATE CONTROL WITH MD. PATIENT HAS BEEN TOLERATING 10 MG/HR DILTIAZEM. ORDERS RECEIVED FOR PO TRANSITION TOLERATED. VERIFIED VIA REPEAT BACK. SEE ORDERS.
[2024-11-07] MEDS ORDERED: BENZTROPINE MESYLATE 1 MG TAB PO SCH (21:00)
[2024-11-07] MEDS ORDERED: GABAPENTIN 300 MG CAP PO SCH (21:00)
[2024-11-07] MEDS ORDERED: PANTOPRAZOLE SODIUM 40 MG TABEC PO SCH (21:00)
--- NOTE | 2024-11-07 21:06 | NUR ---
TANNER IS ON A V60 BIPAP 05/31, R: 12, I-TIME: 0.9, RISE: 3, FIO2: 40%, TOLERATING WELL.
[2024-11-07] MEDS ORDERED: dilTIAZem HCL 30 MG TAB PO SCH (21:15)
--- NOTE | 2024-11-07 23:22 | NUR ---
PATIENT APPEARS TO BE SLEEPING SOUNDLY. HR 75-80; A FLUTTER. DILTIAZEM PLACED IN STAND BY AT THIS TIME.
[2024-11-08] VITALS (12 sets, daily range): BP systolic 92–123; BP diastolic 50–77
--- NOTE | 2024-11-08 02:32 | NUR ---
PATIENT PROVIDED MEDS PER SCHEDULE. PATIENT WOKE EASILY. OFF BIPAP FOR MEDS AND SIPS OF WATER. PATIENT DENIED ANY CONCERNS. TOLERATING BIPAP WELL. VS STABLE. HR 70-80'S AT REST.
--- NOTE | 2024-11-08 03:21 | NUR ---
TANNER REMAINS ON THE V60 BIPAP WITH THE FOLLOWING SETTINGS: IPAP: 14, EPAP: 6, RR: 12, I-TIME: 1.0, RISE: 3, FIO2: 35%.
--- NOTE | 2024-11-08 04:30 | NUR ---
PATIENT AWAKE NOW. REQUEST TO REMOVE BIPAP. PATIENT PLACED ON 4L NC. DENIED FEELING SOB AT THIS TIME. AAOX4. VS STABLE. HR 80-90; A FLUTTER. CALL LIGHT IN REACH.
[2024-11-08 05:26] LABS: BASOPHILS 0.1 % (0-2); HEMATOCRIT 31.6 % (35.0-50.0); HEMOGLOBIN 10.6 g/dL (12.0-18.0); LYMPHOCYTES 5.1 % (24-44); MCH 29.3 (27-36); MCHC 33.6 g/dl (30-36); MONOCYTES 1.9 % (0-12); NEUTROPHILS 92.9 % (39-80); PLATELET COUNT 148 K/uL (140-440); RBC 3.63 M/ul (4.3-5.7); RDW 15.1 (10.5-15.0)
[2024-11-08 05:43] LABS: ANION GAP 14.1 (7-21); BUN/CREATININE RATIO 20.47 (6.0-28.6); CALCIUM 8.2 mg/dL (8.5-10.1); CREATININE, SERUM 1.27 mg/dL (0.55-1.02); MAGNESIUM 1.8 mg/dL (1.8-2.4); POTASSIUM 5.1 mmol/L (3.5-5.1)
--- NOTE | 2024-11-08 06:30 | NUR ---
MENU PROVIDED TO PATIENT FOR HER TO ORDER BREAKFAST. PATIENT IN GOOD SPIRITS AND DENIED OTHER NEEDS OR CONCERNS. SCHEDULED MEDS PROVIDED PER ORDER.
[2024-11-08] MEDS ORDERED: INSULIN LISPRO 100 UNIT/ML ML SUB-Q SCH ×3 (08:00→12:00)
[2024-11-08] MEDS ORDERED: ARIPiprazole 5 MG TAB PO SCH (09:00)
[2024-11-08] MEDS ORDERED: DEXTROSE 50% 50 ML SYR IV PRN ×2 (09:00)
[2024-11-08] MEDS ORDERED: IBLOOD GLUCOSE TEST STRIP 1 EA TEST XX PRN (09:00)
[2024-11-08] MEDS ORDERED: DEXTROSE 5% 1,000 ML IV PRN (09:00)
[2024-11-08] MEDS ORDERED: GLUCAGON,HUMAN RECOMBINANT 1 MG/ML VIAL SUB-Q PRN (09:00)
[2024-11-08] MEDS ORDERED: POLYETHYLENE GLYCOL 3350 1 PACKET PO SCH (09:00)
[2024-11-08] MEDS ORDERED: AMITRIPTYLINE HCL 25 MG TAB PO SCH (09:00)
[2024-11-08] MEDS ORDERED: INSULIN GLARGINE-YFGN 100 UNIT/ML ML SUB-Q ONE (09:45)
[2024-11-08] MEDS ORDERED: INSULIN LISPRO 100 UNIT/ML ML SUB-Q ONE (09:45)
--- NOTE | 2024-11-08 10:09 | NUR ---
UR CLINICAL REVIEW: 2MN VERSALUS, MEETS INPT FOR COPD/CHF EXACERBATION AND AFLUTTER DILT DRIP OVERNIGHT, INCREASE OXYGEN NEED FROM BASELINE, IV STEROIDS, IV DIURETIC MEDICARE INPT 11/07/24 @ 1540 ORDER MATCHES REG NO AUTH REQUIRED PER MEDICARE RULES DC PLAN PENDING FURTHER EVAL. SNF VS HOME
--- NOTE | 2024-11-08 11:30 | NUR ---
In with pt in response to call light. Pt states she thinks her purewick is leaking. She also requested to use the BSC. 1PA as pt pivot transfers to BSC. Pt voided, then asked to sit up in chair after devora care provided. Pt up to chair, devora area cleansed with purewick wipes, and new purewick applied at this time. Primary RN in room for transfer.
[2024-11-08] MEDS ORDERED: PHARMACY RENAL DOSE ADJUSTMENT 1 DOSE MISC PO SCH (12:00)
[2024-11-08] MEDS ORDERED: IBLOOD GLUCOSE TEST STRIP 1 EA TEST XX SCH (12:00)
[2024-11-08] MEDS ORDERED: dilTIAZem HCL 30 MG TAB PO SCH (12:15)
--- NOTE | 2024-11-08 12:46 | NUR ---
In with pt to set up meal tray. Pt on BiPAP, which was placed on standby, and pt was placed on 3lpm via NC while she eats lunch. As soon as I left the room after setting her meal tray up, she used her call light and stated that she feels like she is having trouble swallowing. I assisted the pt by cutting up her food into small pieces as she does not have any teeth in. Updated primary RN when he returned from break.
--- NOTE | 2024-11-08 12:47 | NUR ---
INTO SEE PATIENT. PERSONAL HEALTH INFORMATIONR REVIEWED. PATIENT LIVES WITH DAUGHTER IN A HOME. RAMP TO GET INTO HOME. PATIENT DOES NOT DRIVE. WALKER OUTSIDE OF THE HOME AND A CANE INSIDE. PATIENT USES OXYGEN AND A BIPAP THROUGH [employer]. DENIES ANY DIFFCULTY PAYING UTLITIES OR OBTAINING FOOD. PATIENT WAS PERVIOUSLY AT [facility]. SHE HAS USED 15 SNF DAYS.
[2024-11-08] MEDS ORDERED: SODIUM CHLORIDE 0.9% 500 ML IV SCH (15:45)
--- NOTE | 2024-11-08 16:27 | NUR ---
PT CONDITION REVIEWED WITH MD. PT STATES SHE IS NOW HALLUCINATING WHICH SHE REPORTS IS NOT NEW FOR HER. DENIES THOUGHTS OF SELF HARM. RESPIRATORY STATUS HAS REMAINED PRIMARILY BIPAP DEPENDENT THROUGHOUT THE DAY AND ORDERS RECEIVED FOR STAT CHEST CT WITH CONTRAST AND 500 ML NS FLUID BOLUS. PATIENT AMBULATED VIA WALKER FROM RECLINER TO BED WITH MINIMAL ASSISTANCE AND NO DISTRESS NOTED. PATIENT TRANSFERRED OUT OF THE ROOM VIA BED WITH CCM AND PULSE OX. JUST BEFORE EXITING THE UNIT NOTIFICATION OF CANCELED CT NOTED. PATIENT WAS RETURNED TO HER ROOM WITH NO COMPLICATIONS NOTED. CALL [facility] WITHIN REACH. NO DISTRESS NOTED. VERBALIZES UNDERSTANDING TO CALL FOR ASSISTANCE NEEDED.
[2024-11-08] MEDS ORDERED: ALBUTEROL/IPRATROPIUM 3 ML NEB ONE (19:39)
--- NOTE | 2024-11-08 19:55 | NUR ---
TANNER REMAINS ON THE V60 BIPAP WITH THE FOLLOWING SETTINGS: IPAP: 16, EPAP: 8, RR: 12, I-TIME: 1.0, RISE: 3, FIO2: 35%.
[2024-11-08] MEDS ORDERED: ALBUTEROL/IPRATROPIUM 3 ML NEB INH SCH (20:00)
--- NOTE | 2024-11-08 20:30 | NUR ---
ASSESSMENT AND VITAL SIGNS DONE. BG CHECKED WITH A RESULTS OF 365. SS INSULIN ADMINISTERED AND LONG ACTING INSULIN WAS ADMINISTERED. pt A&O X4. SCHEDULED MEDS ADMINISTERED. NEW PUREWICK PLACED. WATER REFRESHED. SNACK PROVIDED. pt DENIES ANY OTHER NEEDS AT THIS TIME. CALL LIGHT WITHIN REACH. pt ON 4L NC SATTING AT 89%.
[2024-11-08] MEDS ORDERED: INSULIN GLARGINE-YFGN 100 UNIT/ML ML SUB-Q SCH (21:00)
--- NOTE | 2024-11-08 21:51 | NUR ---
IN RM TO ADMINISTERED pt MEDS. pt PLACED ON BIPAP FOR THE NIGHT. pt REPOSITIONED ON HER RIGHT SIDE. PUREWICK IN PLACE. pt DENIES ANY OTHER NEEDS AT THIS TIME. pt FACE WASHED WITH WARM WASHCLOTH. CALL LIGHT WITHIN REACH.
--- NOTE | 2024-11-08 23:17 | NUR ---
TANNER REMAINS ON THE V60 BIPAP WITH THE FOLLOWING SETTINGS: IPAP: 14, EPAP: 8, RR: 16, I-TIME: 1.0, RISE: 3, FIO2: 35%.
[2024-11-09] VITALS (14 sets, daily range): BP systolic 93–135; BP diastolic 53–80
--- NOTE | 2024-11-09 02:21 | NUR ---
PATIENT PROVIDED SCHEDULED MEDS PER ORDER. PATIENT WAKES EASILY. BIPAP REMOVED FOR MEDS AND REPOSITIONING. PATIENT DESAT TO LOW 80% ON ROOM AIR. PLACED BACK ON BIPAP AND Sp02 >88% ON 35% Fi02. PATIENT DENIED OTHER NEEDS. CALL LIGHT IN REACH.
--- NOTE | 2024-11-09 03:29 | NUR ---
TANNER REMAINS ON THE V60 BIPAP WITH THE FOLLOWING SETTINGS: IPAP: 14, EPAP: 8, RR: 16, I-TIME: 1.0, RISE: 3, FIP2: 355.
--- NOTE | 2024-11-09 04:00 | NUR ---
PATIENT REMAINS ON BIPAP; VS STABLE. HR 80-110; A FLUTTER. CALL LIGHT IN REACH.
--- NOTE | 2024-11-09 05:15 | NUR ---
LAB IN FOR MORNING DRAW. PATIENT REMOVED BIPAP. PLACED ON 4L NC. PATIENT REPORTS FEELING WELL AND ASKED ABOUT HER HEART RATE. REVIEWED HR TREND WITH PATIENT. PATIENT DENIED OTHER NEEDS. CALL LIGHT IN REACH.
[2024-11-09 05:25] LABS: BASOPHILS 0.2 % (0-2); HEMATOCRIT 31.2 % (35.0-50.0); HEMOGLOBIN 10.5 g/dL (12.0-18.0); LYMPHOCYTES 6.7 % (24-44); MCH 28.9 (27-36); MCHC 33.6 g/dl (30-36); MCV 86.1 fl (81-99); MONOCYTES 5.2 % (0-12); NEUTROPHILS 87.9 % (39-80); PLATELET COUNT 170 K/uL (140-440); RBC 3.63 M/ul (4.3-5.7); RDW 14.5 (10.5-15.0)
[2024-11-09 05:34] LABS: ANION GAP 8.6 (7-21); CALCIUM 8.6 mg/dL (8.5-10.1); CREATININE, SERUM 1.3 mg/dL (0.55-1.02); MAGNESIUM 2.2 mg/dL (1.8-2.4); POTASSIUM 4.6 mmol/L (3.5-5.1)
--- NOTE | 2024-11-09 06:11 | NUR ---
PATIENT ASSISTED TO REPOSITION. PATIENT REMAINS ON NC AT 4L NC. Sp02 87-90%. RR 25. PATIENT DENIED FEELING SOB. PATIENT DENIED OTHER NEEDS. CALL LIGHT IN REACH.
--- NOTE | 2024-11-09 07:00 | NUR ---
PATIENT IS LYING IN BED WITH EYES OPEN AND RESPIRATIONS ARE EVEN AND UNLABORED. PATIENT IS ON 5L NC AND IS WATCHING TV. REPORT RECEIVED FROM DATA CONVERSION OPERATOR RN IRON. PATIENT REPORTED NO NEEDS AT THIS TIME. CALL LIGHT AND PERSONAL BELONGINGS ARE WITHIN REACH.
--- NOTE | 2024-11-09 08:30 | NUR ---
0800 AND 0900 MEDICATIONS ADMINISTERED PER THE EMAR. PATIENT IS LYING IN BED WITH HOB ELEVATED. GITA, RT JUST FINISHED WITH ADMINISTERING A BREATHING TREATMENT. FULL ASSESSMENT COMPLETE AND DOCUMENTED IN THE CHART. PATIENT WITH NO COMPLAINTS OF PAIN OR NAUSEA/VOMITING. PUREWICK IN PLACE. PATIENT IS ON 5 L NC NOW. PATIENT WITH NO COMPLAINTS OF SOB. LUNG SOUNDS ARE CLEAR IN THE UPPER LOBES AND DIMINISHED IN THE BASES BILATERALLY. PATIENT WITH AN EXPIRATORY WHEEZE THROUGHOUT. PATIENT IS ON A 60 GRAM CARB DIET. BOWEL TONES ARE ACTIVE THROUGHOUT. IV SITE FLUSHED WITH 10 ML NORMAL SALINE AND IS SALINE LOCKED. IV DRESSING IS CLEAN, DRY, AND INTACT. SKIN WITH SCATTERED TATTOOS NOTED. ONE SCAB ON EACH KNEE NOTED, PATIENT REPORTS DUE TO GETTING KNEE INJECTIONS AT THE KNEE DOCTOR. CARDIAC WITH NORMAL S1 AND S2 ON AUSCULTATION. PATIENT IS ON THE ROLLING UP MACHINE OPERATOR AND IN NORMAL SINUS RHYTHM. RADIAL AND PEDAL PULSES ARE STRONG BILATERALLY. PATIENT WITH GENERALIZED EDEMA IN THE BLE. CAPILLARY REFILL IN THE UPPER AND LOWER EXTREMITIES IS LESS THAN 3 SECONDS. SENSATION INTACT BUT PATIENT REPORTS HAVING NUMBNESS AND TINGLING IN THE UPPER AND LOWER EXTREMITIES. PATIENT IS SET UP FOR BREAKFAST AT THIS TIME. PATIENT STATED NO FURTHER NEEDS AT THIS TIME. CALL LIGHT AND PERSONAL BELONGINGS ARE WITHIN REACH.
[2024-11-09] MEDS ORDERED: CEFTRIAXONE SODIUM 1 GM in SODIUM CHLORIDE 0.9% 100 ML IV SCH (09:30)
[2024-11-09] MEDS ORDERED: AZITHROMYCIN 250 MG TAB PO SCH (09:30)
[2024-11-09] MEDS ORDERED: SODIUM CHLORIDE 0.9% 500 ML IV SCH (09:30)
--- NOTE | 2024-11-09 09:43 | NUR ---
PATIENT IS LYING IN BED WITH HOB ELEVATED. PATIENT WITH EYES OPEN AND RESPIRATIONS ARE EVEN AND UNLABORED. PATIENT IS ON 5 L NC. PATIENT IS LOOKING ON HER PHONE WITH THE TV ON. CALL LIGHT AND PERSONAL BELONGINGS ARE WITHIN REACH.
--- NOTE | 2024-11-09 10:14 | NUR ---
PUREWICK REMOVED AT THIS TIME. PATIENT IS ON 5 L NC. PATIENT IS NOW WORKING WITH PHYSICAL THERAPY.
--- NOTE | 2024-11-09 11:01 | NUR ---
PATIENT RETURNED TO THE FLOOR AT THIS TIME AFTER GETTING CHEST X-RAY. BED LINENS CHANGED AT THIS TIME. PATIENT IS SITTING ON THE COMMODE. NIGEL CRUZ IS IN THE ROOM AND ASSISTING THE PATIENT. PATIENT REMAINS ON 5 L NC.
--- NOTE | 2024-11-09 12:05 | NUR ---
PATIENT TAKEN OFF BIPAP MACHINE AT THIS TIME. PATIENT IS NOW ON 5 L NC. PATIENT IS SITTING IN THE CHAIR WITH BILATERAL LOWER EXTREMITIES ELEVATED. LUNCH TRAY IS SET UP IN FRONT OF THE PATIENT AT THIS TIME. FULL ASSESSMENT COMPLETE AND DOCUMENTED IN THE CHART. PATIENT IS ALERT AND ORIENTED TIMES FOUR. LAST BM WAS 11/08/24. PATIENT WITH NO PUREWICK IN AT THIS TIME. PATIENT IS A SBA WITH A FWW TO THE BEDSIDE COMMODE. PATIENT WITH NO COMPLAINTS OF PAIN, NAUSEA, OR VOMITING. PATIENT IS ON 5 L NC AT THIS TIME. LUNG SOUNDS ARE CLEAR IN THE UPPER LOBES BILATERALLY AND IN THE LEFT LOWER LOBE. THE RIGHT LOWER LOBE IS DIMINISHED. PATIENT IS ON A 60 GRAM CARB DIET. BOWEL TONES ARE ACTIVE IN ALL FOUR QUADRANTS. IV WITH ROCEPHIN INFUSING AT THIS TIME. IV DRESSING IS CLEAN, DRY, AND INTACT. SKIN WITH SCATTERED TATTOOS AND 1 SCAB ON EACH KNEE. HEART TONES ARE IRREGULAR ON AUSCULTATION. RADIAL AND PEDAL PULSES ARE STRONG BILATERALLY. BLE WITH GENERALIZED EDEMA NOTED. NO CHANGE FROM THIS MORNING. CAPILLARY REFILL IN THE UPPER AND LOWER EXTREMITIES IS LESS THAN 3 SECONDS BILATERALLY. SENSATION INTACT. PATIENT HAS NUMBNESS AND TINGLING IN THE HANDS AND FEET AT BASELINE. PATIENT HAS PHYSICAL THERAPY ORDERED. GENERALIZED WEAKNESS NOTED. PATIENT STATED NO FURTHER NEEDS AT THIS TIME. CALL LIGHT AND PERSONAL BELONGINGS ARE WITHIN REACH.
--- NOTE | 2024-11-09 12:37 | NUR ---
PT ASKED WHEN I CLEAN FLOOR TO LOOK FOR HEARING AID. PT SITTING IN BED EATING LUNCH.
[2024-11-09] MEDS ORDERED: TRAZODONE HCL 50 MG TAB PO PRN (13:15)
--- NOTE | 2024-11-09 13:40 | NUR ---
1400 AND 1500 MEDICATIONS ADMINISTERED PER THE EMAR. VITAL SIGNS TAKEN AND DOCUMENTED IN THE CHART. FRESH CUP OF ICE WATER PROVIDED. PATIENT IS SITTING IN THE CHAIR AND BLE RAISED AT THIS TIME. PATIENT IS ON 4 L NC AT THIS TIME. PATIENT STATED NO FURTHER NEEDS AT THIS TIME. CALL LIGHT AND PERSONAL BELONGINGS ARE WITHIN REACH.
[2024-11-09] MEDS ORDERED: dilTIAZem HCL 60 MG TAB PO SCH (14:00)
--- NOTE | 2024-11-09 14:06 | NUR ---
PATIENT IS SITTING IN THE CHAIR WITH BILATERAL LOWER EXTREMITIES ELEVATED. PATIENT IS ON 4 L NC. COTTAGE CHEESE AND YOGURT TAKEN IN TO THE PATIENT AT THIS TIME. PATIENT STATED NO FURTHER NEEDS AT THIS TIME. CALL LIGHT AND PERSONAL BELONGINGS ARE WITHIN REACH.
--- NOTE | 2024-11-09 14:55 | NUR ---
PATIENT PRESSED THE CALL LIGHT DUE TO BEING DONE ON THE COMMODE. PATIENT WIPED AND ASSISTED TO TRANSFER BACK TO THE CHAIR. PATIENT VOID 200 ML YELLOW URINE. PATIENT IS SITTING IN THE CHAIR AND FULL ASSESSMENT COMPLETE. PATIENT IS ALERT AND ORIENTED TIMES FOUR. PATIENT LAST BM WAS 11/08/24. PATIENT WITH NO PUREWICK. PATIENT REPORT HAVING NECK PAIN EARLIER TODAY, BUT HAS NO PAIN AT THIS TIME. PATIENT IS NOT REQUESTING ANYTHING FOR PAIN. PATIENT WITH NO COMPLAINTS OF NAUSEA OR VOMITING. PATIENT IS ON 4 L NC AT THIS TIME BUT IS CHRONICALLY ON 3 L NC AT HOME. LUNG SOUNDS ARE CLEAR IN THE LEFT LUNG AND THE RIGHT UPPER LOBES. THE RIGHT LOWER LUNG IS DIMINISHED ON AUSCULTATION. PATIENT IS ON A 60 GRAM CARB DIET. BOWEL TONES ARE ACTIVE IN ALL FOUR QUADRANTS. FRESH CUP OF ICE WATER PROVIDED. IV WITH NS AT 125 ML/HR INFUSING AT THIS TIME. IV DRESSING IS CLEAN, DRY, AND INTACT. SKIN WITH SCATTERED TATTOOS AND A SCAB ON EACH KNEE NOTED. HEART TONES ARE IRREGULAR ON AUSCULTATION. RADIAL AND PEDAL PULSES ARE STRONG BILATERALLY. BLE GENERALIZED EDEMA NOTED. CAPILLARY REFILL IN THE UPPER AND LOWER EXTREMITIES IS LESS THAN 3 SECONDS. SENSATION INTACT WITH N/T NOTED IN THE HANDS AND FEET. PATIENT REPORTS SHE HAS N/T AT BASELINE. GENERALIZED WEAKNESS NOTED. BILATERAL LOWER EXTREMITIES ELEVATED AT THIS TIME. PATIENT STATED NO FURTHER NEEDS AT THIS TIME. CALL LIGHT AND PERSONAL BELONGINGS ARE WITHIN REACH.
--- NOTE | 2024-11-09 15:17 | NUR ---
PATIENT IS SITTING IN THE CHAIR WITH BILATERAL LOWER EXTREMITIES ELEVATED. PATIENT IS ON 4 L NC. PATIENT WITH EYES OPEN AND RESPIRATIONS ARE EVEN AND UNLABORED. PATIENT IS ON HER PHONE AND THE TV IS ON. CALL LIGHT AND PERSONAL BELONGINGS ARE WITHIN REACH.
--- NOTE | 2024-11-09 16:07 | NUR ---
PATIENT IS SITTING IN THE CHAIR WITH BILATERAL LOWER EXTREMITIES ELEVATED. PATIENT IS ON 4 L NC WITH NO COMPLAINTS OF SOB. PATIENT PROVIDED THE ROOM PHONE PER PATIENT REQUEST. PATIENT IS ON HER PHONE WITH THE TV ON. PATIENT STATED NO FURTHER NEEDS AT THIS TIME. CALL LIGHT AND PERSONAL BELONGINGS ARE WITHIN REACH.
--- NOTE | 2024-11-09 17:08 | NUR ---
PATIENT 1700 MEDICATIONS ADMINISTERED PER THE EMAR. IV NS 500 ML BAG COMPLETE. IV SITE FLUSHED WITH 10 ML NORMAL SALINE AND IS SALINE LOCKED. IV DRESSING IS CLEAN, DRY, AND INTACT. IV PUMP CLEARED OF INTAKE FLUID AND DOCUMENTED IN THE CHART. PATIENT POSITIONED IN THE CHAIR FOR DINNER. DINNER TRAY SET UP IN FRONT OF THE PATIENT. PATIENT REMAINS ON 4 L NC AT THIS TIME WITH NO COMPLAINTS OF SOB. PATIENT STATED NO FURTHER NEEDS AT THIS TIME. CALL LIGHT AND PERSONAL BELONGINGS ARE WITHIN REACH.
--- NOTE | 2024-11-09 18:07 | NUR ---
PATIENT IS SITTING IN THE CHAIR WITH BILATERAL LOWER EXTREMITIES ELEVATED. PATIENT IS ON 4 L NC WITH EVEN AND UNLABORED RESPIRATIONS. PATIENT IS ON HER PHONE WITH THE TV ON. CALL LIGHT AND PERSONAL BELONGINGS ARE WITHIN REACH.
--- NOTE | 2024-11-09 19:30 | NUR ---
SHIFT REPORT RECEIVED. PATIENT RESTING IN RECLINER WATCHING TV. 4L NC IN PLACE. CALL LIGHT IN REACH.
--- NOTE | 2024-11-09 19:38 | NUR ---
CURRENTLY, TANNER IS SITTING UPRIGHT IN THE CHAIR ON A 4L NC WATCHING BASEBALL ON TV. SHE IS ABLE TO USE THE CORNET LEVEL 5 W/O DIFFICULTY OR INCREASED S/S OF RESPIRATORY DISTRESS.
--- NOTE | 2024-11-09 21:12 | NUR ---
PATIENT PROVIDED SCHEDULED MEDS. PATIENT AAOX4. TOLERATING 4L NC. PATIENT REPORTS PAIN IN HER NECK AND RIGHT SHOULDER. WARM PACK APPLIED. PATIENT DENIED GI UPSET. VS STABLE. IV SITE WNL. PATIENT HAVING SNACK AND FRESH ICE WATER. CALL LIGHT IN REACH.
--- NOTE | 2024-11-09 21:56 | NUR ---
PATIENT PROVIDED MEDS PER ORDER. PATIENT READY FOR BED. PLACED ON BIPAP. LIGHTS DIMMED. CALL LIGHT IN REACH.
--- NOTE | 2024-11-09 23:43 | NUR ---
TANNER IS ON THE V60 BIPAP WITH THE FOLLOWING SETTINGS: IPAP: 12, EPAP: 6, RR: 16, I-TIME: 0.9, RISE: 3, FIO2: 30%. RT ADJUSTED MASK SEVERAL TIMES TO MINIMIZE LEAK ON V60.
[2024-11-10] VITALS (8 sets, daily range): BP systolic 112–129; BP diastolic 48–68
--- NOTE | 2024-11-10 01:49 | NUR ---
PT CALLS TO USE BSC, PROVIDED. PT TOLERATED FAIR ON 6L NC. PT BACK TO BED. ICE WATER PROVIDED. CPAP BACK ON PT. CALL LIGHT IN REACH.
--- NOTE | 2024-11-10 02:45 | NUR ---
PATIENT PROVIDED MEDS PER ORDER. PATIENT RESTING ON BIPAP; WAKES EASILY. DENIED ANY NEEDS. CALL LIGHT IN REACH.
--- NOTE | 2024-11-10 05:00 | NUR ---
LAB IN FOR MORNING DRAW. PATIENT REMOVED BIPAP. 4L NC IN PLACE. PATIENT DENIED ANY NEEDS.
[2024-11-10 05:15] LABS: BASOPHILS 0.2 % (0-2); EOSINOPHILS 0.1 % (0-6); HEMATOCRIT 31.8 % (35.0-50.0); HEMOGLOBIN 10.6 g/dL (12.0-18.0); LYMPHOCYTES 6.9 % (24-44); MCH 28.6 (27-36); MCHC 33.2 g/dl (30-36); MONOCYTES 4.8 % (0-12); PLATELET COUNT 185 K/uL (140-440); RDW 15.2 (10.5-15.0)
[2024-11-10 05:28] LABS: ANION GAP 8.9 (7-21); BUN/CREATININE RATIO 38.79 (6.0-28.6); CREATININE, SERUM 1.16 mg/dL (0.55-1.02); MAGNESIUM 2.4 mg/dL (1.8-2.4); POTASSIUM 4.9 mmol/L (3.5-5.1)
--- NOTE | 2024-11-10 06:00 | NUR ---
PATIENT UP TO BSC TO VOID THEN TO RECLINER. PATIENT SLIGHTLY UNSTEADY BUT TOLERATES ACTIVITY WELL. HR 70-80 AT REST; 100-120 WITH ACTIVITY. PATIENT IN RECLINER WITH CALL LIGHT IN REACH. VS STABLE. SCHEDULED MEDS PROVIDED.
--- NOTE | 2024-11-10 06:45 | NUR ---
PATIENT CALLED FOR A NEB TREATMENT. REPORTS FEELING SOB. Sp02 90% ON 4L NC; RR 24. PATIENT SWITCHED TO BIPAP. RT CALLED FOR NEB TREATMENT.
--- NOTE | 2024-11-10 07:45 | NUR ---
REPORT RECIVED FROM XIMENA DIXON RN. PATIENT RESTING IN CHAIR ON BIPAP AT THIS TIME. RT WILL BE IN TO DO PATIENTS MORNING NEB. PATIENT CALLS APPROPRIATELY. CALL LIGHT IN REACH.
[2024-11-10] MEDS ORDERED: ARFORMOTEROL TARTRATE 15 MCG/2 ML VIAL INH SCH ×2 (08:00)
--- NOTE | 2024-11-10 08:30 | NUR ---
PATIENT ASSESSMENT COMPELTED. PATIENT SITTING IN CHAIR. PATIENT DENIES SOB AT THIS TIME. PATIENT ON 5L NC WITH SPO2 90%. PATIENT BREATH SOUNDS CLEAR IN UPPER AND DIMINISHED IN LOWER. PATIENT REPORTS SOME FEELINGS OF CONSTIPATION. WILL UPDATE MD. MAY NEED SUPPOSITORY. PATIENT ALREADY GETTING MIRALAX. PATIENT WILL GO DOWN FOR CT THIS AM. PATIENTS DAUGHTER UPDATED PER REQUEST.
--- NOTE | 2024-11-10 09:00 | NUR ---
PATIENT WENT DOWN FOR CT SCAN WITH RESPITE COORDINATOR IN CHAIR ON 6L OXYGEN FOR ACTIVITY. PATIENT TOELRATED WELL AND BACK IN ROOM. PATIENT ON MONITOR AND VITALS STABLE.
[2024-11-10] MEDS ORDERED: dilTIAZem HCL 300 MG CAPCR PO SCH (10:14)
[2024-11-10] MEDS ORDERED: bisacodyL 10 MG SUPP PR ONE (10:15)
--- NOTE | 2024-11-10 10:30 | NUR ---
PATIENT UP WITH PHYSICAL THERAPY AND INTO THE HALLWAY.
--- NOTE | 2024-11-10 12:00 | NUR ---
PATIENT UP TO [facility] TO HAVE A BM. EXTRA SMALL RETURN NOTED. PATIENT BACK TO THE CHAIR AND WAITING FOR LUNCH. PATIENT HAS CALL LIGHT IN REACH. PATIENT SI TOELRATING ACTIVITY TO AND FROM [facility] WELL. PATIENT DENIES SOB AT THIS TIME. ENCOURAGED USE OF AQAPELLA.
--- NOTE | 2024-11-10 13:06 | NUR ---
PATIENT INSULIN GIVEN. PATIENT SITTING UP IN CHAIRT EATING LUNCH. FRESH WATER PROVIDED. PATIENT DENIES ANY OTHER NEEDS A TTHIS ITME. PATIENT ON 5L NC. WILL DECREASE PATIENT TOLERATES.
--- NOTE | 2024-11-10 16:05 | NUR ---
REPORT RECEIVED FROM ROJAS BARAJAS IN CRITICAL CARE.
--- NOTE | 2024-11-10 16:30 | NUR ---
REPORT GIVEN TO JOSE ANGEL XIE ON [facility]. RN HERE TO TAKE PATIENT TO ROOM 114. TRANSFER ORDERS PALCED YESTERDAY, MD UPDATED OF PLAN OF CARE TRANSFER AND CHECKED IN WITH MD OF IMAGING RESULTS. PATIENT UP TO [facility] AND BACK TO CHAIR AND TRANSFERED TO [facility] IN CHAIR. ALL BELONGIGNS SENT WITH PATIENT.
--- NOTE | 2024-11-10 16:30 | NUR ---
PATIENT TRANSFERRED TO THE MEDICAL SURGICAL UNIT VIA CHAIR AT THIS TIME. PATIENT IS IN THE ROOM AND SITTING IN THE CHAIR WITH BILATERAL LOWER EXTREMITIES ELEVATED. PATIENT WITH NO COMPLAINTS OF PAIN AT THIS TIME BUT DOES REPORT SOME RIGHT SHOULDER PAIN WITH MOVEMENT. PATIENT IS ALERT AND ORIENTED. LAST BM WAS 11/10/24. PATIENT IS A SBA WITH A FWW TO THE BEDSIDE COMMODE. PATIENT WITH IRREGULAR HEART TONES ON AUSCULTATION. PATIENT IS ON TELEMETRY NUMBER 7 AND IN ATRIAL FIBRILLATION. PATIENT IS ON A 60 GRAM CARB DIET AND BOWEL TONES ARE ACTIVE IN ALL FOUR QUADRANTS. PATIENT IS ON 4 L NC WITH NO COMPLAINTS OF PAIN. LUNG SOUNDS ARE CLEAR IN THE UPPER LOBES AND DIMINISHED IN THE BASES BILATERALLY. IV SITE FLUSHED WITH 10 ML NORMAL SALINE AND IS SALINE LOCKED. IV DRESSING IS CLEAN, DRY, AND INTACT. GITA RT IS IN THE ROOM AND BROUGHT IN THE BIPAP AND IS SETTING UP THE CPOX AT BEDSIDE. PATIENT STATED NO FURTHER NEEDS AT THIS TIME. CALL LIGHT AND PERSONAL BELONGINGS ARE WITHIN REACH.
[2024-11-10] MEDS ORDERED: FUROSEMIDE 100 MG/10 ML VIAL IV ONE (17:15)
--- NOTE | 2024-11-10 17:54 | NUR ---
THIS RN CLARIFIED ONE TIME LASIX DOSE AT THIS TIME. STATED TO PLEASE GIVE THAT DOSE. WITH NO FURHTER ORDERS AT THIS TIME. CALL ENDED.
--- NOTE | 2024-11-10 19:01 | NUR ---
PT USED CALL LIGHT TO SAY SHE NEEDED TO USE THE COMMODE THE SALES REPRESENTATIVE ADDING MACHINES USED THE PT'S WALKER TO HELP HER MOVE FROM CHAIR TO COMMODE, BUT THE PT URINATED ON THE WAY TO THE COMMODE PT WAS CLEANED, CHANGED, WITH NEW ROBE, NEW SOCKS, AND FLOOR WAS CLEANED PT RETURNED TO CHAIR, CALL LIGHT ON LAP, FRESH ICE WATER AND CELL PHONE IN HAND. PT NEEDED NOTHING ELSE AT THIS TIME.
--- NOTE | 2024-11-10 19:44 | NUR ---
REPORT RECEIVED FROM DAY SHIFT RN. PT RESTING IN BED. FAMILY PRESENT AT BEDSIDE. BED ALARM ON. SAFETY PRECAUTIONS MAINTAINED. CALL LIGHT WITHIN REACH. WILL CONTINUE TO MONITOR.
--- NOTE | 2024-11-10 19:47 | NUR ---
TANNER IS ON A 3L NC LAYING ON HER RIGHT SIDE IN BED WATCHING TV. SHE IS ABLE TO USE THE CORNET LEVEL 5 WITHOUT DIFFICULTY OR INCREASED S/S OF RESPIRATORY DISTRESS. THE CURRENT V60 BIPAP SETTINGS ARE FOLLOWS: IPAP: 12, EPAP: 6, RR: 16, I-TIME: 0.9, RISE: 3, FIO2: 30%.
--- NOTE | 2024-11-10 20:45 | NUR ---
PT ASSESSED AND MEDICATIONS GIVEN. BS 193, SLIDING SCALE INSULIN AND LANTUS GIVEN PER ORDERS. VSS. PT CONTINUES TO BE ON 3L NC, SATING WELL. PT UP X1 TO BSC. TELE READING A-FLUTTER. SAFETY PRECAUTIONS MAINTAINED. CALL LIGHT WITHIN REACH. WILL CONTINUE TO MONITOR.
[2024-11-10] MEDS ORDERED: APIXABAN 5 MG TAB PO SCH (21:00)
[2024-11-10] MEDS ORDERED: methylPREDNISolone SOD SUCC 40 MG/ML VIAL IV SCH (21:00)
[2024-11-10] MEDS ORDERED: INSULIN GLARGINE-YFGN 100 UNIT/ML ML SUB-Q SCH (21:00)
[2024-11-11 01:03] VITALS: BP 133/62
--- NOTE | 2024-11-11 01:10 | NUR ---
sba patient up to the bedside commode. patient is incontinent of urine. already peeing upon getting out of bed. brief soaked with urine changed. devora wipe assisted because patient stated she can not wipe. patient is back in bed. ice water refreshed. call light in reach.
[2024-11-11 05:44] LABS: BASOPHILS 0.1 % (0-2); HEMATOCRIT 33.5 % (35.0-50.0); HEMOGLOBIN 11.4 g/dL (12.0-18.0); LYMPHOCYTES 9.4 % (24-44); MCH 29.2 (27-36); MCV 85.7 fl (81-99); MONOCYTES 6.6 % (0-12); NEUTROPHILS 83.9 % (39-80); PLATELET COUNT 203 K/uL (140-440); RDW 14.8 (10.5-15.0)
[2024-11-11 05:45] VITALS: BP 103/49
[2024-11-11 05:47] VITALS: BP 103/49
[2024-11-11 05:56] LABS: ANION GAP 8.4 (7-21); BUN/CREATININE RATIO 38.93 (6.0-28.6); CALCIUM 9.3 mg/dL (8.5-10.1); CREATININE, SERUM 1.13 mg/dL (0.55-1.02); MAGNESIUM 2.4 mg/dL (1.8-2.4); POTASSIUM 4.4 mmol/L (3.5-5.1)
--- NOTE | 2024-11-11 06:15 | NUR ---
PT RESTED WELL DURING THE SHIFT. VSS. PT ON 3L NC, WHEN SLEEPING PT IS ON BIPAP, SATING WELL. TELE READING A-FLUTTER. PT UP X1 TO BSC, GOOS OUTPUT NOTED. SAFETY PRECAUTIONS MAINTIANED. CALL LIGHT WITHIN REACH. WILL CONTINUE TO MONITOR.
--- NOTE | 2024-11-11 07:39 | NUR ---
PT SITTING UP IN THE CHAIR AT TIME OF SHIFT REPORT BREATHING EVEN AND UNLABORED. FRESH H20 TO CHAIRSIDE PT DENIES OTHER NEEDS. CALL LIGHT IN LAP.
[2024-11-11 09:01] VITALS: BP 114/71
--- NOTE | 2024-11-11 09:12 | NUR ---
PT EATS 100% OF MORNING MEAL CONTINUES UP IN THE CHAIR WATCHING TV JUST BACK FROM THE RESTROOM. PT DENIES DISCOMFORTS OR NEEDS AT THIS TIME
[2024-11-11 10:06] VITALS: BP 114/71
--- NOTE | 2024-11-11 10:56 | NUR ---
PT CONTINUES UP IN THE CHAIR DENIES NEEDS AT THIS TIME
[2024-11-11] MEDS ORDERED: ELIQUIS5 MG PO ×2 (11:58→12:02)
[2024-11-11] MEDS ORDERED: DILTIAZEM ER300 MG PO (12:04)
[2024-11-11] MEDS ORDERED: LASIX40 MG PO (12:06)
[2024-11-11] MEDS ORDERED: LACTULOSE 20 GM/30 ML CUP PO ONE (12:15)
--- NOTE | 2024-11-11 13:09 | NUR ---
PATIENT DISCHARGING TODAY. NO CM NEEDS. IMM LETTER SIGNED.
[2024-11-11] MEDS ORDERED: INSULIN GLARGINE-YFGN 100 UNIT/ML ML SUB-Q SCH (21:00)
== END 2024-11-11 13:30 | disposition home or self-care (01) | DRG 175 ==
LOC: ED 10:14 → CCU 15:42 → MS 11-10 16:25
PROVIDERS: Emergency Medicine; ADMIT Student in an Organized Health Care Education/Training Program; ATTEND Student in an Organized Health Care Education/Training Program
PROC: 5A09357 Assistance with Respiratory Ventilation, Less than 24 Consecutive Hours, Continuous Positive Airway Pressure (ICD-10-PCS; principal; 2024-11-07)
DX: I26.99 Other pulmonary embolism without acute cor pulmonale (principal); I50.31 Acute diastolic (congestive) heart failure; J96.21 Acute and chronic respiratory failure with hypoxia; I13.0 Hypertensive heart and chronic kidney disease with heart failure and stage 1 through stage 4 chronic kidney disease, or unspecified chronic kidney disease; J44.1 Chronic obstructive pulmonary disease with (acute) exacerbation; I48.92 Unspecified atrial flutter; Z66 Do not resuscitate; G89.29 Other chronic pain; G47.33 Obstructive sleep apnea (adult) (pediatric); G25.81 Restless legs syndrome; F41.9 Anxiety disorder, unspecified; F32.A Depression, unspecified; F39 Unspecified mood [affective] disorder; G47.00 Insomnia, unspecified; N32.81 Overactive bladder; J43.9 Emphysema, unspecified; K21.9 Gastro-esophageal reflux disease without esophagitis; N18.9 Chronic kidney disease, unspecified; E11.22 Type 2 diabetes mellitus with diabetic chronic kidney disease; F19.10 Other psychoactive substance abuse, uncomplicated; R79.89 Other specified abnormal findings of blood chemistry; K59.00 Constipation, unspecified; Z99.81 Dependence on supplemental oxygen; Z86.73 Personal history of transient ischemic attack (TIA), and cerebral infarction without residual deficits; Z90.710 Acquired absence of both cervix and uterus; Z98.890 Other specified postprocedural states; Z91.018 Allergy to other foods; Z88.2 Allergy status to sulfonamides; Z88.8 Allergy status to other drugs, medicaments and biological substances; Z79.899 Other long term (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; Z79.51 Long term (current) use of inhaled steroids; Z79.4 Long term (current) use of insulin; Z87.891 Personal history of nicotine dependence; Z79.84 Long term (current) use of oral hypoglycemic drugs
CPT/HCPCS: 36415; 71045; 71046; 71260; 80048; 80053; 83735; 83880; 84484; 85025; 93005; 93010; 93306; 94640; 94660; 94667; 94668; 94762; 94799; 96374; 96375; 96376; 97110; 97161; 97530; 99285-25; A9270; J0696; J1815; J1938; J2405; J2919; J7030; J7040; J7605; Q9967

== ENCOUNTER 2025-02-20 13:46 | Emergency (ER) | payer MEDICARE, OTHER ==
[~2025-02-20] VITALS: Ht 152.4 cm; Wt 124.0 kg
[~2025-02-20 13:46] MED LIST changes: +DILTIAZEM ER300 MG PO; +ELIQUIS5 MG PO; +LASIX40 MG PO
[2025-02-20] MEDS ORDERED: predniSONE 20 MG TAB PO ONE (17:15)
[2025-02-20] MEDS ORDERED: PREDNISONE20 MG PO (17:18)
[2025-02-20] MEDS ORDERED: ONDANSETRON ODT4 MG PO (17:18)
[2025-02-20] MEDS ORDERED: HYDROCODON-ACE1 EA10 PO (17:18)
[2025-02-20] MEDS ORDERED: HYDROCODONE/ACETA 5/325 TAB PO ONE (17:30)
[2025-02-20] MEDS ORDERED: ONDANSETRON 4 MG TAB ODT SL ONE (17:30)
[2025-02-20 17:35] VITALS: BP 146/54
== END 2025-02-20 17:35 | disposition home or self-care (01) ==
LOC: ED 13:46
DX: M54.50 Low back pain, unspecified (principal); E11.9 Type 2 diabetes mellitus without complications; I10 Essential (primary) hypertension; G47.30 Sleep apnea, unspecified; J43.9 Emphysema, unspecified; K21.9 Gastro-esophageal reflux disease without esophagitis; Z99.81 Dependence on supplemental oxygen; Z86.73 Personal history of transient ischemic attack (TIA), and cerebral infarction without residual deficits; Z91.018 Allergy to other foods; Z88.2 Allergy status to sulfonamides; Z88.8 Allergy status to other drugs, medicaments and biological substances; Z79.01 Long term (current) use of anticoagulants; Z79.4 Long term (current) use of insulin; Z79.899 Other long term (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
CPT/HCPCS: 72100; 99283; A9270; J7512

== ENCOUNTER 2025-04-10 12:33 | Emergency (ER) | payer MEDICARE, OTHER ==
[~2025-04-10] VITALS: Ht 152.4 cm; Wt 123.0 kg
[~2025-04-10 12:33] MED LIST changes: +ONDANSETRON ODT4 MG PO
[2025-04-10] MEDS ORDERED: ALBUTEROL/IPRATROPIUM 3 ML NEB INH PRN (13:00)
[2025-04-10 13:07] LABS: BASOPHILS 0.3 % (0.1-1.2); EOSINOPHILS 3.3 % (0.7-5.8); LYMPHOCYTES 26.7 % (19.3-51.7); MCH 27.6 PG (25.6-32.2); MCHC 31.5 g/dL (32.2-35.5); MCV 87.4 fL (79.4-94.8); MONOCYTES 10.3 % (4.7-12.5); NEUTROPHILS 59.1 % (34.0-71.1); RBC 4.46 M/uL (3.93-5.22)
[2025-04-10 13:42] LABS: ALT (SGPT) 14.0 U/L (14-59); AST (SGOT) 9.0 U/L (15-37); GLOMERULAR FILTRATION RATE,EST 84.0 mL/min (>60); PROTEIN, TOTAL 7.0 g/dL (6.4-8.2); UREA NITROGEN 15.0 mg/dL (7-18)
--- NOTE | 2025-04-10 13:51 | EKG ---
[facility] [address] [facility] [place] [address] Signed Atrial flutter with variable AV block Abnormal ECG When compared with ECG of 07-NOV-2024 11:10, Vent. rate has decreased BY 82 BPM Non-specific change in ST segment in Inferior leads ST no longer depressed in Anterior leads Nonspecific T wave abnormality no longer evident in Inferior leads Confirmed by ANTONINA WEBB MD ([id number]) on 04/10/2025 1:51:20 PM Electronically Signed By: ANTONINA WEBB 04/10/25 1351 PATIENT NAME: SHELLEY GUILLEN Electrocardiogram DATE OF : 51 PHYSICIAN: ANTONINA WEBB REPORT #: [id number] REPORT IS CONFIDENTIAL AND NOT TO BE RELEASED WITHOUT AUTHORIZATION
[2025-04-10] MEDS ORDERED: HYDROCODONE/ACETA 5/325 TAB PO ONE (15:00)
[2025-04-10] MEDS ORDERED: FUROSEMIDE 40 MG/4 ML VIAL IV ONE (15:00)
[2025-04-10] MEDS ORDERED: ONDANSETRON 4 MG TAB ODT SL ONE (15:00)
[2025-04-10 15:36] VITALS: BP 140/60
== END 2025-04-10 15:37 | disposition home or self-care (01) ==
LOC: ED 12:33
PROVIDERS: Emergency Medicine
DX: I48.92 Unspecified atrial flutter (principal); I10 Essential (primary) hypertension; E78.00 Pure hypercholesterolemia, unspecified; G47.30 Sleep apnea, unspecified; E11.9 Type 2 diabetes mellitus without complications; J43.9 Emphysema, unspecified; Z86.73 Personal history of transient ischemic attack (TIA), and cerebral infarction without residual deficits; Z91.018 Allergy to other foods; Z88.2 Allergy status to sulfonamides; Z88.8 Allergy status to other drugs, medicaments and biological substances; Z79.4 Long term (current) use of insulin; Z79.84 Long term (current) use of oral hypoglycemic drugs; Z79.899 Other long term (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
CPT/HCPCS: 36415; 71045; 80053; 83735; 83880; 84484; 85025; 93005; 93010; 94640; 96374; 99285-25; A9270; J1938

== ENCOUNTER 2025-04-28 09:58 | Emergency (ER) | payer MEDICARE, OTHER ==
[~2025-04-28] VITALS: Ht 152.4 cm; Wt 120.0 kg
[2025-04-28 12:02] LABS: BLOOD/HGB, URINE NEGATIVE (Negative); KETONE, URINE NEGATIVE (Negative); LEUK ESTERASE, URINE NEGATIVE (negative); NITRITE, URINE NEGATIVE (negative)
[2025-04-28 12:17] LABS: BACTERIA, URINE 2+ /hpf (negative); CASTS, URINE NONE SEEN \\lpf; CRYSTALS, URINE NONE SEEN (0-1+); EPITHELIAL CELLS, URINE SQUAMOUS 3+ /lpf (0-1+); REFLEX CULTURE, URINE No (No)
[2025-04-28 12:51] VITALS: BP 149/80
== END 2025-04-28 12:52 | disposition home or self-care (01) ==
LOC: ED 09:58
PROVIDERS: Emergency Medicine
DX: M54.6 Pain in thoracic spine (principal); I10 Essential (primary) hypertension; J44.9 Chronic obstructive pulmonary disease, unspecified; K21.9 Gastro-esophageal reflux disease without esophagitis; Z90.710 Acquired absence of both cervix and uterus; Z88.2 Allergy status to sulfonamides; Z88.8 Allergy status to other drugs, medicaments and biological substances
CPT/HCPCS: 81001; 99283